=== PATIENT | female | born 1990 | race Native Hawaiian/Other Pacific Islander ===

== ENCOUNTER 2024-09-12 17:22 | Emergency (ER) | payer SELFPAY ==
[2024-09-12 17:24] VITALS: BP 119/93; PULSE 95; RESP 20; TEMP 36.6; O2SAT 98; BMI 25.8
--- OUTSIDE RECORDS SUMMARY | 2024-09-12 17:24 | XMS_ITS | Clinical Summary ---
Author Organization [facility] Address [address] [place] [address] Care Team Providers Care Pulley Worker Name Role Phone No Primary/Referring, Phy Primary Care Provider Unavailable Source Comments You are receiving this document as you are listed as the primary care provider,follow-up provider, or the patient has been referred to you for consultation.This is in compliance with the Medicare andMedicaid EHR Incentive Program,which states Providers who transition their patient to another setting of careor provider of care or refers their patient to another provider of care shouldprovide summary care record for each transition of care or referral. [facility] Allergies Active Allergy Reactions Criticality Noted Date Comments Amoxapine Nausea And Vomiting 08/24/2015 Diazepam Other, see comments,Rash Low 06/23/2023 Mood changes and edema Gabapentin 12/29/2018 Other reaction(s): *Unknown Other 08/29/1993 PN: LW Other1: -NKA Review Contrast Media 08/29/1993 PN: LW CM1: CONTRAST- NKA Reaction : Valproic Acid Edema,generalized 04/07/2017 Other reaction(s): *Unknown Causes thrombocytopenia Causes thrombocytopenia Medications * This document contains information received from the source organization and may not represent a complete record from that organization. intra-uterine copper (PARAGARD T 380-A) by Intrauterine route once. 04/22/20 14 Active Alum & Mag Hydroxide-Simeth (ALUMINUM-MAGNESI UM-SIMETHICONE) 200-200-20 MG/5ML Take 15 mL by mouth 4 times daily as needed. 11/18/19 19 Active polyethylene glycol 3350 (GLYCOLAX) powder Take 17 g by mouth every 24 hours as needed. 05/30/20 Active sennosides-docusa te sodium (SENNA-S,SENNA PLUS) 8.6-50 MG per tablet Take 1-2 Tablets by mouth two times a day. 10/15/19 Active metoclopramide (REGLAN) 5 MG tablet Take 2 Tablets by mouth three times a day as needed for Nausea or Vomiting. 45 Tablet 12/23/19 Active Additional Information Patient not taking.Reported on 06/29/2024 ARIPiprazole (ABILIFY) 10 MG tablet Take 10 mg by mouth. 05/27/20 Active cholecalciferol (D3-50) 1.25 MG (44502 UT) capsule Take 50,000 Units by mouth. 01/05/20 Active folic acid 1 MG tablet Take 1 mg by mouth. 01/06/20 Active ondansetron (ZOFRAN-ODT) [address] 4 mg under tongue. 01/05/20 Active thiamine (VITAMIN B-1) 100 MG tablet Take 100 mg by mouth. 01/08/20 Active multivitamin with minerals tablet Take 1 Tablet by mouth. 04/26/20 Active Multiple Vitamins-Minerals (SUPER THERA HI M) Take 1 Tablet by mouth. 01/06/20 Active traZODone (DESYREL) 300 MG tablet Take 300 mg by mouth. 01/05/20 Active fluticasone propionate (FLONASE) 50 MCG/ACT nasal solution 1 [place] by Nasal route. 12/06/19 Active ALBUterol sulfate HFA 108 (90 Base) MCG/ACT inhaler Inhale 1-2 Puffs every 4 hours as needed for Wheezing. 1 Each 2 05/23/20 Active Additional Information Patient not taking.Reported on 06/29/[address] 1 [place] into both nostrils daily as needed. 14.1 g 11 05/23/20 Active Additional Information Patient not taking.Reported on 06/29/2024 pantoprazole (PROTONIX) 40 MG tabletIndications :Gastroesophageal Reflux Disease Take 1 Tablet by mouth two times a day. Indications: Gastroesophageal Reflux Disease 30 Tablet 05/31/20 Active Additional Information Patient not taking.Reported on 06/29/2024 prochlorperazine (COMPAZINE) 10 MG tablet Take 1 Tablet by mouth every 6 hours as needed for Nausea or Vomiting. 20 Tablet 05/31/20 20 Active Additional Information Patient not taking.Reported on 06/29/2024 furosemide (LASIX) 20 MG tablet Take 1-2 Tablets by mouth daily for 7 days. Take in morning. 10 Tablet 02/23/20 21 Active hydroCHLOROthiazi de (ORETIC) 12.5 MG tablet Take 12.5 mg by mouth. 02/22/20 21 Active hydrOXYzine HCl (ATARAX) 25 MG tablet Take 25-50 mg by mouth. 02/22/20 21 Active Active Problems Problem Noted Date Diagnosed Date Encounter for insertion of ParaGard IUD 04/04/20 22 Overview (04/04/2022): Placed 2014 in [place] Not immune to hepatitis B virus 04/26/2021 Overview (04/04/2022): Repeating series due to lack of immunity. Next vaccine due late Mar/early 2020. Bipolar 2 disorder 03/16/2021 Alcohol dependence 12/30/2020 Thrombocytopenia 12/26/2020 Alcohol withdrawal seizure 09/12/2019 Chronic liver failure without hepatic coma 09/12 H pylori ulcer 09/12/2019 Alcohol dependence with withdrawal with complica tion 04/20/2019 Chronic alcoholic gastritis without hemorrhage 0 12/29/2018 Hypomagnesemia 12/29/2018 Alcoholic liver failure 12/22/2018 Right clavicle fracture 05/26/2018 Alcohol withdrawal syndrome 05/07/2018 Posttraumatic stress disorder 05/07/2018 Coagulopathy 05/07/2018 Overview (09/12/2019): Related to liver disease Pancytopenia 05/07/2018 Overview (09/12/2019): Related to liver disease Portal hypertension 05/07/2018 History of stomach ulcers 04/21/2018 Overview (09/12/2019): H pylori DEBBY (acute kidney injury) 11/28/2017 Nausea & vomiting 11/28/2017 ASCUS with positive high risk HPV cervical 03/28 Overview (09/12/2019): 03/2017- colposcopy advised 03/2017- colposcopy advised Chemical dependency 03/14/2017 Pericardial effusion 03/14/2017 Anxiety and depression 01/29/2017 Vertigo, benign positional 01/24/[address] of the abdomen 01/17/2017 Chronic anemia 01/14/2017 History of pleural effusion 01/14/2017 Overview (09/12/2019): Related to liver cirrhosis Hyponatremia 01/14/2017 Pleural effusion 01/14/2017 Kidney stone 01/13/2017 History of pericarditis 01/02/2017 Pericarditis, acute, idiopathic 01/02/2017 Acute hypokalemia 12/24/2016 Alcohol abuse 12/24/2016 Acute alcoholic intoxication with complication 0 12/24/2016 Helicobacter pylori infection 12/24/2016 Alcoholic cirrhosis 12/24/2016 Hypertension, essential 02/10/2015 IUD (intrauterine device) in place 08/31/2013 Overview (03/19/2017): Paraguard IUD inserted 08/27/2013 Need for desensitization to allergens 12/12/2005 Depressive disorder 10/23/2005 Persistent insomnia 10/23/2005 Unspecified asthma, uncomplicated 08/15/2005 Encounters Date Type Department Care Team Description 06/29/2024 2:00 PM APPLICATION DEVELOPMENT TEAM LEAD Office Visit [facility] [address] [place] [address] Jere Bateman PA-C Vomiting, unspecified vomiting type, unspecified whether nausea present; Jaundice; Alcoholic cirrhosis, unspecified whether ascites present (HRC) 06/12/2024 8:56 PM APPLICATION DEVELOPMENT TEAM LEAD - 06/12/2024 10:59 PM [facility] Emergency [facility] [address] [facility] [place] [address] Zhang James MD Alcohol dependence with uncomplicated intoxication (HRC); Hypokalemia Discharge Disposition: Home from Last 3 Months Immunizations Immunization Administration Dates Next Due 4vHPV (Gardasil) 08/16/2009,08/03/2008, 8 DTaP 1988 Flu Vac (3+ yrs) 05/21/2005,06/28/2003 Fluzone Qiv Multidose Vial 0 .25 (6-35 Mos) 04/07/2019 HepA Adult (19+ yrs) 03/16/2021 HepB Adult (Engerix-B, 20+ y rs, 3 dose series) 04/27/2021,03/16/2021,04/07/2009,2008,09/26/2008,11/27/1992 Influenza ([place] Only) (Flul aval Quad 0.5, 3+ yrs) 04/19/2020 Influenza IIV4 (Quadrivalent ) 0.5mL (18556) 04/27/2021,05/29/2018,05/10/2018,2016 Influenza, Unspecified Formulation 05/24/2015 Ernie COVID-19 Vaccine 12/19/2020 MMR 04/09/2000 Moderna Monovalent 12+ 08/17/2021 OPV, Trivalent (Orimune or tOPV) 1988 PPSV23 (Pneumovax) 01/02/2019 Td 06/25/2006,04/09/2000 Tdap 09/12/2019,01/31/2011 Family History Medical History Relation Name Comments Coronary Artery Disease Maternal Grandfather quadruple bypass Hyperlipidemia Maternal Grandfather Cerebrovascular Disease Maternal Grandmother stroke Diabetes, Type II Maternal Grandmother Hypertension Maternal Grandmother Relation Name Status Comments Father Mother Alive Brother Alive Maternal Grandfather Alive Maternal Grandmother Paternal Grandfather Paternal Grandmother Sister 1 Alive Sister 2 Alive Social History Tobacco Use Types Packs/Day Years Used Date Smoking Tobacco: Former Cigarettes 0.5 4 0 08/20/2003 - 08/20/2007 Smokeless Tobacco: Never Tobacco Cessation:Counseling Given: Not Answered Alcohol Use Standard Drinks/Week Comments Not Currently 0 (1 standard drink = 0.6 oz pur e alcohol) sober since 01/05/2020 PHQ-2 Answer Date Recorded PHQ-2 Score 2 04/04/2022 Comments No Sex and Gender Information Value Date Recorded Sex Assigned at Not on file Legal Sex Female 4:38 AM CDT Gender Identity Not on file Sexual Orientation Not on file 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 Not on file Not on file Last Filed Vital Signs Vital Sign Reading Time Taken Comments Blood Pressure 150/102 06/29/2024 1:25 PM APPLICATION DEVELOPMENT TEAM LEAD Pulse 101 06/29/2024 1:25 PM APPLICATION DEVELOPMENT TEAM LEAD Temperature 36.7 C (98.1 F) 06/29/2024 1:25 PM APPLICATION DEVELOPMENT TEAM LEAD Respiratory Rate 16 06/29/2024 1:25 PM APPLICATION DEVELOPMENT TEAM LEAD Oxygen Saturation 100% 06/29/2024 1:25 PM APPLICATION DEVELOPMENT TEAM LEAD Inhaled Oxygen Concentration - - Weight 69.4 kg (153 lb) 04/04/2022 11:09 AM CDT Height 170.2 cm (5' 7) 04/04/2022 11:09 AM CDT Body Mass Index 23.96 04/04/2022 11:09 AM CDT Plan of Treatment Health Maintenance Due Date Last Done Comments IPV (Polio) (2 of 3 - 4-dose series) 1988 1988 Adult Preventive Visit 2006 HepB (7) 04/27/2022 04/27/2021, 02/26, 04/07/2009, Additional history exists Asthma ACT (score of 20 or higher) 04/04/2023 04/04/2022 Cervical Cancer Screening 03/27/2024 03/27/2021 (Com pleted) COVID-19 Vaccine ( season) 2024 05/16/2023, 08/17/2021, 12/19/2020 Influenza (#1) 2024 04/25/2023, 07/2020, 04/19/2020, Additional history exists DTaP/Tdap/Td (6 - Tdap) 09/12/2029 09/12/19, 01/31/2011, 06/25/2006, Additional history exists Zoster/Shingles (1 of 2) 2038 HPV Vaccine Completed 08/16/2009, 01/2009, 05/20/2008 Hep C Screening (Preventive Services) Completed 01/02/2019 (Completed) HIV Screening (Preventive Services) Completed 03/27/2021 (Completed), 04/11/2017, 04/11/2017 (Completed), Additional history exists HepA Completed 04/01/2023, 03/16/2021 Pneumococcal Completed 04/01/2023, 01/02/2019 Hib Aged Out No longer eligi ble based on patient's age to complete this topic MCV4 Aged Out No longer eligi ble based on patient's age to complete this topic Meningococcal B Aged Out No longer el igible based on patient's age to complete this topic Procedures Procedure Name Priority Date/Time Associated Diagnosis Comments EXTRA LAVENDER TOP TUBE Routine 06/12/2024 9:38 PM APPLICATION DEVELOPMENT TEAM LEAD EXTRA LIGHT GREEN TUBE Routine 06/12/2024 9:38 PM APPLICATION DEVELOPMENT TEAM LEAD EXTRA GOLD/SST TUBE Routine 06/12/2024 9 :38 PM APPLICATION DEVELOPMENT TEAM LEAD EXTRA BLUE TOP TUBE Routine 06/12/2024 9 :38 PM APPLICATION DEVELOPMENT TEAM LEAD ECG 12 LEAD INPATIENT STAT 06/12/2024 9:36 PM APPLICATION DEVELOPMENT TEAM LEAD RBC AND PLATELET MORPHOLOGY STAT 06/12/2024 9:34 PM APPLICATION DEVELOPMENT TEAM LEAD COMPLETE BLOOD COUNT-W/DIFF STAT 06/12/2024 9:34 PM APPLICATION DEVELOPMENT TEAM LEAD MAGNESIUM STAT 06/12/2024 9:34 PM APPLICATION DEVELOPMENT TEAM LEAD ALCOHOL,ETHYL STAT 06/12/2024 9:34 PM APPLICATION DEVELOPMENT TEAM LEAD LIVER PANEL(HEPATIC FUNCTION PANEL) STAT 06/12/2024 9:34 PM APPLICATION DEVELOPMENT TEAM LEAD CBC AND DIFFERENTIAL PANEL STAT 06/12/2024 9:34 PM APPLICATION DEVELOPMENT TEAM LEAD BASIC METABOLIC PANEL STAT 06/12/2024 9:34 PM APPLICATION DEVELOPMENT TEAM LEAD from Last 3 Months Results * Extra Lavender top tube (06/12/2024 9:38 PM APPLICATION DEVELOPMENT TEAM LEAD) Extra Lavender Top Drawn Specimen will be held for 3 days 06/12/2024 11:01 PM APPLICATION DEVELOPMENT TEAM LEAD [facility] Blood Venipuncture / Unknown 06/12/2024 9:38 PM APPLICATION DEVELOPMENT TEAM LEAD 06/12/2024 9:42 PM APPLICATION DEVELOPMENT TEAM LEAD us Zhang James MD LAB_1 Final Result Performing Organization Address [facility] Phone Number [facility] [address] [place] [address] * Extra Blue top tube (06/12/2024 9:38 PM APPLICATION DEVELOPMENT TEAM LEAD) Extra Blue Top Drawn Specimen will be held for 24 hours 06/12/2024 11:01 PM APPLICATION DEVELOPMENT TEAM LEAD [facility] Blood Venipuncture / Unknown 06/12/2024 9:38 PM APPLICATION DEVELOPMENT TEAM LEAD 06/12/2024 9:42 PM APPLICATION DEVELOPMENT TEAM LEAD us Zhang James MD LAB_1 Final Result Performing Organization Address [facility] Phone Number [facility] [address] [place] [address] * Extra Gold/SST Tube (06/12/2024 9:38 PM APPLICATION DEVELOPMENT TEAM LEAD) Extra Gold/SST Tube Drawn Specimen will be held for 5 days 06/12/2024 11:01 PM APPLICATION DEVELOPMENT TEAM LEAD [facility] Blood Venipuncture / Unknown 06/12/2024 9:38 PM APPLICATION DEVELOPMENT TEAM LEAD 06/12/2024 9:42 PM APPLICATION DEVELOPMENT TEAM LEAD us Zhang James MD LAB_1 Final Result Performing Organization Address [facility] Phone Number [facility] [address] [place] [address] * Extra Light Green Tube (06/12/2024 9:38 PM APPLICATION DEVELOPMENT TEAM LEAD) Extra Light Green Tube Drawn Specimen will be held for 5 days 06/12/2024 11:01 PM APPLICATION DEVELOPMENT TEAM LEAD [facility] Blood Venipuncture / Unknown 06/12/2024 9:38 PM APPLICATION DEVELOPMENT TEAM LEAD 06/12/2024 9:42 PM APPLICATION DEVELOPMENT TEAM LEAD us Zhang James MD LAB_1 Final Result Performing Organization Address City/[facility]/ZIP Co de Phone Number [facility] [address] [place], [place] [address] * ECG 12 Lead Inpatient (06/12/2024 9:36 PM APPLICATION DEVELOPMENT TEAM LEAD) Ventricular Rate 80 BPM [facility] Atrial Rate 80 BPM [facility] P-R Interval 198 ms [facility] QRS Duration 94 ms [facility] QT 412 ms [facility] QTC 475 ms [facility] P [place] 42 degrees [facility] R [place] 21 degrees [facility] T [place] 41 degrees [facility] 06/12/2024 9:36 PM APPLICATION DEVELOPMENT TEAM LEAD Narrative [facility] - 06/13/2024 8:58 PM APPLICATION DEVELOPMENT TEAM LEAD Sinus rhythm Normal ECG When compared with ECG of 27-MAY-2020 20:08, No significant change was found Confirmed by Zhang James ([id number]) on 06/13/2024 8:58:14 PM Procedure Note Zhang James MD - 06/13/2024 Sinus rhythm Normal ECG When compared with ECG of 27-MAY-2020 20:08, No significant change was found Confirmed by Zhang James ([id number]) on 06/13/2024 8:58:14 PM us Zhang James MD PN ECG ORDERABLES Final Result Performing Organization Address [facility] Co de Phone Number [facility] [address] [place] [address] * (ABNORMAL) Morphology-RBC and Platelet (06/12/2024 9:34 PM APPLICATION DEVELOPMENT TEAM LEAD) RBC Morphology Reviewed 06/12/2024 10:46 PM APPLICATION DEVELOPMENT TEAM LEAD [facility] Platelet Estimate Decreased(A) Adequate 06/12/2024 10:46 PM APPLICATION DEVELOPMENT TEAM LEAD [facility] Blood Venipuncture / Unknown 06/12/2024 9:34 PM APPLICATION DEVELOPMENT TEAM LEAD 06/12/2024 9:42 PM APPLICATION DEVELOPMENT TEAM LEAD us Zhang James MD LAB_1 Final Result [facility] [address] [place] [address], [facility] * (ABNORMAL) Complete Blood Count-W/Diff (06/12/2024 9:34 PM APPLICATION DEVELOPMENT TEAM LEAD) WBC 1.9(L) 3.5 - 10.5 x10(9)/L 06/12/2024 10:46 PM APPLICATION DEVELOPMENT TEAM LEAD [facility] RBC 3.57(L) 3.90 - 5.03 x10(12)/L 06/12/2024 10:46 PM APPLICATION DEVELOPMENT TEAM LEAD [facility] Hemoglobin 12.7 12.0 - 15.5 g/dL 06/12/2024 10:46 PM APPLICATION DEVELOPMENT TEAM LEAD [facility] HCT 37.3 34.9 - 44.5 % 06/12/2024 10:46 PM APPLICATION DEVELOPMENT TEAM LEAD [facility] MCV 104.5(H) 80.0 - 100.0 fL 06/12/2024 10:46 PM APPLICATION DEVELOPMENT TEAM LEAD [facility] MCH 35.6(H) 27.6 - 33.3 pg 06/12/2024 10:46 PM APPLICATION DEVELOPMENT TEAM LEAD [facility] MCHC 34.0 31.5 - 35.2 g/dL 06/12/2024 10:46 PM APPLICATION DEVELOPMENT TEAM LEAD [facility] RDW 15.8(H) 11.9 - 15.5 % 06/12/2024 10:46 PM APPLICATION DEVELOPMENT TEAM LEAD [facility] Platelets 106(L) 150 - 450 x10(9)/L 06/12/2024 10:46 PM APPLICATION DEVELOPMENT TEAM LEAD [facility] Automated NRBC 0 <=0 /100 WBC 06/12/2024 10:46 PM APPLICATION DEVELOPMENT TEAM LEAD [facility] Neutrophil Absolute 1.2(L) 1.7 - 7.0 10(9)/L 06/12/2024 10:46 PM APPLICATION DEVELOPMENT TEAM LEAD [facility] Lymphocyte Absolute 0.6(L) 1.0 - 4.8 10(9)/L 06/12/2024 10:46 PM APPLICATION DEVELOPMENT TEAM LEAD [facility] Monocyte Absolute 0.1(L) 0.2 - 0.9 10(9)/L 06/12/2024 10:46 PM APPLICATION DEVELOPMENT TEAM LEAD [facility] Eosinophil Absolute 0.0 0.0 - 0.5 10(9)/L 06/12/2024 10:46 PM APPLICATION DEVELOPMENT TEAM LEAD [facility] Basophil Absolute 0.0 0.0 - 0.3 10(9)/L 06/12/2024 10:46 PM APPLICATION DEVELOPMENT TEAM LEAD [facility] Immature Granulocyte % 1.0(H) 0.0 - 0.5 % 06/12/2024 10:46 PM APPLICATION DEVELOPMENT TEAM LEAD [facility] Blood Venipuncture / Unknown 06/12/2024 9:34 PM APPLICATION DEVELOPMENT TEAM LEAD 06/12/2024 9:42 PM APPLICATION DEVELOPMENT TEAM LEAD Zhang James MD LAB_1 Final Result Performing Organization Address [facility] de Phone Number [facility] [address] * (ABNORMAL) Liver Panel (Hepatic Function Panel) (06/12/2024 9:34 PM APPLICATION DEVELOPMENT TEAM LEAD) Alkaline Phosphatase 139 40 - 150 U/L 06/12/2024 10:04 PM APPLICATION DEVELOPMENT TEAM LEAD [facility] Bilirubin, Total 2.5(H) 0.2 - 1.2 mg/dL 06/12/2024 10:04 PM APPLICATION DEVELOPMENT TEAM LEAD [facility] Bilirubin, Direct 1.5(H) 0.0 - 0.5 mg/dL 06/12/2024 10:04 PM APPLICATION DEVELOPMENT TEAM LEAD [facility] AST (SGOT) 140(H) 10 - 40 U/L 06/12/2024 10:04 PM APPLICATION DEVELOPMENT TEAM LEAD [facility] ALT (SGPT) 90(H) <=55 U/L 06/12/2024 10:04 PM APPLICATION DEVELOPMENT TEAM LEAD [facility] Protein, Total 7.0 6.4 - 8.3 g/dL 06/12/2024 10:04 PM APPLICATION DEVELOPMENT TEAM LEAD [facility] Albumin 3.7 3.5 - 5.0 g/dL 06/12/2024 10:04 PM APPLICATION DEVELOPMENT TEAM LEAD [facility] Blood Venipuncture / Unknown 06/12/2024 9:34 PM APPLICATION DEVELOPMENT TEAM LEAD 06/12/2024 9:42 PM APPLICATION DEVELOPMENT TEAM LEAD Zhang James MD LAB_1 Final Result Performing Organization Address [facility] de Phone Number [facility] [address] * (ABNORMAL) Basic Metabolic Panel (06/12/2024 9:34 PM APPLICATION DEVELOPMENT TEAM LEAD) Sodium 139 136 - 145 mmol/L 06/12/2024 10:04 PM APPLICATION DEVELOPMENT TEAM LEAD [facility] Potassium 3.2(L) 3.5 - 5.1 mmol/L 06/12/2024 10:04 PM APPLICATION DEVELOPMENT TEAM LEAD [facility] Chloride 109 98 - 109 mmol/L 06/12/2024 10:04 PM APPLICATION DEVELOPMENT TEAM LEAD [facility] CO2 16(L) 20 - 29 mmol/L 06/12/2024 10:04 PM APPLICATION DEVELOPMENT TEAM LEAD [facility] Anion Gap 14 6 - 16 mmol/L 06/12/2024 10:04 PM APPLICATION DEVELOPMENT TEAM LEAD [facility] Calcium 9.3 8.4 - 10.4 mg/dL 06/12/2024 10:04 PM APPLICATION DEVELOPMENT TEAM LEAD [facility] BUN 8 7 - 26 mg/dL 06/12/2024 10:04 PM APPLICATION DEVELOPMENT TEAM LEAD [facility] Creatinine 0.39(L) 0.55 - 1.02 mg/dL 06/12/2024 10:04 PM APPLICATION DEVELOPMENT TEAM LEAD [facility] Glucose 80 70 - 100 mg/dL 06/12/2024 10:04 PM APPLICATION DEVELOPMENT TEAM LEAD [facility] Comment:The given reference range is for the fasting state. Non-fasting reference range for glucose is 70 - 180 mg/dL. GFR, Estimated >60 >60 mL/min/1.7 3m2 06/12/2024 10:04 PM APPLICATION DEVELOPMENT TEAM LEAD [facility] Blood Venipuncture / Unknown 06/12/2024 9:34 PM APPLICATION DEVELOPMENT TEAM LEAD 06/12/2024 9:42 PM APPLICATION DEVELOPMENT TEAM LEAD Zhang James MD LAB_1 Final Result [facility] [address] * Magnesium (06/12/2024 9:34 PM APPLICATION DEVELOPMENT TEAM LEAD) Magnesium 2.4 1.6 - 2.6 mg/dL 06/12/2024 10:04 PM APPLICATION DEVELOPMENT TEAM LEAD [facility] Blood Venipuncture / Unknown 06/12/2024 9:34 PM APPLICATION DEVELOPMENT TEAM LEAD 06/12/2024 9:42 PM APPLICATION DEVELOPMENT TEAM LEAD Zhang James MD LAB_1 Final Result Performing Organization Address [facility] de Phone Number [facility] [address] * (ABNORMAL) Alcohol,Ethyl Level (06/12/2024 9:34 PM APPLICATION DEVELOPMENT TEAM LEAD) Ethyl Alcohol 0.34(H) <=0.01 g/dL 06/12/2024 10:04 PM APPLICATION DEVELOPMENT TEAM LEAD [facility] Blood Venipuncture / Unknown 06/12/2024 9:34 PM APPLICATION DEVELOPMENT TEAM LEAD 06/12/2024 9:42 PM APPLICATION DEVELOPMENT TEAM LEAD Narrative [facility] - 06/12/2024 10:04 PM APPLICATION DEVELOPMENT TEAM LEAD For medical purposes only; not valid for forensic, legal, or employment use. Zhang James MD LAB_1 Final Result Performing Organization Address [facility] de Phone Number [facility] [address] from Last 3 Months Insurance [address] [place] [id number] [facility] [employer] [place] [address] Advance Directives * Full Code (Latest Code Status on File) Date Activated Date Inactivated Comments 05/28/2020 12:35 AM 05/31/2020 1:54 PM Question Answer Comments On Admission, Code status wa s determined by: Not discussed with patient/family * Full Code Date Activated Date Inactivated Comments 12/10/2018 3:30 PM 12/22/2018 12:45 PM Care Teams Pulley Worker Relationship Specialty Start Date End Date No Primary/Referring, Phy PCP - General 04/04/22
--- OUTSIDE RECORDS SUMMARY | 2024-09-12 17:24 | XMS_ITS | Referral Summary ---
Author Organization [facility] Address [address] [place] [address] Care Team Providers Care Speed Belt Sander Tender Name Role Phone Doctor, No Primary Care Provider Unavailabl e Clinic, No Primary Unavailable Unavailable Allergies Active Allergy Reactions Criticality Noted Date Comments Divalproex 06/29/2020 Gabapentin 06/29/2020 Medications ARIPiprazole (ABILIFY) 10 mg oral tablet Take 10 mg by mouth once daily. Active traZODone (DESYREL) 100 mg oral tablet Take 300 mg by mouth at bedtime as needed for sleep. Active ondansetron (ZOFRAN) 4 mg oral ODT Dissolve 1-2 tablets (4-8 mg) in mouth every 8 (eight) hours as needed. 20 tablet 10/26/2020 12:06 PM CDT 10/26/2020 Active Active Problems Problem Noted Date Diagnosed Date Hypokalemia 12/02/2020 Alcohol withdrawal seizure w ith complication, with unspecified complication 10/24/2020 Social History Tobacco Use Types Packs/Day Years Used Date Smoking Tobacco: Light Smoker Cigarettes E - Cigarettes Smokeless Tobacco: Never Tobacco Cessation:Ready to Q uit: No; Counseling Given: No Alcohol Use Standard Drinks/Week Comments Yes 0 (1 standard drink = 0.6 oz pur e alcohol) on and off abuse of Comments Unknown Sex and Gender Information Value Date Recorded Sex Assigned at Not on file Legal Sex Female 12:38 PM HOUSE MANAGER Gender Identity Not on file Sexual Orientation Not on file Last Filed Vital Signs Vital Sign Reading Time Taken Comments Blood Pressure 116/71 12/06/2020 12:06 PM CDT Pulse 88 12/06/2020 12:06 PM CDT Temperature 36.7 C (98 F) 12/06/2020 12:06 PM CDT Respiratory Rate 20 12/06/2020 12:06 PM CDT Oxygen Saturation 96% 12/06/2020 12:06 PM CDT Inhaled Oxygen Concentration - - Weight 69.9 kg (154 lb 1.6 oz) 12/02/2020 9:05 P M CDT Height 170.2 cm (5' 7) 12/02/2020 9:05 PM CDT Body Mass Index 24.14 12/02/2020 9:05 PM CDT Plan of Treatment Not on file Procedures Procedure Name Priority Date/Time Associated Diagnosis Comments HEP A/B/C PANEL Add On 12/02/2020 4:56 PM CDT from Last 3 Months or Most Recently Relevant to Health Maintenance Results * Hepatitis A / B / C Profile (12/02/2020 4:56 PM CDT) HEP BC IGM MADIHA Non-React payton Non-React payton [facility] ANALYZER 12/02/2020 11:26 PM CDT [facility] HEP A IGM MADIHA Non-React [place] Non-React pay[place] [facility] ANALYZER 12/02/2020 11:26 PM CDT [facility] HEP BS ANTIGEN Non-React [place] Non-React payton [facility] ANALYZER 12/02/2020 11:26 PM CDT [facility] Hepatitis C Antibody Non-React payton Non-React payton [facility] ANALYZER 12/02/2020 11:26 PM CDT [facility] Blood 12/02/2020 4:56 PM CDT 12/02/2020 5:02 PM CDT Lana KOEHLER IMMUNOLOGY ORDERABLE Final Result [facility] [address] [place] [id number] from Last 3 Months or Most Recently Relevant to Health Maintenance Advance Directives For more information, please contact: [phone] * Full Code (Latest Code Status on File) Date Activated Date Inactivated Comments 12/02/2020 9:05 PM 12/06/2020 7:22 PM Question Answer Comments How was code status determined? Previous Documen tation * Full Code Date Activated Date Inactivated Comments 10/24/2020 3:31 PM 10/26/2020 5:44 PM Question Answer Comments How was code status determined? Patient Care Teams Speed Belt Sander Tender Relationship Specialty Start Date End Date Doctor, No No ad PCP - General Radiology 06/29/20 Clinic, No Primary PCP - Primary Care Clinic 06/29/20
--- OUTSIDE RECORDS SUMMARY | 2024-09-12 17:24 | XMS_ITS ---
Author Organization [facility] Address [address] [place] [address] Care Team Providers Care Textile Scrap Salvager Name Role Phone Julissa Frank [facility] Unavailable [phone] Shai Horta MD Unavailable [phone] Deborah Rascon DO Unavailable [phone] Maria Whitley MD Unavailable Kaila Sen MD Primary Care Provide r Kaila Sen MD Unavailable None Unavailable Unavailable Maria Whitley MD Unavailable Julien Miranda MD Unavailable [phone] [facility] Primary Care Care Coordination Status:Identified (Enrolling) Start date:06/30/2023 Enrollment reason:Referred by provider or care team Overview [facility] Case Team Name Relationship Phone MAHOGANY aJmison Candy Cutter Machine(Re sponsible Staff) Continued Care and Services Coordination
--- OUTSIDE RECORDS SUMMARY | 2024-09-12 17:24 | XMS_ITS | Encounter Summary ---
Author Organization [facility] Address [address] [place] [address] Care Team Providers Care Engine Research Engineer Name Role Phone [place], [facility] Primary Care Prov ider Unavailable No Ref-Primary, Physician Primary Care Provider Amy Mace GUM SPRAYER PROGRAM/MUSIC DIRECTOR Unavailable Amy Mace GUM SPRAYER PROGRAM/MUSIC DIRECTOR Unavailable Oma Pierson GUM SPRAYER PROGRAM/MUSIC DIRECTOR Unavailable Unav ailable Amy Mace GUM SPRAYER PROGRAM/MUSIC DIRECTOR Unavailable Oma Pierson GUM SPRAYER PROGRAM/MUSIC DIRECTOR Unavailable Unav ailable Julissa Frank [facility] Unavailable [phone] Deborah Rascon DO Primary Care Provider [phone] Deborah Rascon DO Unavailable [phone] Shai Horta MD Unavailable [phone] Deborah Rascon DO Unavailable [phone] Justice Foster MD Unavailable [phone] Marie Abbott PROGRAM/MUSIC DIRECTOR Unavailable [phone] Jaxson Bryan MD Unavailable Jaxson Bryan MD Unavailable Yunior Mesa MD Unavailable [phone] Maria Whitley MD Unavailable [facility] Mayra Rosas [facility] Primary Ca re Provider Kaila Sen MD Primary Care Provide r Deborah Rascon DO Unavailable [phone] Jaxson Diane MD Unavailable [phone] Radha Carrillo Dayna BRITON PROGRAM/MUSIC DIRECTOR Unavailable [phone] Maria Whitley MD Unavailable Kaila Sen MD Unavailable Kaila Sen MD Unavailable [phone] Deborah Rascon DO Unavailable [phone] None Unavailable Unavailable Rico Corey INSTRUCTION ASSISTANT PRINCIPAL Unavailable Unavailable Rico Corey INSTRUCTION ASSISTANT PRINCIPAL Unavailable Unavailable Maria Whitley MD Unavailable Julien Miranda MD Unavailable [phone] Reason for Visit * Reason Onset Date Comments CD Outpatient 04/15/2018 Encounter Details Date Type Department Care Team (Late st Contact Info) Description 04/15/2018 Telephone [facility] Behavioral Health Intake [address] [place] [phone] Generic, Behavioral Intake, CD Outpatient Social History Tobacco Use Types Packs/Day Years Used Date Smoking Tobacco: Every Day Cigarettes Smokeless Tobacco: Never Alcohol Use Standard Drinks/Week Comments Yes 0 (1 standard drink = 0.6 oz pur e alcohol) as much liquor as I can get Comments No Sex and Gender Information Value Date Recorded Sex Assigned at Female 01/01/2021 8:44 AM CDT Legal Sex Female 1:07 PM CDT Gender Identity Female 01/01/2021 8:44 AM CDT Sexual Orientation Straight 01/01/2021 8: 44 AM CDT documented as of this encounter Miscellaneous Notes * Telephone Encounter - Hilda Akbar LADC - 04/27/2018 12:59 PM CDT 04/27/2018 Pt did not call or show for her scheduled CD evaluation. This is her second time she has either notshown or rescheduled on the day of her CD evaluation. * Telephone Encounter - Jaxson Lira - 04/15/2018 12:42 PM CDT 04/15/18 Client called to reschedule CD Eval appointment for 04/27/18 - [place]. ValeT documented in this encounter Plan of Treatment Not on file documented as of this encounter Visit Diagnoses Not on filedocumented in this encounter Additional Health Concerns Assessment Noted Time PHQ-9 Depression Total Score: 5 03/10/20 17 10:15 AM CDT documented as of this encounter Care Teams Engine Research Engineer Relationship Specialty Start Date End Date Center, [facility] PCP - General 04/03/18 05/17/18 No Ref-Primary, Physician PCP - General 05/18/18 05/26/19 Amy Mace APRN PROGRAM/MUSIC DIRECTOR [address] [place] [address] PCP - Assigned PCP 05/03/18 09/29/18 Deborah Rascon DO [address] [facility] [address] [address] PCP - General Family Practice 05/27/19 02/28/21 Clinic - [facility] [address] [address] PCP - General Family Medicine 03/01/21 03/07/21 Kaila Sen MD [address] [place] [address] PCP - General Family Medicine 03/08/21 Amy Mace, GUM SPRAYER PROGRAM/MUSIC DIRECTOR [address] [place] [address] Assigned PCP 05/03/18 10/10/18 Oma Pierson, GUM SPRAYER PROGRAM/MUSIC DIRECTOR Assigned PCP 10/11/18 12/26/18 Amy Mace, GUM SPRAYER PROGRAM/MUSIC DIRECTOR [address] [facility] [place] [address] Assigned PCP 12/27/18 02/13/19 Oma Pierson, GUM SPRAYER PROGRAM/MUSIC DIRECTOR Assigned PCP 02/14/19 06/05/19 Julissa Frank [facility] [address] [place], [place] [address] Pharmacist Pharmacist 05/27/19 Deborah Rascon DO [facility] [address] [place], [place] [id number] Assigned PCP 03/18/21 04/28/21 Shai Horta MD [address] [place], [place] [phone] Dermatology 11/22/19 Deborah Rascon DO [address] [place] [address] Referring Physician Family Practice 11/22/19 [place] [address] [place] [address] Assigned Sleep Provider 05/19/20 Marie Abbott CNP [facility] [address] [place] [address] Assigned Behavioral Health Provider 05/19/20 05/12/21 Jaxson Bryan MD [address] [place] [address] Assigned Gastroenterology Provider 05/19/20 10/21/20 Jaxson Bryan MD [address] [place] [address] Assigned Surgical Provider 10/22/20 Yunior Mesa MD [address] [place] [address] Assigned Musculoskeletal Provider 01/28/21 03/24/21 Maria Whitley MD [address] [place] [address] Gastroenterology 02/23/21 Deborah Rascon DO [facility] [address] [place] [address] Assigned PCP 06/06/19 03/10/21 Jaxson Diane MD [address] [place] [address] Assigned Musculoskeletal Provider 03/25/21 09/20/22 Radha Carrillo APRN PROGRAM/MUSIC DIRECTOR [address] [place] [address] Assigned PCP 03/11/21 03/17/21 Maria Whitley MD [address] [place] [address] Assigned Gastroenterology Provider 03/04/21 08/30/22 Kaila Sen MD [address] [place] [address] Assigned PCP 05/27/21 Kaila Sen MD [address] [place] [address] Assigned PCP 04/29/21 05/05/21 Deborah Rascon DO [facility] [address], [place] [address] Assigned PCP 05/06/21 05/26/21 None 02/28/23 Rico Corey INSTRUCTION ASSISTANT PRINCIPAL Power Plant Inspector 06/24/23 07/08/23 Rico Corey INSTRUCTION ASSISTANT PRINCIPAL Power Plant Inspector 07/14/23 07/28/23 Maria Whitley MD [address] [place] [address] Assigned Gastroenterology Provider 09/19/23 Julien Miranda MD [address] [place] [address] Assigned Behavioral Health Provider 12/18/23 documented as of this encounter
--- OUTSIDE RECORDS SUMMARY | 2024-09-12 17:24 | XMS_ITS | Encounter Summary ---
Author Organization [facility] Address [address] [place] [address] Care Team Providers Care It Administrator Name Role Phone ZacJulissa anthony [facility] Unavailable [phone] Shai Horta MD Unavailable [phone] Deborah Rascon DO Unavailable [phone] Maria Whitley MD Unavailable Kaila Sen MD Primary Care Provide r Kaila Sen MD Unavailable [phone] None Unavailable Unavailable Rico Corey LITIGATION PARALEGAL Unavailable Unavailable Rico Corey LITIGATION PARALEGAL Unavailable Unavailable Maria Whitley MD Unavailable Julien Miranda MD Unavailable [phone] Encounter Details Date Type Department Care Team (Late st Contact Info) Description 02/28/2023 Telephone [facility] [address] [address] Maria Whitley MD [address] [place] [address] Social History Tobacco Use Types Packs/Day Years Used Date Smoking Tobacco: Every Day Vaping Device Smokeless Tobacco: Never Comments:Everyday but not of ten Alcohol Use Standard Drinks/Week Comments Not Currently 0 (1 standard drink = 0.6 oz pur e alcohol) PHQ-2 Answer Date Recorded PHQ-2 Score 0 02/21/2023 Comments No Sex and Gender Information Value Date Recorded Sex Assigned at Female 01/01/2021 8:44 AM CDT Legal Sex Female 1:07 PM CDT Gender Identity Female 01/01/2021 8:44 AM CDT Sexual Orientation Straight 01/01/2021 8: 44 AM CDT COVID-19 Exposure Response Date Recorded In the last 10 days, have yo u been in contact with someone who was confirmed or suspected to have Coronavirus/COVID-19? No / Unsure 03/03/2023 11:29 AM CDT documented as of this encounter Miscellaneous Notes * Telephone Encounter - Cathy Jhaveri - 02/28/2023 9:24 AM CDT [facility] Call Center Phone Message May a detailed message be left on voicemail: yes Reason for Call: Other: Dr Kaila Sen/ [facility] cell [phone]- would like to consult regarding a medication (not currently on pt chart) please call her back to discuss. No appt was scheduled at this time by bid writer. Action Taken: Message routed to: Adult Clinics: Gastroenterology (GI) p [id number] Travel Screening: Not Applicable documented in this encounter Plan of Treatment Not on file documented as of this encounter Visit Diagnoses Not on filedocumented in this encounter Additional Health Concerns Assessment Noted Time PHQ-9 Depression Total Score: 12 02/07/ 023 12:06 PM CDT documented as of this encounter Care Teams It Administrator Relationship Specialty Start Date End Date Kaila Sen MD [facility] [place] [address] PCP - General Family Medicine 03/08/21 Julissa Frank [facility] [address] [facility] [address] [place] [address] Pharmacist Pharmacist 05/27/19 Shai Horta MD [address] [place], [place] [id number] Dermatology 11/22/19 Deborah Rascon DO [address] [place] [address] Referring Physician Family Practice 11/22/19 Maria Whitley MD [address] [place] [address] Gastroenterology 02/23/21 Kaila Sen MD [address] [place] [address] Assigned PCP 05/27/21 None 02/28/23 Rico Corey LITIGATION PARALEGAL Tactical/Mobile Watch Officer 06/24/23 07/08/23 Rico Corey LITIGATION PARALEGAL Tactical/Mobile Watch Officer 07/14/23 07/28/23 Maria Whitley MD [address] [place] [address] Assigned Gastroenterology Provider 09/19/23 Julien Miranda MD [address] [place] [address] Assigned Behavioral Health Provider 12/18/23 documented as of this encounter
--- OUTSIDE RECORDS SUMMARY | 2024-09-12 17:24 | XMS_ITS | Encounter Summary ---
Author Organization [facility] Address [address] [place] [address] Care Team Providers Care National Sales Trainer Name Role Phone No Primary/Referring, Phy Primary Care Provider Unavailable Encounter Details Date Type Department Care Team (Late st Contact Info) Description 07/05/2013 Scanned History External to Transferred Record, Provider [facility] Social History Tobacco Use Types Packs/Day Years Used Date Smoking Tobacco: Never Assessed Comments Unknown Sex and Gender Information Value Date Recorded Sex Assigned at Not on file Legal Sex Female 4:38 AM CDT Gender Identity Not on file Sexual Orientation Not on file documented as of this encounter Progress Notes * Transferred Record, Provider - 07/05/2013 12:00 AM CST K SORTER documented in this encounter Plan of Treatment Not on file documented as of this encounter Visit Diagnoses Not on filedocumented in this encounter Additional Health Concerns Infection Onset Date Last Indicated Resolved Time R/O COVID19 05/23/2020 05/23/2020 05/25/2020 1:05 PM CDT documented as of this encounter Care Teams National Sales Trainer Relationship Specialty Start Date End Date No Primary/Referring, Juliette PCP - General 04/04/22 documented as of this encounter
--- OUTSIDE RECORDS SUMMARY | 2024-09-12 17:24 | XMS_ITS | Encounter Summary ---
Author Organization [facility] Address [address] [place] [address] Care Team Providers Care Seasoning Mixer Name Role Phone No Primary/Referring, Phy Primary Care Provider Unavailable Encounter Details Date Type Department Care Team (Late st Contact Info) Description 12/10/[address] [phone] Amy Garcia MD [facility] [place] [address] MRI SAFETY AND HEALTH HISTORY QUESTIONNAIRE Social History Tobacco Use Types Packs/Day Years Used Date Smoking Tobacco: Former Cigarettes 0.5 4 0 08/20/2003 - 08/20/2007 Smokeless Tobacco: Never Alcohol Use Standard Drinks/Week Comments Yes 0 (1 standard drink = 0.6 oz pur e alcohol) Comments No Sex and Gender Information Value Date Recorded Sex Assigned at Not on file Legal Sex Female 4:38 AM CDT Gender Identity Not on file Sexual Orientation Not on file documented as of this encounter Plan of Treatment Not on file documented as of this encounter Visit Diagnoses Not on filedocumented in this encounter Additional Health Concerns Infection Onset Date Last Indicated Resolved Time R/O COVID19 05/23/2020 05/23/2020 05/25/2020 1:05 PM CDT documented as of this encounter Care Teams Seasoning Mixer Relationship Specialty Start Date End Date No Primary/Referring, Davidy PCP - General 04/04/22 documented as of this encounter
--- OUTSIDE RECORDS SUMMARY | 2024-09-12 17:24 | XMS_ITS | Encounter Summary ---
Author Organization [facility] Address [address] [place] [address] Care Team Providers Care Inspector Eyeglass Name Role Phone Ana Frankyany Silva [facility] Unavailable [phone] Deborah Rascon DO Primary Care Provider [phone] Deborah Rascon DO Unavailable [phone] Shai Horta MD Unavailable [phone] Deborah Rascon DO Unavailable [phone] Justice Foster MD Unavailable [phone] Marie Abbott LOGGING TRUCK DRIVER Unavailable [phone] Jaxson Bryan MD Unavailable Jaxson Bryan MD Unavailable Yunior Mesa MD Unavailable [phone] Maria Whitley MD Unavailable [facility] Jose Donohue [facility] re Provider Kaila Sen MD Primary Care Provide r Deborah Rascon DO Unavailable [phone] Jaxson Alejo MD Unavailable Radha Carrillo APRN LOGGING TRUCK DRIVER Unavailable [phone] Maria Whitley MD Unavailable Kaila Sen MD Unavailable Kaila Sen MD Unavailable [phone] Deborah Rascon DO Unavailable [phone] None Unavailable Unavailable Rico Corey STORAGE MANAGEMENT CONSULTANT Unavailable Unavailable Rico Corey STORAGE MANAGEMENT CONSULTANT Unavailable Unavailable Maria Whitley MD Unavailable Julien Miranda MD Unavailable [phone] Reason for Visit * Reason Onset Date Comments Refill Request 10/21/2019 Aripiprazole (Ab ilify) 10 mg tablet Refill Request 10/28/2019 Encounter Details Date Type Department Care Team (Late st Contact Info) Description 10/21/2019 Refill [facility] [address] [place] [address] Deborah Rascon DO [facility] [address] [place] [address] Refill Request (Aripiprazole (Abilify) 10 mg tablet); Refill Request Social History Tobacco Use Types Packs/Day Years Used Date Smoking Tobacco: Former Cigarettes Smokeless Tobacco: Never Comments:quit date 05/21/19 - chantix and patch helpful Alcohol Use Standard Drinks/Week Comments Not Currently 0 (1 standard drink = 0.6 oz pure alcohol) sober since 04/21/19 (previously drinking 1L vodka/day) Comments No Sex and Gender Information Value Date Recorded Sex Assigned at Female 01/01/2021 8:44 AM CDT Legal Sex Female 1:07 PM CDT Gender Identity Female 01/01/2021 8:44 AM CDT Sexual Orientation Straight 01/01/2021 8: 44 AM CDT documented as of this encounter Miscellaneous Notes * Telephone Encounter - Deborah Rascon DO - 10/21/2019 11:23 AM CDT We will discuss medication at follow-up visit on 10/24. Deborah Rascon DO on 10/21/2019 at 11:22 AM * Telephone Encounter - Hawthorne, Ashely Portillo - 10/21/2019 10:20 AM CDT Pharmacy: [facility] - [place] - [address] P: [phone] F: [phone] [facility] PATIENT Requested Prescriptions Pending Prescriptions Disp Refills ??? ARIPiprazole (ABILIFY) 10 MG tablet 30 tablet 0 Sig: Take 1 tablet (10 mg) by mouth daily Last Written Prescription Date: 05/27/2019 Last Fill Quantity: 30 tablet, # refills: 0 Last office visit: No previous visit found with prescribing provider: Future Office Visit: Antipsychotic Medications Passed - 10/21/2019 10:20 AM Passed - Blood pressure under 140/90 in past 12 months BP Readings from Last 3 Encounters: 05/27/19 116/62 05/12/19 125/86 05/05/19 110/60 Passed - Patient is 12 years of age or older Passed - Lipid panel on file within the past 12 months Recent Labs Lab Test 04/21/19 0738 CHOL 182 TRIG 65 HDL 46* LDL 123* NHDL 136* Passed - CBC on file in past 12 months Recent Labs Lab Test 05/27/19 1159 WBC 2.8* RBC 3.22* HGB 10.7* HCT 31.6* PLT 86* Passed - Heart Rate on file within past 12 months Pulse Readings from Last 3 Encounters: 05/27/19 84 05/12/19 89 05/05/19 103 Passed - A1c or Glucose on file in past 12 months Recent Labs Lab Test 05/27/19 1159 GLC 108* Please review patients last 3 weights. If a weight gain of >10 lbs exists, you may refill the prescription once after instructing the patient to schedule an appointment within the next 30 days. Wt Readings from Last 3 Encounters: 05/27/19 81.2 kg (179 lb) 05/05/19 76.7 kg (169 lb) 04/28/19 75.8 kg (167 lb) Passed - Medication is active on med list Passed - Patient is not Passed - No positve test on file in past 12 months Passed - Recent (6 mo) or future (30 days) visit within the authorizing provider's specialty Patient had office visit in the last 6 months or has a visit in the next 30 days with authorizing provider or within the authorizing provider's specialty. See Patient Info tab in inbasket, or Choose Columns in Meds & Orders section of the refill encounter. documented in this encounter Plan of Treatment Not on file documented as of this encounter Visit Diagnoses Diagnosis Severe episode of recurrent major depressive disorder, without psychotic features (H) Anxiety Anxiety state, unspecified documented in this encounter Additional Health Concerns Assessment Noted Time PHQ-9 Depression Total Score: 9 04/22/20 18 7:05 AM CDT documented as of this encounter Care Teams Inspector Eyeglass Relationship Specialty Start Date End Date Deborah Rascon DO [address] [place], [place] [address] PCP - General Family Practice 05/27/19 02/28/[address] [address] PCP - General Family Medicine 03/01/21 03/07/21 Kaila Sen MD [address] [place] [address] PCP - General Family Medicine 03/08/21 Julissa Frank Liliana [address] [place], [place] [address] Pharmacist Pharmacist 05/27/19 Deborah Rascon DO [facility] [address] [place] [address] Assigned PCP 03/18/21 04/28/21 Shai Horta MD [address] [place], [place] 27[address] Dermatology 11/22/19 Deborah Rascon DO [address] [place], [place] [id number] Referring Physician Family Practice 11/22/19 [place] [address] [place] [address] Assigned Sleep Provider 05/19/20 Marie Abbott CNP [facility] [address] [place] [address] Assigned Behavioral Health Provider 05/19/20 05/12/21 Jaxson Bryan MD [address] [place] [address] 357205 Assigned Gastroenterology Provider 05/19/20 10/21/20 Jaxson Bryan MD [address] [place] [address] 120115 Assigned Surgical Provider 10/22/20 Yunior Mesa MD [address] [place] [address] 527925 Assigned Musculoskeletal Provider 01/28/21 03/24/21 Maria Whitley MD [address] [place] [address] Gastroenterology 02/23/21 Deborah Rascon DO [facility] [address] [place] [address] Assigned PCP 06/06/19 03/10/21 Jaxson Alejo MD [address] [place] [address] Assigned Musculoskeletal Provider 03/25/21 09/20/22 Radha Carrillo APRN LOGGING TRUCK DRIVER [address] [place] [address] Assigned PCP 03/11/21 03/17/21 Maria Whitley MD [address] [place] [address] Assigned Gastroenterology Provider 03/04/21 08/30/22 Kaila Sen MD [address] [place] [address] Assigned PCP 05/27/21 Kaila Sen MD [address] [place] [address] Assigned PCP 04/29/21 05/05/21 Deborah Rascon DO [facility] [address] [place] [address] Assigned PCP 05/06/21 05/26/21 None 02/28/23 Rico Corey BSW Communications Tower Technician 06/24/23 07/08/23 Rico Corey BSW Communications Tower Technician 07/14/23 07/28/23 Maria Whitley MD [address] [place], [place] [address] Assigned Gastroenterology Provider 09/19/23 Julein Miranda MD [address] [place], [place] [address] Assigned Behavioral Health Provider 12/18/23 documented as of this encounter
--- OUTSIDE RECORDS SUMMARY | 2024-09-12 17:24 | XMS_ITS | Encounter Summary ---
Author Organization [facility] Address [address] [place] [address] Care Team Providers Care Sourcing Internship Name Role Phone Zac, Julissa Silva [facility] Unavailable [phone] Deborah Rascon DO Primary Care Provider [phone] Deborah Rascon DO Unavailable [phone] Shai Horta MD Unavailable Deborah Rascon DO Unavailable [phone] Justice Foster MD Unavailable [phone] Marie Abbott LIGHT RAIL TRAIN OPERATOR Unavailable [phone] Jaxson Bryan MD Unavailable Yunior Mesa MD Unavailable [phone] Maria Whitley MD Unavailable [facility] Provider Kaila Sen MD Primary Care Provide r Deborah Rascon DO Unavailable [phone] Jaxson Alejo MD Unavailable Radha Carrillo APRN LIGHT RAIL TRAIN OPERATOR Unavailable [phone] Maria Whitley MD Unavailable Kaila Sen MD Unavailable Kaila Sen MD Unavailable Deborah Rsacon DO Unavailable [phone] None Unavailable Unavailable Rcio Corey PARADICHLOROBENZENE TENDER Unavailable Unavailable Rico Corey PARADICHLOROBENZENE TENDER Unavailable Unavailable Maria Whitley MD Unavailable Julien Miranda MD Unavailable [phone] Reason for Visit * Reason Onset Date Comments [facility] 12/26/2020 Encounter Details Date Type Department Care Team ([facility] st Contact Info) Description 12/26/[address] [facility] Behavioral Health Intake [address] [place] [phone] Generic, Behavioral Intake, [facility] Social History Tobacco Use Types Packs/Day Years Used Date Smoking Tobacco: Every Day Cigarettes Smokeless Tobacco: Never Alcohol Use Standard Drinks/Week Comments Yes 0 (1 standard drink = 0.6 oz pur e alcohol) pint of vodka qd Comments No Sex and Gender Information Value Date Recorded Sex Assigned at Female 01/01/2021 8:44 AM CDT Legal Sex Female 1:07 PM CDT Gender Identity Female 01/01/2021 8:44 AM CDT Sexual Orientation Straight 01/01/2021 8: 44 AM CDT COVID-19 Exposure Response Date Recorded In the last month, have you been in contact with someone who was confirmed or suspected to have Coronavirus / COVID-19? No / Unsure 12/26/2020 11:22 AM CDT documented as of this encounter Miscellaneous Notes * Telephone Encounter - Brittney Martinez RN - 01/02/2021 12:30 PM CDT LP admission please find out if pt is still interested in LP+ * Telephone Encounter - Brittney Martinez RN - 01/01/2021 10:29 AM CDT Pt is on 3A Some things LPRN needs to know before pt can be medically approved are: Recently vomited blood-multiple episodes Pt needs to have medically stabilized, labs stable before admission, will review pt as she is closer to discharge. * Telephone Encounter - Mekhi Jon LADC - 12/28/2020 1:09 PM CDT Date: 12/28/2020 To: LP RN Please call this patient at Unit 8A phone: [phone] to complete a medical screening to clarify her medications and medical condition and to complete a COVID-19 screening. The patient has a history of: Currently hospitalized for alcohol withdrawal Gums are bleeding Did not meet criteria for ICU but needed medical monitoring INSIDE: This patient had a substance abuse assessment with MAHOGANY Fair, so no paperwork willbe sent up to the 6th floor because all of the clinical documentation is in the patient's electronic medical record in [facility]. ThanksMekhi. MAHOGANY Jon * Telephone Encounter - Surya Dejesus LADC - 12/28/2020 9:08 AM CDT LP SCREEN TELEPHONE NOTE Gretchen Cardoza paperwork was reviewed by MAHOGANY Gomez and the patient was deemed ELIGIBLE for the LP program. Inpatient or Community Referral: Inpatient referral Medical Screening (As Needed): The patient's medical and COVID-19 screen with the LP RN is pending at this time and NEEDS to be completed prior to placing this patient on the LP waiting list. Regular use of benzodiazapine's (other than detox): The patient does NOT use benzodiazepines. Insurance: The [facility] UR Department is responsible for obtaining ALL authorizations for treatmentservices at the EOP, DOP and LP levels of care. This will be a: Seen by a [facility] Evaluation Counselor: MILADIS, ISP & LP UPDATE NOTE evaluation. (Update SBAR and route NADEGE and BETTY's) IV use or : This patient is not or an IV drug user. Business office: The patient has [employer] [place]/PMAP and would NOT need to consult with anyone in [facility]'s business office about the out of pocket costs of the LP program. List: This patient CAN be placed on the PRIORITY LP Waiting List at this time. Group: Women's Group or Mixed Group Additional Info as needed: NA The best current contact telephone number for the patient is: Unit Phone 8A: Surya Matthews LADC 12/28/2020 * Telephone Encounter - Brigida Saenz - 12/26/2020 8:44 PM CDT R: 20 / O'Bell documented in this encounter Plan of Treatment Not on file documented as of this encounter Visit Diagnoses Not on filedocumented in this encounter Additional Health Concerns Assessment Noted Time PHQ-9 Depression Total Score: 9 04/22/20 18 7:05 AM CDT documented as of this encounter Care Teams Sourcing Internship Relationship Specialty Start Date End Date Deborah Rascon DO [address] [facility] [address] [place], [place] [address] PCP - General Family Practice 05/27/19 02/28/21 [facility] Jayde [address] [address] PCP - General Family Medicine 03/01/21 03/07/21 Kaila Sen MD [address] [place] [address] PCP - General Family Medicine 03/08/21 Julissa Frank RPH [address] [place], [place] [address] Pharmacist Pharmacist 05/27/19 Deborah Rascon DO [facility] [address] [facility] [place] [address] Assigned PCP 03/18/21 04/28/21 Shai Horta MD [address] [place] [address] Dermatology 11/22/19 Deborah Rascon DO [address] [facility] [address] [place] [address] Referring Physician Family Practice 11/22/19 Justice Foster MD [address] [place] [address] 506126 Assigned Sleep Provider 05/19/20 Marie Abbott CNP [facility] [address] [address] Assigned Behavioral Health Provider 05/19/20 05/12/21 Jaxson Bryan MD [address] [place] [address] [id number] Assigned Surgical Provider 10/22/20 Yunior Mesa MD [address] [place] [address] Assigned Musculoskeletal Provider 01/28/21 03/24/21 Maria Whitley MD [address] [place] [address] Gastroenterology 02/23/21 Deborah Rascon DO [facility] [address] [place] [address] Assigned PCP 06/06/19 03/10/21 Jaxson Alejo MD [address] [place] [address] Assigned Musculoskeletal Provider 03/25/21 09/20/22 Radha Carrillo APRN CNP [address] [address] Assigned PCP 03/11/21 03/17/21 Maria Whitley MD [address] [place] [address] Assigned Gastroenterology Provider 03/04/21 08/30/22 Kaila Sen MD [address] [place] [address] Assigned PCP 05/27/21 Kaila Sen MD [address] [place] [address] Assigned PCP 04/29/21 05/05/21 Deborah Rascon DO [facility] [address] [address] Assigned PCP 05/06/21 05/26/21 None 02/28/23 Rico Corey PARADICHLOROBENZENE TENDER Application Administrator 06/24/23 07/08/23 Rico Corey PARADICHLOROBENZENE TENDER Application Administrator 07/14/23 07/28/23 Maria Whitley MD [address] [place] [address] Assigned Gastroenterology Provider 09/19/23 [place] [address] [place] [address] Assigned Behavioral Health Provider 12/18/23 documented as of this encounter
--- OUTSIDE RECORDS SUMMARY | 2024-09-12 17:24 | XMS_ITS | Clinical Summary ---
Author Organization [facility] Address [address] [place] [address] Care Team Providers Care Sand Polisher Name Role Phone Doctor, No Primary Care [...] w ith complication, with unspecified complication 10/24/2020 Family History Medical History Relation Comments Heart Disease Maternal Grandfather High Cholesterol Maternal Grandfather Diabetes Maternal Grandmother High Blood Pressure Maternal Grandmother Stroke Maternal Grandmother Relation Status Comments Maternal Grandfather Maternal Grandmother Social History Tobacco Use Types Packs/Day Years [...] on file Legal Sex Female 12:38 PM TRAFFIC CONTROL FLAGGER Gender Identity Not on file Sexual Orientation [...] 12/02/2020 9:05 PM CDT Plan of Treatment Health Maintenance Due Date Last Done Comments Pap Smear 1988 Anxiety Screening (MISA-2) 1989 Depression Assessment (PHQ-2) 1989 Pneumococcal Vaccine (2 of 2 - PCV) 01/03/2020 01/02/2019 COVID-19 Vaccine ( - 2023-2 5 season) 2024 Influenza Vaccine (#1) 2024 9, 05/29/2018, 05/10/2018, Additional history exists Adult Tetanus Booster 09/12/2029 09/12/2019, 011 RSV Vaccines (1 - 1-dose 75+ series) 2063 Hepatitis C Screening Completed 12/02/2020 Procedures Procedure Name Priority Date/Time Associated Diagnosis Comments HEP A/B/C PANEL Add On 12/02/2020 4:56 PM CDT from Last 3 Months or Most Recently Relevant to Health Maintenance Results * Hepatitis A / B / C Profile (12/02/2020 4:56 PM CDT) HEP BC IGM MADIHA Non-React payton Non-React payton PumpicAUR XP ANALYZER 12/02/2020 11:26 PM CDT [facility] HEP A IGM MADIHA Non-React payton Non-React payton CENTAUR XP ANALYZER 12/02/2020 11:26 PM CDT [facility] HEP BS ANTIGEN Non-React payton Non-React payton CENTAUR XP ANALYZER 12/02/2020 11:26 PM CDT [facility] Hepatitis C Antibody Non-React payton Non-React payton CENTAUR XP ANALYZER 12/02/2020 11:26 PM CDT [facility] Blood 12/02/2020 4:56 PM CDT 12/02/2020 5:02 PM CDT Lana KOEHLER IMMUNOLOGY ORDERABLE Final Result [facility] [address] [place] [address] from Last 3 Months or Most Recently Relevant to Health Maintenance Advance Directives For more information, please contact: [phone] * Full Code (Latest Code Status on File) Date Activated Date Inactivated Comments 12/02/2020 9:05 PM 12/06/2020 7:22 PM Question Answer Comments How was code status determined? Previous Documen tation * Full Code Date Activated Date Inactivated Comments 10/24/2020 3:31 PM 10/26/2020 5:44 PM Question Answer Comments How was code status determined? Patient Care Teams Sand Polisher Relationship Specialty Start Date End Date Doctor, No No ad PCP - General Radiology 06/29/20 Clinic, No Primary PCP - Primary Care Clinic 06/29/20
--- OUTSIDE RECORDS SUMMARY | 2024-09-12 17:24 | XMS_ITS | Encounter Summary ---
Author Organization [facility] Address [address] [place] [address] Care Team Providers Care Durability Engineer Name Role Phone Ana Frankyany Silva [facility] Unavailable [phone] Deborah Rascon DO Primary Care Provider [phone] Deborah Rascon DO Unavailable [phone] Shai Horta MD Unavailable [phone] Deborah Racson DO Unavailable [phone] Justice Foster MD Unavailable Marie Abbott COMMUNITY RESOURCE CONSULTANT Unavailable [phone] Jaxson Bryan MD Unavailable Jaxson Bryan MD Unavailable Yunior Mesa MD Unavailable [phone] Maria Whitley MD Unavailable [facility] Jose Donohue [facility] re Provider Kaila Sen MD Primary Care Provide r Deborah Rascon DO Unavailable [phone] Jaxson Alejo MD Unavailable Radha Carrillo APRN COMMUNITY RESOURCE CONSULTANT Unavailable [phone] Maria Whitley MD Unavailable Kaila Sen MD Unavailable Kaila Sen MD Unavailable Deborah Rascon DO Unavailable [phone] None Unavailable Unavailable Rico Corey MATERIAL WORKER Unavailable Unavailable Rico Corey MATERIAL WORKER Unavailable Unavailable Maria Whitley MD Unavailable Julien Miranda MD Unavailable [phone] Reason for Visit * Reason Onset Date Comments Refill Request 02/15/2020 MIRTAZAPINE Encounter Details Date Type Department Care Team (Late st Contact Info) Description 02/15/2020 Refill [facility] [address] [place] [address] [facility] [address] [place] [address] Refill Request (MIRTAZAPINE) Social History Tobacco Use Types Packs/Day Years [...] or suspected to have Coronavirus / COVID-19? Unable to assess 02/03/2020 10:06 AM CDT documented as of this encounter Miscellaneous Notes * Telephone Encounter - Cheryle Moss RN - 02/15/2020 4:09 PM CDT She No showed her 02/03/20 appointment and there are no future appointments scheduled. Outreach X1. No option for VM. 1 month supply provided with note to pharmacy. Please notify patient she needs to call [phone] schedule a follow up with her provider. We have been unable to reach her. Cheryle Moss, RN on 02/15/2020 at 4:18 PM documented in this encounter Plan of Treatment Not on file documented as of this encounter Visit Diagnoses Diagnosis Severe episode of recurrent major depressive disorder, without psychotic features (H) Persistent insomnia Persistent disorder of initiating or maintaining sleep Generalized anxiety disorder documented in this encounter Additional Health Concerns Assessment Noted Time PHQ-9 Depression Total Score: 9 04/22/20 18 7:05 AM CDT documented as of this encounter Care Teams Durability Engineer Relationship Specialty Start Date End Date Deborah Rascon DO [address] [place], [place] [address] PCP - General Family Practice 05/27/19 02/28/[address] [address] PCP - General Family Medicine 03/01/21 03/07/21 Kaila Sen MD [address] [place] [address] PCP - General Family Medicine 03/08/21 Julissa Frank [facility] [address] [place] [address] Pharmacist Pharmacist 05/27/19 Deborah Rascon DO [facility] [address] [place] [address] Assigned PCP 03/18/21 04/28/21 Shai Horta MD [address] [place] [address] Dermatology 11/22/19 Deborah Rascon DO [address] [facility] [address] [place] [address] Referring Physician Family Practice 11/22/19 [place] [address] [place] [address] Assigned Sleep Provider 05/19/20 Marie Abbott CNP [facility] [address] [id number] Assigned Behavioral Health Provider 05/19/20 05/12/21 Jaxson Bryan MD [address] [place] [address] Assigned Gastroenterology Provider 05/19/20 10/21/20 Jaxson Bryan MD [address] [place] [address] Assigned Surgical Provider 10/22/20 Yunior Mesa MD [address] [place] [address] Assigned Musculoskeletal Provider 01/28/21 03/24/21 Maria Whitley MD [address] [place] [address] Gastroenterology 02/23/[address] [facility] [address] [place] [address] Assigned PCP 06/06/19 03/10/21 Jaxson Alejo MD [address] [place] [address] [place] [address] Assigned Musculoskeletal Provider 03/25/21 09/20/22 Radha Carrillo APRN COMMUNITY RESOURCE CONSULTANT [address] [place] [address] Assigned PCP 03/11/21 03/17/21 Maria Whitley MD [address] [place] [address] Assigned Gastroenterology Provider 03/04/21 08/30/22 Kaila Sen MD [address] [place] [address] Assigned PCP 05/27/21 Kaila Sen MD [address] [place] [address] Assigned PCP 04/29/21 05/05/21 Deborah Rascon DO [facility] [address] [place] [address] Assigned PCP 05/06/21 05/26/21 None 02/28/23 Rico Corey BSW Inventory Control Associate 06/24/23 07/08/23 Rico Corey BSW Inventory Control Associate 07/14/23 07/28/23 Maria Whitley MD [address] [place] [address] Assigned Gastroenterology Provider 09/19/23 Julien Miranda MD [address] [place], [place] [address] Assigned Behavioral Health Provider 12/18/23 documented as of this encounter
--- OUTSIDE RECORDS SUMMARY | 2024-09-12 17:24 | XMS_ITS | Encounter Summary ---
Author Organization [place] Address [address] [place] [address] Care Team Providers Care Crna Name Role Phone Ana rFankyany Silva [facility] Unavailable [phone] Deborah Rascon DO Primary Care Provider [phone] Deborah Rascon DO Unavailable [phone] Shai Horta MD Unavailable Deborah Rascon DO Unavailable [phone] Justice Foster MD Unavailable Marie Abbott MERCHANDISE SUPERVISOR Unavailable [phone] Jaxson Bryan MD Unavailable Jaxson Bryan MD Unavailable Yunior Mesa MD Unavailable [phone] Maria Whitley MD Unavailable [facility] Jose Donoh[facility] re Provider Kaila Sen MD Primary Care Provide r Deborah Rascon DO Unavailable [phone] Jaxson Alejo MD Unavailable Radha Carrillo APRN MERCHANDISE SUPERVISOR Unavailable [phone] Maria Whitley MD Unavailable Kaila Sen MD Unavailable Kaila Sen MD Unavailable Deborah Rascon DO Unavailable [phone] None Unavailable Unavailable Rico Corey POWER SAW OPERATOR Unavailable Unavailable Rico Corey POWER SAW OPERATOR Unavailable Unavailable Maria Whitley MD Unavailable Julien Miranda MD Unavailable [phone] Reason for Visit * Reason Onset Date Comments Patient Request 11/22/2019 Encounter Details Date Type Department Care Team (Late st Contact Info) Description 11/22/2019 Telephone [facility] [address] [address] Unknown Patient Request Social History Tobacco Use Types Packs/Day [...] have Coronavirus / COVID-19? Unable to assess 11/22/2019 11:49 AM CDT documented as of this encounter Miscellaneous Notes * Telephone Encounter - Gretchen Burns CMA - 11/24/2019 4:17 PM CDT Attempted to call, unable to reach, left vm will scheduling information earlier today. Gretchen Burns CMA CMA 11/24/2019 4:18 PM * Telephone Encounter - Gretchen Burns CMA - 11/24/2019 11:33 AM CDT Attempted to call to discuss if any testing needs to be done prior to new patient visit. No answer,left vm to call [phone] to set up appointment. Gretchen Burns CMA [facility] 11/24/2019 11:34 AM * Telephone Encounter - Gretchen Burns CMA - 11/23/2019 1:09 PM CDT Attempted to call yesterday and again today. Phone listed goes straight to voicemail. Message left today to call [phone] if she would like to reach out to us. I will continue to try to contact through 11/24. Gretchen Burns CMA [facility] 11/23/2019 1:10 PM * Telephone Encounter - Sanjay Son - 11/22/2019 11:38 AM CDT [facility] Phone Message May a detailed message be left on voicemail: yes Reason for Call: Other: Patient called wanting mira seen for liver fibrosis, patient said she thinkshe need to have her labs and testing done. Please call to infom from patient information what she need to do as far as labs or testing. Patient is aware this would be a virtual visit but want this information before scheduling. Action Taken: Other: [facility] Hepatology Travel Screening: Not Applicable documented in this encounter Plan of Treatment Not on file documented as of this encounter Visit Diagnoses Not on filedocumented in this encounter Additional Health Concerns Assessment Noted Time PHQ-9 Depression Total Score: 9 04/22/20 18 7:05 AM CDT documented as of this encounter Care Teams Crna Relationship Specialty Start Date End Date Deborah Rascon DO [address] [facility] [address] [id number] PCP - General Family Practice 05/27/19 02/28/21 [facility] - Jose Donohue [address] [address] PCP - General Family Medicine 03/01/21 03/07/21 Kaila Sen MD [address] [facility] [place] [address] PCP - General Family Medicine 03/08/21 Julissa Frank, [facility] [address] [place], [place] [address] Pharmacist Pharmacist 05/27/19 Deborah Rascon DO [facility] [address] [place] [address] Assigned PCP 03/18/21 04/28/21 Shai Horta MD [address] [place], [place] [address] Dermatology 11/22/19 Deborah Rascon DO [address] [place], [place] [address] Referring Physician Family Practice 11/22/19 Justice Foster MD [address] [place] [address] Assigned Sleep Provider 05/19/20 Marie Abbott CNP [facility] [address] [place], [place] [address] Assigned Behavioral Health Provider 05/19/20 05/12/21 Jaxson Bryan MD [address] [place] [address] Assigned Gastroenterology Provider 05/19/20 10/21/20 Jaxson Bryan MD [address] [place] [address] Assigned Surgical Provider 10/22/20 Yunior Mesa MD [address] [place] [address] Assigned Musculoskeletal Provider 01/28/21 03/24/21 Maria Whitley MD [address] [place] [address] Gastroenterology 02/23/21 Deborah Rascon DO [facility] [address] [place] [address] Assigned PCP 06/06/19 03/10/21 Jaxson Alejo MD [address] [place] [address] Assigned Musculoskeletal Provider 03/25/21 09/20/22 Radha Carrillo APRN CNP [address] [place] [address] Assigned PCP 03/11/21 03/17/21 Maria Whitley MD [address] [place] [address] Assigned Gastroenterology Provider 03/04/21 08/30/22 Kaila Sen MD [address] [place] [address] Assigned PCP 05/27/21 Kaila Sen MD [address] [place] [address] Assigned PCP 04/29/21 05/05/21 [facility] [address] [place] [address] Assigned PCP 05/06/21 05/26/21 None 02/28/23 Rico Corey POWER SAW OPERATOR Resource Engineer 06/24/23 07/08/23 Rico Corey POWER SAW OPERATOR Resource Engineer 07/14/23 07/28/23 Maria Whitley MD [address] [place] [address] Assigned Gastroenterology Provider 09/19/23 Julien Miranda MD [address] [place] [address] Assigned Behavioral Health Provider 12/18/23 documented as of this encounter
--- OUTSIDE RECORDS SUMMARY | 2024-09-12 17:25 | XMS_ITS | Encounter Summary ---
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 Phone No Ref-Primary, Physician [facility] Care Prov ider Unavailable No Ref-Primary, Physician Primary Care Provider Amy Mace WOVEN LABEL DESIGNER FAX MACHINE OPERATOR Unavailable Amy Mace WOVEN LABEL DESIGNER FAX MACHINE OPERATOR Unavailable Oma Pierson WOVEN LABEL DESIGNER FAX MACHINE OPERATOR Unavailable Unav ailable Amy Mace WOVEN LABEL DESIGNER FAX MACHINE OPERATOR Unavailable Oma Pierson WOVEN LABEL DESIGNER FAX MACHINE OPERATOR Unavailable Unav ailable Julissa Frank [facility] Unavailable Deborah Rascon DO Primary Care Provider [phone] Deborah Rascon DO Unavailable + [phone] Shai Horta MD Unavailable [phone] Deborah Rascon DO Unavailable [phone] Justice Foster MD Unavailable [phone] Marie Abbott FAX MACHINE OPERATOR Unavailable [phone] Jaxson Bryan MD Unavailable Jaxson Bryan MD Unavailable Yunior Mesa MD Unavailable [phone] Maria Whitley MD Unavailable Clinic - [facility] Primary Ca re Provider Kaila Sen MD Primary Care Provide r Deborah Rascon DO Unavailable [phone] Jaxson Alejo MD Unavailable [phone] Lorena Radhamarlee Mcintosh APRN FAX MACHINE OPERATOR Unavailable [phone] Maria Whitley MD Unavailable Kaila Sen MD Unavailable Kaila Sen MD Unavailable [phone] Deborah Rascon DO Unavailable [phone] None Unavailable Unavailable Rico Corey TELEPHONE INTERVIEWER Unavailable Unavailable Rico Corey TELEPHONE INTERVIEWER Unavailable Unavailable Maria Whitley MD Unavailable Julien Miranda MD Unavailable [phone] Reason for Visit * Reason Onset Date Comments CD Outpatient 04/08/2017 Encounter Details Date Type Department Care Team (Late st Contact Info) Description 04/08/2017 [facility] Behavioral Health Intake [address] [place] [address] Generic, Behavioral IntakeMD CD Outpatient Social History Tobacco Use Types Packs/Day Years Used Date Smoking Tobacco: Every Day Cigarettes Smokeless Tobacco: Never Comments Unknown Sex and Gender Information Value Date Recorded Sex Assigned at Female 01/01/2021 8:44 AM CDT Legal Sex Female 1:07 PM CDT Gender Identity Female 01/01/2021 8:44 AM CDT Sexual Orientation Straight 01/01/2021 8: 44 AM CDT documented as of this encounter Miscellaneous Notes * Telephone Encounter - Lalo Rousseau LADC - 04/15/2017 2:48 PM CDT Called client on 04/15 and LM asking if she was still planning on doing IOP DOP program. No call returned. MAHOGANY Lee, REGISTERED DENTAL ASSISTANT RDA * Telephone Encounter - Cookie Solano - 04/15/2017 2:27 PM CDT ----- Message from MAHOGANY Wiley sent at 04/15/2017 2:18 PM CDT ----- Regarding: remove client from list Please remove client from list of [id number] effective 04/15/17. Lalo Rousseau Psychotherapist Trena * Telephone Encounter - Starla Alexander - 04/09/2017 4:14 PM CDT ----- Message from MAHOGANY Wiley sent at 04/09/2017 4:12 PM CDT ----- Regarding: remove client from schedule Please remove client from schedule of [id number] for dates of 04/09 & 04/10. Lalo Rousseau Psychotherapist Trena * Telephone Encounter - Mary Hansen - 04/08/2017 9:14 AM CDT ----- Message from MAHOGANY Gonzales sent at 04/08/2017 8:49 AM CDT ----- We are referring Gretchen to [facility] day outpatient program beginning on 04/08/17. Her insurance is BX Please let me know if I need to do something with insurance. Thanks Ortiz Portillo documented in this encounter Plan of Treatment Not on file documented as of this encounter Visit Diagnoses Not on filedocumented in this encounter Additional Health Concerns Assessment Noted Time PHQ-9 Depression Total Score: 5 03/10/20 17 10:15 AM CDT documented as of this encounter Care Teams Poultry Farm Laborer Relationship Specialty Start Date End Date No Ref-Primary, Physician PCP - General 03/02/18 04/02/18 [facility] PCP - General 04/03/18 05/17/18 No Ref-Primary, Physician PCP - General 05/18/18 05/26/19 Amy Mace APRN FAX MACHINE OPERATOR [address] [address] [place] [address] PCP - Assigned PCP 05/03/18 09/29/18 Deborah Rascon DO [address] [facility] [address] [place], [place] [address] PCP - General Family Practice 05/27/19 02/28/21 [facility] - [address] [address] PCP - General Family Medicine 03/01/21 03/07/21 Kaila Sen MD [address] [place] [address] PCP - General Family Medicine 03/08/21 Amy Mace APRN FAX MACHINE OPERATOR [address] [place] [place]ER [address] Assigned PCP 05/03/18 10/10/18 Oma Pierson, MITCHEL FAX MACHINE OPERATOR Assigned PCP 10/11/18 12/26/18 Amy Mace APRN FAX MACHINE OPERATOR [address] [address] [address] Assigned PCP 12/27/18 02/13/19 Oma Pierson, MITCHEL FAX MACHINE OPERATOR Assigned PCP 02/14/19 06/05/19 Julissa Frank [facility] [address] [place], [place] [address] Pharmacist Pharmacist 05/27/19 Deborah Rascon DO [facility] [address] [place] [address] Assigned PCP 03/18/21 04/28/21 Shai Horta MD [address] [place] [address] Dermatology 11/22/19 Deborah Rascon DO [address] [place], [place] [address] Referring Physician Family Practice 11/22/19 [place] [address] [place] [address] Assigned Sleep Provider 05/19/20 Marie Abbott CNP [facility] [address] [place], [place] [address] Assigned Behavioral Health Provider 05/19/20 05/12/21 Jaxson Bryan MD [address] [place] [address] Assigned Gastroenterology Provider 05/19/20 10/21/20 Jaxson Bryan MD [address] [place] [address] Assigned Surgical Provider 10/22/20 Yunior Mesa MD [address] [place] [address] Assigned Musculoskeletal Provider 01/28/21 03/24/21 Maria Whitley MD [address] [place] [address] Gastroenterology 02/23/21 Deborah Rascon DO [facility] [address] [place] [address] Assigned PCP 06/06/19 03/10/21 Jaxson Alejo MD [address] [place], [place] [address] Assigned Musculoskeletal Provider 03/25/21 09/20/22 Radha Carrillo APRN CNP [address] [place] [address] Assigned PCP 03/11/21 03/17/21 Maria Whitley MD [address] [place] [address] Assigned Gastroenterology Provider 03/04/21 08/30/22 Kaila Sen MD [address] [place] [address] Assigned PCP 05/27/21 Kaila Sen MD [address] [place] [address] Assigned PCP 04/29/21 05/05/21 Deborah Rascon DO [facility] [address] [place] [address] Assigned PCP 05/06/21 05/26/21 None 02/28/23 Rico Corey BSW Rolfer 06/24/23 07/08/23 Rico Corey BSW Rolfer 07/14/23 07/28/23 Maria Whitley MD [address] [place] [address] Assigned Gastroenterology Provider 09/19/23 Julien Miranda MD [address] [place] [address] Assigned Behavioral Health Provider 12/18/23 documented as of this encounter
--- OUTSIDE RECORDS SUMMARY | 2024-09-12 17:25 | XMS_ITS | Clinical Summary ---
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 Relationship Specialty Start Date End Date Mckinleyoctober MD Lila [address] [place] [address] PCP - General Family Medicine 03/08/21 Julissa Frank [facility] [address] [place], [place] [address] Pharmacist Pharmacist 05/27/19 Shai Horta MD [address] [place], [place] [address] Dermatology 11/22/19 Deborah Rascon DO [address] [place], [place] [address] Referring Physician Family Practice 11/22/19 Maria Whitley MD [address] [place], [place] [address] Gastroenterology 02/23/21 Kaila Sen MD [address] [place] [address] Assigned PCP 05/27/21 None 02/28/23 Maria Whitley MD [address] [place], [place] [address] Assigned Gastroenterology Provider 09/19/23 Julien Miranda MD [address] [place], [place] [address]164 Assigned Behavioral Health Provider 12/18/23
--- OUTSIDE RECORDS SUMMARY | 2024-09-12 17:25 | XMS_ITS | Encounter Summary ---
Author Organization [place] Address [address] [place] [address] Care Team Providers Care Failure Analysis Engineer Name Role Phone Julissa Frank [facility] Unavailable [phone] Shai Horta MD Unavailable [phone] Deborah Rascon DO Unavailable [phone] Maria Whitley MD Unavailable Kaila Sen MD Primary Care Provide r Kaila Sen MD Unavailable [phone] None Unavailable Unavailable Maria Whitley MD Unavailable Julien Miranda MD Unavailable [phone] Encounter Details Date Type Department Care Team (Late st Contact Info) Description 09/11/2023 [facility] [address] [place] [address] Elvira Blackmon Social History Tobacco Use Types Packs/Day Years Used Date Smoking Tobacco: Every Day Vaping Device Smokeless Tobacco: Never Comments:Everyday but not of ten Alcohol Use Standard Drinks/Week Comments Not Currently 0 (1 standard drink = 0.6 oz pur e alcohol) PHQ-2 Answer Date Recorded PHQ-2 Score 2 08/29/2023 Adolescent Education Answer Date Record ed Getting [...] in an abandoned building, in an overnight long term, or couch-surfing.) Yes 08/29/2023 Are you worried [...] motionally safe where you currently live? Yes 04/25/2023 Within the past 12 months, h ave you been hit, slapped, kicked or otherwise physically hurt by someone? No 04/25/2023 Within the past 12 months, h ave you been humiliated or emotionally abused in other ways by your partner or ex-partner? No 04/25/2023 Comments No Sex and Gender Information Value Date Recorded Sex Assigned at Female 01/01/2021 8:44 AM CDT Legal Sex Female 1:07 PM CDT Gender Identity Female 01/01/2021 8:44 AM CDT Sexual Orientation Straight 01/01/2021 8: 44 AM CDT documented as of this encounter Plan of Treatment Not on file documented as of this encounter Goals Goal Patient Goal Type Associated Problems Recent Progress Patient-Stated? Author Improve substance use status Care Plan Substance Use 100%(06/30/20 23 1:42 PM HEAT TREATING OPERATOR) No Yehuda Conley LGSW, LADC Note: I will continue to go to 3 meetings per week and look for a sponsor. I will start IOP programming at [facility]. I will utilize the SW/LADC at [facility] for support as needed. Improve management of mental health symptoms and establish with mental health/psychosoci al supports Care Plan Mental Health Symptoms Need Improvement 100%(06/30/20 23 1:43 PM HEAT TREATING OPERATOR) No Yehuda Conley LGSW, MAHOGANY Note: I will take medication as prescribed and let PCP at [facility] know of questions or concerns. I will look into therapy with help from SW/LADC at [facility]. documented as of this encounter Visit Diagnoses Not on filedocumented in this encounter Additional Health Concerns Active Problems Noted Date Diagnosed Date Substance Use 06/30/2023 Mental Health Symptoms Need Improvement 06/30/20 Assessment Noted Time PHQ-9 Depression Total Score: 8 08/29/19 24 8:19 AM HEAT TREATING OPERATOR documented as of this encounter Care Teams Failure Analysis Engineer Relationship Specialty Start Date End Date Kaila Sen MD [address] [place] [address] PCP - General Family Medicine 03/08/21 Julissa Frank [facility] [address] [place], [place] [address] Pharmacist Pharmacist 05/27/19 Shai Horta MD [address] [place], [place] [address] Dermatology 11/22/19 Deborah Rascon DO [address] [place], [place] [address] Referring Physician Family Practice 11/22/19 Maria Whitley MD [address] [place], [place] [address] Gastroenterology 02/23/21 Kaila Sen MD [address] [place] [address] Assigned PCP 05/27/21 None 02/28/23 Maria Whitley MD [address] [place] [address] Assigned Gastroenterology Provider 09/19/23 Julien Miranda MD [address] [place] [address] Assigned Behavioral Health Provider 12/18/23 documented as of this encounter
--- OUTSIDE RECORDS SUMMARY | 2024-09-12 17:25 | XMS_ITS | Encounter Summary ---
Author Organization [place] Address [address] [place] [address] Care Team Providers Care Signal Worker Name Role Phone No Ref-Primary, Physician Primary Care Provider [facility] Primary Care Prov ider Unavailable No Ref-Primary, Physician Primary Care Provider Amy Mace CROWN PRESSER COLOR ARTIST Unavailable Amy Mace CROWN PRESSER COLOR ARTIST Unavailable Oma Pierson CROWN PRESSER COLOR ARTIST Unavailable Unav ailable Amy Mace CROWN PRESSER COLOR ARTIST Unavailable Oma Pierson CROWN PRESSER COLOR ARTIST Unavailable Unav ailable Julissa Frakn [facility] Unavailable Deborah Rascon DO Primary Care Provider [phone] Deborah Rascon DO Unavailable [phone] Shai Horta MD Unavailable [phone] Deborah Rascon DO Unavailable [phone] Justice Foster MD Unavailable [phone] Marie Abbott COLOR ARTIST Unavailable [phone] Jaxson Bryan MD Unavailable Jaxson Bryan MD Unavailable Yunior Mesa MD Unavailable [phone] Maria Whitley MD Unavailable Clinic - [facility] Primary Ca re Provider Kaila Sen MD Primary Care Provide r Deborah Rascon DO Unavailable [phone] Jaxson Alejo MD Unavailable [phone] YanceyAntRadhamarlee Mcintosh APRN COLOR ARTIST Unavailable [phone] Maria Whitley MD Unavailable Kaila Sen MD Unavailable [phone] Kaila Sen MD Unavailable [phone] Deborah Rascon DO Unavailable [phone] None Unavailable Unavailable Rico Corey MATE SHIP Unavailable Unavailable Rico Corey MATE SHIP Unavailable Unavailable Maria Whitley MD Unavailable Julien Miranda MD Unavailable [phone] Reason for Visit * Reason Onset Date Comments MH/CD Inpatient 03/09/2018 Encounter Details Date Type Department Care Team (Late st Contact Info) Description 03/09/2018 [facility] Behavioral Health Intake [address] [place] [phone] Generic, Behavioral Intake, MH/CD Inpatient Social History Tobacco Use Types Packs/Day Years [...] encounter Miscellaneous Notes * Telephone Encounter - Erick Bernal LADC - 03/10/2018 9:22 AM CDT 03/10/2018 Pt is no longer eligible for LP because of recent SI and writing a suicide note while on 3 A I.e She reported depressive symptoms with suicidal ideation and wrote a suicide note. She was transferred to [facility] on 03/10/2018. 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 Pt endorses SI with no plan. Pt reports she has written a suicide note for her family. Pt endorses feeling hopeless, helpless, and worthless. Per Dr. Carbajal, pt is done detoxing. Per nursing note, pt endorses AH and VH; states she thought she was in a hotel room with her dog. Pt also stating she believes there to be cameras in the ceiling. A: Vol. R: Pt placed on wait list as there are no appropriate mental health beds available at this time. 12:46pm Pending female discharge on [facility]; paged Herminia Colin to discuss case 12:53pm Discussed case with Dixie 12:56pm Paged Raven to complete doc to doc 1pm Dixie accepts pt 32/Vaughn/Dixie pending discharge on unit [address] RN notified; unit will call 3A when bed is ready 3[facility] given placement info documented in this encounter Plan of Treatment Not on file documented as of this encounter Visit Diagnoses Not on filedocumented in this encounter Additional Health Concerns Assessment Noted Time PHQ-9 Depression Total Score: 5 03/10/20 17 10:15 AM CDT documented as of this encounter Care Teams Signal Worker Relationship Specialty Start Date End Date No Ref-Primary, Physician PCP - General 03/02/18 04/02/18 [facility] PCP - General 04/03/18 05/17/18 No Ref-Primary, Physician PCP - General 05/18/18 05/26/19 Amy Mace APRN COLOR ARTIST [address] [place] [address] PCP - Assigned PCP 05/03/18 09/29/18 Deborah Rascon DO [address] [place] [address] PCP - General Family Practice 05/27/19 02/28/21 [facility] - [address] [address] PCP - General Family Medicine 03/01/21 03/07/21 Kaila Sen MD [address] [place] [address] PCP - General Family Medicine 03/08/21 Amy Mace APRN COLOR ARTIST [address] [place] [address] Assigned PCP 05/03/18 10/10/18 Oma Pierson APRN COLOR ARTIST Assigned PCP 10/11/18 12/26/18 Amy Mace, CROWN PRESSER COLOR ARTIST [address] [facility] [place] [place] [address] Assigned PCP 12/27/18 02/13/19 Oma Pierson, CROWN PRESSER COLOR ARTIST Assigned PCP 02/14/19 06/05/19 Julissa Frank, [facility] [address] [place] [address] Pharmacist Pharmacist 05/27/19 Deborah Rascon DO [facility] [address] [place], [place] [address] Assigned PCP 03/18/21 04/28/21 Shai Horta MD [address] [place], [place] [address] Dermatology 11/22/19 Deborah Rascon DO [address] [place], [place] [address] Referring Physician Family Practice 11/22/19 Justice Foster MD [address] [place] [address] Assigned Sleep Provider 05/19/20 Marie Abbott CNP [facility] [address] [place], [place] [address] Assigned Behavioral Health Provider 05/19/20 05/12/21 Jaxson Bryan MD [address] [place] [address] Assigned Gastroenterology Provider 05/19/20 10/21/20 Jaxson Bryan MD [address] [place] [address] Assigned Surgical Provider 10/22/20 Yunior Mesa MD [address] [place] [address] Assigned Musculoskeletal Provider 01/28/21 03/24/21 Maria Whitley MD [address] [place] [address] MD Gastroenterology 02/23/21 Deborah Rascon DO [facility] [address] [place] [address] Assigned PCP 06/06/19 03/10/21 Jaxson Alejo MD [address] [place] [address] Assigned Musculoskeletal Provider 03/25/21 09/20/22 Radha Carrillo APRN COLOR ARTIST [address] [facility] [address] [place] [address] Assigned PCP 03/11/21 03/17/21 Maria Whitley MD [address] [place] [address] Assigned Gastroenterology Provider 03/04/21 08/30/22 Kaila Sen MD [address] [facility] [place] [address] Assigned PCP 05/27/21 Kaila Sen MD [address]14 [facility] [place] [address] Assigned PCP 04/29/21 05/05/21 Deborah Rascon DO [facility] [address] [place] [address] Assigned PCP 05/06/21 05/26/21 None 02/28/23 Rico Corey MATE SHIP Spiral Runner 06/24/23 07/08/23 Rico Corey MATE SHIP Spiral Runner 07/14/23 07/28/23 Maria Whitley MD [address] [place] [address] Assigned Gastroenterology Provider 09/19/23 Julien Miranda MD [address] [place] [address] Assigned Behavioral Health Provider 12/18/23 documented as of this encounter
--- OUTSIDE RECORDS SUMMARY | 2024-09-12 17:25 | XMS_ITS | Encounter Summary ---
Author Organization [place] Address [address] [place] [address] Care Team Providers Care Regulatory And Compliance Technician Name Role Phone No Ref-Primary, Physician Primary [facility] Primary Care Prov ider Unavailable No Ref-Primary, Physician Primary Care Provider Amy Mace STOCKBROKER EXCELLENCE MANAGER Unavailable Amy Mace STOCKBROKER EXCELLENCE MANAGER Unavailable Oma Pierson STOCKBROKER EXCELLENCE MANAGER Unavailable Unav ailable Amy Mace STOCKBROKER EXCELLENCE MANAGER Unavailable Oma Pierson STOCKBROKER EXCELLENCE MANAGER Unavailable Unav ailable Julissa Frank [facility] Unavailable Deborah Rascon DO Primary Care Provider [phone] Deborah Rascon DO Unavailable + [phone] Shai Horta MD Unavailable [phone] Deborah Rascon DO Unavailable [phone] Justice Foster MD Unavailable [phone] Marie Abbott EXCELLENCE MANAGER Unavailable [phone] Jaxson Bryan MD Unavailable Jaxson Bryan MD Unavailable Yunior Mesa MD Unavailable [phone] Maria Whitley MD Unavailable Clinic - [facility] Primary Ca re Provider Kaila Sen MD Primary Care Provide r Deborah Rascon DO Unavailable [phone] Jaxson Diane MD Unavailable Lorena Radhamarlee Mcintosh STOCKBROKER EXCELLENCE MANAGER Unavailable [phone] Maria Whitley MD Unavailable Kaila Sen MD Unavailable Kaila Sen MD Unavailable [phone] Deborah Rascon DO Unavailable [phone] None Unavailable Unavailable Rico Corey SHAPER AND PRESSER Unavailable Unavailable Rico Corey SHAPER AND PRESSER Unavailable Unavailable Maria Whitley MD Unavailable Julien Miranda MD Unavailable [phone] Reason for Visit * Reason Onset Date Comments CD Outpatient 02/05/2018 Encounter Details Date Type Department Care Team (Late st Contact Info) Description 02/05/2018 Telephone [facility] Behavioral Health Intake [address] [place] [phone] Generic, Behavioral IntakeMD CD Outpatient Social History [...] encounter Miscellaneous Notes * Telephone Encounter - Jaxson Lira - 04/03/2018 1:47 PM CDT 04/03/18 Inbox from [facility] [place] to schedule CD Eval for 04/15/18 @ [facility] * Telephone Encounter - Mary Hansen - 02/06/2018 8:44 AM CDT Client currently has no insurance. L/[facility] phone# for [phone]; cancelled appt. 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 documented in this encounter Plan of Treatment Not on file documented as of this encounter Visit Diagnoses Not on filedocumented in this encounter Additional Health Concerns Assessment Noted Time PHQ-9 Depression Total Score: 5 03/10/20 17 10:15 AM CDT documented as of this encounter Care Teams Regulatory And Compliance Technician Relationship Specialty Start Date End Date No Ref-Primary, Physician PCP - General 03/02/18 04/02/18 Taylor [facility]enthal [facility] PCP - General 04/03/18 05/17/18 No Ref-Primary, Physician PCP - General 05/18/18 05/26/19 Amy Mace APRN EXCELLENCE MANAGER [address] [place], [place] [address] PCP - Assigned PCP 05/03/18 09/29/18 Deborah Rascon DO [address] [place], [place] [address] PCP - General Family Practice 05/27/19 02/28/21 Clinic - Jose Donohue [address] [id number] PCP - General Family Medicine 03/01/21 03/07/21 Kaila Sen MD [address] [place], [place] [phone] PCP - General Family Medicine 03/08/21 Amy Mace, STOCKBROKER EXCELLENCE MANAGER [address] [facility] [address] Assigned PCP 05/03/18 10/10/18 Oma Pierson, STOCKBROKER EXCELLENCE MANAGER Assigned PCP 10/11/18 12/26/18 Amy Mace, STOCKBROKER EXCELLENCE MANAGER [address] [place] [address] Assigned PCP 12/27/18 02/13/19 Oma Pierson, STOCKBROKER EXCELLENCE MANAGER Assigned PCP 02/14/19 06/05/19 Julissa Frank [facility] [address] [facility] [address] [place] [address] Pharmacist Pharmacist 05/27/19 Deborah Rascon DO [facility] [address] [place], [place] [address] Assigned PCP 03/18/21 04/28/21 Shai Horta MD [address] [place], [place] [address] Dermatology 11/22/19 Deborah Rascon DO [address] [place], [place] [address] Referring Physician Family Practice 11/22/19 Justice Foster MD [address] [place], [place] [address]806 Assigned Sleep Provider 05/19/20 Marie Abbott CNP [facility] [address] [place] [address] Assigned Behavioral Health Provider 05/19/20 05/12/21 Jaxson Bryan MD [address] [place] [address] Assigned Gastroenterology Provider 05/19/20 10/21/20 Jaxson Bryan MD [address] [place] [address] Assigned Surgical Provider 10/22/20 Yunior Mesa MD [address] [place] [address] 112725 Assigned Musculoskeletal Provider 01/28/21 03/24/21 Maria Whitley MD [address] [place] [address] 233685 Gastroenterology 02/23/21 Deborah Rascon DO [facility] [address] [place] [address] Assigned PCP 06/06/19 03/10/21 Jaxson Diane MD [address] [place] [address] Assigned Musculoskeletal Provider 03/25/21 09/20/22 Radha Carrillo APRN CNP [address] [facility] 700 [place] [address] Assigned PCP 03/11/21 03/17/21 Maria Whitley MD [address] [place] [address] Assigned Gastroenterology Provider 03/04/21 08/30/22 Kaila Sen MD [address] [place] [address] Assigned PCP 05/27/21 Kaila Sen MD [address] [place] [address] Assigned PCP 04/29/21 05/05/[address] [facility] [address] [place] [address] Assigned PCP 05/06/21 05/26/21 None 02/28/23 Rico Corey BSW Manufacturing Plant Technician 06/24/23 07/08/23 Rico Corey BSW Manufacturing Plant Technician 07/14/23 07/28/23 Maria Whitley MD [address] [place] [address] Assigned Gastroenterology Provider 09/19/23 Julien Miranda MD [address] [place] [address] Assigned Behavioral Health Provider 12/18/23 documented as of this encounter
--- OUTSIDE RECORDS SUMMARY | 2024-09-12 17:25 | XMS_ITS | Encounter Summary ---
Author Organization [place] Address [address] [place] [address] Care Team Providers Care Automation Qa Lead Name Role Phone ZacJulissa anthony [facility] Unavailable Shai Horta MD Unavailable [phone] Deboarh Rascon DO Unavailable [phone] Maria Whitley MD Unavailable Kaila Sen MD Primary Care Provide r Kaila Sen MD Unavailable None Unavailable Unavailable Maria Whitley MD Unavailable Julien Miranda MD Unavailable [phone] Encounter Details Date Type Department Care Team (Late st Contact Info) Description 11/26/2023 [facility] Medical Advice [address] [address] Kaila Sen MD [address] [place] [id number] Social History Tobacco Use Types Packs/Day Years Used Date Smoking Tobacco: Former Vaping Device Smokeless Tobacco: Never Comments:Everyday but [...] in an abandoned building, in an overnight care home, or couch-surfing.) Yes 08/29/2023 Are you worried [...] Plan Substance Use 100%(06/30/20 23 1:42 PM ASSISTANT PARALEGAL) No Yehuda Conley , RICHAR, LADC Note: I will continue to go to 3 meetings per week and look for a sponsor. I will start [facility] I will utilize the SW/LADC at [facility] for support as needed. Improve management of mental health symptoms and establish with mental health/psychosoci al supports Care Plan Mental Health Symptoms Need Improvement 100%(06/30/20 1:43 PM ASSISTANT PARALEGAL) Yehuda Francisco , DROPPER TANK STORAGE, LADC Note: I will take medication as prescribed and let PCP at [facility] know of questions or concerns. I will look into therapy with help from SW/LADC at [facility]. documented as of this encounter Visit Diagnoses Not on filedocumented in this encounter Additional Health Concerns Active Problems Noted Date Diagnosed Date Substance Use 06/30/2023 Mental Health Symptoms Need Improvement 06/30/20 Assessment Noted Time PHQ-9 Depression Total Score: 11 024 4:06 PM CDT documented as of this encounter Care Teams Automation Qa Lead Relationship Specialty Start Date End Date [place]in[place]october [place] Lila [address] [place] [address] PCP - General Family Medicine 03/08/21 Julissa Frank [facility] [address] [facility] [address] [place], [place] [address] Pharmacist Pharmacist 05/27/19 Shai Horta MD [address] [place], [place] [address] Dermatology 11/22/19 Deborah Rascon DO [address] [place] [address] [address] [place], [place] [phone] Referring Physician Family Practice 11/22/19 Maria Whitley MD [address] [place], [place] [address] Gastroenterology 02/23/21 Kaila Sen MD [address] [place] [address] Assigned PCP 05/27/21 None 02/28/23 Maria Whitley MD [address] [place], [place] [address] Assigned Gastroenterology Provider 09/19/23 Julien Miranda MD [address] [place], [place] [address] Assigned Behavioral Health Provider 12/18/23 documented as of this encounter
--- OUTSIDE RECORDS SUMMARY | 2024-09-12 17:25 | XMS_ITS | Encounter Summary ---
Author Organization [facility] Address [address] [place] [address] Care Team Providers Care Griddle Attendant Name Role Phone Julissa Frank [facility] Unavailable [phone] Shai Horta MD Unavailable [phone] Deborah Rascon DO Unavailable [phone] Maria Whitley MD Unavailable Kaila Sen MD Primary Care Provide r Kaila Sen MD Unavailable [phone] None Unavailable Unavailable Maria Whitley MD Unavailable Julien Miranda MD Unavailable [phone] Encounter Details Date Type Department Care Team (Late st Contact Info) Description 09/23/2023 [facility] Medical Advice [facility] [address] 4th [place] [address] Hilda Hoyt Social History Tobacco Use Types Packs/Day Years [...] in an abandoned building, in an overnight retirement, or couch-surfing.) Yes 08/29/2023 Are you worried [...] Plan Substance Use 100%(06/30/20 23 1:42 PM DIRECTOR OF REGIONAL SALES) Yehuda Francisco LGSW, LADNick Note: I will continue to go to 3 meetings per week and look for a sponsor. I will start IOP programming at [facility]. I will utilize the SW/LADC at [facility] for support as needed. Improve management of mental health symptoms and establish with mental health/psychosoci al supports Care Plan Mental Health Symptoms Need Improvement 100%(06/30/20 23 1:43 PM DIRECTOR OF REGIONAL SALES) No Yehuda Conley [facility]GSW, [facility] Note: I will take medication as prescribed and let PCP at [facility] know of questions or concerns. I will look into therapy with help from SW/LADC at [facility]. documented as of this encounter Visit Diagnoses Not on filedocumented in this encounter Additional Health Concerns Active Problems Noted Date Diagnosed Date Substance Use 06/30/2023 Mental Health Symptoms Need Improvement 06/30/20 Assessment Noted Time PHQ-9 Depression Total Score: 8 08/29/19 24 8:19 AM DIRECTOR OF REGIONAL SALES documented as of this encounter Care Teams Griddle Attendant Relationship Specialty Start Date End Date Kaila Sen MD [address] [place] [address] PCP - General Family Medicine 03/08/21 Julissa Frank [facility] [address] [place], [place] [address] Pharmacist Pharmacist 05/27/19 Shai Horta MD [address] [place], [place] [address] Dermatology 11/22/19 Deborah Rascon DO [address] [place], [place] [address] Referring Physician Family Practice 11/22/19 Maria Whitley MD [address] [place], [place] [address] Gastroenterology 02/23/21 Kaila Sen MD [address] [place] [address] Assigned PCP 05/27/21 None 02/28/23 Maria Whitley MD [address] [place] [address] Assigned Gastroenterology Provider 09/19/23 Julien Miranda MD [address] [place] [address] Assigned Behavioral Health Provider 12/18/23 documented as of this encounter
--- OUTSIDE RECORDS SUMMARY | 2024-09-12 17:25 | XMS_ITS | Clinical Summary ---
Author Organization [facility] Address [place], [place] [address] Care Team Providers Care Recording Artist Name Role Phone Jaxson Jones MD Unavailable [phone] [facility] Unavailable Pcp, No Primary Care Provider Unavailabl e Allergies Active Allergy Reactions Criticality Noted Date Comments Amoxapine Nausea And Vomiting 08/24/2015 Divalproex *Unknown Medium 12/29/2018 Diazepam Other - Describe In Comment Field,Rash Low 06/23/2023 Mood changes and edema Gabapentin Other - Describe In Comment Field Medium 12/29/2018 Unknown Valproic Acid Edema Medium 04/07/2017 Causes thrombocytopenia Medications fluticasone (50 mcg per actuation) nasal solution (FLONASE) Inhale 1 [place] to both nostrils once daily if needed. Active albuterol HFA (PRO-AIR; VENTOLIN; PROVENTIL) 90 mcg/actuation inhaler Inhale 1-2 Puffs by mouth every 4 hours if needed. 03/01/20 21 Active pantoprazole (PROTONIX) 40 mg delayed-release tablet Take 1 Tablet by mouth once daily. 05/01/20 22 Active ondansetron (ZOFRAN ODT) 8 mg disintegrating tabletIndications: Nausea Place 1 Tablet (8 mg) on the tongue every 8 hours if needed for Nausea/Vomiting. 30 Tablet 06/02/20 23 Active acetaminophen (TYLENOL EXTRA STRGTH) 500 mg tablet Take 500 mg by mouth once daily if needed. Max acetaminophen dose: 4000mg in 24 hrs. Active ferrous sulfate, 65 mg elemental, tablet Take 325 mg by mouth once daily. Active naltrexone (REVIA) 50 mg tablet Take 50 mg by mouth once daily. Active budesonide-formote roL (Symbicort) 80-4.5 mcg/actuation (80-4.5 mcg each actuation) inhaler Use one puff in the morning and one puff in the evening. Okay to use 1 puff every 4 hours as needed. Use up to 12 inhalations total per day Active ARIPiprazole (Abilify) 10 mg tablet Take 10 mg by mouth once daily. Active folic acid 1 mg tablet Take 1 mg by mouth once daily. Active loratadine (CLARITIN) 10 mg tablet Take 10 mg by mouth once daily. Active vit 28/iron fum/folic (multivitamin folic acid 1 mg) Take 1 Tablet by mouth once daily. Active thiamine mononitrate, vit B1, (VITAMIN B1) 100 mg tablet Take 100 mg by mouth once daily. Active cyclobenzaprine (FLEXERIL) 10 mg tablet Take 10 mg by mouth 3 times daily if needed for Muscle Spasm. Active prochlorperazine (COMPAZINE) 10 mg tabletIndications: Nausea and vomiting, unspecified vomiting type Take 1 Tablet (10 mg) by mouth every 8 hours if needed for Nausea/Vomiting. 15 Tablet 10/28/19 24 Active meclizine (ANTIVERT) 25 mg tabletIndications: Nausea and vomiting, unspecified vomiting type Take 1-2 Tablets (25-50 mg) by mouth at bedtime if needed for Nausea/Vomiting. 20 Tablet 10/28/19 24 Active Active Problems Problem Noted Date Diagnosed Date Alcohol withdrawal delirium, acute, hyperactive 07/10/2023 Seizure 06/18/2023 Alcohol dependence with withdrawal 06/18/2023 Alcoholic hepatitis without ascites 06/18/2023 Abnormal urinalysis 06/18/2023 Sensorineural hearing loss ( SNHL) of left ear with unrestricted hearing of right ear 06/03/2023 Symptomatic anemia 02/12/2023 Panic attack 02/07/2023 Bipolar 2 disorder 03/16/2021 Thrombocytopenia 12/26/2020 Alcoholic cirrhosis 06/07/2020 Alcoholic hepatitis without ascites 12/29/2018 Chronic alcoholic gastritis without hemorrhage 0 12/29/2018 Hypokalemia 12/29/2018 Hypomagnesemia 12/29/2018 Acute hypokalemia 11/16/2018 Pancytopenia 11/16/2018 Alcohol withdrawal 05/26/2018 Right clavicle fracture 05/26/2018 Coagulopathy 05/07/2018 Overview (07/10/2023): Related to liver disease Related to liver disease Portal hypertension 05/07/2018 History of stomach ulcers 04/21/2018 Overview (07/10/2023): H pylori H pylori DEBBY (acute kidney injury) 11/28/2017 Nausea & vomiting 11/28/2017 ASCUS with positive high risk HPV cervical 03/28 Overview (04/22/2017): 03/2017- colposcopy advised Chemical dependency 03/14/2017 Anxiety and depression 01/29/2017 Vertigo, benign positional 01/24/[address] of the abdomen 01/17/2017 Chronic anemia 01/14/2017 Hyponatremia 01/14/2017 Pleural effusion 01/14/2017 History of pleural effusion 01/14/2017 Overview (07/10/2023): Related to liver cirrhosis Kidney stone 01/13/2017 Fall 01/13/2017 Pericarditis, acute, idiopathic 01/02/2017 History of pericarditis 01/02/2017 Alcohol abuse 12/24/2016 Hypokalemia 12/24/2016 Alcoholic intoxication with complication 017 Alcoholic cirrhosis of liver with ascites 2016 H. pylori infection 12/24/2016 Hypertension, essential 02/10/2015 IUD (intrauterine device) in place 08/31/2013 Overview (07/10/2023): Kyleena placed 02/17/2023 at [facility] Paraguard IUD inserted 08/27/2013 Need for desensitization to allergens 12/12/2005 Depressive disorder, not elsewhere classified Insomnia, unspecified 10/23/2005 Unspecified asthma, uncomplicated 08/15/2005 ParaGard IUD Overview (08/16/2015): Placed 2014 in [place] H pylori ulcer Pericardial effusion Alcohol abuse Alcohol withdrawal Alcohol withdrawal seizure Anxiety Chronic liver failure without hepatic coma Immunizations Name Administration Dates Next Due COVID-19 vaccine (Moderna 100mcg/0.5mL) PF, MDV 08/17/2021 DTaP 1988 Hepatitis A (Adult) 03/16/2021 Hepatitis B (Adult) 04/27/2021,,04/07/2009,2008,09/26/2008,11/27/1992 Human Papilloma Virus Vaccine 06/18/2010 ,08/16/2009,08/03/2008,2007 Influenza Virus, Unspecified 04/19/2020,05/24/20 15 Influenza, IIV3 (Age >=3 years) 05/21/2005,05/21,06/28/2003 Influenza, IIV4 04/27/2021, 9(),05/29/2018,04/27,04/11/2017 MMR 04/09/2000 Oral Polio Vaccine 1988 Pneumococcal Poly,23-Valent (Pneumovax) 01/02/2019 Td (Age >=7 Years) 06/25/2006,04/09/2000 Tdap 09/12/2019,01/31/2011 Family History Medical History Relation Name Comments Good Health Brother Alcoholism Father Drug Abuse Father Other Father in acc ident Heart Disease Maternal Grandfather glaucoma Hyperlipidemia Maternal Grandfather glaucoma Diabetes Maternal Grandmother Hyperlipidemia Maternal Grandmother Hypertension Maternal Grandmother Stroke Maternal Grandmother Drug Abuse Mother 1 Heart Disease Mother 1 Hyperlipidemia Mother 1 Other Mother 1 too many to li st Psychiatric illness Mother 1 Cancer Other Breast and colo n MGGM, MGA breast Other Paternal Grandfather lung ca Stroke Paternal Grandmother Unknown Paternal Grandmother Psychiatric illness Sister 1 Good Health Sister 2 Good Health Sister 3 Relation Name Status Comments Brother Alive Father (Age 52) Maternal Grandfather glaucoma Alive Maternal Grandmother (Age 65) Mother 1 Mother 2 chf Alive end stage renal failure Other Paternal Grandfather lung ca Paternal Grandmother Sister 1 Alive Sister 2 Alive Sister 3 Alive Social History Tobacco Use Types Packs/Day Years Used Date Smoking Tobacco: Former Cigarettes 0.3 4 Smokeless Tobacco: Never Tobacco Cessation:Counseling Given: Not Answered Alcohol Use Standard Drinks/Week Comments Not Currently 0 (1 standard drink = 0.6 oz pur e alcohol) 2 years sober-2022 Social Connections Answer Date Recorded Do you often feel lonely or isolated from those around you? 0 06/19/2023 Financial Resource Strain Answer Date R ecorded Difficulty of Paying Living Expenses 3 06/05/2023 Difficulty of Paying Living Expenses Not on file 06/05/2023 Food Insecurity Answer Date Recorded Do you worry your food will run out before you are able to buy more? 1 06/19/2023 Transportation Needs Answer Date Record ed Does lack of transportation keep you from medica l appointments? 1 06/19/2023 Does lack of transportation keep you from work, meetings or getting things that you need? 1 06/19/2023 Housing Stability Answer Date Recorded What is your housing situation today? 1 06/19/2023 Interpersonal Safety Answer Date Record ed Are you being hit, kicked, p ushed or yelled at (see row info)? 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 Gender Identity Not on file Sexual Orientation Not on file Obstetrics History Para Term AB IAB SAB Ectopic Multiple Livin g Live Births 0 0 0 0 0 0 0 0 0 0 0 Last Filed Vital Signs Vital Sign Reading Time Taken Comments Blood Pressure 160/92 05/13/2024 12:02 PM CDT Pulse 102 05/13/2024 12:02 PM CDT Temperature 37.6 C (99.6 F) 05/13/2024 12:02 PM CDT Respiratory Rate 16 05/13/2024 12:02 PM CDT Oxygen Saturation 98% 05/13/2024 12:02 PM CDT Inhaled Oxygen Concentration - - Weight 74.8 kg (165 lb) 05/13/2024 12:02 PM CDT Height 175.3 cm (5' 9) 05/13/2024 12:02 PM CDT Body Mass Index 24.37 05/13/2024 12:02 PM CDT Plan of Treatment Health Maintenance Due Date Last Done Comments Depression screening for age 12+ 04/11/2018 04/11/2017, 04/11/2017, 04/11/2017, Additional history exists Pneumococcal series for age 6-49 (2 of 2 - PCV) 01/03/2020 01/02/2019 COVID-19 vaccine series ( - 2023- season) 2024 05/16/2023, 08/17/2021, 12/19/2020 Influenza for age 9-49 03/28/2024 1, 04/19/2020, 05/29/2018, Additional history exists BMI (ht and wt on same day) for age 18+ 11/27/2024 11/28/2023, 02/17/2023, 04/11/2017, Additional history exists Pap test for age 21-65 02/07/2026 3 (Verified in Care Everywhere or Patient Record), 04/11/2017, 04/11/2017, Additional history exists Tetanus booster 09/12/2029 09/12/2019, 01/2011, 06/25/2006, Additional history exists HIV for age 15-65 Completed 04/11/2017, , 03/24/2009 Hepatitis C screening for ag e 18-79 Completed 01/02/2019, 10/04/2016, 10/22/2005, Additional history exists Tdap Completed 09/12/2019, 01/31/2011 Procedures Procedure Name Priority Date/Time Associated Diagnosis Comments ANTI HCV Early AM 01/02/2019 6:44 AM CDT COACH THIN PREP PAP SCREEN IMAGED Routine 04/11/2017 1:43 PM CDT Cervical cancer screening ANTI HIV 1/2 Routine 04/11/2017 1:42 PM CDT Screen for STD (sexually transmitted disease) from Last 3 Months or Most Recently Relevant to Health Maintenance Results * ANTI HCV (01/02/2019 6:44 AM CDT) HEPATITIS C ANTIBODY Non-React payton Non-React payton 01/03/2019 1:31 PM CDT [facility] Comment:Antibodies to HCV no t detected; does not exclude the possibility of exposure to HCV. Blood BLOOD SPECIMEN / Unknown Venipuncture / Unknown 01/02/2019 6:44 AM CDT 01/02/2019 6:54 AM CDT us Moises Carrasquillo MD SEND OUTS Final Res ult [facility] [address] [place] [address], * (ABNORMAL) COACH THIN PREP PAP SCREEN IMAGED (04/11/2017 1:43 PM CDT) Case Report Gynecologic Cytology Report Case: [id number] Authorizing Provider: Rocio Spear MD Collected: 04/11/2017 1343 Ordering Location: [place] Received: 04/11/2017 1343 Clinic First Screen: Ena Castelan Pathologist: Viji Jones MD Specimen: COACH ThinPrep Vial Screening, Cervical 04/21/2017 5:46 PM CDT [facility] INTERPRETATION/ RESULT ATYPICAL SQUAMOUS CELLS OF UNDETERMINED SIGNIFICANCE (ASCUS)(A) (none) 04/21/2017 5:46 PM CDT [facility] NISM(S) Bacteria morphologically consistent with Actinomyces species 04/21/2017 5:46 PM CDT [facility] SPECIMEN ADEQUACY Satisfactory for evaluation Endocervical component present 04/21/2017 5:46 PM CDT [facility] HPV REQUEST HPV and PAP 04/21/2017 5:46 PM CDT [facility] Date of LMP 04-06-17 04/21/2017 5:46 PM CDT [facility] Last Pap Date 201304/21/2017 5:[address] [facility] Last Pap Result NIL 7 5:[address] [facility] Abnormal Pap or [place] Bx in last 5 years No 04/21/2017 5:[address] [facility] Menstrual Status Irregular Periods 04/21/2017 5:[address] [facility] [place] Bx Done Today No 04/21/2017 5:[address] [facility] Additional Information None given 04/21/2017 5:[address] [facility] Automated Review Successful 04/21/2017 5:[address] [facility] Comment:Specimen processed s uccessfully by automated fiberglass product tester device, [employer] Imaging System, [employer] ANCILLARY TESTING COACH HPV Ordered, Please see separate report 04/21/2017 5:46 PM CDT [facility] Note The pap test is a screening technique, not a diagnostic procedure. It is used primarily to screen for squamous cancers and precursor lesions. Published studies have shown that it is subject to both false negative and false positive results. The pap test should not be used as the sole means to diagnose or exclude pre-malignant and malignant lesions. Interpreted at [facility] ([facility], [facility], [facility], [facility], [facility], [facility], [facility]) 04/21/2017 5:46 PM CDT [facility] Other (Cervical) 04/11/2017 1:43 PM CDT 04/11/2017 1:43 PM CDT us Rocio Spear MD PATHOLOGY/CYTOLOGY Final Resu lt [facility] [address] [place] [address], [place] * ANTI HIV 1/2 (04/11/2017 1:42 PM CDT) HIV-1/HIV-2 ANTIBODY Non-Reacti ve Non-Reacti ve 04/11/2017 5:58 PM CDT [facility] Blood BLOOD SPECIMEN / Unknown Venipuncture / Unknown 04/11/2017 1:42 PM CDT 04/11/2017 1:42 PM CDT Narrative [facility] - 04/11/2017 5:58 PM CDT HIV-1 p24 and HIV-1/HIV-2 Ab not detected Rocio Spear MD SEND OUTS Final Result [facility] [address] [place] [address], [place] from Last 3 Months or Most Recently Relevant to Health Maintenance Insurance [facility] [address] [employer] [facility] [id number] [place] [id number] * Guarantor: Gretchen Cardoza Account Type Relation to Patient Date of Phone Billing Address Personal/Family Self Advance Directives * Full Code (Latest Code Status on File) Date Activated Date Inactivated Comments 07/10/2023 4:49 PM 07/11/2023 12:55 PM Question Answer Comments Code Status Discussion: Reviewed Preferences * Full Code Date Activated Date Inactivated Comments 06/17/2023 9:24 PM 06/19/2023 11:54 PM Question Answer Comments Code Status Discussion: Reviewed Preferences * Full Code Date Activated Date Inactivated Comments 02/12/2023 10:41 AM 02/12/2023 9:29 PM Question Answer Comments Code Status Discussion: Reviewed Preferences * Full Code Date Activated Date Inactivated Comments 06/07/2020 3:37 AM 06/07/2020 8:46 AM Question Answer Comments Code Status Discussion: Not Discussed * Full Code Date Activated Date Inactivated Comments 12/29/2018 2:07 PM 01/04/2019 7:14 PM Question Answer Comments Code Status Discussion: Not Discussed Care Teams Recording Artist Relationship Specialty Start Date End Date Pcp, No . PCP - General 03/27/21 Jaxson Jones MD Family Practice 12/29/18 [facility] 01/08/17
--- OUTSIDE RECORDS SUMMARY | 2024-09-12 17:25 | XMS_ITS | Encounter Summary ---
Author Organization [place] Address [address] [place] [address] Care Team Providers Care Collections Director Name Role Phone ZacJulissa anthony [facility] Unavailable Shia Horta MD Unavailable [phone] Deborah Rascon DO Unavailable [phone] Maria Whitley MD Unavailable Kaila Sen MD Primary Care Provide r Kaila Sen MD Unavailable None Unavailable Unavailable Maria Whitley MD Unavailable Julien Miranda MD Unavailable [phone] Encounter Details Date Type Department Care Team (Late st Contact Info) Description 11/24/2023 [facility] [place] [facility] [place] [address] Julien Miranda MD Pending sale to [facility] [place] [address] Social History Tobacco Use Types Packs/Day Years [...] in an abandoned building, in an overnight jail, or couch-surfing.) Yes 08/29/2023 Are you worried [...] Plan Substance Use 100%(06/30/20 23 1:42 PM MANAGER CARDIOVASCULAR) No Yehuda Conley , RICHAR, LADC Note: I will continue to go to 3 meetings per week and look for a sponsor. I will start IOP programming at [facility]. I will utilize the SW/LADC at [facility] for support as needed. Improve management of mental health symptoms and establish with mental health/psychosoci al supports Care Plan Mental Health Symptoms Need Improvement 100%(06/30/20 23 1:43 PM MANAGER CARDIOVASCULAR) Yehuda Francisco , BODY CLEANER, LADC Note: I will take medication as prescribed and let PCP at [facility] know of questions or concerns. I will look into therapy with help from SW/LADC at [facility]. documented as of this encounter Visit Diagnoses Not on filedocumented in this encounter Additional Health Concerns Active Problems Noted Date Diagnosed Date Substance Use 06/30/2023 Mental Health Symptoms Need Improvement 06/30/20 23 Assessment Noted Time PHQ-9 Depression Total Score: 11 024 4:06 PM CDT documented as of this encounter Care Teams Collections Director Relationship Specialty Start Date End Date October MD Lila [address] [place] [address] PCP - General Family Medicine 03/08/21 Julissa Frank [facility] [address] [facility] [address] [place], [place] [address] Pharmacist Pharmacist 05/27/19 Shai Horta MD [address] [place], [place] [address] Dermatology 11/22/19 Deborah Rascon DO [address] [address] [place], [place] [id number] Referring Physician Family Practice 11/22/19 Maria Whitley MD [address] [place], [place] [address] Gastroenterology 02/23/21 Kaila Sen MD [address] [place] [address] Assigned PCP 05/27/21 None 02/28/23 Maria Whitley MD [address] [place], [place] [address] Assigned Gastroenterology Provider 09/19/23 Julien Miranda MD [address] [place], [place] [address] Assigned Behavioral Health Provider 12/18/23 documented as of this encounter
--- OUTSIDE RECORDS SUMMARY | 2024-09-12 17:25 | XMS_ITS | Encounter Summary ---
Author Organization [facility] Address [address] [place] [address] Care Team Providers Care Technical Stenographer Name Role Phone No Ref-Primary, Physician Primary [facility] Primary Care Prov ider Unavailable No Ref-Primary, Physician Primary Care Provider Amy Mace CREASING AND CUTTING PRESS FEEDER [employer] Unavailable Amy Mace CREASING AND CUTTING PRESS FEEDER [facility] [facility] Unavailable Oma Pierson CREASING AND CUTTING PRESS FEEDER [employer] [facility] Unavailable Unav ailable Amy Mace CREASING AND CUTTING PRESS FEEDER STRADDLE BUG Unavailable Oma Pierson CREASING AND CUTTING PRESS FEEDER STRADDLE BUG Unavailable Unav ailable Julissa Frank [facility] Unavailable Deborah Rascon DO Primary Care Provider [phone] Deborah Rascon DO Unavailable + [phone] Shai Horta MD Unavailable [phone] Deborah Rascon DO Unavailable [phone] Justice Foster MD Unavailable [phone] Marie Abbott [employer] Unavailable [phone] Jaxson Bryan MD Unavailable Jaxson Bryan MD Unavailable Yunior Mesa MD Unavailable [phone] Maria Whitley MD Unavailable Clinic - Mayra Rosas [facility] Primary Ca re Provider Kaila Sen MD Primary Care Provide r Deborah Rascon DO Unavailable [phone] Jaxson Alejo MD Unavailable [phone] Lorena Radhamarlee Mcintosh CREASING AND CUTTING PRESS FEEDER [employer]ADD[employer]UG Unavailable [phone] Maria Whitley MD Unavailable Kaila Sen MD Unavailable [phone] Kaila Sen MD Unavailable [phone] Deborah Rascon DO Unavailable [phone] None Unavailable Unavailable Rico Corey PHYSICAL SCIENCE AIDE Unavailable Unavailable Rico Corey PHYSICAL SCIENCE AIDE Unavailable Unavailable Maria Whitley MD Unavailable Julien Miranda MD Unavailable [phone] Reason for Visit * Reason Onset Date Comments MH/CD Inpatient 03/02/2018 Encounter Details Date Type Department Care Team (Late st Contact Info) Description 03/02/2018 [facility] Behavioral Health Intake [address] [place] [id number] Generic, Behavioral Intake, MH/CD Inpatient Social History [...] encounter Miscellaneous Notes * Telephone Encounter - Gail Ordoñez - 03/02/2018 12:15 PM CDT S: ED calling with a 27 yr old female seeking detox B: pt is a 27 yr old female seeking detox from alcohol. Pt drinks over 1 L per day. Pt last use wasthis morning. Pt DEONDRE is 0.26. Pt denies seizures and DTs. MD is collecting labs but is medically cleared. Pt was sober until 3 months ago. Pt denies SI and HI. Not aggressive. Utox to be collected. Labs ordered by attending in ED. Pt has rash that attending believes is from drinking. A: vol R: Provider requested to wait until labs processed. Labs: K+ 3.2 Glucose 105 Urea Nitrogen 3 ALT 89 AST 305 WBC 3.4 RBC 3.54 Platelet count 85 Addendum: Provider requesting K+ addressed and then reassess for IP detox Notified ED @ 1:50 pm Pt accepted by [facility]. Paged ED @ 2:26pm. Notified unit @ 2:26pm documented in this encounter Plan of Treatment Not on file documented as of this encounter Visit Diagnoses Not on filedocumented in this encounter Additional Health Concerns Assessment Noted Time PHQ-9 Depression Total Score: 5 03/10/20 17 10:15 AM CDT documented as of this encounter Care Teams Technical Stenographer Relationship Specialty Start Date End Date No Ref-Primary, Physician PCP - General 03/02/18 04/02/18 [facility] PCP - General 04/03/18 05/17/18 No Ref-Primary, Physician PCP - General 05/18/18 05/26/19 Amy Mace APRN [facility] [address] [place], [place] 9216[address] PCP - Assigned PCP 05/03/18 09/29/18 Deborah Rascon DO [address] [place] [address] [id number] PCP - General Family Practice 05/27/19 02/28/21 Clinic - Jose Donohue [address] [id number] PCP - General Family Medicine 03/01/21 03/07/21 Kaila Sen MD [address] [place] [address] [phone] PCP - General Family Medicine 03/08/21 Amy Mace, CREASING AND CUTTING PRESS FEEDER [facility] [address] [place], [place] 134104 Assigned PCP 05/03/18 10/10/18 Oma Pierson, MITCHEL [employer]ADD[facility] BUG Assigned PCP 10/11/18 12/26/18 Amy Mace, CREASING AND CUTTING PRESS FEEDER [facility] [address] [place], [place] 092974 Assigned PCP 12/27/18 02/13/19 Oma Pierson, CREASING AND CUTTING PRESS FEEDER STRADDLE BUG Assigned PCP 02/14/19 06/05/19 Julissa Frank [facility] [address] [facility] [address] [place], [place] [id number] Pharmacist Pharmacist 05/27/[address] [facility] [address] [place] [address] Assigned PCP 03/18/21 04/28/21 Shai Horta MD [address] [place] [address] Dermatology 11/22/19 Deborah Rascon DO [address] [place], [place] [address] Referring Physician Family Practice 11/22/19 Justice Foster MD [address] [place], [place] 304996 Assigned Sleep Provider 05/19/20 Marie Abbott CNP [facility] [address] [facility] [address] [place] [address] Assigned Behavioral Health Provider 05/19/20 05/12/21 Jaxson Bryan MD [address] [place] [address] Assigned Gastroenterology Provider 05/19/20 10/21/20 Jaxson Bryan MD [address] [place] [address] Assigned Surgical Provider 10/22/20 Yunior Mesa MD [address] [place] [address] Assigned Musculoskeletal Provider 01/28/21 03/24/21 Maria Whitley MD [address] [place] [address] [id number] Gastroenterology 02/23/21 Deborah Rascon DO [facility] [address] [place] [address] Assigned PCP 06/06/19 03/10/21 Jaxson Alejo MD [address] [place] [address] Assigned Musculoskeletal Provider 03/25/21 09/20/22 Radha Carrillo APRN [facility] [address] [address] Assigned PCP 03/11/21 03/17/21 Maria Whitley MD [address] [place] [address] Assigned Gastroenterology Provider 03/04/21 08/30/22 Kaila Sen MD [address] [place] [address] Assigned PCP 05/27/21 Kaila Sen MD [address] [place] [address] Assigned PCP 04/29/21 05/05/[address] [facility] [address] [place] [address] Assigned PCP 05/06/21 05/26/21 None 02/28/23 Rico Corey PHYSICAL SCIENCE AIDE Remedy Developer 06/24/23 07/08/23 Rico Corey PHYSICAL SCIENCE AIDE Remedy Developer 07/14/23 07/28/23 Maria Whitley MD [address] [place] [address] Assigned Gastroenterology Provider 09/19/23 Julien Miranda MD [address] [place] [address] Assigned Behavioral Health Provider 12/18/23 documented as of this encounter
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
--- OUTSIDE RECORDS SUMMARY | 2024-09-12 17:25 | XMS_ITS | Encounter Summary ---
Author Organization [facility] Address [address] [place] [address] Care Team Providers Care Sea Kayaking Guide Name Role Phone Zac, Julissa Silva [facility] Unavailable [phone] Deborah Rascon DO Primary Care Provider [phone] Deborah Rascon DO Unavailable [phone] Shai Horta MD Unavailable Deborah Rascon DO Unavailable [phone] Justice Foster MD Unavailable Marie Abbott COLOR CORRECTOR Unavailable [phone] Jaxson Bryan MD Unavailable Yunior Mesa MD Unavailable Maria Whitley MD Unavailable [facility] Provider Kaila Sen MD Primary Care Provide r Deborah Rascon DO Unavailable [phone] Jaxson Alejo MD Unavailable Radha Carrillo APRN COLOR CORRECTOR Unavailable [phone] Maria Whitley MD Unavailable Kaila Sen MD Unavailable [phone] Kaila Sen MD Unavailable Deborah Rascon DO Unavailable [phone] None Unavailable Unavailable Rico Corey COSMETIC ACCOUNT COORDINATOR Unavailable Unavailable Rico Corey COSMETIC ACCOUNT COORDINATOR Unavailable Unavailable Maria Whitley MD Unavailable Julien Miranda MD Unavailable [phone] Reason for Visit * Reason Onset Date Comments Forms 01/17/2021 Needing forms fi lled out and faxed Encounter Details Date Type Department Care Team (Late st Contact Info) Description 01/17/2021 Telephone [facility] [address] [address] [place] [address] Deborah Rascon DO [facility] [address] [place], [place] [address] Forms (Needing forms filled out and faxed) Social History Tobacco Use Types Packs/Day Years Used Date Smoking Tobacco: Every Day Cigarettes Smokeless Tobacco: Never Alcohol Use Standard Drinks/Week Comments Yes 0 (1 standard drink = 0.6 oz pur e alcohol) pint of vodka qd PHQ-2 Answer Date Recorded PHQ-2 Score 4 01/10/2021 Comments No Sex and Gender Information Value [...] have Coronavirus / COVID-19? No / Unsure 01/10/2021 1:03 PM CDT documented as of this encounter Plan of Treatment Not on file documented as of this encounter Visit Diagnoses Not on filedocumented in this encounter Additional Health Concerns Assessment Noted Time PHQ-9 Depression Total Score: 9 01/11/20 21 1:05 PM CDT documented as of this encounter Care Teams Sea Kayaking Guide Relationship Specialty Start Date End Date Deborah Rascon DO [address] [place], [place] [address] PCP - General Family Practice 05/27/19 02/28/21 [facility] Jose Donohue [address] [address] PCP - General Family Medicine 03/01/21 03/07/21 Kaila Sen MD [address] [place] [address] PCP - General Family Medicine 03/08/21 Julissa Frank [facility] [address] [place], [place] [address] Pharmacist Pharmacist 05/27/19 Deborah Rascon DO [facility] [address] [place], [place] [address] Assigned PCP 03/18/21 04/28/21 Shai Horta MD [address] [facility] [place] [place] [address] Dermatology 11/22/19 Deborah Rascon DO [address] [place], [place] [address] Referring Physician Family Practice 11/22/19 Justiec Foster MD [address] [place] [address] Assigned Sleep Provider 05/19/20 Marie Abbott CNP [facility] [address] [facility] [facility] [address] [place] [address] Assigned Behavioral Health Provider 05/19/20 05/12/21 Jaxson Bryan MD [address] [place] [address] Assigned Surgical Provider 10/22/20 Yunior Mesa MD [address] [place] [address] Assigned Musculoskeletal Provider 01/28/21 03/24/21 Maria Whitley MD [address] [place] [address] Gastroenterology 02/23/21 Deborah Rascon DO [facility] [address] [place] [address] Assigned PCP 06/06/19 03/10/21 Jaxson Alejo MD [address] [place] [address] Assigned Musculoskeletal Provider 03/25/21 09/20/22 Radha Carrillo APRN CNP [address] [facility] 700 [place] [address] Assigned PCP 03/11/21 03/17/21 Maria Whitley MD [address] [place] [address] Assigned Gastroenterology Provider 03/04/21 08/30/22 Kaila Sen MD [address] [facility] [place] [address] Assigned PCP 05/27/21 Kaila Sen MD [address] [facility] [place] [address] Assigned PCP 04/29/21 05/05/21 Deborah Rascon DO [facility] [address] [place] [address] Assigned PCP 05/06/21 05/26/21 None 02/28/23 Rico Corey, COSMETIC ACCOUNT COORDINATOR Certified Medication Technician 06/24/23 07/08/23 Rico Corey COSMETIC ACCOUNT COORDINATOR Certified Medication Technician 07/14/23 07/28/23 Maria Whitley MD [address] [place] [address] Assigned Gastroenterology Provider 09/19/23 Julien Miranda MD [address]50 [place] [address] Assigned Behavioral Health Provider 12/18/23 documented as of this encounter
--- OUTSIDE RECORDS SUMMARY | 2024-09-12 17:25 | XMS_ITS ---
Care Plan Created on: September 12, 2024 Cardoza Gretchen Brandon : 1990 Sex: Female Author Organization [facility] Address [address] [place] [address] Care Team Providers Care Polisher And Sander Name Role Phone Julissa Frank [facility] Unavailable Shai Horta MD Unavailable [phone] Deborah Rascon DO Unavailable [phone] Maria Whitley MD Unavailable Kaila Sen MD Primary Care Provide r Kaila Sen MD Unavailable None Unavailable Unavailable Maria Whitley MD Unavailable Julien Miranda MD Unavailable [phone] Active Problems * This document contains information received from the source organization and may not represent a complete record from that organization. Problem Noted Date Diagnosed Date Seizure-like activity [...] Overview (02/17/2023): Luis Alberto placed 02/17/2023 at [facility] Major depression, recurrent 03/10/2018 ASCUS with positive [...] 01/02/2017 06/10/2022 Unspecified asthma, uncomplicated 08/15/2005 05/27/2019 Additional Health Concerns Active Problems Noted Date Diagnosed Date Substance Use 06/30/2023 Mental Health Symptoms Need Improvement 06/30/20 Goals Goal Patient Goal Type Associated Problems Recent Progress Patient-Stated? Author Improve substance use status Care Plan Substance Use 100%(06/30/20 1:42 PM PLATER SUPERVISOR) No Yehuda Conley LGSW, LADC Note: I will continue to go to 3 meetings per week and look for a sponsor. I will start IOP programming at [facility]. I will utilize the SW/LADC at [facility] for support as needed. Improve management of mental health symptoms and establish with mental health/psychosoci al supports Care Plan Mental Health Symptoms Need Improvement 100%(06/30/20 1:43 PM PLATER SUPERVISOR) No Yehuda Conley LGSW, MAHOGANY Note: I will take medication as prescribed and let PCP at [facility] know of questions or concerns. I will look into therapy with help from SW/LADC at [facility]. Interventions Care Plan Interventions Intervention Entry Date Outcome Educate on stress management techniques as indicated 06/30/2023 Provide mental health crisis resources as incidated 06/30/2023 Discuss options for mental health support and place referrals as appropriate 06/30/2023 Provide resources for reducing or eliminating substance use 06/30/2023 Discuss barriers to reducing or eliminating substance use 06/30/2023 Related Goals and Interventions Goal Associated Intervent ions Improve substance use status Provide res ources for reducing or eliminating substance use; Discuss barriers to reducing or eliminating substance use Improve management of mental health symptoms and establish with mental health/psychosocial supports Educate on stress management techniques as indicated; Provide mental health crisis resources as incidated; Discuss options for mental health support and place referrals as appropriate
--- OUTSIDE RECORDS SUMMARY | 2024-09-12 17:25 | XMS_ITS | Encounter Summary ---
Author Organization [facility] Address [address] [place] [address] Care Team Providers Care Shirt Presser Name Role Phone No Ref-Primary, Physician Primary Care Provider Oma Pierson APRN MENTAL HEALTH AIDE Unavailable Unav ailable Julissa Frank [facility] Unavailable Deborah Rascon DO Primary Care Provider Deborah Rascon DO Unavailable [phone] Shai Horta MD Unavailable Deborah Rascon DO Unavailable [phone] Justice Foster MD Unavailable [phone] Marie Abbott MENTAL HEALTH AIDE Unavailable [phone] Jaxson Bryan MD Unavailable Jaxson Bryan MD Unavailable Yunior Mesa MD Unavailable Maria Whitley MD Unavailable [facility] re Provider Kaila Sen MD Primary Care Provide r Deborah Rascon DO Unavailable [phone] Jaxson Alejo MD Unavailable [phone] Radha Carrillo APRN MENTAL HEALTH AIDE Unavailable [phone] Maria Whitley MD Unavailable Kaila Sen MD Unavailable [phone] Kaila Sen MD Unavailable [phone] Deborah Rascon DO Unavailable [phone] None Unavailable Unavailable Souk, Rico MANAGER GIFT Unavailable Unavailable Souk, Rico MANAGER GIFT Unavailable Unavailable Maria Whitley MD Unavailable Julien Miranda MD Unavailable [phone] Reason for Visit * Reason Onset Date Comments MH/CD Inpatient 04/20/2019 Encounter Details Date Type Department Care Team (Late st Contact Info) Description 04/20/2019 Telephone [facility] Behavioral Health Intake [address] [place] [id number] Generic, Behavioral Intake, MH/CD Inpatient Social History Tobacco Use Types Packs/Day Years Used Date Smoking Tobacco: Every Day Cigarettes Smokeless Tobacco: Never Alcohol Use Standard Drinks/Week Comments Yes 0 (1 standard drink = 0.6 oz pur e alcohol) 1 litter vodka daily Comments No Sex and Gender Information Value Date Recorded Sex Assigned at Female 01/01/2021 8:44 AM CDT Legal Sex Female 1:07 PM CDT Gender Identity Female 01/01/2021 8:44 AM CDT Sexual Orientation Straight 01/01/2021 8: 44 AM CDT documented as of this encounter Miscellaneous Notes * Telephone Encounter - Carolee Perdomo RN - 04/20/2019 1:32 PM CDT S: Received call from Dr. 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 She had 30 days sobriety before this current relapse and prior to that, was in a tx facility. Last drink was at 0900 today. BACis 0.21 Pt has hx of seizures with withdrawal with last one several years ago. Pt has no medical conditions. Pt has hx of depression and anxiety / currently denies any MH concerns. CBC showing slightly low WBC, RBC, Hemoglobin/Hematocrit as well as a low Platelet count of 65. CMP with slight elevation in liver enzymes and low Potassium at 3.2 (pt was given 20mg potassium replacement orally). Utox+ ETOH and THC . UPT is negative. Lipase WNL. Vitals: BP 111/72 P 93 RR 14 T 98.1 O2 98% RA. Pt is reported as medically cleared. A: Voluntary R: Paged Dr. Arreguin 1350: Case was reviewed with Dr. Arreguin -he accepts to [facility] under his care 1429: Called [facility] and notified them of pending admit -requested bioprocess development engineer call back with any questions 1435: Text page sent to ED with dispo and request for N2N anytime after 1530 as shift change is about to occur(ETA on unit TBD during N2N) Pt in que for Treva/Kallie documented in this encounter Plan of Treatment Not on file documented as of this encounter Visit Diagnoses Not on filedocumented in this encounter Additional Health Concerns Assessment Noted Time PHQ-9 Depression Total Score: 9 04/22/20 18 7:05 AM CDT documented as of this encounter Care Teams Shirt Presser Relationship Specialty Start Date End Date No Ref-Primary, Physician PCP - General 05/18/18 05/26/19 Deborah Rascon DO [address] [place] [address]84 PCP - General Family Practice 05/27/19 02/28/21 [facility] - [address] [address] PCP - General Family Medicine 03/01/21 03/07/21 Kaila Sen MD [facility] [place] [address] PCP - General Family Medicine 03/08/21 Oma Pierson APRN MENTAL HEALTH AIDE Assigned PCP 02/14/19 06/05/19 Julissa Frank [facility] [address] [place], [place] [address] Pharmacist Pharmacist 05/27/19 Deborah Rascon DO [facility] [address] [place], [place] [address] Assigned PCP 03/18/21 04/28/21 Shai Horta MD 909 [place] [address] MD Dermatology 11/22/19 Deborah Rascon DO [address] [place], [place] [address] Referring Physician Family Practice 11/22/19 Justice Foster MD [address] [place] [address] Assigned Sleep Provider 05/19/20 Marie Abbott CNP [facility] [address] [place], [place] [id number] Assigned Behavioral Health Provider 05/19/20 05/12/21 Jaxson Bryan MD [address] [place] [id number] Assigned Gastroenterology Provider 05/19/20 10/21/20 Jaxson Bryan MD [address] [place] [address] 388845 Assigned Surgical Provider 10/22/20 Yunior Mesa MD [address] [place] [address] Assigned Musculoskeletal Provider 01/28/21 03/24/21 Maria Whitley MD [address] [place] [address] Gastroenterology 02/23/21 Deborah Rascon DO [facility] [address] [place] [address] Assigned PCP 06/06/19 03/10/21 Jaxson Alejo MD [address] [place] [address] Assigned Musculoskeletal Provider 03/25/21 09/20/22 Radha Carrillo APRN CNP [address] [facility] 700 [place] [address] Assigned PCP 03/11/21 03/17/21 Maria Whitley MD [address] [place] [address] Assigned Gastroenterology Provider 03/04/21 08/30/22 Kaila Sen MD [address]14 [facility] [place] [address] Assigned PCP 05/27/21 Kaila Sen MD [facility] [place] [address] Assigned PCP 04/29/21 05/05/21 Deborah Rascon DO [facility] [address] [place] [address] Assigned PCP 05/06/21 05/26/21 None 02/28/23 Rico Corey MANAGER GIFT Epidemiologist 06/24/23 07/08/23 Rico Corey BSW Epidemiologist 07/14/23 07/28/23 Maria Whitley MD [address] [place], [place] [address] Assigned Gastroenterology Provider 09/19/23 Julien Miranda MD [address]50 [place], [place] [id number] Assigned Behavioral Health Provider 12/18/23 documented as of this encounter
--- OUTSIDE RECORDS SUMMARY | 2024-09-12 17:25 | XMS_ITS | Encounter Summary ---
Author Organization [facility] Address [address] [place] [address] Care Team Providers Care Site Lead Name Role Phone Julissa Frank [facility] Unavailable [phone] Shai Horta MD Unavailable [phone] Deborah Rascon DO Unavailable [phone] Maria Whitley MD Unavailable Kaila Sen MD Primary Care Provide r Kaila Sen MD Unavailable [phone] None Unavailable Unavailable Maria Whitley MD Unavailable Julien Miranda MD Unavailable [phone] Encounter Details Date Type Department Care Team (Late st Contact Info) Description 09/02/2023 My[facility] Medical Advice [address] [address] Adrienne Angeles Social History Tobacco Use Types Packs/Day Years [...] in an abandoned building, in an overnight nursing home, or couch-surfing.) Yes 08/29/2023 Are you [...] Plan Substance Use 100%(06/30/20 23 1:42 PM GAS TRANSFER OPERATOR) No Yehuda oCnley LGSW, LADC Note: I will continue to go to 3 meetings per week and look for a sponsor. I will start IOP programming at [facility]. I will utilize the SW/LADC at [facility] for support as needed. Improve management of mental health symptoms and establish with mental health/psychosoci al supports Care Plan Mental Health Symptoms Need Improvement 100%(06/30/20 23 1:43 PM GAS TRANSFER OPERATOR) No Yehuda Conley LGSW, MAHOGANY Note: I will take medication as prescribed and let PCP at [facility] know of questions or concerns. I will look into therapy with help from SW/LADC at [facility]. documented as of this encounter Visit Diagnoses Not on filedocumented in this encounter Additional Health Concerns Active Problems Noted Date Diagnosed Date Substance Use 06/30/2023 Mental Health Symptoms Need Improvement 06/30/20 23 Assessment Noted Time PHQ-9 Depression Total Score: 8 08/29/19 24 8:19 AM GAS TRANSFER OPERATOR documented as of this encounter Care Teams Site Lead Relationship Specialty Start Date End Date Kaila Sen MD [address] [place] [address] PCP - General Family Medicine 03/08/21 Julissa Frank [facility] [address] [place], [place] [address] Pharmacist Pharmacist 05/27/19 Shai Horta MD 909 [place], [place] [address] Dermatology 11/22/19 Deborah Rascon DO [address] [place], [place] [address] Referring Physician Family Practice 11/22/19 Maria Whitley MD 909 [place], [place] [address] Gastroenterology 02/23/21 Kaila Sen MD 1414 [place] [address] Assigned PCP 05/27/21 None 02/28/23 Maria Whitley MD 909 [place] [address] Assigned Gastroenterology Provider 09/19/23 Julien Miranda MD [address]50 [place] [address] Assigned Behavioral Health Provider 12/18/23 documented as of this encounter
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
--- NOTE | 2024-09-12 17:38 | ED.GENADULT ---
HPI - General Adult General Chief complaint: Alcohol/Intoxication Stated complaint: Intoxicaion Time Seen by Provider: 09/12/24 17:25 Source: patient Mode of arrival: EMS Limitations: no limitations History of Present Illness HPI narrative: 34-year-old female presenting today after having alcohol withdrawal seizure. Patient states that she has a history of alcohol use disorder but was sober for quite some time and in the last couple of months her drinking started again. SHe has been drinking a pint to a half a pint of hard liquor per day. Patient states that she last had alcohol today around noon and then around 330 had a seizure. Seizures described, as witnessed per her fiance, as patient looking like she was being electrocuted for about a minute to a minute and half. She did not fall or hit the ground. There was no head trauma noted per her fiance. 911 was called and she was brought in. Patient states she feels completely fine now and has no concerns. She states that she is ready to stop drinking and already has a plan to follow-up with her outpatient therapies that she had in the past. She denies headache, chest pain or abdominal pain. She is quite nauseated has been vomiting quite a bit. She denies fevers or recent illness. Patient takes no daily medications. Patient states that she has had an alcohol withdrawal seizure in the past -several years ago. Related Data Home Medications ?Medication ?Instructions ?Recorded ?Confirmed No Known Home Medications 09/12/24 09/12/24 Allergies Allergy/AdvReac Type Severity Reaction Status Date / Time divalproex sodium (From Allergy Unknown Verified 09/12/24 17:30 Depakote) gabapentin Allergy Unknown Verified 09/12/24 17:30 Review of Systems Status of ROS: Reports: 10 or more systems reviewed and unremarkable except as noted in History and [facility] Social History Smoking Status: Current every day smoker Do you use any of these nicotine containing products: Vaping Products Second hand tobacco smoke exposure: No How often do you have a drink containing alcohol: 4 or more times a week How many standard drinks containing alcohol do you have on a typical day: 10 or more How often do you have six or more drinks on one occasion: Daily or almost daily AUDIT-C Alcohol total score: 12 Non-prescribed substance use: marijuana (any form) Exam Narrative: Exam Narrative: Well-nourished well-developed patient in no acute distress. Alert and oriented x3. Answers questions appropriately. Mood and affect are appropriate. Thoughts are goal oriented and rational. No tangential or magical thinking noted. Patient speaks in full sentences without needing to catch her breath. Speech is not slurred or pressured. HEENT: Normocephalic atraumatic. Pupils are equally round reactive to light. Extraocular muscles are intact. Conjunctivae are moist without any icterus noted. Moist mucous membranes. Posterior pharynx is normal. Neck is soft without any lymphadenopathy or thyromegaly. No masses are appreciated. Cardiovascular: Heart is tachycardic, regular rhythm S1 and S2 are present without any murmurs. Lungs: Clear to auscultation bilaterally no wheezes rhonchi or rales are appreciated. Patient takes deep breaths without any discomfort. Abdomen: Soft and nontender nondistended with normal bowel sounds. Extremities: Bilateral lower extremities are without edema. Skin: Well perfused. Const: Vital Signs, click to edit/add: Vital Signs - 24 hr 09/12/24 17:24 09/12/24 18:01 09/12/24 18:15 Temperature 97.8 F Pulse Rate 83 Pulse Rate [Pulse Oximeter] 95 Respiratory Rate 20 16 Blood Pressure 136/91 H Blood Pressure [Le ft Upper Arm] 119/93 H Pulse Oximetry 98 94 Oxygen Delivery Il thod Room Air 09/12/24 18:31 Temperature Pulse Rate 125 H Pulse Rate [Pulse Oximeter] Respiratory Rate 13 Blood Pressure 138/85 Blood Pressure [Le ft Upper Arm] Pulse Oximetry Oxygen Delivery Il thod Course Course ED Course: IV is established and patient received 1 L of normal saline. 5 mg of IV Ativan and IV Zofran also given. This does help with vomiting patient has no more vomiting episodes while in the ER. EKG, read by me, shows a prolonged QT 552. Normal sinus rhythm with a pulse of 95. CBC shows a white cell count of 2.03, hemoglobin 13.6, platelet count 15308. Sodium is low at 133, potassium is low at 3.0. Normal renal function. Total bilirubin is elevated at 3.2, AST is 93 and ALT is 63. Normal lactate. Normal magnesium. Negative salicylates and acetaminophen levels. We could not obtain alcohol levels as the machine in the lab was not working. We discussed observing the patient overnight and that was the recommendation, however, patient refused. Patient stated that she felt fine and needed to get to work. She stated that she understood the risk of having a repeat seizure and again, did not want stay. We discussed that her electrolytes were low needed to be replenished. We discussed the potential of electrolyte abnormalities causing cardiac arrhythmias- deadly irregular rhythms of the heart that can potentially be fatal. We discussed that she already had a prolonged QT. Patient stated that she understood this as well, but again, did not wish to stay. At this time she did accept 40 mEq of oral potassium. Patient will sign out against medical advice at this time. She is coherent, she is answering questions appropriately. She explains the reason why she wants to leave as not wanting to lose her job. Patient is clinically sober. She is going home to the care of her sober fiance. I told her in no uncertain terms that this was not a medically moore decision and could lead to repeat seizures or even her . This was discussed in front of her fiance and nursing staff as well. Vital Signs Vital signs: Initial Vital Signs Temperature 97.8 F 09/12/24 17:24 Temperature Source Temporal Artery Scan 09/12/24 17:24 Pulse Rate 95 09/12/24 17:24 Respiratory Rate 20 09/12/24 17:24 Blood Pressure 119/93 H 09/12/24 17:24 Blood Pressure Mean 101 09/12/24 17:24 Blood Pressure Position Supine 09/12/24 17:24 Pulse Oximetry 98 09/12/24 17:24 Oxygen Delivery Method Room Air 09/12/24 17:24 Vital Signs Temperature 97.8 F 09/12/24 17:24 Pulse Rate 95 09/12/24 17:24 Respiratory Rate 20 09/12/24 17:24 Blood Pressure 119/93 H 09/12/24 17:24 Pulse Oximetry 98 09/12/24 17:24 Oxygen Delivery Method Room Air 09/12/24 17:24 Temperature 97.8 F 09/12/24 17:24 Pulse Rate 125 H 09/12/24 18:31 Respiratory Rate 13 09/12/24 18:31 Blood Pressure 138/85 09/12/24 18:31 Pulse Oximetry 94 09/12/24 18:01 Oxygen Delivery Method Room Air 09/12/24 17:24 Medications Administered Medications: Discontinued Medications Generic Name Dose Route Start Last Admin Trade Name Alexandria PRN Reason Stop Dose Admin Sodium Chloride 1,000 mls @ 1,000 mls/hr 09/12/24 17:45 09/12/24 18:25 0.9 % Sodium Chloride 1000 Ml IV 09/12/24 18:44 Infused .Q1H HEIDI Infusion Lorazepam 0.5 mg 09/12/24 17:41 09/12/24 17:55 Lorazepam 2 Mg/Ml Inj IVP 09/12/24 17:42 0.5 mg ONCE ONE Administration Ondansetron HCl 4 mg 09/12/24 17:32 09/12/24 17:40 Ondansetron 2 Mg/Ml Inj IVP 09/12/24 17:33 4 mg ONCE ONE Administration Potassium Chloride 40 meq 09/12/24 18:31 09/12/24 18:38 Potassium Chloride 10 Meq Capsule Er PO 09/12/24 18:32 40 meq ONCE ONE Administration Medical Decision Making [facility] Narrative Medical decision making narrative: 34-year-old female chronic alcohol use disorder, presenting with in acute alcohol withdrawal seizure, thrombocytopenia, hyponatremia and hypokalemia. Patient signed out against medical advice. Lab Data Lab results reviewed: Yes I reviewed the patient's lab results Labs: Lab Results 09/12/24 09/12/24 09/12/24 Range/Units 17:42 17:42 17:42 WBC 2.03 L (4.50-11.00) K/uL RBC 3.87 L (4.00-5.20) m/uL Hgb 13.6 (12.0-16.0) gm/dL Hct 39.3 (33.0-51.0) % MCV 102 H (80-100) fL MCH 35 H (26-34) pg MCHC 35 (32-36) gm/dL RDW Coeff of Donald 12.7 (11.5-15.5) % Plt Count 77 L (140-440) K/uL Neut % (Auto) 68.9 (42.0-72.0) % Lymph % (Auto) 15.8 L (20-44) % [place] % (Auto) 12.8 H (0.0-11.0) % Eos % (Auto) 1.5 (0.0-7.0) % Baso % (Auto) 0.5 (0.0-3.0) % Neut # (Auto) 1.40 L (1.7-7.0) K/uL Lymph # (Auto) 0.30 L (0.90-2.90) K/uL [place] # (Auto) 0.30 (0.00-0.90) K/UL Eos # (Auto) 0.00 (0.00-0.50) K/uL Baso # (Auto) 0.00 (0.00-0.30) K/uL Abs Immat Gran (auto) 0.00 (0.00-0.30) K/uL Imm/Tot Granulo (auto) 0.5 % Sodium Cancelled 133 L Potassium Cancelled 3.0 L Chloride Cancelled Carbon Dioxide Anion Gap BUN Creatinine Estimated Creat Clear Estimated GFR Glucose Lactate (0.5-1.9) mmol/L Calcium Magnesium (1.5-2.6) mg/dL Total Bilirubin (0.1-1.5) mg/dL Direct Bilirubin (0.0-0.5) mg/dL AST (12-35) U/L ALT (4-35) U/L Alkaline Phosphatase (40-150) U/L Total Protein (6.0-8.3) g/dL Albumin (3.3-5.0) g/dL Lipase (23-300) U/L Salicylates (1.0-10) mg/dL Acetaminophen Ethyl Alcohol 09/12/24 09/12/24 09/12/24 Range/Units 17:42 17:42 17:42 WBC (4.50-11.00) K/uL RBC (4.00-5.20) m/uL Hgb (12.0-16.0) gm/dL Hct (33.0-51.0) % MCV (80-100) fL MCH (26-34) pg MCHC (32-36) gm/dL RDW Coeff of Donald (11.5-15.5) % Plt Count (140-440) K/uL Neut % (Auto) (42.0-72.0) % Lymph % (Auto) (20-44) % [place] % (Auto) (0.0-11.0) % Eos % (Auto) (0.0-7.0) % Baso % (Auto) (0.0-3.0) % Neut # (Auto) (1.7-7.0) K/uL Lymph # (Auto) (0.90-2.90) K/uL [place] # (Auto) (0.00-0.90) K/UL Eos # (Auto) (0.00-0.50) K/uL Baso # (Auto) (0.00-0.30) K/uL Abs Immat Gran (auto) (0.00-0.30) K/uL Imm/Tot Granulo (auto) % Sodium Potassium Chloride 101 Carbon Dioxide Cancelled 23 Anion Gap Cancelled 9 BUN Cancelled Creatinine Estimated Creat Clear Estimated GFR Glucose Lactate (0.5-1.9) mmol/L Calcium Magnesium (1.5-2.6) mg/dL Total Bilirubin (0.1-1.5) mg/dL Direct Bilirubin (0.0-0.5) mg/dL AST (12-35) U/L ALT (4-35) U/L Alkaline Phosphatase (40-150) U/L Total Protein (6.0-8.3) g/dL Albumin (3.3-5.0) g/dL Lipase (23-300) U/L Salicylates (1.0-10) mg/dL Acetaminophen Ethyl Alcohol 09/12/24 09/12/24 09/12/24 Range/Units 17:42 17:42 17:42 WBC (4.50-11.00) K/uL RBC (4.00-5.20) m/uL Hgb (12.0-16.0) gm/dL Hct (33.0-51.0) % MCV (80-100) fL MCH (26-34) pg MCHC (32-36) gm/dL RDW Coeff of Donald (11.5-15.5) % Plt Count (140-440) K/uL Neut % (Auto) (42.0-72.0) % Lymph % (Auto) (20-44) % [place] % (Auto) (0.0-11.0) % Eos % (Auto) (0.0-7.0) % Baso % (Auto) (0.0-3.0) % Neut # (Auto) (1.7-7.0) K/uL Lymph # (Auto) (0.90-2.90) K/uL [place] # (Auto) (0.00-0.90) K/UL Eos # (Auto) (0.00-0.50) K/uL Baso # (Auto) (0.00-0.30) K/uL Abs Immat Gran (auto) (0.00-0.30) K/uL Imm/Tot Granulo (auto) % Sodium Potassium Chloride Carbon Dioxide Anion Gap BUN 12 Creatinine Cancelled 0.4 L Estimated Creat Clear Cancelled 189.08 Estimated GFR Cancelled Glucose Lactate (0.5-1.9) mmol/L Calcium Magnesium (1.5-2.6) mg/dL Total Bilirubin (0.1-1.5) mg/dL Direct Bilirubin (0.0-0.5) mg/dL AST (12-35) U/L ALT (4-35) U/L Alkaline Phosphatase (40-150) U/L Total Protein (6.0-8.3) g/dL Albumin (3.3-5.0) g/dL Lipase (23-300) U/L Salicylates (1.0-10) mg/dL Acetaminophen Ethyl Alcohol 09/12/24 09/12/24 09/12/24 Range/Units 17:42 17:42 17:42 WBC (4.50-11.00) K/uL RBC (4.00-5.20) m/uL Hgb (12.0-16.0) gm/dL Hct (33.0-51.0) % MCV (80-100) fL MCH (26-34) pg MCHC (32-36) gm/dL RDW Coeff of Donald (11.5-15.5) % Plt Count (140-440) K/uL Neut % (Auto) (42.0-72.0) % Lymph % (Auto) (20-44) % [place] % (Auto) (0.0-11.0) % Eos % (Auto) (0.0-7.0) % Baso % (Auto) (0.0-3.0) % Neut # (Auto) (1.7-7.0) K/uL Lymph # (Auto) (0.90-2.90) K/uL [place] # (Auto) (0.00-0.90) K/UL Eos # (Auto) (0.00-0.50) K/uL Baso # (Auto) (0.00-0.30) K/uL Abs Immat Gran (auto) (0.00-0.30) K/uL Imm/Tot Granulo (auto) % Sodium Potassium Chloride Carbon Dioxide Anion Gap BUN Creatinine Estimated Creat Clear Estimated GFR 131 Glucose Cancelled 110 Lactate 1.6 (0.5-1.9) mmol/L Calcium Cancelled 8.8 Magnesium 2.1 (1.5-2.6) mg/dL Total Bilirubin 3.2 H (0.1-1.5) mg/dL Direct Bilirubin 1.3 H (0.0-0.5) mg/dL AST 93 H (12-35) U/L ALT 63 H (4-35) U/L Alkaline Phosphatase 149 (40-150) U/L Total Protein 7.5 (6.0-8.3) g/dL Albumin 4.2 (3.3-5.0) g/dL Lipase 35 (23-300) U/L Salicylates < 1.0 L (1.0-10) mg/dL Acetaminophen Cancelled Ethyl Alcohol 09/12/24 Range/Units 17:42 WBC (4.50-11.00) K/uL RBC (4.00-5.20) m/uL Hgb (12.0-16.0) gm/dL Hct (33.0-51.0) % MCV (80-100) fL MCH (26-34) pg MCHC (32-36) gm/dL RDW Coeff of Donald (11.5-15.5) % Plt Count (140-440) K/uL Neut % (Auto) (42.0-72.0) % Lymph % (Auto) (20-44) % [place] % (Auto) (0.0-11.0) % Eos % (Auto) (0.0-7.0) % Baso % (Auto) (0.0-3.0) % Neut # (Auto) (1.7-7.0) K/uL Lymph # (Auto) (0.90-2.90) K/uL [place] # (Auto) (0.00-0.90) K/UL Eos # (Auto) (0.00-0.50) K/uL Baso # (Auto) (0.00-0.30) K/uL Abs Immat Gran (auto) (0.00-0.30) K/uL Imm/Tot Granulo (auto) % Sodium Potassium Chloride Carbon Dioxide Anion Gap BUN Creatinine Estimated Creat Clear Estimated GFR Glucose Lactate (0.5-1.9) mmol/L Calcium Magnesium (1.5-2.6) mg/dL Total Bilirubin (0.1-1.5) mg/dL Direct Bilirubin (0.0-0.5) mg/dL AST (12-35) U/L ALT (4-35) U/L Alkaline Phosphatase (40-150) U/L Total Protein (6.0-8.3) g/dL Albumin (3.3-5.0) g/dL Lipase (23-300) U/L Salicylates (1.0-10) mg/dL Acetaminophen < 10.0 L Ethyl Alcohol Cancelled Discharge Plan Discharge Clinical Impression: Alcohol withdrawal syndrome, Alcohol withdrawal seizure, Hyponatremia, Hypokalemia, Thrombocytopenia, Prolonged QT interval Patient Disposition: Left Against Medical Advice Additional Instructions: You need to see your primary care provider within 24 hours to have your electrolytes repeated and have a repeat EKG done there was abnormalities already seen on your EKG and you should make sure that they are not getting worse as this could lead to a fatal heart rhythm. Prescriptions: No Action No Known Home Medications Stand Alone Forms: [place] [employer] Info Instructions
[2024-09-12] MEDS: 0.9 % SODIUM CHLORIDE 1000 ml 1,000 ML IV (17:39)
[2024-09-12] MEDS: ONDANSETRON 2 MG/ML inj 4 MG IVP (17:40)
[2024-09-12 17:48] LABS: Lactate* 1.6 mmol/L (0.5-1.9)
[2024-09-12 17:55] LABS: Basophils Percent Auto 0.5 % (0.0-3.0); Eosinophils Percent Auto 1.5 % (0.0-7.0); Hematocrit 39.3 % (33.0-51.0); Hemoglobin* 13.6 gm/dL (12.0-16.0); Immature Granulocytes Pct Auto 0.5 %; Lymphocytes Percent Auto 15.8 % (20-44); Mean Corpuscular HGB Conc 35 gm/dL (32-36); Mean Corpuscular Hemoglobin 35 pg (26-34); Mean Corpuscular Volume 102 fL (80-100); Monocytes Percent Auto 12.8 % (0.0-11.0); Neutrophils Percent Auto 68.9 % (42.0-72.0); Platelet Count* 77 K/uL (140-440); RDW Coefficient of Variation % 12.7 % (11.5-15.5); Red Blood Count 3.87 m/uL (4.00-5.20); White Blood Count* 2.03 K/uL (4.50-11.00)
[2024-09-12] MEDS: LORazepam 2 MG/ML inj 0.5 MG IVP (17:55)
[2024-09-12 17:58] LABS: Slide Review Reflex No
[2024-09-12 18:01] VITALS: BP 136/91; PULSE 83; O2SAT 94
[2024-09-12 18:13] LABS: Albumin* 4.2 g/dL (3.3-5.0); Chloride* 101 mmol/L (96-114)
[2024-09-12 18:14] LABS: Sodium* 133 mmol/L (135-149)
[2024-09-12 18:15] VITALS: RESP 16
[2024-09-12 18:16] LABS: Alkaline Phosphatase* 149 U/L (40-150); Anion Gap 9 mEq/L (7-15); Aspartate Amino Transferase* 93 U/L (12-35); Bilirubin Direct* 1.3 mg/dL (0.0-0.5); Bilirubin Total* 3.2 mg/dL (0.1-1.5); Blood Urea Nitrogen* 12 mg/dL (5-24); Calcium* 8.8 mg/dL (8.4-10.6); Carbon Dioxide* 23 mmol/L (20-32); Creatinine* 0.4 mg/dL (0.5-1.5); Est. Creatinine Clearance* 189.08; Estimated Glomerular Filt Rate 131 ml/min; Glucose* 110 mg/dL (60-115); Magnesium* 2.1 mg/dL (1.5-2.6); Total Protein* 7.5 g/dL (6.0-8.3)
[2024-09-12 18:17] LABS: Alanine Aminotransferase* 63 U/L (4-35); Lipase* 35 U/L (23-300)
[2024-09-12 18:25] LABS: Acetaminophen* < 10.0 ug/mL (10.0-30.0); Salicylate* < 1.0 mg/dL (1.0-10)
[2024-09-12 18:31] VITALS: BP 138/85; PULSE 125; RESP 13
[2024-09-12] MEDS: POTASSIUM CHLORIDE 10 MEQ CAPSULE ER 40 MEQ PO (18:38)
--- OUTSIDE RECORDS SUMMARY | 2024-09-12 19:24 | XMS_ITS | Encounter Summary ---
Author Organization [facility] Address [address] [place] [address] Care Team Providers Care Radiological Defense Officer Name Role Phone Ana Frankyany Silva [facility] Unavailable [phone] Deborah Rascon DO Primary Care Provider [phone] Deborah Rascon DO Unavailable [phone] Shai Horta MD Unavailable Deborah Rascon DO Unavailable [phone] Justice Foster MD Unavailable [phone] Marie Abbott LUMBER HANDLER Unavailable [phone] Jaxson Bryan MD Unavailable Jaxson Bryan MD Unavailable Yunior Mesa MD Unavailable [phone] Maria Whitley MD Unavailable [facility] Jose Donohue [facility] re Provider Kaila Sen MD Primary Care Provide r Deborah Rascon DO Unavailable [phone] Jaxson Alejo MD Unavailable Radha Carrillo APRN [employer]UMBER HAND[employer]ER Unavailable [phone] Maria Whitley MD Unavailable Kaila Sen MD Unavailable Kaila Sen MD Unavailable Deborah Rascon DO Unavailable [phone] None Unavailable Unavailable Rico Corey LACE ROLLER Unavailable Unavailable Rico Corey LACE ROLLER Unavailable Unavailable Maria Whitley MD Unavailable Julien Miranda MD Unavailable [phone] Reason for Visit * Reason Onset Date Comments Patient Request 11/22/2019 Encounter Details Date Type Department Care Team (Late st Contact Info) Description 11/22/2019 Telephone [facility] [address] [id number] Unknown Patient Request Social History [...] patient visit. No answer,left vm to call [phone] to set up appointment. Gretchen Burns CMA [facility] 11/24/2019 11:34 AM * Telephone Encounter - Gretchen Burns CMA - 11/23/2019 1:09 PM CDT Attempted to call yesterday and again today. Phone listed goes straight to voicemail. Message left today to call [phone] if she would like to reach out to us. I will continue to try to contact through 11/24. Gretchen Burns CMA [facility] 11/23/2019 1:10 PM * Telephone Encounter - Sanjay Son - 11/22/2019 11:38 AM CDT [facility] Phone Message May a detailed message [...] this information before scheduling. Action Taken: Other: [facility] Hepatology Travel Screening: Not Applicable documented in this encounter Plan of Treatment Not on file documented as of this encounter Visit Diagnoses Not on filedocumented in this encounter Additional Health Concerns Assessment Noted Time PHQ-9 Depression Total Score: 9 04/22/20 18 7:05 AM CDT documented as of this encounter Care Teams Radiological Defense Officer Relationship Specialty Start Date End Date Deborah Rascon DO [facility] [address] [id number] PCP - General Family Practice 05/27/19 02/28/21 [facility] Jose Donohue [address] [address] PCP - General Family Medicine 03/01/21 03/07/21 Kaila Sen MD [address] [place] [address] PCP - General Family Medicine 03/08/21 Julissa Frank, [facility] [address] [place], [place] [address] Pharmacist Pharmacist 05/27/19 Deborah Rascon DO [facility] [address] [place] [address] Assigned PCP 03/18/21 04/28/21 Shai Horta MD [address] [facility] [place], [place] [id number] Dermatology 11/22/19 Deborah Rascon DO [address] [place], [place] [id number] Referring Physician Family Practice 11/22/19 Justice Foster MD [address] [place] [address] Assigned Sleep Provider 05/19/20 Marie Abbott CNP [facility] [address] [place], [place] [address] Assigned Behavioral Health Provider 05/19/20 05/12/21 Jaxson Bryan MD [address] [place] [address] Assigned Gastroenterology Provider 05/19/20 10/21/20 Jaxson Bryan MD [address] [place] [address] Assigned Surgical Provider 10/22/20 Yunior Mesa MD [address] [place] [address] Assigned Musculoskeletal Provider 01/28/21 03/24/21 Maria Whitley MD [address] [place] [address] Gastroenterology 02/23/21 Deborah Rascon DO [facility] [address] [place] [address] Assigned PCP 06/06/19 03/10/21 Jaxson Alejo MD [address] [place] [address] Assigned Musculoskeletal Provider 03/25/21 09/20/22 Radha Carrillo APRN CNP [address] [facility] [address] [place] [address] Assigned PCP 03/11/21 03/17/21 Maria Whitley MD [address] [place] [address] Assigned Gastroenterology Provider 03/04/21 08/30/22 Kaila Sen MD [address] [place] [address] Assigned PCP 05/27/21 Kaila Sen MD [address] [place] [address] Assigned PCP 04/29/21 05/05/[address] [facility] [address] [place] [address] Assigned PCP 05/06/21 05/26/21 None 02/28/23 Rico Corey LACE ROLLER Scrubber Operator 06/24/23 07/08/23 Rico Corey LACE ROLLER Scrubber Operator 07/14/23 07/28/23 Maria Whitley MD [address] [place] [address] Assigned Gastroenterology Provider 09/19/23 Julien Miranda MD [address] [place] [address] Assigned Behavioral Health Provider 12/18/23 documented as of this encounter
--- OUTSIDE RECORDS SUMMARY | 2024-09-12 19:24 | XMS_ITS | Encounter Summary ---
Author Organization [place] Address [address] [place] [address] Care Team Providers Care Senior Cytogenetic Technologist Name Role Phone Zac, Julissa Silva [facility] Unavailable [phone] Deborah Rascon DO Primary Care Provider [phone] Deborah Rascon DO Unavailable [phone] Shai Horta MD Unavailable [phone] Deborah Rascon DO Unavailable [phone] Justice Foster MD Unavailable Marie Abbott LOSS PREVENTION LEADER Unavailable [phone] Jaxson Bryan MD Unavailable Yunior Mesa MD Unavailable Maria Whitley MD Unavailable [facility] Provider Kaila Sen MD Primary Care Provide r Deborah Rascon DO Unavailable [phone] Jaxson Alejo MD Unavailable Radha Carrillo APRN LOSS PREVENTION LEADER Unavailable [phone] Maria Whitley MD Unavailable Kaila Sen MD Unavailable [phone] Kaila Sen MD Unavailable [phone] Deborah Rascon DO Unavailable [phone] None Unavailable Unavailable Rico Corey DIRECT SALES REPRESENTATIVE Unavailable Unavailable Rico Corey DIRECT SALES REPRESENTATIVE Unavailable Unavailable Maria Whitley MD Unavailable Julien Miranda MD Unavailable [phone] Reason for Visit * Reason Onset Date Comments Lodging Plus 12/26/2020 Encounter Details Date Type Department Care Team ([facility] st Contact Info) Description 12/26/2020 Telephone [facility] Behavioral Health Intake [address] [place] [id number] Generic, Behavioral Intake, Lodging Plus Social History [...] call this patient at [address] phone: [phone] to complete a medical screening to clarify [...] in the patient's electronic medical record in [facility]. ThanksMekhi. MAHOGANY Jon * Telephone Encounter [...] patient does NOT use benzodiazepines. Insurance: The [place] UR Department is responsible for obtaining ALL authorizations for treatmentservices at the EOP, DOP and LP levels of care. This will be a: Seen by a [place] Evaluation Counselor: MILADIS, ISP & LP UPDATE NOTE evaluation. (Update SBAR and route NADEGE and BETTY's) IV use or : This patient is not or an IV drug user. Business office: The patient has [employer] [place]/PMAP and would NOT need to consult with anyone in [place]'s business office about the out of pocket [...] documented as of this encounter Care Teams Senior Cytogenetic Technologist Relationship Specialty Start Date End Date Deborah Rascon DO [address] [facility] [address] [place], [place] [address] PCP - General Family Practice 05/27/19 02/28/21 [facility] Jayde [address] [address] PCP - General Family Medicine 03/01/21 03/07/21 Kaila Sen MD [address] [place] [address] PCP - General Family Medicine 03/08/21 Julissa Farnk RPH [address] [place], [place] [address] Pharmacist Pharmacist 05/27/19 Deborah Rascon DO [facility] [address] [facility] [place] [address] Assigned PCP 03/18/21 04/28/21 Shai Horta MD [address] [place] [address] Dermatology 11/22/19 Deborah Rascon DO [address] [facility] 700 [place] [address] Referring Physician Family Practice 11/22/19 Justice Foster MD [address] [place] [address] 240776 Assigned Sleep Provider 05/19/20 Marie Abbott CNP [facility] [address] [address] Assigned Behavioral Health Provider 05/19/20 05/12/21 Jaxson Bryan MD [address] [place] [address] 407825 Assigned Surgical Provider 10/22/20 Yunior Mesa MD [address] [place] [address] Assigned Musculoskeletal Provider 01/28/21 03/24/21 Maria Whitley MD [address] [place] [address] Gastroenterology 02/23/21 Deborah Rascon DO [facility] [address] [place] [address] Assigned PCP 06/06/19 03/10/21 Jaxson Alejo MD [address]341 [place] [address] Assigned Musculoskeletal Provider 03/25/21 09/20/22 Radha Carrillo APRN CNP [address] [address] Assigned PCP 03/11/21 03/17/21 Maria Whitley MD [address] [place] [address] Assigned Gastroenterology Provider 03/04/21 08/30/22 Kaila Sen MD [address]14 [place] [address] Assigned PCP 05/27/21 Kaila Sen MD [address] [place] [address] Assigned PCP 04/29/21 05/05/21 Deborah Rascon DO [facility] [address] [place] [address] Assigned PCP 05/06/21 05/26/21 None 02/28/23 Rico Corey DIRECT SALES REPRESENTATIVE Child Care Centre Manager 06/24/23 07/08/23 Rico Corey DIRECT SALES REPRESENTATIVE Child Care Centre Manager 07/14/23 07/28/23 Maria Whitley MD [address] [place] [address] Assigned Gastroenterology Provider 09/19/23 [place] [address] [place] [address] Assigned Behavioral Health Provider 12/18/23 documented as of this encounter
--- OUTSIDE RECORDS SUMMARY | 2024-09-12 19:24 | XMS_ITS | Encounter Summary ---
Author Organization [place] Address [address] [place] [address] Care Team Providers Care Cooker Sulfite Name Role Phone Ana Frankyany Silva [facility] Unavailable [phone] Deborah Rascon DO Primary Care Provider [phone] Deborah Rascon DO Unavailable [phone] Shai Horta MD Unavailable [phone] Deborah Rascon DO Unavailable [phone] Justice Foster MD Unavailable Marie Abbott COPY CUTTER Unavailable [phone] Jaxson Bryan MD Unavailable Jaxson Bryan MD Unavailable Yunior Mesa MD Unavailable [phone] Maria Whitley MD Unavailable [facility] Jose Donohue [facility] re Provider Kaila Sen MD Primary Care Provide r Deborah Rascon DO Unavailable [phone] Jaxson Alejo MD Unavailable Radha Carrillo APRN COPY CUTTER Unavailable [phone] Maria Whitley MD Unavailable Kaila Sen MD Unavailable Kaila Sen MD Unavailable [phone] Deborah Rascon DO Unavailable None Unavailable Unavailable Rico Corey SLAB WORKER Unavailable Unavailable Rico Corey SLAB WORKER Unavailable Unavailable Maria Whitley MD Unavailable Julien Miranda MD Unavailable [phone] Reason for Visit * Reason Onset Date Comments Refill Request 02/15/2020 MIRTAZAPINE Encounter Details Date Type Department Care Team (Late st Contact Info) Description 02/15/2020 Refill [facility] [address] [place] [address] Deborah Rascon DO [facility] [address] [place] [address] Refill Request (MIRTAZAPINE) Social History [...] Please notify patient she needs to call [phone] schedule a follow up with her provider. [...] documented as of this encounter Care Teams Cooker Sulfite Relationship Specialty Start Date End Date Deborah Rascon DO [address] [place], [place] 79[address] PCP - General Family Practice 05/27/19 02/28/[address] [address] PCP - General Family Medicine 03/01/21 03/07/21 Kaila Sen MD [address] [place] [address] PCP - General Family Medicine 03/08/21 Julissa Frank [facility] [address] [place] [address] Pharmacist Pharmacist 05/27/19 Deborah Rascon DO [facility] [address] [place] [address] Assigned PCP 03/18/21 04/28/21 Shai Horta MD [address] [place] [address] Dermatology 11/22/19 Deborah Rascon DO [address] [facility] 700 [place] [address] Referring Physician Family Practice 11/22/19 [place] [address] [place] [address] Assigned Sleep Provider 05/19/20 Marie Abbott CNP [facility] [address] 644343 Assigned Behavioral Health Provider 05/19/20 05/12/21 Jaxson Bryan MD [address] [place] [address] Assigned Gastroenterology Provider 05/19/20 10/21/20 Jaxson Bryan MD [address] [place] [address] Assigned Surgical Provider 10/22/20 Yunior Mesa MD [address] [place] [address] Assigned Musculoskeletal Provider 01/28/21 03/24/21 Maria Whitley MD [address] [place] [address] Gastroenterology 02/23/21 Deborah Rascon DO [facility] [address] [place] [address] Assigned PCP 06/06/19 03/10/21 Jaxson Alejo MD [address] [place] [address] [place] [address] Assigned Musculoskeletal Provider 03/25/21 09/20/22 Radha Carrillo APRN COPY CUTTER [address] [place] [address] Assigned PCP 03/11/21 03/17/21 Maria Whitley MD [address] [place] [address] Assigned Gastroenterology Provider 03/04/21 08/30/22 Kaila Sen MD 1414 [place] [address] Assigned PCP 05/27/21 Kaila Sen MD [address]14 [place] [address] Assigned PCP 04/29/21 05/05/21 Deborah Rascon DO [facility] [address] [place] [address] Assigned PCP 05/06/21 05/26/21 None 02/28/23 Rico Corey BSW Assembler Surgical Garment 06/24/23 07/08/23 Rico Corey BSW Assembler Surgical Garment 07/14/23 07/28/23 Maria Whitley MD 9 [place] [address] Assigned Gastroenterology Provider 09/19/23 Julien Miranda MD [address]50 [place], [place] 778234 Assigned Behavioral Health Provider 12/18/23 documented as of this encounter
--- OUTSIDE RECORDS SUMMARY | 2024-09-12 19:24 | XMS_ITS | Encounter Summary ---
Author Organization [facility] Address [address] [place] [address] Care Team Providers Care Expressive Therapist Name Role Phone ZacJulissa anthony [facility] Unavailable [phone] Shai Horta MD Unavailable [phone] Deborah Rascon DO Unavailable [phone] Maria Whitley MD Unavailable Kaila Sen MD Primary Care Provide r Kaila Sen MD Unavailable [phone] None Unavailable Unavailable Rico Corey BLIND HANGER Unavailable Unavailable Rico Corey BLIND HANGER Unavailable Unavailable Maria Whitley MD Unavailable Julien Miranda MD Unavailable [phone] Encounter Details Date Type Department Care Team (Late st Contact Info) Description 02/28/2023 Telephone [facility] [address] [address] Maria Whitley MD [address] [place] [address] Social History Tobacco Use Types Packs/Day [...] Cathy Jhaveri - 02/28/2023 9:24 AM CDT [facility] Call Center Phone Message May a detailed message be left on voicemail: yes Reason for Call: Other: Dr Kaila Sen/ [facility] cell [phone]- would like to consult regarding a medication (not currently on pt chart) please call her back to discuss. No appt was scheduled at this time by content writer. Action Taken: Message routed to: Adult Clinics: Gastroenterology (GI) p [id number] Travel Screening: Not Applicable documented in this encounter Plan of Treatment Not on file documented as of this encounter Visit Diagnoses Not on filedocumented in this encounter Additional Health Concerns Assessment Noted Time PHQ-9 Depression Total Score: 12 02/07/ 023 12:06 PM CDT documented as of this encounter Care Teams Expressive Therapist Relationship Specialty Start Date End Date Kaila Sen MD [facility] [place] [address] PCP - General Family Medicine 03/08/21 Julissa Frank [facility] 2450 [facility] [address] [place] [address]874 Pharmacist Pharmacist 05/27/19 Shai Horta MD 909 [place], [place] [address] Dermatology 11/22/19 Deborah Rascon DO [address] [place] [address] Referring Physician Family Practice 11/22/19 Maria Whitley MD [address] [place] [address] Gastroenterology 02/23/21 Kaila Sen MD [address] [place] [address] Assigned PCP 05/27/21 None 02/28/23 Rico Corey BLIND HANGER Traffic Rate Clerk 06/24/23 07/08/23 Rico Corey BLIND HANGER Traffic Rate Clerk 07/14/23 07/28/23 Maria Whitley MD [address] [place] [address] Assigned Gastroenterology Provider 09/19/23 Julien Miranda MD 2450 [place] [address] Assigned Behavioral Health Provider 12/18/23 documented as of this encounter
--- OUTSIDE RECORDS SUMMARY | 2024-09-12 19:24 | XMS_ITS | Encounter Summary ---
Author Organization [facility] Address [address] [place] [address] Care Team Providers Care Sharepoint Web Developer Name Role Phone No Primary/Referring, Phy Primary Care Provider Unavailable Encounter Details Date Type Department Care Team (Late st Contact Info) Description 12/10/[address] [phone] Amy Garcia MD [facility] [place] [address] MRI SAFETY AND HEALTH HISTORY QUESTIONNAIRE Social [...] documented as of this encounter Care Teams Sharepoint Web Developer Relationship Specialty Start Date End Date No Primary/Referring, Davidy PCP - General 04/04/22 documented as of this encounter
--- OUTSIDE RECORDS SUMMARY | 2024-09-12 19:25 | XMS_ITS ---
Author Organization [facility] Address [address] [place] [address] Care Team Providers Care Finished Goods Inspector Name Role Phone Julissa Frank [facility] Unavailable [phone] Shai Horta MD Unavailable [phone] Deborah Rascon DO Unavailable [phone] Maria Whitley MD Unavailable Kaila Sen MD Primary Care Provide r Kaila Sen MD Unavailable None Unavailable Unavailable Maria Whitley MD Unavailable Julien Miranda MD Unavailable [phone] [facility] Primary Care Care Coordination Status:Identified (Enrolling) Start date:06/30/2023 Enrollment reason:Referred by provider or care team Overview [facility] Case Team Name Relationship Phone MAHOGANY Jamison Erp Specialist(Re sponsible Staff) Continued Care and Services Coordination
--- OUTSIDE RECORDS SUMMARY | 2024-09-12 19:25 | XMS_ITS | Encounter Summary ---
Author Organization [facility] Address [address] [place] [address] Care Team Providers Care Cartridge Maker Name Role Phone Julissa Frank [facility] Unavailable [phone] Shai Horta MD Unavailable [phone] Deborah Rascon DO Unavailable [phone] Maria Whitley MD Unavailable Kaila Sen MD Primary Care Provide r Kaila Sen MD Unavailable [phone] None Unavailable Unavailable Marai Whitley MD Unavailable Julien Miranda MD Unavailable [phone] Encounter Details Date Type Department Care Team (Late st Contact Info) Description 09/23/2023 [facility] Gastroenterology Clinic [address] 4th [place] [address] Hilda Hoyt Social History Tobacco [...] in an abandoned building, in an overnight alf, or couch-surfing.) Yes 08/29/2023 Are you worried [...] Plan Substance Use 100%(06/30/20 23 1:42 PM HAIRSPRING STUDDER) Yehuda Francisco LGSW, LADNick Note: I will continue to go to 3 meetings per week and look for a sponsor. I will start IOP programming at [facility] [employer] [facility]. I will utilize the SW/LADC at [facility] for support as needed. Improve management of mental health symptoms and establish with mental health/psychosoci al supports Care Plan Mental Health Symptoms Need Improvement 100%(06/30/20 23 1:43 PM HAIRSPRING STUDDER) No Yehuda Conley LGSW, [facility] Note: I will take medication as prescribed and let PCP at [facility] know of questions or concerns. I will look into therapy with help from SW/LADC at [facility]. documented as of this encounter Visit Diagnoses Not on filedocumented in this encounter Additional Health Concerns Active Problems Noted Date Diagnosed Date Substance Use 06/30/2023 Mental Health Symptoms Need Improvement 06/30/20 Assessment Noted Time PHQ-9 Depression Total Score: 8 08/29/19 24 8:19 AM HAIRSPRING STUDDER documented as of this encounter Care Teams Cartridge Maker Relationship Specialty Start Date End Date Kaila Sen MD 1414 [place] [address] PCP - General Family Medicine 03/08/21 Julissa Frank [facility] [address] [place], [place] 44[address] Pharmacist Pharmacist 05/27/19 Shai Horta MD 909 [place], [place] 04[address] Dermatology 11/22/19 Deborah Rascon DO [address] [place], [place] [address] Referring Physician Family Practice 11/22/19 Maria Whitley MD 909 [place], [place] [address] Gastroenterology 02/23/21 Kaila Sen MD [address]14 [place] [address] Assigned PCP 05/27/21 None 02/28/23 Maria Whitley MD 909 [place] [address] Assigned Gastroenterology Provider 09/19/23 Julien Miranda MD 2450 [place] [address] Assigned Behavioral Health Provider 12/18/23 documented as of this encounter
--- OUTSIDE RECORDS SUMMARY | 2024-09-12 19:25 | XMS_ITS | Encounter Summary ---
Author Organization [place] Address [address] [place] [address] Care Team Providers Care Electrical Line Worker Name Role Phone No Ref-Primary, Physician Primary Care Provider [facility] Primary Care Prov ider Unavailable No Ref-Primary, Physician Primary Care Provider Amy Mace BUSINESS TECHNOLOGY ANALYST DRESS SHOE INSPECTOR Unavailable Amy Mace BUSINESS TECHNOLOGY ANALYST DRESS SHOE INSPECTOR Unavailable Oma Pierson BUSINESS TECHNOLOGY ANALYST DRESS SHOE INSPECTOR Unavailable Unav ailable Amy Mace BUSINESS TECHNOLOGY ANALYST DRESS SHOE INSPECTOR Unavailable Oma Pierson BUSINESS TECHNOLOGY ANALYST DRESS SHOE INSPECTOR Unavailable Unav ailable Julissa Frank [facility] Unavailable Deborah Rascon DO Primary Care Provider [phone] Deborah Rascon DO Unavailable + [phone] Shai Horta MD Unavailable [phone] Deborah Rascon DO Unavailable [phone] Justice Foster MD Unavailable [phone] Marie Abbott DRESS SHOE INSPECTOR Unavailable [phone] Jaxson Bryan MD Unavailable Jaxson Bryan MD Unavailable Yunior Mesa MD Unavailable [phone] Maria Whitley MD Unavailable Clinic - [facility]ra Ros[facility] Primary Ca re Provider Kaila Sen MD Primary Care Provide r Deborah Rascon DO Unavailable [phone] Jaxson Alejo MD Unavailable [phone] [facility]AntRadhamarlee Mcintosh APRN DRESS SHOE INSPECTOR Unavailable [phone] Maria Whitley MD Unavailable Kaila Sen MD Unavailable [phone] Kaila Sen MD Unavailable [phone] Deborah Rascon DO Unavailable [phone] None Unavailable Unavailable Rico Corey MEDICAL ASSISTANT CARDIOLOGY Unavailable Unavailable Rico Corey MEDICAL ASSISTANT CARDIOLOGY Unavailable Unavailable Maria Whitley MD Unavailable Julien Miranda MD Unavailable [phone] Reason for Visit * Reason Onset Date Comments MH/CD Inpatient 03/09/2018 Encounter Details Date Type Department Care Team (Late st Contact Info) Description 03/09/2018 [facility] Behavioral Health Intake [address] [place] [phone] Generic, Behavioral Intake, MH/CD Inpatient Social History [...] a suicide note. She was transferred to [facility] on 03/10/2018. Erick MAGANASWEDILBERTO * Telephone [...] documented as of this encounter Care Teams Electrical Line Worker Relationship Specialty Start Date End Date No Ref-Primary, Physician PCP - General 03/02/18 04/02/18 [facility] PCP - General 04/03/18 05/17/18 No Ref-Primary, Physician PCP - General 05/18/18 05/26/19 Amy Mace APRN DRESS SHOE INSPECTOR [address] [place] [address] PCP - Assigned PCP 05/03/18 09/29/18 Deborah Rascon DO [address] [place] [address] PCP - General Family Practice 05/27/19 02/28/21 [facility] - [address] [address] PCP - General Family Medicine 03/01/21 03/07/21 Kaila Sen MD [address] [place] [address] PCP - General Family Medicine 03/08/21 Amy Mace APRN DRESS SHOE INSPECTOR [address] [place] [address] Assigned PCP 05/03/18 10/10/18 Oma Pierson APRN DRESS SHOE INSPECTOR Assigned PCP 10/11/18 12/26/18 Amy Mace, BUSINESS TECHNOLOGY ANALYST DRESS SHOE INSPECTOR [address] [facility] [place], [place] [address] Assigned PCP 12/27/18 02/13/19 Oma Pierson, BUSINESS TECHNOLOGY ANALYST DRESS SHOE INSPECTOR Assigned PCP 02/14/19 06/05/19 Julissa Frank, [facility] [address] [place] [address] Pharmacist Pharmacist 05/27/19 Deborah Rascon DO [facility] [address] [place], [place] [address] Assigned PCP 03/18/21 04/28/21 Shai Horta MD 909 [place], [place] 8[address] Dermatology 11/22/19 Deborah Rascon DO [address] [place], [place] [address] Referring Physician Family Practice 11/22/19 Justice Foster MD [address] [place] [address] Assigned Sleep Provider 05/19/20 Marie Abbott CNP [facility] [address] [place], [place] [address] Assigned Behavioral Health Provider 05/19/20 05/12/21 Jaxson Bryan MD [address] [place] [address] Assigned Gastroenterology Provider 05/19/20 10/21/20 Jaxson Bryan MD [address] [place] [address] Assigned Surgical Provider 10/22/20 Yunior Mesa MD [address] [place] [address] Assigned Musculoskeletal Provider 01/28/21 03/24/21 Maria Whitley MD [address] [place] [address] MD Gastroenterology 02/23/[address] [facility] [address] [place] [address] Assigned PCP 06/06/19 03/10/21 Jaxson Alejo MD [address] [place] [address] Assigned Musculoskeletal Provider 03/25/21 09/20/22 Radha Carrillo APRN DRESS SHOE INSPECTOR [address] [facility] 700 [place] [address] Assigned PCP 03/11/21 03/17/21 Maria Whitley MD [address] [place] [address] Assigned Gastroenterology Provider 03/04/21 08/30/22 Kaila Sen MD 1414 [place] [address] Assigned PCP 05/27/21 Kaila Sen MD 1414 [facility] [address] Assigned PCP 04/29/21 05/05/[address] [facility] [address] [place] [address] Assigned PCP 05/06/21 05/26/21 None 02/28/23 Rico Croey MEDICAL ASSISTANT CARDIOLOGY Automatic Print Developer 06/24/23 07/08/23 Rico Corey MEDICAL ASSISTANT CARDIOLOGY Automatic Print Developer 07/14/23 07/28/23 Maria Whitley MD 9 [place] [address] Assigned Gastroenterology Provider 09/19/23 Julien Miranda MD [address]50 [place] [address] Assigned Behavioral Health Provider 12/18/23 documented as of this encounter
--- OUTSIDE RECORDS SUMMARY | 2024-09-12 19:25 | XMS_ITS | Clinical Summary ---
Author Organization [employer] [facility] s & [facility] Address [place], [place] [address] Care Team Providers Care Sample Tester Grinder Name Role Phone Jaxson Jones MD Unavailable [phone] [facility] Unavailable Pcp, No Primary Care [...] per actuation) nasal solution (FLONASE) Inhale 1 [place] to both nostrils once daily if needed. 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 Comment:Antibodies to HCV no t detected; does not exclude the possibility of exposure to HCV. Blood BLOOD SPECIMEN / Unknown Venipuncture / Unknown 01/02/2019 6:44 AM CDT 01/02/2019 6:54 AM CDT us Moises Carrasquillo MD SEND OUTS Final Res ult [facility] [address] [place] [address], * (ABNORMAL) CUTTER INSPECTOR THIN PREP PAP SCREEN IMAGED (04/11/2017 1:43 PM CDT) Case Report Gynecologic Cytology Report Case: [id number] Authorizing Provider: Rocio Spear MD Collected: 04/11/2017 1343 Ordering Location: [place] Received: 04/11/2017 1343 Clinic First Screen: Ena Castelan Pathologist: Viji Jones MD Specimen: CUTTER INSPECTOR ThinPrep Vial Screening, Cervical 04/21/2017 5:46 PM CDT [facility] INTERPRETATION/ RESULT ATYPICAL SQUAMOUS CELLS OF UNDETERMINED SIGNIFICANCE (ASCUS)(A) (none) 04/21/2017 5:46 PM CDT [facility] NISM(S) Bacteria morphologically consistent with Actinomyces species 04/21/2017 5:46 PM CDT [facility] EN[facility] SPECIMEN ADEQUACY Satisfactory for evaluation Endocervical component present 04/21/2017 5:46 PM CDT [facility] HPV REQUEST HPV and PAP 04/21/2017 5:46 PM CDT [facility] Date of LMP 04-06-17 04/21/2017 5:46 PM CDT [facility] Last Pap Date 201304/21/2017 5:46 PM CDT [facility] Last Pap Result NIL 7 5:46 PM CDT [facility] Abnormal Pap or Ebro Bx in last 5 years No 04/21/2017 5:46 PM CDT [facility] Menstrual Status Irregular Periods 04/21/2017 5:46 PM CDT [facility] Ebro Bx Done Today No 04/21/2017 5:46 PM CDT [facility] Additional Information None given 04/21/2017 5:46 PM CDT [facility] Automated Review Successful 04/21/2017 5:46 PM CDT [facility] Comment:Specimen processed s uccessfully by automated captain's assistant device, [employer]Prep Imaging System, [employer] ANCILLARY TESTING CUTTER INSPECTOR HPV Ordered, Please see separate report 04/21/2017 5:[address] [facility] Note The pap test is a screening technique, not a diagnostic procedure. It is used primarily to screen for squamous cancers and precursor lesions. Published studies have shown that it is subject to both false negative and false positive results. The pap test should not be used as the sole means to diagnose or exclude pre-malignant and malignant lesions. Interpreted at [facility] (Central Lab, [facility], [facility], [facility], [facility], [facility], [facility]) 04/21/2017 5:[address] [facility] Other (Cervical) 04/11/2017 1:43 PM CDT 04/11/2017 1:43 PM CDT us Rocio Spear MD PATHOLOGY/CYTOLOGY Final Resu lt [facility] [address] [place] [address], [place] * ANTI HIV 1/2 (04/11/2017 1:42 PM CDT) HIV-1/HIV-2 ANTIBODY Non-Reacti ve Non-Reacti ve 04/11/2017 5:58 PM CDT [facility] Blood BLOOD SPECIMEN / Unknown Venipuncture / Unknown 04/11/2017 1:42 PM CDT 04/11/2017 1:42 PM CDT Narrative [facility] - 04/11/2017 5:58 PM CDT HIV-1 p24 and HIV-1/HIV-2 Ab not detected Rocio Spear MD SEND OUTS Final Result [facility] [address] [place] [address], [place] from Last 3 Months or Most Recently Relevant to Health Maintenance Insurance [facility] [id number] [place] [id number] * Guarantor: Gretchen Cardoza Account Type Relation [...] Code Status Discussion: Not Discussed Care Teams Sample Tester Grinder Relationship Specialty Start Date End Date Pcp, No . PCP - General 03/27/21 Jaxson Jones MD Family Practice 12/29/18 [facility], [facility] 01/08/17
--- OUTSIDE RECORDS SUMMARY | 2024-09-12 19:25 | XMS_ITS | Encounter Summary ---
Author Organization [employer] Address [address] [place] [address] Care Team Providers Care Senior Manufacturing Test Engineer Name Role Phone No Ref-Primary, Physician [facility] Primary Care Prov ider Unavailable No Ref-Primary, Physician Primary Care Provider Amy Mace CLINICAL SERVICES SPECIALIST INSTITUTE SCIENTIST Unavailable Amy Mace CLINICAL SERVICES SPECIALIST INSTITUTE SCIENTIST Unavailable Oma Pierson CLINICAL SERVICES SPECIALIST INSTITUTE SCIENTIST Unavailable Unav ailable Amy Mace CLINICAL SERVICES SPECIALIST INSTITUTE SCIENTIST Unavailable Oma Pierson CLINICAL SERVICES SPECIALIST INSTITUTE SCIENTIST Unavailable Unav ailable Julissa Frank [facility] Unavailable Deborah Rascon DO Primary Care Provider [phone] Deborah Rascon DO Unavailable [phone] Shai Horta MD Unavailable [phone] Deborah Rascon DO Unavailable [phone] Justice Foster MD Unavailable [phone] Marie Abbott INSTITUTE SCIENTIST Unavailable [phone] Jaxson Bryan MD Unavailable Jaxson Bryan MD Unavailable Yunior Mesa MD Unavailable [phone] Maria Whitley MD Unavailable Clinic - [facility] Primary Ca re Provider Kaila Sen MD Primary Care Provide r Deborah Rascon DO Unavailable [phone] Jaxson Alejo MD Unavailable [phone] Lorena Radhamarlee Mcintosh APRN INSTITUTE SCIENTIST Unavailable [phone] Maria Whitley MD Unavailable Kaila Sen MD Unavailable Kaila Sen MD Unavailable [phone] Deborah Rascon DO Unavailable [phone] None Unavailable Unavailable Rico Corey HOTSHOT SUPERINTENDENT Unavailable Unavailable Rico Corey HOTSHOT SUPERINTENDENT Unavailable Unavailable Maria Whitley MD Unavailable Julien Miranda MD Unavailable [phone] Reason for Visit * Reason Onset Date Comments [facility] 02/07/2017 Encounter Details Date Type Department Care Team (Late st Contact Info) Description 02/07/2017 [facility] Behavioral Health Intake [address] [place] [id number] Generic, Behavioral Intake, [facility] Social History [...] Gretchen was admitted to today. Erick Bernal CEMENT OR CONCRETE FINISHING SUPERVISORMAHOGANY SIMMS * Telephone Encounter - Eran Eller - 03/10/2017 9:43 AM CDT Patient did not show up at 9:30 am for 10:00 am vaa/isp appointment. Called patient, but had to leave a voicemail. * Telephone Encounter - Darrick Decker LADC - 03/07/2017 5:47 PM CDT SBAR Name: Gretchen Cardoza Date of : 1990 Age: [age] year old Gender: female Insurance: [employer] [facility], no cert needed. Precipitating Event: Treatment due [...] jpm * Telephone Encounter - Darrick Decker [facility] - 03/03/2017 9:25 AM CDT Date: March 03, 2017 Gretchen Cardoza was seen by Eduard Decker on 02/13/2017 and she was deemed eligible for LP. Medical: The patient was approved by the LP RN on 02/28/2017. [place] [facility] All services are paid at 100%,no limits w/auth for IP [facility] [phone] No auth for OP/IOP/Partial This patient will [...] Home first: or Mobile second: Eduard Matthews [id number] * Telephone Encounter - Aisha Tracey RN - 02/28/2017 12:44 PM CDT 1245 on 02/28/2017 - Pt called and stated that ulcer no longer present after appt with GI on 02/27. GI Provider would like pt to f/u up in 4 months. Pt understands that Tramadol cannot be taken while at LP Based on above assessment: Client meets medical criteria for admission to [facility] and Patient call routed for further review [...] Per client self report, . Appt with president & ceo [employer] today: heart and lung condition improved, Fluid [...] Left VM on both pt home phone ([phone]) and cell ([phone]) for medical screen 1) Medications? Hydroxyzine; tramadol; [...] of the documentation is in EPIC. Thanks, Eduard Decker BA/MAHOGANY * Telephone Encounter - Starla [...] on filedocumented in this encounter Care Teams Senior Manufacturing Test Engineer Relationship Specialty Start Date End Date No Ref-Primary, Physician PCP - General 03/02/18 04/02/18 [facility] PCP - General 04/03/18 05/17/18 No Ref-Primary, Physician PCP - General 05/18/18 05/26/19 Amy Mace APRN INSTITUTE SCIENTIST [address] [address] [id number] PCP - Assigned PCP 05/03/18 09/29/18 Deborah Rascon DO [address] [place] [id number] PCP - General Family Practice 05/27/19 02/28/21 [facility] - [address] [id number] PCP - General Family Medicine 03/01/21 03/07/21 Kaila Sen MD [address] [place] [id number] PCP - General Family Medicine 03/08/21 Amy Mace APRN INSTITUTE SCIENTIST [address] [address] [address] Assigned PCP 05/03/18 10/10/18 Oma Pierson APRN INSTITUTE SCIENTIST Assigned PCP 10/11/18 12/26/18 Amy Mace APRN INSTITUTE SCIENTIST [address] [address] [address] Assigned PCP 12/27/18 02/13/19 Oma Pierson APRN INSTITUTE SCIENTIST Assigned PCP 02/14/19 06/05/19 Julissa Frank [facility] [address] [place], [place] [phone] Pharmacist Pharmacist 05/27/19 Deborah Rascon DO [facility] [address] [place] [address] Assigned PCP 03/18/21 04/28/21 Shai Horta MD [address] [place], [place] [id number] Dermatology 11/22/19 Deborah Rascon DO [address] [place], [place] [address] Referring Physician Family Practice 11/22/19 Justice Foster MD [address] [place] [address] Assigned Sleep Provider 05/19/20 Marie Abbott CNP MENTAL HEALTH COUNSELING SERVICES [address] [place], [place] [phone] Assigned Behavioral Health Provider 05/19/20 05/12/21 Jaxson Bryan MD [address] [place] [address] Assigned Gastroenterology Provider 05/19/20 10/21/20 Jaxson Bryan MD [address] [place] [address] [id number] Assigned Surgical Provider 10/22/20 Yunior Mesa MD [address] [place] [address] Assigned Musculoskeletal Provider 01/28/21 03/24/21 Maria Whitley MD [address] [place] [address] Gastroenterology 02/23/21 Deborah Rascon DO [facility] [address] [place] [address] Assigned PCP 06/06/19 03/10/21 Jaxson Alejo MD [address] [place] [address] Assigned Musculoskeletal Provider 03/25/21 09/20/22 Radha Carrillo APRN CNP [address] [place] [address] Assigned PCP 03/11/21 03/17/21 Maria Whitley MD [address] [place] [address] Assigned Gastroenterology Provider 03/04/21 08/30/22 Kaila Sen MD [address] [place] [address] Assigned PCP 05/27/21 Kaila Sen MD [address] [facility] [place] [address] Assigned PCP 04/29/21 05/05/21 Deborah Rascon DO [facility] [address] [place], [place] [address] Assigned PCP 05/06/21 05/26/21 None 02/28/23 Rico Corey, HOTSHOT SUPERINTENDENT Field Artillery Operations Man 06/24/23 07/08/23 Rico Corey BSW Field Artillery Operations Man 07/14/23 07/28/23 Maria Whitley MD [address] [place] [address] Assigned Gastroenterology Provider 09/19/23 Julien Miranda MD [address] [place] [address] Assigned Behavioral Health Provider 12/18/23 documented as of this encounter
--- OUTSIDE RECORDS SUMMARY | 2024-09-12 19:25 | XMS_ITS | Encounter Summary ---
Author Organization [employer] Address [address] [place] [address] Care Team Providers Care Supercalender Operator Name Role Phone Julissa Frank [facility] Unavailable [phone] Shai Horta MD Unavailable [phone] Deborah Rascon DO Unavailable [phone] Maria Whitley MD Unavailable Kaila Sen MD Primary Care Provide r Kaila Sen MD Unavailable [phone] None Unavailable Unavailable Maria Whitley MD Unavailable Julien Miranda MD Unavailable [phone] Encounter Details Date Type Department Care Team (Late st Contact Info) Description 09/11/2023 [facility] [address] [place] [address] Elvira Blackmon Social History Tobacco [...] in an abandoned building, in an overnight mcc, or couch-surfing.) Yes 08/29/2023 Are you worried [...] Use 100%(06/30/20 23 1:42 PM DIRECTOR OF PLANNING) No Yehuda Conley LGSW, LADC Note: I will continue to go to 3 meetings per week and look for a sponsor. I will start IOP programming at [facility]. I will utilize the SW/LADC at [facility] for support as needed. Improve management of mental health symptoms and establish with mental health/psychosoci al supports Care Plan Mental Health Symptoms Need Improvement 100%(06/30/20 23 1:43 PM DIRECTOR OF PLANNING) No Yehuda Conley LGSW, MAHOGANY Note: I will take medication as prescribed and let PCP at [facility] know of questions or concerns. I will look into therapy with help from SW/LADC at [facility]. documented as of this encounter Visit Diagnoses Not on filedocumented in this encounter Additional Health Concerns Active Problems Noted Date Diagnosed Date Substance Use 06/30/2023 Mental Health Symptoms Need Improvement 06/30/20 Assessment Noted Time PHQ-9 Depression Total Score: 8 08/29/19 24 8:19 AM DIRECTOR OF PLANNING documented as of this encounter Care Teams Supercalender Operator Relationship Specialty Start Date End Date Kaila Sen MD [address] [place] [address] PCP - General Family Medicine 03/08/21 Julissa Frank [facility] [address] [place], [place] [phone] Pharmacist Pharmacist 05/27/19 Shai Horta MD [address] [place], [place] [address] Dermatology 11/22/19 Deborah Rascon DO [address] [place], [place] [address] Referring Physician Family Practice 11/22/19 Maria Whitley MD [address] [place], [place] [address] Gastroenterology 02/23/21 Kaila Sen MD [address] [place] [address] Assigned PCP 05/27/21 None 02/28/23 Maria Whitley MD [address] [place] [address] Assigned Gastroenterology Provider 09/19/23 Julien Miranda MD [address] [place] [address] Assigned Behavioral Health Provider 12/18/23 documented as of this encounter
--- OUTSIDE RECORDS SUMMARY | 2024-09-12 19:25 | XMS_ITS | Clinical Summary ---
Author Organization [employer] Address [address] [place] [address] Care Team Providers Care Visual Merchandising Manager Name Role Phone No Primary/Referring, Phy Primary [...] for each transition of care or referral. [facility] [employer] Allergies Active Allergy Reactions Criticality Noted Date [...] mouth. 05/27/20 Active cholecalciferol (D3-50) 1.25 MG (25159 UT) capsule Take 50,000 Units by mouth. [...] propionate (FLONASE) 50 MCG/ACT nasal solution 1 [place] by Nasal route. 12/06/19 Active ALBUterol sulfate HFA 108 (90 Base) MCG/ACT inhaler Inhale 1-2 Puffs every 4 hours as needed for Wheezing. 1 Each 2 05/23/20 Active Additional Information Patient not taking.Reported on 06/29/[address] 1 [place] into both nostrils daily as needed. 14.1 [...] 04/04/20 22 Overview (04/04/2022): Placed 2014 in [place] Not immune to hepatitis B virus 04/26/2021 [...] Department Care Team Description 06/29/2024 2:00 PM DEPUTY HARBORMASTER Office Visit [facility] [address] [place] [address] Jere Bateman PA-C Vomiting, unspecified vomiting type, unspecified whether nausea present; Jaundice; Alcoholic cirrhosis, unspecified whether ascites present (HRC) 06/12/2024 8:56 PM DEPUTY HARBORMASTER - 06/12/2024 10:59 PM [facility] [address] [place] [address] Zhang James MD Alcohol dependence with uncomplicated intoxication (HRC); Hypokalemia Discharge Disposition: Home from Last 3 Months Immunizations Immunization Administration Dates Next Due 4vHPV (Gardasil) 08/16/2009,08/03/2008, 8 DTaP 1988 Flu Vac (3+ yrs) 05/21/2005,06/28/2003 Fluzone Qiv Multidose Vial 0 .25 (6-35 Mos) 04/07/2019 HepA Adult (19+ yrs) 03/16/2021 HepB Adult (Engerix-B, 20+ y rs, 3 dose series) 04/27/2021,03/16/2021,04/07/2009,2008,09/26/2008,11/27/1992 Influenza ([place] Only) (Flul aval Quad 0.5, 3+ yrs) 04/19/2020 Influenza IIV4 (Quadrivalent ) 0.5mL (90449) 04/27/2021,05/29/2018,05/10/2018,2016 Influenza, Unspecified Formulation 05/24/2015 Ernie COVID-19 [...] Comments Blood Pressure 150/102 06/29/2024 1:25 PM DEPUTY HARBORMASTER Pulse 101 06/29/2024 1:25 PM DEPUTY HARBORMASTER Temperature 36.7 C (98.1 F) 06/29/2024 1:25 PM DEPUTY HARBORMASTER Respiratory Rate 16 06/29/2024 1:25 PM DEPUTY HARBORMASTER Oxygen Saturation 100% 06/29/2024 1:25 PM DEPUTY HARBORMASTER Inhaled Oxygen Concentration - - Weight 69.4 [...] LAVENDER TOP TUBE Routine 06/12/2024 9:38 PM DEPUTY HARBORMASTER EXTRA LIGHT GREEN TUBE Routine 06/12/2024 9:38 PM DEPUTY HARBORMASTER EXTRA GOLD/SST TUBE Routine 06/12/2024 9 :38 PM DEPUTY HARBORMASTER EXTRA BLUE TOP TUBE Routine 06/12/2024 9 :38 PM DEPUTY HARBORMASTER ECG 12 LEAD INPATIENT STAT 06/12/2024 9:36 PM DEPUTY HARBORMASTER RBC AND PLATELET MORPHOLOGY STAT 06/12/2024 9:34 PM DEPUTY HARBORMASTER COMPLETE BLOOD COUNT-W/DIFF STAT 06/12/2024 9:34 PM DEPUTY HARBORMASTER MAGNESIUM STAT 06/12/2024 9:34 PM DEPUTY HARBORMASTER ALCOHOL,ETHYL STAT 06/12/2024 9:34 PM DEPUTY HARBORMASTER LIVER PANEL(HEPATIC FUNCTION PANEL) STAT 06/12/2024 9:34 PM DEPUTY HARBORMASTER CBC AND DIFFERENTIAL PANEL STAT 06/12/2024 9:34 PM DEPUTY HARBORMASTER BASIC METABOLIC PANEL STAT 06/12/2024 9:34 PM DEPUTY HARBORMASTER from Last 3 Months Results * Extra Lavender top tube (06/12/2024 9:38 PM DEPUTY HARBORMASTER) Extra Lavender Top Drawn Specimen will be held for 3 days 06/12/2024 11:01 PM DEPUTY HARBORMASTER [facility] Blood Venipuncture / Unknown 06/12/2024 9:38 PM DEPUTY HARBORMASTER 06/12/2024 9:42 PM DEPUTY HARBORMASTER us Zhang James MD LAB_1 Final Result Performing Organization Address [facility] Phone Number [facility] [address] [place] [address] * Extra Blue top tube (06/12/2024 9:38 PM DEPUTY HARBORMASTER) Extra Blue Top Drawn Specimen will be held for 24 hours 06/12/2024 11:01 PM DEPUTY HARBORMASTER [facility] Blood Venipuncture / Unknown 06/12/2024 9:38 PM DEPUTY HARBORMASTER 06/12/2024 9:42 PM DEPUTY HARBORMASTER us Zhang James MD LAB_1 Final Result Performing Organization Address [facility] Phone Number [facility] [address] [place] [address] * Extra Gold/SST Tube (06/12/2024 9:38 PM DEPUTY HARBORMASTER) Extra Gold/SST Tube Drawn Specimen will be held for 5 days 06/12/2024 11:01 PM DEPUTY HARBORMASTER [facility] Blood Venipuncture / Unknown 06/12/2024 9:38 PM DEPUTY HARBORMASTER 06/12/2024 9:42 PM DEPUTY HARBORMASTER us Zhang James MD LAB_1 Final Result Performing Organization Address [facility] Phone Number [facility] [address] [place] [address] * Extra Light Green Tube (06/12/2024 9:38 PM DEPUTY HARBORMASTER) Extra Light Green Tube Drawn Specimen will be held for 5 days 06/12/2024 11:01 PM DEPUTY HARBORMASTER [facility] Blood Venipuncture / Unknown 06/12/2024 9:38 PM DEPUTY HARBORMASTER 06/12/2024 9:42 PM DEPUTY HARBORMASTER us Zhang James MD LAB_1 Final Result Performing Organization Address City/[facility]/ZIP Co de Phone Number [facility] [address] [place], [place] [address] * ECG 12 Lead Inpatient (06/12/2024 9:36 PM DEPUTY HARBORMASTER) Ventricular Rate 80 BPM [facility] Atrial Rate 80 BPM [facility] P-R Interval 198 ms [facility] QRS Duration 94 ms [facility] QT 412 ms [facility] QTC 475 ms [facility] P [place] 42 degrees MUSE [facility] R [place] 21 degrees M[facility] T [place] 41 degrees [facility] 06/12/2024 9:36 PM DEPUTY HARBORMASTER Narrative [facility] - 06/13/2024 8:58 PM DEPUTY HARBORMASTER Sinus rhythm Normal ECG When compared with [...] ECG ORDERABLES Final Result Performing Organization Address [facility] Co de Phone Number [facility] [address] [place] [address] * (ABNORMAL) Morphology-RBC and Platelet (06/12/2024 9:34 PM DEPUTY HARBORMASTER) RBC Morphology Reviewed 06/12/2024 10:46 PM DEPUTY HARBORMASTER [facility] Platelet Estimate Decreased(A) Adequate 06/12/2024 10:46 PM DEPUTY HARBORMASTER [facility] Blood Venipuncture / Unknown 06/12/2024 9:34 PM DEPUTY HARBORMASTER 06/12/2024 9:42 PM DEPUTY HARBORMASTER us Zhang James MD LAB_1 Final Result [facility] [address] [place] [address], [facility] * (ABNORMAL) Complete Blood Count-W/Diff (06/12/2024 9:34 PM DEPUTY HARBORMASTER) WBC 1.9(L) 3.5 - 10.5 x10(9)/L 06/12/2024 10:46 PM DEPUTY HARBORMASTER [facility] RBC 3.57(L) 3.90 - 5.03 x10(12)/L 06/12/2024 10:46 PM DEPUTY HARBORMASTER [facility] Hemoglobin 12.7 12.0 - 15.5 g/dL 06/12/2024 10:46 PM DEPUTY HARBORMASTER [facility] HCT 37.3 34.9 - 44.5 % 06/12/2024 10:46 PM DEPUTY HARBORMASTER [facility] MCV 104.5(H) 80.0 - 100.0 fL 06/12/2024 10:46 PM DEPUTY HARBORMASTER [facility] MCH 35.6(H) 27.6 - 33.3 pg 06/12/2024 10:46 PM DEPUTY HARBORMASTER [facility] MCHC 34.0 31.5 - 35.2 g/dL 06/12/2024 10:46 PM DEPUTY HARBORMASTER [facility] RDW 15.8(H) 11.9 - 15.5 % 06/12/2024 10:46 PM DEPUTY HARBORMASTER [facility] Platelets 106(L) 150 - 450 x10(9)/L 06/12/2024 10:46 PM DEPUTY HARBORMASTER [facility] Automated NRBC 0 <=0 /100 WBC 06/12/2024 10:46 PM DEPUTY HARBORMASTER [facility] Neutrophil Absolute 1.2(L) 1.7 - 7.0 10(9)/L 06/12/2024 10:46 PM DEPUTY HARBORMASTER [facility] Lymphocyte Absolute 0.6(L) 1.0 - 4.8 10(9)/L 06/12/2024 10:46 PM DEPUTY HARBORMASTER [facility] Monocyte Absolute 0.1(L) 0.2 - 0.9 10(9)/L 06/12/2024 10:46 PM DEPUTY HARBORMASTER [facility] Eosinophil Absolute 0.0 0.0 - 0.5 10(9)/L 06/12/2024 10:46 PM DEPUTY HARBORMASTER [facility] Basophil Absolute 0.0 0.0 - 0.3 10(9)/L 06/12/2024 10:46 PM DEPUTY HARBORMASTER [facility] Immature Granulocyte % 1.0(H) 0.0 - 0.5 % 06/12/2024 10:46 PM DEPUTY HARBORMASTER [facility] Blood Venipuncture / Unknown 06/12/2024 9:34 PM DEPUTY HARBORMASTER 06/12/2024 9:42 PM DEPUTY HARBORMASTER Zhang James MD LAB_1 Final Result Performing Organization Address [facility] de Phone Number [facility] [address] * (ABNORMAL) Liver Panel (Hepatic Function Panel) (06/12/2024 9:34 PM DEPUTY HARBORMASTER) Alkaline Phosphatase 139 40 - 150 U/L 06/12/2024 10:04 PM DEPUTY HARBORMASTER [facility] Bilirubin, Total 2.5(H) 0.2 - 1.2 mg/dL 06/12/2024 10:04 PM DEPUTY HARBORMASTER [facility] Bilirubin, Direct 1.5(H) 0.0 - 0.5 mg/dL 06/12/2024 10:04 PM DEPUTY HARBORMASTER [facility] AST (SGOT) 140(H) 10 - 40 U/L 06/12/2024 10:04 PM DEPUTY HARBORMASTER [facility] ALT (SGPT) 90(H) <=55 U/L 06/12/2024 10:04 PM DEPUTY HARBORMASTER [facility] Protein, Total 7.0 6.4 - 8.3 g/dL 06/12/2024 10:04 PM DEPUTY HARBORMASTER [facility] Albumin 3.7 3.5 - 5.0 g/dL 06/12/2024 10:04 PM DEPUTY HARBORMASTER [facility] Blood Venipuncture / Unknown 06/12/2024 9:34 PM DEPUTY HARBORMASTER 06/12/2024 9:42 PM DEPUTY HARBORMASTER Zhang James MD LAB_1 Final Result Performing Organization Address [facility] de Phone Number [facility] [address] * (ABNORMAL) Basic Metabolic Panel (06/12/2024 9:34 PM DEPUTY HARBORMASTER) Sodium 139 136 - 145 mmol/L 06/12/2024 10:04 PM DEPUTY HARBORMASTER [facility] Potassium 3.2(L) 3.5 - 5.1 mmol/L 06/12/2024 10:04 PM DEPUTY HARBORMASTER [facility] Chloride 109 98 - 109 mmol/L 06/12/2024 10:04 PM DEPUTY HARBORMASTER [facility] CO2 16(L) 20 - 29 mmol/L 06/12/2024 10:04 PM DEPUTY HARBORMASTER [facility] Anion Gap 14 6 - 16 mmol/L 06/12/2024 10:04 PM DEPUTY HARBORMASTER [facility] Calcium 9.3 8.4 - 10.4 mg/dL 06/12/2024 10:04 PM DEPUTY HARBORMASTER [facility] BUN 8 7 - 26 mg/dL 06/12/2024 10:04 PM DEPUTY HARBORMASTER [facility] Creatinine 0.39(L) 0.55 - 1.02 mg/dL 06/12/2024 10:04 PM DEPUTY HARBORMASTER [facility] Glucose 80 70 - 100 mg/dL 06/12/2024 10:04 PM DEPUTY HARBORMASTER [facility] Comment:The given reference range is for the fasting state. Non-fasting reference range for glucose is 70 - 180 mg/dL. GFR, Estimated >60 >60 mL/min/1.7 3m2 06/12/2024 10:04 PM DEPUTY HARBORMASTER [facility] Blood Venipuncture / Unknown 06/12/2024 9:34 PM DEPUTY HARBORMASTER 06/12/2024 9:42 PM DEPUTY HARBORMASTER Zhang Jmaes MD LAB_1 Final Result [facility] [address] * Magnesium (06/12/2024 9:34 PM DEPUTY HARBORMASTER) Magnesium 2.4 1.6 - 2.6 mg/dL 06/12/2024 10:04 PM DEPUTY HARBORMASTER [facility] Blood Venipuncture / Unknown 06/12/2024 9:34 PM DEPUTY HARBORMASTER 06/12/2024 9:42 PM DEPUTY HARBORMASTER Zhang James MD LAB_1 Final Result Performing Organization Address [facility] de Phone Number [facility] [address] * (ABNORMAL) Alcohol,Ethyl Level (06/12/2024 9:34 PM DEPUTY HARBORMASTER) Ethyl Alcohol 0.34(H) <=0.01 g/dL 06/12/2024 10:04 PM DEPUTY HARBORMASTER [facility] Blood Venipuncture / Unknown 06/12/2024 9:34 PM DEPUTY HARBORMASTER 06/12/2024 9:42 PM DEPUTY HARBORMASTER Narrative [facility] - 06/12/2024 10:04 PM DEPUTY HARBORMASTER For medical purposes only; not valid for forensic, legal, or employment use. Zhang James MD LAB_1 Final Result Performing Organization Address [facility] de Phone Number [facility] [address] from Last 3 Months Insurance [address] [place] [id number] [facility] [employer] [place] [address] Advance Directives * Full Code (Latest Code Status on File) Date Activated Date Inactivated Comments 05/28/2020 12:35 AM 05/31/2020 1:54 PM Question Answer Comments On Admission, Code status wa s determined by: Not discussed with patient/family * Full Code Date Activated Date Inactivated Comments 12/10/2018 3:30 PM 12/22/2018 12:45 PM Care Teams Visual Merchandising Manager Relationship Specialty Start Date End Date No Primary/Referring, Phy PCP - General 04/04/22
--- OUTSIDE RECORDS SUMMARY | 2024-09-12 19:25 | XMS_ITS | Encounter Summary ---
Author Organization [facility] Address [address] [place] [address] Care Team Providers Care Grease Machine Worker Name Role Phone No Ref-Primary, Physician Primary Care Provider [facility] Primary Care Prov ider Unavailable No Ref-Primary, Physician Primary Care Provider Amy Mace PREMIUM AUDITOR AIRCRAFT STRUCTURAL REPAIR MECHANIC Unavailable Amy Mace PREMIUM AUDITOR AIRCRAFT STRUCTURAL REPAIR MECHANIC Unavailable Oma Pierson PREMIUM AUDITOR AIRCRAFT STRUCTURAL REPAIR MECHANIC Unavailable Unav ailable Amy Mace PREMIUM AUDITOR AIRCRAFT STRUCTURAL REPAIR MECHANIC Unavailable Oma Pierson PREMIUM AUDITOR AIRCRAFT STRUCTURAL REPAIR MECHANIC Unavailable Unav ailable Julissa Frank [facility] Unavailable Deborah Rascon DO Primary Care Provider [phone] Deborah Rascon DO Unavailable [phone] Shai Horta MD Unavailable [phone] Deborah Rascon DO Unavailable [phone] Justice Foster MD Unavailable [phone] Marie Abbott AIRCRAFT STRUCTURAL REPAIR MECHANIC Unavailable [phone] Jaxson Bryan MD Unavailable Jaxson Bryan MD Unavailable Yunior Mesa MD Unavailable [phone] Maria Whitley MD Unavailable Clinic - [facility] Ros[facility] Primary Ca re Provider Kaila Sen MD Primary Care Provide r Deborah Rascon DO Unavailable [phone] Jaxson Alejo MD Unavailable [phone] Lorena Radhamarlee Mcintosh APRN AIRCRAFT STRUCTURAL REPAIR MECHANIC Unavailable [phone] Maria Whitley MD Unavailable Kaila Sen MD Unavailable Kaila Sen MD Unavailable [phone] Deborah Rascon DO Unavailable [phone] None Unavailable Unavailable Rico Corey CONCRETE GUN OPERATOR Unavailable Unavailable Rico Corey CONCRETE GUN OPERATOR Unavailable Unavailable Maria Whitley MD Unavailable Julien Miranda MD Unavailable [phone] Reason for Visit * Reason Onset Date Comments CD Outpatient 04/08/2017 Encounter Details Date Type Department Care Team (Late st Contact Info) Description 04/08/2017 [facility] Behavioral Health Intake [address] [place] [address] Generic, Behavioral IntakeMD CD Outpatient Social History [...] DOP program. No call returned. MAHOGANY Lee, MATERIAL CLERK * Telephone Encounter - Cookie Solano - 04/15/2017 2:27 PM CDT ----- Message from MAHOGANY Wiley sent at 04/15/2017 2:18 PM CDT ----- Regarding: remove client from list Please remove client from list of [id number] effective 04/15/17. Lalo Rousseau Psychotherapist Trena * Telephone Encounter - Starla Alexander - 04/09/2017 4:14 PM CDT ----- Message from MAHOGANY Wiley sent at 04/09/2017 4:12 PM CDT ----- Regarding: remove client from schedule Please remove client from schedule of [id number] for dates of 04/09 & 04/10. Lalo [...] documented as of this encounter Care Teams Grease Machine Worker Relationship Specialty Start Date End Date No Ref-Primary, Physician PCP - General 03/02/18 04/02/18 [facility] PCP - General 04/03/18 05/17/18 No Ref-Primary, Physician PCP - General 05/18/18 05/26/19 Amy Mace APRN AIRCRAFT STRUCTURAL REPAIR MECHANIC [address] [address] PCP - Assigned PCP 05/03/18 09/29/18 Deborah Rascon DO [address] [place], [place] [address] PCP - General Family Practice 05/27/19 02/28/21 [facility] - [address] [address] PCP - General Family Medicine 03/01/21 03/07/21 Kaila Sen MD [address] [place] [address] PCP - General Family Medicine 03/08/21 Amy Mace APRN AIRCRAFT STRUCTURAL REPAIR MECHANIC [address] [address] [address] Assigned PCP 05/03/18 10/10/18 Oma Pierson, MITCHEL AIRCRAFT STRUCTURAL REPAIR MECHANIC Assigned PCP 10/11/18 12/26/18 Amy Mace APRN AIRCRAFT STRUCTURAL REPAIR MECHANIC [address] [address] [address] Assigned PCP 12/27/18 02/13/19 Oma Pierson, MITCHEL AIRCRAFT STRUCTURAL REPAIR MECHANIC Assigned PCP 02/14/19 06/05/19 Julissa Frank [facility] [address] [place], [place] [address] Pharmacist Pharmacist 05/27/19 Deborah Rascon DO [facility] [address] [place] [address] Assigned PCP 03/18/21 04/28/21 Shai Horta MD [address] [place] [address] Dermatology 11/22/19 Deborah Rascon DO [address] [place], [place] [address] Referring Physician Family Practice 11/22/19 [place] [address] [place] [address] Assigned Sleep Provider 05/19/20 Marie Abbott CNP [facility] [address] [place], [place] [address] Assigned Behavioral Health Provider 05/19/20 05/12/21 Jaxson Bryan MD [address] [place] [address] Assigned Gastroenterology Provider 05/19/20 10/21/20 Jaxson Bryan MD [address] [place] [address] Assigned Surgical Provider 10/22/20 Yunior Mesa MD [address] [place] [address] Assigned Musculoskeletal Provider 01/28/21 03/24/21 Maria Whitley MD [address] [place] [address] Gastroenterology 02/23/21 Deborah Rascon DO [facility] [address] [place] [address] Assigned PCP 06/06/19 03/10/21 Jaxson Alejo MD [address] [place], [place] [address] Assigned Musculoskeletal Provider 03/25/21 09/20/22 Radha Carrillo APRN CNP [address] [place] [address] Assigned PCP 03/11/21 03/17/21 Maria Whitley MD [address] [place] [address] Assigned Gastroenterology Provider 03/04/21 08/30/22 Kaila Sen MD [address] [place] [address] Assigned PCP 05/27/21 Kaila Sen MD [address] [place] [address] Assigned PCP 04/29/21 05/05/21 Deborah Rascon DO [facility] [address] [place] [address] Assigned PCP 05/06/21 05/26/21 None 02/28/23 Rico Corey BSW Medical Coding Instructor 06/24/23 07/08/23 Rico Corey BSW Medical Coding Instructor 07/14/23 07/28/23 Maria Whitley MD [address] [place] [address] Assigned Gastroenterology Provider 09/19/23 Julien Miranda MD [address] [place] [address] Assigned Behavioral Health Provider 12/18/23 documented as of this encounter
--- OUTSIDE RECORDS SUMMARY | 2024-09-12 19:25 | XMS_ITS | Encounter Summary ---
Author Organization [facility] Address [address] [place] [address] Care Team Providers Care Cloud Engagement Partner Name Role Phone No Primary/Referring, Phy Primary Care Provider Unavailable Encounter Details Date Type Department Care Team (Late st Contact Info) Description 07/05/2013 Scanned History External to Transferred Record, Provider [facility] Social History Tobacco Use Types Packs/Day Years Used Date Smoking Tobacco: Never Assessed Comments Unknown Sex and Gender Information Value Date Recorded Sex Assigned at Not on file Legal Sex Female 4:38 AM CDT Gender Identity Not on file Sexual Orientation Not on file documented as of this encounter Progress Notes * Transferred Record, Provider - 07/05/2013 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
--- OUTSIDE RECORDS SUMMARY | 2024-09-12 19:25 | XMS_ITS | Clinical Summary ---
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 Gender Identity Not on file Sexual Orientation [...] BC IGM MADIHA Non-React payton Non-React payton [employer] XP ANALYZER 12/02/2020 11:26 PM CDT [facility] HEP A IGM MADIAH Non-React payton Non-React payton CENTAUR XP ANALYZER 12/02/2020 11:26 PM CDT [facility] HEP BS ANTIGEN Non-React payton Non-React payton CENTAUR XP ANALYZER 12/02/2020 11:26 PM CDT [facility] Hepatitis C Antibody Non-React payton Non-React payton CENTAUR XP ANALYZER 12/02/2020 11:26 PM CDT [facility] Blood 12/02/2020 4:56 PM CDT 12/02/2020 5:02 PM CDT Lana KOEHLER IMMUNOLOGY ORDERABLE Final Result [facility] [address] [place] [address] from Last 3 Months or Most Recently Relevant to Health Maintenance Advance Directives For more information, please contact: [phone] * Full Code (Latest Code Status on File) Date Activated Date Inactivated Comments 12/02/2020 9:05 PM 12/06/2020 7:22 PM Question Answer Comments How was code status determined? Previous Documen tation * Full Code Date Activated Date Inactivated Comments 10/24/2020 3:31 PM 10/26/2020 5:44 PM Question Answer Comments How was code status determined? Patient Care Teams Shovel Loader Operator Relationship Specialty Start Date End Date Doctor, No No ad PCP - General Radiology 06/29/20 Clinic, No Primary PCP - Primary Care Clinic 06/29/20
--- OUTSIDE RECORDS SUMMARY | 2024-09-12 19:25 | XMS_ITS | Encounter Summary ---
Author Organization [place] Address [address] [place] [address] Care Team Providers Care Rn Prior Authorization Name Role Phone Zac, Julissa Silva [facility] Unavailable [phone] Deborah Rascon DO Primary Care Provider [phone] Deborah Rascon DO Unavailable [phone] Shai Horta MD Unavailable Deborah Rascon DO Unavailable [phone] Justice Foster MD Unavailable Marie Abbott LIVE GAMES DEALER Unavailable [phone] Jaxson Bryan MD Unavailable Yunior Mesa MD Unavailable [phone] Maria Whitley MD Unavailable [facility] Provider Kaila Sen MD Primary Care Provide r Deborah Rascon DO Unavailable [phone] Jaxson Alejo MD Unavailable [phone] Radha Carrillo APRN LIVE GAMES DEALER Unavailable [phone] Maria Whitley MD Unavailable Kaila Sen MD Unavailable [phone] Kaila Sen MD Unavailable Deborah Rascon DO Unavailable [phone] None Unavailable Unavailable Rico Corey CLICKER OPERATOR Unavailable Unavailable Rico Corey CLICKER OPERATOR Unavailable Unavailable Maria Whitley MD Unavailable Julien Miranda MD Unavailable [phone] Reason for Visit * Reason Onset Date Comments Forms 01/17/2021 Needing forms fi lled out and faxed Encounter Details Date Type Department Care Team (Late st Contact Info) Description 01/17/[address] [facility] [address] [address] [place] [address] Deborah Rascon DO [facility] [address] [place], [place] [address] Forms (Needing forms filled out and faxed) [...] documented as of this encounter Care Teams Rn Prior Authorization Relationship Specialty Start Date End Date Deborah Rascon DO [address] [place], [place] [address] PCP - General Family Practice 05/27/19 02/28/21 [facility] Jose Donohue [address] [address] PCP - General Family Medicine 03/01/21 03/07/21 Kaila Sen MD [address] [place] [address] PCP - General Family Medicine 03/08/21 Julissa Frank [facility] [address] [place], [place] [address] Pharmacist Pharmacist 05/27/19 Deborah Rascon DO [facility] [address] [place], [place] [address] Assigned PCP 03/18/21 04/28/21 Shai Horta MD [address] [facility] [place], [place] 30[address] Dermatology 11/22/19 Deborah Rascon DO [address] [place], [place] [address] Referring Physician Family Practice 11/22/19 Justice Foster MD [address] [place] [address] Assigned Sleep Provider 05/19/20 Marie Abbott CNP [facility] [address] [facility] [address] [facility] [address] [place] [address] Assigned Behavioral Health Provider 05/19/20 05/12/21 Jaxson Bryan MD [address] [place] [address] Assigned Surgical Provider 10/22/20 Yunior Mesa MD [address] [place] [address] Assigned Musculoskeletal Provider 01/28/21 03/24/21 Maria Whitley MD [address] [place] [address] Gastroenterology 02/23/21 Deborah Rascon DO [facility] [address] [place] [address] Assigned PCP 06/06/19 03/10/21 Jaxson Alejo MD [address] [place] [address] Assigned Musculoskeletal Provider 03/25/21 09/20/22 Radha Carrillo APRN CNP [address] [facility] 700 [place] [address] Assigned PCP 03/11/21 03/17/21 Maria Whitley MD [address] [place] [address] Assigned Gastroenterology Provider 03/04/21 08/30/22 Kaila Sen MD 1414 [facility] [place] [address] Assigned PCP 05/27/21 Kaila Sen MD 1414 [facility] [place] [address] Assigned PCP 04/29/21 05/05/21 Deborah Rascon DO [facility] [address] [address] Assigned PCP 05/06/21 05/26/21 None 02/28/23 Rico Corey, CLICKER OPERATOR Specialty Food Products Supervisor 06/24/23 07/08/23 Rico Corey CLICKER OPERATOR Specialty Food Products Supervisor 07/14/23 07/28/23 Maria Whitley MD [address] [place] [address] Assigned Gastroenterology Provider 09/19/23 Julien Miranda MD [address]50 [place] [address] Assigned Behavioral Health Provider 12/18/23 documented as of this encounter
--- OUTSIDE RECORDS SUMMARY | 2024-09-12 19:25 | XMS_ITS | Referral Summary ---
Author Organization 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 Gender Identity Not on file Sexual Orientation [...] CENTAUR XP ANALYZER 12/02/2020 11:26 PM CDT [facility] HEP A IGM MADIHA Non-React payton Non-React payton CENTAUR XP ANALYZER 12/02/2020 11:26 PM CDT [facility] HEP BS ANTIGEN Non-React payton Non-React payton CENTAUR XP ANALYZER 12/02/2020 11:26 PM CDT [facility] Hepatitis C Antibody Non-React payton Non-React payton CENTAUR XP ANALYZER 12/02/2020 11:26 PM CDT [facility] Blood 12/02/2020 4:56 PM CDT 12/02/2020 5:02 PM CDT Lana KOEHLER IMMUNOLOGY ORDERABLE Final Result [facility] 330A[address] Chacon NATASHA Nixon [address] from Last 3 Months or Most Recently Relevant to Health Maintenance Advance Directives For more information, please contact: [phone] * Full Code (Latest Code Status on File) Date Activated Date Inactivated Comments 12/02/2020 9:05 PM 12/06/2020 7:22 PM Question Answer Comments How was code status determined? Previous Documen tation * Full Code Date Activated Date Inactivated Comments 10/24/2020 3:31 PM 10/26/2020 5:44 PM Question Answer Comments How was code status determined? Patient Care Teams Desizing Machine Operator Relationship Specialty Start Date End Date Doctor, No No ad PCP - General Radiology 06/29/20 Clinic, No Primary PCP - Primary Care Clinic 06/29/20
--- OUTSIDE RECORDS SUMMARY | 2024-09-12 19:25 | XMS_ITS | Encounter Summary ---
Author Organization [place] Address [address] [place] [address] Care Team Providers Care Technical Sales Associate Name Role Phone No Ref-Primary, Physician [facility] Primary Care Prov ider Unavailable No Ref-Primary, Physician Primary Care Provider Amy Mace GRAIN FARMWORKER CAR REPAIRMAN Unavailable Amy Mace GRAIN FARMWORKER CAR REPAIRMAN Unavailable Oma Pierson GRAIN FARMWORKER CAR REPAIRMAN Unavailable Unav ailable Amy Mace GRAIN FARMWORKER CAR REPAIRMAN Unavailable Oma Pierson GRAIN FARMWORKER CAR REPAIRMAN Unavailable Unav ailable Julissa Frank [facility] Unavailable Deborah Rascon DO Primary Care Provider [phone] Deborah Rascon DO Unavailable + [phone] Shai Horta MD Unavailable [phone] Deborah Rascon DO Unavailable [phone] Justice Foster MD Unavailable [phone] Marie Abbott CAR REPAIRMAN Unavailable [phone] Jaxson Bryan MD Unavailable Jaxson Bryan MD Unavailable Yunior Mesa MD Unavailable [phone] Maria Whitley MD Unavailable Clinic - [facility] Primary Ca re Provider Kaila Sen MD Primary Care Provide r Deborah Rascon DO Unavailable [phone] Jaxson Alejo MD Unavailable [phone] Lorena Radhamarlee Mcintosh GRAIN FARMWORKER CAR REPAIRMAN Unavailable [phone] Maria Whitley MD Unavailable Kaila Sen MD Unavailable [phone] Kaila Sen MD Unavailable [phone] Deborah Rascon DO Unavailable [phone] None Unavailable Unavailable Rico Corey NURSING EDUCATION CONSULTANT Unavailable Unavailable Rico Corey NURSING EDUCATION CONSULTANT Unavailable Unavailable Maria Whitley MD Unavailable Julien Miranda MD Unavailable [phone] Reason for Visit * Reason Onset Date Comments MH/CD Inpatient 03/02/2018 Encounter Details Date Type Department Care Team (Late st Contact Info) Description 03/02/2018 [facility] Behavioral Health Intake 500 [place] [phone] Generic, Behavioral Intake, MH/CD Inpatient Social History [...] as of this encounter Care Teams Technical Sales Associate Relationship Specialty Start Date End Date No Ref-Primary, Physician PCP - General 03/02/18 04/02/18 Taylor Rosenthal [facility] PCP - General 04/03/18 05/17/18 No Ref-Primary, Physician PCP - General 05/18/18 05/26/19 Amy Mace APRN CAR REPAIRMAN [address] [place], [place] 6401[address] PCP - Assigned PCP 05/03/18 09/29/18 Deborah Rascon DO [address] [place] [address] [id number] PCP - General Family Practice 05/27/19 02/28/21 Clinic - Jose Donohue [address] [id number] PCP - General Family Medicine 03/01/21 03/07/21 Kaila Sen MD [address] [place] [address] [id number] PCP - General Family Medicine 03/08/21 Amy Mace, GRAIN FARMWORKER CAR REPAIRMAN [address] [place], [place] 633634 Assigned PCP 05/03/18 10/10/18 Oma Pierson, MITCHEL CAR REPAIRMAN Assigned PCP 10/11/18 12/26/18 Amy Mace, GRAIN FARMWORKER CAR REPAIRMAN [address] [place], [place] 886784 Assigned PCP 12/27/18 02/13/19 Oma Pierson, GRAIN FARMWORKER CAR REPAIRMAN Assigned PCP 02/14/19 06/05/19 Julissa Frank [facility] [address] [facility] [address] [place], [place] 56[address] Pharmacist Pharmacist 05/27/19 Deborah Rascon DO [facility] [address] [place] [address] Assigned PCP 03/18/21 04/28/21 Shai Horta MD 909 [place] [address] Dermatology 11/22/19 Deborah Rascon DO [address] [place], [place] [address] Referring Physician Family Practice 11/22/19 Justice Foster MD 3605 [place], [place] 924716 Assigned Sleep Provider 05/19/20 Marie Abbott CNP [facility] [address] [facility] 310 [place] [address] Assigned Behavioral Health Provider 05/19/20 05/12/21 Jaxson Bryan MD [address] [place] [address] Assigned Gastroenterology Provider 05/19/20 10/21/20 Jaxson Bryan MD [address] [place] [address] Assigned Surgical Provider 10/22/20 Yunior Mesa MD [address] [place] [address] Assigned Musculoskeletal Provider 01/28/21 03/24/21 Maria Whitley MD [address] [place] [address] 894785 Gastroenterology 02/23/21 Deborah Rascon DO [facility] [address] [place] [address] Assigned PCP 06/06/19 03/10/21 Jaxson Alejo MD [address] [place] [address] Assigned Musculoskeletal Provider 03/25/21 09/20/22 Radha Carrillo APRN CAR REPAIRMAN [address] [address] Assigned PCP 03/11/21 03/17/21 Maria Whitley MD [address] [place] [address] Assigned Gastroenterology Provider 03/04/21 08/30/22 Kaila Sen MD 1414 [place] [address] Assigned PCP 05/27/21 Kaila Sen MD 1414 [place] [address] Assigned PCP 04/29/21 05/05/21 Deborah Rascon DO [facility] [address] [place] [address] Assigned PCP 05/06/21 05/26/21 None 02/28/23 Rico Corey NURSING EDUCATION CONSULTANT Electronics Specialist 06/24/23 07/08/23 Rico Corey NURSING EDUCATION CONSULTANT Electronics Specialist 07/14/23 07/28/23 Maria Whitley MD [address] [place] [address] Assigned Gastroenterology Provider 09/19/23 Julien Miranda MD [address] [place] [address] Assigned Behavioral Health Provider 12/18/23 documented as of this encounter
--- OUTSIDE RECORDS SUMMARY | 2024-09-12 19:25 | XMS_ITS | Encounter Summary ---
Author Organization [place] Address [address] [place] [address] Care Team Providers Care Publishing Editor Name Role Phone No Ref-Primary, Physician Primary [facility] Primary Care Prov ider Unavailable No Ref-Primary, Physician Primary Care Provider Amy Mace GYMNASTIC TEACHER MOBILE SERVICE RV TECHNICIAN Unavailable Amy Mace GYMNASTIC TEACHER MOBILE SERVICE RV TECHNICIAN Unavailable Oma Pierson GYMNASTIC TEACHER MOBILE SERVICE RV TECHNICIAN Unavailable Unav ailable Amy Mace GYMNASTIC TEACHER MOBILE SERVICE RV TECHNICIAN Unavailable Oma Pierson GYMNASTIC TEACHER MOBILE SERVICE RV TECHNICIAN Unavailable Unav ailable Julissa Frank [facility] Unavailable Deborah Rascon DO Primary Care Provider [phone] Deborah Rascon DO Unavailable + [phone] Shai Horta MD Unavailable [phone] Deborah Rascon DO Unavailable [phone] Justice Foster MD Unavailable [phone] Marie Abbott MOBILE SERVICE RV TECHNICIAN Unavailable [phone] Jaxson Bryan MD Unavailable Jaxson Bryan MD Unavailable Yunior Mesa MD Unavailable [phone] Maria Whitley MD Unavailable Clinic - [facility] Primary Ca re Provider Kaila Sen MD Primary Care Provide r Deborah Rascon DO Unavailable [phone] Jaxson Diane MD Unavailable Lorena Radhamarlee Mcintosh GYMNASTIC TEACHER MOBILE SERVICE RV TECHNICIAN Unavailable [phone] Maria Whitley MD Unavailable Kaila Sen MD Unavailable Kaila Sen MD Unavailable [phone] Deborah Rascon DO Unavailable [phone] None Unavailable Unavailable Rico Corey HIGHWAY CONSTRUCTION INSPECTOR Unavailable Unavailable Rico Corey HIGHWAY CONSTRUCTION INSPECTOR Unavailable Unavailable Maria Whitley MD Unavailable Julien Miranda MD Unavailable [phone] Reason for Visit * Reason Onset Date Comments CD Outpatient 02/05/2018 Encounter Details Date Type Department Care Team (Late st Contact Info) Description 02/05/2018 Telephone [facility] Behavioral Health Intake 500 [place] [phone] Generic, Behavioral IntakeMD CD Outpatient Social History [...] 04/03/2018 1:47 PM CDT 04/03/18 Inbox from [facility] to schedule CD Eval for 04/15/18 @ [facility] * Telephone Encounter - Mary Hansen - 02/06/2018 8:44 AM CDT Client currently has no insurance. L/m [facility] phone# for R25; cancelled appt. * Telephone [...] documented as of this encounter Care Teams Publishing Editor Relationship Specialty Start Date End Date No Ref-Primary, Physician PCP - General 03/02/18 04/02/18 Taylor Rosenthal [facility] PCP - General 04/03/18 05/17/18 No Ref-Primary, Physician PCP - General 05/18/18 05/26/19 Amy Mace APRN MOBILE SERVICE RV TECHNICIAN [address] [place], [place] [address] PCP - Assigned PCP 05/03/18 09/29/18 Deborah Rascon DO [address] [place], [place] [address] PCP - General Family Practice 05/27/19 02/28/21 Clinic - Jose Donohue [address] [id number] PCP - General Family Medicine 03/01/21 03/07/21 Kaila Sen MD 1414 [place], [place] [phone] PCP - General Family Medicine 03/08/21 Amy Mace, GYMNASTIC TEACHER MOBILE SERVICE RV TECHNICIAN [address] [facility] [place] [place] [address] Assigned PCP 05/03/18 10/10/18 Oma Pierson, GYMNASTIC TEACHER MOBILE SERVICE RV TECHNICIAN Assigned PCP 10/11/18 12/26/18 Amy Mace, GYMNASTIC TEACHER MOBILE SERVICE RV TECHNICIAN [address] [facility] [place] [place] [address] Assigned PCP 12/27/18 02/13/19 Oma Pierson, GYMNASTIC TEACHER MOBILE SERVICE RV TECHNICIAN Assigned PCP 02/14/19 06/05/19 Julissa Frank [facility] [address] [facility] [address] [place] [address] Pharmacist Pharmacist 05/27/19 Deborah Rascon DO [facility] [address] [place], [place] [address] Assigned PCP 03/18/21 04/28/21 Shai Horta MD 909 [place], [place] 3833[address] Dermatology 11/22/19 Deborah Rascon DO [address] [place], [place] [address] Referring Physician Family Practice 11/22/19 Justice Foster MD 3605 [place], [place] 030896 Assigned Sleep Provider 05/19/20 Marie Abbott CNP [facility] [address] [place] [address] Assigned Behavioral Health Provider 05/19/20 05/12/21 Jaxson Bryan MD [address] [place] [address] 045715 Assigned Gastroenterology Provider 05/19/20 10/21/20 Jaxson Bryan MD [address] [place] [address] 812105 Assigned Surgical Provider 10/22/20 Yunior Mesa MD [address] [place] [address] 081565 Assigned Musculoskeletal Provider 01/28/21 03/24/21 Maria Whitley MD [address] [place] [address] 206245 Gastroenterology 02/23/21 Deborah Rascon DO [facility] [address] [place] [address] Assigned PCP 06/06/19 03/10/21 Jaxson Diane MD 6341 [place] [address] Assigned Musculoskeletal Provider 03/25/21 09/20/22 Radha Carrillo APRN CNP [address] [facility] 700 [place] [address] Assigned PCP 03/11/21 03/17/21 Maria Whitley MD [address] [place] [address] Assigned Gastroenterology Provider 03/04/21 08/30/22 Kaila Sen MD 1414 [place] [address] Assigned PCP 05/27/21 Kaila Sen MD 1414 [place] [address] Assigned PCP 04/29/21 05/05/21 Deborah Rascon DO [facility] [address] [place] [address] Assigned PCP 05/06/21 05/26/21 None 02/28/23 Rico Corey BSW Branch Credit Counselor 06/24/23 07/08/23 Rico Corey BSW Branch Credit Counselor 07/14/23 07/28/23 Maria Whitley MD [address] [place] [address] Assigned Gastroenterology Provider 09/19/23 Julien Miranda MD [address] [place] [address] Assigned Behavioral Health Provider 12/18/23 documented as of this encounter
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
--- OUTSIDE RECORDS SUMMARY | 2024-09-12 19:25 | XMS_ITS | Encounter Summary ---
Author Organization [place] Address [address] [place] [address] Care Team Providers Care Tamale Maker Name Role Phone Julissa Frank [facility] Unavailable [phone] Shai Horta MD Unavailable [phone] Deborah Rascon DO Unavailable [phone] Maria Whitley MD Unavailable Kaila Sen MD Primary Care Provide r Kaila Sen MD Unavailable [phone] None Unavailable Unavailable Maria Whitley MD Unavailable Julien Miranda MD Unavailable [phone] Encounter Details Date Type Department Care Team (Late st Contact Info) Description 09/02/2023 MyC Medical Advice [address] [address] Adrienne Angeles Social History Tobacco [...] in an abandoned building, in an overnight residential, or couch-surfing.) Yes 08/29/2023 Are you worried [...] Plan Substance Use 100%(06/30/20 23 1:42 PM GAUGER CHIEF DELIVERY) No Yehuda Conley LGSW, LADC Note: I will continue to go to 3 meetings per week and look for a sponsor. I will start IOP programming at [facility]. I will utilize the SW/LADC at [facility] for support as needed. Improve management of mental health symptoms and establish with mental health/psychosoci al supports Care Plan Mental Health Symptoms Need Improvement 100%(06/30/20 23 1:43 PM GAUGER CHIEF DELIVERY) No Yehuda Conley LGSW, MAHOGANY Note: I will take medication as prescribed and let PCP at [facility] know of questions or concerns. I will look into therapy with help from SW/LADC at [facility]. documented as of this encounter Visit Diagnoses Not on filedocumented in this encounter Additional Health Concerns Active Problems Noted Date Diagnosed Date Substance Use 06/30/2023 Mental Health Symptoms Need Improvement 06/30/20 23 Assessment Noted Time PHQ-9 Depression Total Score: 8 08/29/19 24 8:19 AM GAUGER CHIEF DELIVERY documented as of this encounter Care Teams Tamale Maker Relationship Specialty Start Date End Date Kaila Sen MD [address] [place] [address] PCP - General Family Medicine 03/08/21 Julissa Frank [facility] [address] [place], [place] [address] Pharmacist Pharmacist 05/27/19 Shai Horta MD [address] [place], [place] 5[address] Dermatology 11/22/19 Deborah Rascon DO [address] [place], [place] [address] Referring Physician Family Practice 11/22/19 Maria Whitley MD [address] [place], [place] [address] Gastroenterology 02/23/21 Kaila Sen MD [address] [place] [address] Assigned PCP 05/27/21 None 02/28/23 Maria Whitley MD [address] [place] [address] Assigned Gastroenterology Provider 09/19/23 Julien Miranda MD [address] [place] [address] Assigned Behavioral Health Provider 12/18/23 documented as of this encounter
--- OUTSIDE RECORDS SUMMARY | 2024-09-12 19:25 | XMS_ITS | Encounter Summary ---
Author Organization [place] Address [address] [place] [address] Care Team Providers Care Gear Milling Machine Set Up Operator Name Role Phone [place], [facility] Primary Care Prov ider Unavailable No Ref-Primary, Physician Primary Care Provider Amy Mace BAKELITE MOLDER FROZEN MEAT CUTTER Unavailable Amy Mace BAKELITE MOLDER FROZEN MEAT CUTTER Unavailable Oma Pierson BAKELITE MOLDER FROZEN MEAT CUTTER Unavailable Unav ailable Amy Mace BAKELITE MOLDER FROZEN MEAT CUTTER Unavailable Oma Pierson BAKELITE MOLDER FROZEN MEAT CUTTER Unavailable Unav ailable Julissa Frank [facility] Unavailable Deborah Rascon DO Primary Care Provider [phone] Deborah Rascon DO Unavailable [phone] Shai Horta MD Unavailable [phone] Deborah Rascon DO Unavailable [phone] Justice Foster MD Unavailable [phone] Marie Abbott FROZEN MEAT CUTTER Unavailable [phone] Jaxson Bryan MD Unavailable Jaxson Bryan MD Unavailable Yunior Mesa MD Unavailable [phone] Maria Whitley MD Unavailable [facility] Mayra Rosas [facility] Primary Ca re Provider Kaila Sen MD Primary Care Provide r Deborah Rascon DO Unavailable [phone] Jaxson Diane MD Unavailable [phone] Radha Carrillo Dayna BRITON FROZEN MEAT CUTTER Unavailable + [phone] Maria Whitley MD Unavailable Kaila Sen MD Unavailable Kaila Sen MD Unavailable [phone] Deborah Rascon DO Unavailable [phone] None Unavailable Unavailable Rico Corey GREENS PICKER Unavailable Unavailable Rico Corey GREENS PICKER Unavailable Unavailable Maria Whitley MD Unavailable Julien Miranda MD Unavailable [phone] Reason for Visit * Reason Onset Date Comments CD Outpatient 04/15/2018 Encounter Details Date Type Department Care Team (Late st Contact Info) Description 04/15/2018 Telephone [facility] Behavioral Health Intake [address] [place] [phone] Generic, Behavioral Intake, CD Outpatient Social History [...] reschedule CD Eval appointment for 04/27/18 - [place]. [place] documented in this encounter Plan of Treatment Not on file documented as of this encounter Visit Diagnoses Not on filedocumented in this encounter Additional Health Concerns Assessment Noted Time PHQ-9 Depression Total Score: 5 03/10/20 17 10:15 AM CDT documented as of this encounter Care Teams Gear Milling Machine Set Up Operator Relationship Specialty Start Date End Date Center, [facility] PCP - General 04/03/18 05/17/18 No Ref-Primary, Physician PCP - General 05/18/18 05/26/19 Amy Mace APRN FROZEN MEAT CUTTER [address] [place] [address] PCP - Assigned PCP 05/03/18 09/29/18 Deborah Rascon DO [address] [address] PCP - General Family Practice 05/27/19 02/28/21 Clinic - [facility] Don[facility] [address] [address] PCP - General Family Medicine 03/01/21 03/07/21 Kaila Sen MD [address] [place] [address] PCP - General Family Medicine 03/08/21 Amy Mace, BAKELITE MOLDER FROZEN MEAT CUTTER [address] [place] [address] Assigned PCP 05/03/18 10/10/18 Oma Pierson, BAKELITE MOLDER FROZEN MEAT CUTTER Assigned PCP 10/11/18 12/26/18 Amy Mace, BAKELITE MOLDER FROZEN MEAT CUTTER [address] [place] [address] Assigned PCP 12/27/18 02/13/19 Oma Pierson, BAKELITE MOLDER FROZEN MEAT CUTTER Assigned PCP 02/14/19 06/05/[address] [facility] [address] [place], [place] [address] Pharmacist Pharmacist 05/27/19 Deborah Rascon DO [facility] [address] [place], [place] [address] Assigned PCP 03/18/21 04/28/21 Shai Horta MD [address] [place], [place] [phone] Dermatology 11/22/19 Deborah Rascon DO [address] [place] [address] Referring Physician Family Practice 11/22/19 [place] [address] [place] [address] Assigned Sleep Provider 05/19/20 Marie Abbott CNP [facility] [address] [place] [address] Assigned Behavioral Health Provider 05/19/20 05/12/21 Jaxson Bryan MD 9 [place] [address] Assigned Gastroenterology Provider 05/19/20 10/21/20 Jaxson Bryan MD [address] [place] [address] Assigned Surgical Provider 10/22/20 Yunior Mesa MD [address] [place] [address] Assigned Musculoskeletal Provider 01/28/21 03/24/21 Maria Whitley MD [address] [place] [address] 276675 Gastroenterology 02/23/21 Deborah Rascon DO [facility] [address] [address] Assigned PCP 06/06/19 03/10/21 Jaxson Diane MD [address] [place] [address] Assigned Musculoskeletal Provider 03/25/21 09/20/22 Radha Carrillo APRN FROZEN MEAT CUTTER [address] [place] [address] Assigned PCP 03/11/21 03/17/21 Maria Whitley MD [address] [place] [address] Assigned Gastroenterology Provider 03/04/21 08/30/22 Kaila Sen MD [address] [place] [address] Assigned PCP 05/27/21 Kaila Sen MD [address] [place] [address] Assigned PCP 04/29/21 05/05/21 Deborah Rascon DO [facility] [address] [place] [address] Assigned PCP 05/06/21 05/26/21 None 02/28/23 Rico Corey GREENS PICKER Tire Trucker 06/24/23 07/08/23 Rico Corey GREENS PICKER Tire Trucker 07/14/23 07/28/23 Maria Whitley MD [address] [place] [address] Assigned Gastroenterology Provider 09/19/23 Julien Miranda MD [address] [place] [address] Assigned Behavioral Health Provider 12/18/23 documented as of this encounter
--- OUTSIDE RECORDS SUMMARY | 2024-09-12 19:25 | XMS_ITS | Encounter Summary ---
Author Organization [place] Address [address] [place] [address] Care Team Providers Care Company Pilot Name Role Phone Ana Frankyany Silva [facility] Unavailable [phone] Deborah Rascon DO Primary Care Provider [phone] Deborah Rascon DO Unavailable [phone] Shai Horta MD Unavailable [phone] Deborah Rascon DO Unavailable [phone] Justice Foster MD Unavailable [phone] Marie Abbott DENTISTRY PROFESSOR Unavailable [phone] Jaxson Bryan MD Unavailable Jaxson Bryan MD Unavailable Yunior Mesa MD Unavailable [phone] Maria Whitley MD Unavailable [facility] Jsoe Donohue [facility] re Provider Kaila Sen MD Primary Care Provide r Deborah Rascon DO Unavailable [phone] Jaxson Alejo MD Unavailable [phone] Radha Carrillo APRN DENTISTRY PROFESSOR Unavailable [phone] Maria Whitley MD Unavailable Kaila Sen MD Unavailable Kaila Sen MD Unavailable Deborah Rascon DO Unavailable [phone] None Unavailable Unavailable Rico Corey LAMINATION BUILDER Unavailable Unavailable Rico Corey LAMINATION BUILDER Unavailable Unavailable Maria Whitley MD Unavailable Julien Miranda MD Unavailable [phone] Reason for Visit * Reason Onset Date Comments Refill Request 10/21/2019 Aripiprazole (Ab ilify) 10 mg tablet Refill Request 10/28/2019 Encounter Details Date Type Department Care Team (Late st Contact Info) Description 10/21/2019 Refill [facility] [address] [place] [address] Deborah Rascon DO [facility] [address] [place] [address] Refill Request (Aripiprazole (Abilify) 10 [...] at 11:22 AM * Telephone Encounter - [place], Ashely Portillo - 10/21/2019 10:20 AM CDT Pharmacy: [facility] - [place] - [address] P: [phone] F: [phone] [facility] PATIENT Requested Prescriptions Pending Prescriptions Disp [...] documented as of this encounter Care Teams Company Pilot Relationship Specialty Start Date End Date Deborah Rascon DO [address] [place], [place] [address] PCP - General Family Practice 05/27/19 02/28/[address] [address] PCP - General Family Medicine 03/01/21 03/07/21 Kaila Sen MD [address] [place] [address] PCP - General Family Medicine 03/08/21 Julissa Frank [place] [address] [place], [place] [address] Pharmacist Pharmacist 05/27/19 Deborah Rascon DO [facility] [address] [place] [address] Assigned PCP 03/18/21 04/28/21 Shai Horta MD [address] [place], [place] [address] Dermatology 11/22/19 Deborah Rascon DO [address] [place], [place] [address] Referring Physician Family Practice 11/22/19 Justice Foster MD [address] [place] [address] Assigned Sleep Provider 05/19/20 Marie Abbott CNP [facility] [address] [place] [address] Assigned Behavioral Health Provider 05/19/20 05/12/21 Jaxson Bryan MD [address] [place] [address] 2734[address] Assigned Gastroenterology Provider 05/19/20 10/21/20 Jaxson Bryan MD [address] [place] [address] 121625 Assigned Surgical Provider 10/22/20 Yunior Mesa MD [address] [place] [address] 752805 Assigned Musculoskeletal Provider 01/28/21 03/24/21 Maria Whitley MD [address] [place] [address] Gastroenterology 02/23/21 Deborah Rascon DO [facility] [address] [place] [address] Assigned PCP 06/06/19 03/10/21 Jaxson Alejo MD [address] [place] [address] Assigned Musculoskeletal Provider 03/25/21 09/20/22 Radha Carrillo APRN DENTISTRY PROFESSOR [address] [place] [address] Assigned PCP 03/11/21 03/17/21 Maria Whitley MD [address] [place] [address] Assigned Gastroenterology Provider 03/04/21 08/30/22 Kaila Sen MD [address] [place] [address] Assigned PCP 05/27/21 Kaila Sen MD [address] [place] [address] Assigned PCP 04/29/21 05/05/21 Deborah Rascon DO [facility] [address] [place] [address] Assigned PCP 05/06/21 05/26/21 None 02/28/23 Rico Corey BSW Causticiser 06/24/23 07/08/23 Rico Corey BSW Causticiser 07/14/23 07/28/23 Maria Whitley MD [address] [place], [place] [address] Assigned Gastroenterology Provider 09/19/23 Julien Miranda MD [address] [place], [place] [address]374 Assigned Behavioral Health Provider 12/18/23 documented as of this encounter
--- OUTSIDE RECORDS SUMMARY | 2024-09-12 19:26 | XMS_ITS | Encounter Summary ---
Author Organization [place] Address [address] [place] [address] Care Team Providers Care Information Systems Project Manager Name Role Phone No Ref-Primary, Physician Primary Care Provider Oma Pierson APRN BURGLARY INVESTIGATOR Unavailable Unav ailable Julissa Frank [facility] Unavailable Deborah Rascon DO Primary Care Provider Deborah Rascon DO Unavailable [phone] Shai Horta MD Unavailable Deborah Rascon DO Unavailable [phone] Justice Foster MD Unavailable [phone] Marie Abbott BURGLARY INVESTIGATOR Unavailable [phone] Jaxson Bryan MD Unavailable Jaxson Bryan MD Unavailable Yunior Mesa MD Unavailable Maria Whitley MD Unavailable [facility] re Provider Kaila Sen MD Primary Care Provide r Deborah Rascon DO Unavailable [phone] Jaxson Alejo MD Unavailable [phone] Radha Carrillo APRN BURGLARY INVESTIGATOR Unavailable [phone] Maria Whitley MD Unavailable Kaila Sen MD Unavailable [phone] Kaila Sen MD Unavailable [phone] Deborah Rascon DO Unavailable [phone] None Unavailable Unavailable Souk, Rico MARINE INSURANCE CLAIM EXAMINER Unavailable Unavailable Souk, Rico MARINE INSURANCE CLAIM EXAMINER Unavailable Unavailable Maria Whitley MD Unavailable Julien Miranda MD Unavailable [phone] Reason for Visit * Reason Onset Date Comments MH/CD Inpatient 04/20/2019 Encounter Details Date Type Department Care Team (Late st Contact Info) Description 04/20/2019 Telephone [facility] Behavioral Health Intake [address] [place] [phone] Generic, Behavioral Intake, MH/CD Inpatient Social History [...] and notified them of pending admit -requested retail key holder call back with any questions 1435: Text [...] documented as of this encounter Care Teams Information Systems Project Manager Relationship Specialty Start Date End Date No Ref-Primary, Physician PCP - General 05/18/18 05/26/19 Deborah Rascon DO [address] [place] [address]64 PCP - General Family Practice 05/27/19 02/28/21 [facility] - [address] [address] PCP - General Family Medicine 03/01/21 03/07/21 Kaila Sen MD [facility]4 [place] [address] PCP - General Family Medicine 03/08/21 Oma Pierson APRN BURGLARY INVESTIGATOR Assigned PCP 02/14/19 06/05/19 Julissa Frank [facility] [address] [place], [place] [address] Pharmacist Pharmacist 05/27/[address] [facility] [address] [place], [place] [address] Assigned PCP 03/18/21 04/28/21 Shai Horta MD [address] [place] [address] MD Dermatology 11/22/19 Deborah Rascon DO [address] [place], [place] [address] Referring Physician Family Practice 11/22/19 Justice Foster MD [address] [place] [address] Assigned Sleep Provider 05/19/20 Marie Abbott CNP [facility] [address] [place], [place] [address] Assigned Behavioral Health Provider 05/19/20 05/12/21 Jaxson Bryan MD [address] [place] [address] [id number] Assigned Gastroenterology Provider 05/19/20 10/21/20 Jaxson Bryan MD [address] [place] [address] 520565 Assigned Surgical Provider 10/22/20 Yunior Mesa MD [address] [place] [address] Assigned Musculoskeletal Provider 01/28/21 03/24/21 Maria Whitley MD [address] [place] [address] Gastroenterology 02/23/[address] [facility] [address] [address] Assigned PCP 06/06/19 03/10/21 Jaxson Alejo MD [address] [place] [address] Assigned Musculoskeletal Provider 03/25/21 09/20/22 Radha Carrillo APRN CNP [address] [facility] 700 [place] [address] Assigned PCP 03/11/21 03/17/21 Maria Whitley MD [address] [place] [address] Assigned Gastroenterology Provider 03/04/21 08/30/22 Kaila Sen MD [address] [facility] [place] [address] Assigned PCP 05/27/21 Kaila Sen MD [facility] [place] [address] Assigned PCP 04/29/21 05/05/21 Deborah Rascon DO [facility] [address], [place] [address] Assigned PCP 05/06/21 05/26/21 None 02/28/23 Rico Corey MARINE INSURANCE CLAIM EXAMINER Burr Sander 06/24/23 07/08/23 Rico Corey BSW Burr Sander 07/14/23 07/28/23 Maria Whitley MD [address] [place], [place] [address] Assigned Gastroenterology Provider 09/19/23 Julien Miranda MD [address] [place], [place] [address] Assigned Behavioral Health Provider 12/18/23 documented as of this encounter
--- OUTSIDE RECORDS SUMMARY | 2024-09-12 19:26 | XMS_ITS ---
Care Plan Created on: September 12, 2024 Cardoza Gretchen Brandon : 1990 Sex: Female Author Organization [place] Address [address] [place] [address] Care Team Providers Care Data Analytics Analyst Name Role Phone Julissa Frank [facility] Unavailable Shai Horta MD Unavailable [phone] Deborah Rascon DO Unavailable [phone] Maria Whitley MD Unavailable Kaila Sen MD Primary Care Provide r Kaila Sen MD Unavailable None Unavailable Unavailable Maria Whitley MD Unavailable Julien Miranda MD Unavailable [phone] Active Problems * This document contains [...] Overview (02/17/2023): Luis Alberto placed 02/17/2023 at [facility] Major depression, recurrent 03/10/2018 ASCUS with positive [...] Care Plan Substance Use 100%(06/30/20 1:42 PM STRAIGHTENER AND ALIGNER) No Yehuda Conley LGSW, LADC Note: I will continue to go to 3 meetings per week and look for a sponsor. I will start IOP programming at [facility]. I will utilize the SW/LADC at [facility] for support as needed. Improve management of mental health symptoms and establish with mental health/psychosoci al supports Care Plan Mental Health Symptoms Need Improvement 100%(06/30/20 1:43 PM STRAIGHTENER AND ALIGNER) No Yehuda Conley LGSW, MAHOGANY Note: I will take medication as prescribed and let PCP at [facility] know of questions or concerns. I will look into therapy with help from SW/LADC at [facility]. Interventions Care Plan Interventions Intervention Entry [...]
--- OUTSIDE RECORDS SUMMARY | 2024-09-12 19:26 | XMS_ITS | Encounter Summary ---
Author Organization [place] Address [address] [place] [address] Care Team Providers Care Civil Service Worker Name Role Phone ZacJulissa anthony [facility] Unavailable Shai Horta MD Unavailable [phone] Deborah Rascon DO Unavailable [phone] Maria Whitley MD Unavailable Kaila Sen MD Primary Care Provide r Kaila Sen MD Unavailable None Unavailable Unavailable Maria Whitley MD Unavailable Julien Miranda MD Unavailable [phone] Encounter Details Date Type Department Care Team (Late st Contact Info) Description 11/26/2023 MyC Medical Advice [address] [address] Kaila Sen MD [address] [place] [address] [id number] Social History Tobacco Use Types Packs/Day Years [...] Plan Substance Use 100%(06/30/20 23 1:42 PM AGENCY SALES MANAGEMENT ASSISTANT) No Yehuda Conley , RICHAR, LADC Note: I will continue to go to 3 meetings per week and look for a sponsor. I will start IOP programming at [facility]. I will utilize the SW/LADC at [facility] for support as needed. Improve management of mental health symptoms and establish with mental health/psychosoci al supports Care Plan Mental Health Symptoms Need Improvement 100%(06/30/20 1:43 PM AGENCY SALES MANAGEMENT ASSISTANT) Yehuda Francisco , HEAVY DUTY PRESS OPERATOR, LADC Note: I will take medication as prescribed and let PCP at [facility] know of questions or concerns. I will look into therapy with help from SW/LADC at [facility]. documented as of this encounter Visit Diagnoses Not on filedocumented in this encounter Additional Health Concerns Active Problems Noted Date Diagnosed Date Substance Use 06/30/2023 Mental Health Symptoms Need Improvement 06/30/20 Assessment Noted Time PHQ-9 Depression Total Score: 11 024 4:06 PM CDT documented as of this encounter Care Teams Civil Service Worker Relationship Specialty Start Date End [place] [address] [place] [address] PCP - General Family Medicine 03/08/21 Julissa Frank [facility] [address] [facility] [address] [place], [place] [address] Pharmacist Pharmacist 05/27/19 Shai Horta MD 909 [place], [place] 3[address] Dermatology 11/22/19 Deborah Rascon DO [address] [place] [address] [address] [place], [place] [id number] Referring Physician Family Practice 11/22/19 Maria Whitley MD [address] [place], [place] 9[address] Gastroenterology 02/23/21 Kaila Sen MD [address]14 [place] [address] Assigned PCP 05/27/21 None 02/28/23 Maria Whitley MD [address] [place], [place] 329[address] Assigned Gastroenterology Provider 09/19/23 Julien Miranda MD [address] [place], [place] [address] Assigned Behavioral Health Provider 12/18/23 documented as of this encounter
--- OUTSIDE RECORDS SUMMARY | 2024-09-12 19:26 | XMS_ITS | Clinical Summary ---
Author Organization [place] Address [address] [place] [address] Care Team Providers Care Barrel Line Operator Name Role Phone [facility] Unavailable Shai Horta MD Unavailable [phone] Deborah Rascon DO Unavailable [phone] Maria Whitley MD Unavailable Kaila Sen MD Primary Care Provide r Kaila Sen MD Unavailable [phone] None Unavailable Unavailable Maria Whitley MD Unavailable Julien Miranda MD Unavailable [phone] Allergies Active Allergy Reactions Criticality Noted [...] (FLONASE) 50 MCG/ACT nasal sprayIndications :Environmental allergies Yreka 1 spray into both nostrils daily as [...] Overview (02/17/2023): Luis Alberto placed 02/17/2023 at [facility] Major depression, recurrent 03/10/2018 ASCUS with [...] in an abandoned building, in an overnight half-way, or couch-surfing.) Yes 08/29/2023 Are you worried [...] Care Plan Substance Use 100%(06/30/20 1:42 PM ELECTROSLAG WELDING MACHINE OPERATOR) No Yehuda Conley LGSW, LADC Note: I will continue to go to 3 meetings per week and look for a sponsor. I will start IOP programming at [facility]. I will utilize the SW/LADC at [facility] for support as needed. Improve management of mental health symptoms and establish with mental health/psychosoci al supports Care Plan Mental Health Symptoms Need Improvement 100%(06/30/20 1:43 PM ELECTROSLAG WELDING MACHINE OPERATOR) No Yehuda Conley LGSW, LADC Note: I will take medication as prescribed and let PCP at [facility] know of questions or concerns. I will look into therapy with help from SW/EDILBERTOC at [facility]. Medical Devices Implanted Type Area Investment Trader Device Identifier Shelf Expiration Date Model / Serial / Lot Variax Clavicle Hook Plate 7 Hole/16mm/ Right Implanted:Qty: 1 on 04/22/2018 by Jaxson Cunningham MD at [facility] Right: Clavicle ELTON 05/27/2019 [id number] / / [id number] 3.5mm Overdrill Implanted:Qty: 1 on 04/22/2018 by Jaxson Cunningham MD at [facility] Right: Clavicle ELTON [id number] / / Description:autoclave 51 shay d 2 [id number] 2.6mm Drill 220mm Long For 3.5mm Screws Implanted:Qty: 1 on 04/22/2018 by Jaxson Cunningham MD at [facility] Right: Clavicle ELTON [id number] / / Description:Autoclave 51 Shay d 2 [id number] 2.0mm K-Wire With Stop 150mm Length Implanted:Qty: 1 on 04/22/2018 by Jaxson Cunningham MD at [facility] Right: Clavicle ELTON [id number] / / Description:Autoclave 51 Shay d 2 [id number] 1.6mm K-Wire 150mm Length Implanted:Qty: 1 on 04/22/2018 by Jaxson Cunningham MD at [facility] Right: Clavicle ELTON [id number] / / Description:Autoclave 51 Shay d 2 [id number] 3.5mm Locking Screws Self Tapping 16mm Implanted:Qty: 1 on 04/22/2018 by Jaxson Cunningham MD at [facility] Right: Clavicle ELTON [id number] / / Description:autoclave 51 shay d 2 [id number] 3.5mm Bone Screws Self Tapping 14mm Implanted:Qty: 1 on 04/22/2018 by Jaxson Cunningham MD at [facility] Right: Clavicle ELTON [id number] / / Description:autoclave 51 shay d 2 [id number] 3.5mm Bone Screws Self Tapping 16mm Implanted:Qty: 2 on 04/22/2018 by Jaxson Cunningham MD at [facility] Right: Clavicle ELTON [id number] / / Description:autoclave 51 shay d 2 [id number] 3.5mm Bone Screws Self Tapping 24mm Implanted:Qty: 1 on 04/22/2018 by Jaxson Cunningham MD at [facility] Right: Clavicle ELTON [id number] / / Description:autoclave 51 shay d 2 [id number] 2.6mm Drill Implanted:Qty: 1 on 04/22/2018 by Jaxson Cunningham MD at [facility] Right: Clavicle ELTON [id number] / / Description:autoclave 51 shay d 2 [id number] Procedures Procedure Name Priority Date/Time Associated Diagnosis Comments COMPREHENSIVE METABOLIC PANEL STAT 10/29/2023 5:21 PM CDT HEPATITIS C ANTIBODY Add-On 09/01/2023 2:23 PM ELECTROSLAG WELDING MACHINE OPERATOR Alcoholic cirrhosis of liver without ascites (H) HIV ANTIGEN ANTIBODY COMBO Add-On 06/24/2023 6:32 AM ELECTROSLAG WELDING MACHINE OPERATOR GYNECOLOGIC CYTOLOGY Routine 02/07/2023 11:10 AM CDT [...] BLOOD ORDERABL ES Final Result UR LABORATORY [facility] Acute Care Lab [address] [facility], [address] [place] [address], [facility] * Hepatitis C antibody (09/01/2023 2:23 PM ELECTROSLAG WELDING MACHINE OPERATOR) Hepatitis C Antibody Nonreactive Nonreactive 09/02/2023 9:04 AM ELECTROSLAG WELDING MACHINE OPERATOR LABORATORY Comment:A nonreactive screen ing test result [...] Unknown Venipuncture / Unknown 09/01/2023 2:23 PM ELECTROSLAG WELDING MACHINE OPERATOR 09/01/2023 2:27 PM ELECTROSLAG WELDING MACHINE OPERATOR Maria Whitley MD LAB - BLOOD ORDERABLES Final Res ult LABORATORY [facility] [address] [place] [address], [address], [facility] [phone] * HIV Antigen Antibody Combo J[place] (06/24/2023 6:32 AM ELECTROSLAG WELDING MACHINE OPERATOR) HIV Antigen Antibody Combo Nonreactive Nonreactive 06/25/2023 8:49 AM ELECTROSLAG WELDING MACHINE OPERATOR SPECIALTY CORE/PROT/EN DO Comment:HIV-1 p24 Ag & HIV-1 /HIV-2 Ab Not Detected Blood STRUCTURE OF LEFT HAND / Unknown Venipuncture / Unknown 06/24/2023 6:32 AM ELECTROSLAG WELDING MACHINE OPERATOR 06/24/2023 6:36 AM ELECTROSLAG WELDING MACHINE OPERATOR Cheryle Harrison PA-C LAB - BLOOD ORDERABLES Amelia l Result SPECIALTY CORE/PROT/ENDO [facility] Specialty Core/Prot/Endo [address] [facility] Building, Room [address] [phone] * Gynecologic Cytology (PAP) (02/07/2023 11:10 AM [...] component of this testing was completed at [facility] 02/13/2023 8:44 AM CDT SPECIALTY LABS Brushing CERVIX UTERI STRUCTURE / Unknown Non-blood Collection / Unknown 02/07/2023 11:10 AM CDT 02/07/2023 12:08 PM CDT October Lila Sen MD LAB - [facility] AP Final Result SPECIALTY LABS Specialty Lab [address] [facility], [address] [address], [facility] [phone] * HPV High Risk Types DNA Cervical (02/07/2023 11:10 AM CDT) Other HR HPV Negative Negative 02/17/2023 6:57 AM CDT MO[facility]ULAR DIAGNOSTICS HPV16 DNA Negative Negative 02/17/2023 6:57 AM CDT MOLECULAR DIAGNOSTICS HPV18 DNA Negative Negative 02/17/2023 6:57 AM CDT MOLECULAR DIAGNOSTICS FINAL DIAGNOSIS This patient's sample is negative for HPV DNA. This test was developed and its performance characteristics determined by the [facility], Molecular Diagnostics Laboratory. It has not been [...] Final Result MOLECULAR DIAGNOSTICS Molecular Diagnostics [address] [facility], [address] [place] [address], [facility] [phone] from Last 3 Months or Most Recently Relevant to Health Maintenance Additional Health Concerns Active Problems Noted Date Diagnosed Date Substance Use 06/30/2023 Mental Health Symptoms Need Improvement 06/30/20 23 Insurance [facility] [place] [address] [place] * Guarantor: Gretchen Cardoza Account Type Relation to Patient Date of Phone Billing Address Medication Therapy Self 1990 [address] [place] [address] [facility] Advance Directives For more information, please contact: [phone] * Full Code (Latest Code Status on [...] patie nt/ legal decision maker Care Teams Barrel Line Operator Relationship Specialty Start Date End Date Mckinleyoctober MD Lila [address] [place] [address] PCP - General Family Medicine 03/08/21 Jul[facility] [address] [place], [place] [address] Pharmacist Pharmacist 05/27/19 Shai Horta MD [address] [place], [place] [address] Dermatology 11/22/19 Deborah Rascon DO [address] [place], [place] [address] Referring Physician Family Practice 11/22/19 Maria Whitley MD [address] [place], [place] [address] Gastroenterology 02/23/21 Kaila Sen MD [address] [place] [address] Assigned PCP 05/27/21 None 02/28/23 Maria Whitley MD [address] [place], [place] [address] Assigned Gastroenterology Provider 09/19/23 Julien Miranda MD [address] [place], [place] [address] Assigned Behavioral Health Provider 12/18/23
--- OUTSIDE RECORDS SUMMARY | 2024-09-12 19:26 | XMS_ITS | Encounter Summary ---
Author Organization [place] Address [address] [place] [address] Care Team Providers Care Account Underwriter Name Role Phone ZacJulissa anthony [facility] Unavailable Shai Horta MD Unavailable [phone] Deborah Rascon DO Unavailable [phone] Maria Whitley MD Unavailable Kaila Sen MD Primary Care Provide r Kaila Sen MD Unavailable None Unavailable Unavailable Maria Whitley MD Unavailable Julien Miranda MD Unavailable [phone] Encounter Details Date Type Department Care Team (Late st Contact Info) Description 11/24/2023 [facility] [place] [address] Julien Miranda MD [facility] [place] [address] Social History Tobacco Use Types [...] in an abandoned building, in an overnight fdc, or couch-surfing.) Yes 08/29/2023 Are you worried [...] Plan Substance Use 100%(06/30/20 23 1:42 PM LPN HOME HEALTH) No Yehuda Colney , RICHAR, LADC Note: I will continue to go to 3 meetings per week and look for a sponsor. I will start IOP programming at [facility]. I will utilize the SW/LADC at [facility] for support as needed. Improve management of mental health symptoms and establish with mental health/psychosoci al supports Care Plan Mental Health Symptoms Need Improvement 100%(06/30/20 23 1:43 PM LPN HOME HEALTH) Yehuda Francisco , CHIEF PHYSICAL THERAPIST, LADC Note: I will take medication as prescribed and let PCP at [facility] know of questions or concerns. I will look into therapy with help from SW/LADC at [facility]. documented as of this encounter Visit Diagnoses Not on filedocumented in this encounter Additional Health Concerns Active Problems Noted Date Diagnosed Date Substance Use 06/30/2023 Mental Health Symptoms Need Improvement 06/30/20 23 Assessment Noted Time PHQ-9 Depression Total Score: 11 024 4:06 PM CDT documented as of this encounter Care Teams Account Underwriter Relationship Specialty Start Date End Date October MD Lila [address] [place] [address] PCP - General Family Medicine 03/08/21 Julissa Frank [facility] [address] [facility] [address] [place], [place] [address] Pharmacist Pharmacist 05/27/19 Shai Horta MD [address] [place], [place] [address] Dermatology 11/22/19 Deborah Rascon DO [address] [address] [place], [place] [phone] Referring Physician Family Practice 11/22/19 Maria Whitley MD [address] [place], [place] [address] Gastroenterology 02/23/21 Kaila Sen MD [address] [place] [address] Assigned PCP 05/27/21 None 02/28/23 Maria Whitley MD [address] [place], [place] 80[address] Assigned Gastroenterology Provider 09/19/23 Julien Miranda MD [address] [place], [place] [address] Assigned Behavioral Health Provider 12/18/23 documented as of this encounter
[2024-09-12 19:30] LABS: Ethanol* < 0.01 % (0.01-0.03)
== END 2024-09-12 19:24 | disposition left against medical advice (07) ==
LOC: ED 19:23
PROVIDERS: Emergency Provider Family Medicine
DX: F10.239 Alcohol dependence with withdrawal, unspecified (principal); T51.0X1A Toxic effect of ethanol, accidental (unintentional), initial encounter; G40.89 Other seizures; E87.1 Hypo-osmolality and hyponatremia; E87.6 Hypokalemia; D69.6 Thrombocytopenia, unspecified; R94.31 Abnormal electrocardiogram [ECG] [EKG]; Z53.29 Procedure and treatment not carried out because of patient's decision for other reasons
CPT/HCPCS: 36415; 80048; 80076; 80143; 80179; 80306; 81025; 82077; 83605; 83690; 83735; 85025; 96374; 96375; 99284; A9270; J2060; J2405; J7030

== ENCOUNTER 2024-11-29 23:34 | Emergency (ER) | payer OTHER, SELFPAY ==
--- OUTSIDE RECORDS SUMMARY | 2024-11-29 23:36 | XMS_ITS | Encounter Summary ---
Author Organization [facility] Address [address] [place] [address] Care Team Providers Care Certified Technician Specialist Name Role Phone No Primary/Referring, Phy Primary Care Provider Unavailable Encounter Details Date Type Department Care Team (Late st Contact Info) Description 12/10/[address] [phone] Amy Garcia MD [address] [place], [place] [phone] [facility] SAFETY AND HEALTH HISTORY QUESTIONNAIRE Social [...] documented as of this encounter Care Teams Certified Technician Specialist Relationship Specialty Start Date End Date No Primary/Referring, Phy PCP - General 04/04/22 documented as of this encounter
--- OUTSIDE RECORDS SUMMARY | 2024-11-29 23:36 | XMS_ITS | Encounter Summary ---
Author Organization [place] Address [address] [place] [address] Care Team Providers Care Dance Hall Host/Hostess Name Role Phone Ana Frankyany Silva [facility] Unavailable [phone] Deborah Rascon DO Primary Care Provider [phone] Deborah Rascon DO Unavailable [phone] Shai Horta MD Unavailable [phone] Deborah Rascon DO Unavailable [phone] Justice Foster MD Unavailable [phone] Marie Abbott AURICULAR ACUPUNCTURIST Unavailable [phone] Jaxson Bryan MD Unavailable Jaxson Bryan MD Unavailable Yunior Mesa MD Unavailable [phone] Maria Whitley MD Unavailable [facility] Jose Donoh[facility] re Provider Kaila Sen MD Primary Care Provide r Deborah Rascon DO Unavailable [phone] Jaxson Alejo MD Unavailable Radha Carrillo APRN AURICULAR ACUPUNCTURIST Unavailable [phone] Maria Whitley MD Unavailable Kaila Sen MD Unavailable [phone] Kaila Sen MD Unavailable Deborah Rascon DO Unavailable None Unavailable Unavailable Rico Corey COMBINATION MACHINE TENDER Unavailable Unavailable Rico Corey COMBINATION MACHINE TENDER Unavailable Unavailable Maria Whitley MD Unavailable Julien Miranda MD Unavailable [phone] Reason for Visit * Reason Onset Date Comments Refill Request 02/15/2020 MIRTAZAPINE Encounter Details Date Type Department Care Team (Late st Contact Info) Description 02/15/2020 Refill [facility] [address] [place] [address] Deborah Rascon, DO [address] [place], [place] [address] Refill Request (MIRTAZAPINE) Social History Tobacco Use [...] Please notify patient she needs to call [phone] schedule a follow up with her provider. We have been unable to reach her. Cheryle Moss RN on 02/15/2020 at 4:18 PM documented [...] documented as of this encounter Care Teams Dance Hall Host/Hostess Relationship Specialty Start Date End Date Deborah Rascon DO [address] [place] [address] PCP - General Family Practice 05/27/19 02/28/21 Clinic - [address] [address] PCP - General Family Medicine 03/01/21 03/07/21 Kaila Sen MD [address] [place] [id number] PCP - General Family Medicine 03/08/21 Julissa Frank [facility] [address] [place] [address] 593394 Pharmacist Pharmacist 05/27/19 Deborah Rascon DO [address] [address] Assigned PCP 03/18/21 04/28/21 Shai Horta MD [address] [place] [address] Dermatology 11/22/19 Deborah Rascon DO [address] [place] [address] Referring Physician Family Practice 11/22/19 Justice Foster MD [facility] [place] [address] Assigned Sleep Provider 05/19/20 Marie Abbott CNP [facility] [address] [place] [address] Assigned Behavioral Health Provider 05/19/20 05/12/21 Jaxson Bryan MD [address] [place] [address] Assigned Gastroenterology Provider 05/19/20 10/21/20 Jaxson Bryan MD [address] [place] [address] Assigned Surgical Provider 10/22/20 Yunior Mesa MD [address] [place] [address] Assigned Musculoskeletal Provider 01/28/21 03/24/21 Maria Whitley MD [address] [place] [address] Gastroenterology 02/23/21 Deborah Rascon DO [address] [place] [address] Assigned PCP 06/06/19 03/10/21 Jaxson Alejo MD [address] [place], [place] 6[address] Assigned Musculoskeletal Provider 03/25/21 09/20/22 Radha Carrillo APRN CNP [address] [facility] 700 [place] [address] Assigned PCP 03/11/21 03/17/21 Maria Whitley MD [address] [place] [address] Assigned Gastroenterology Provider 03/04/21 08/30/22 Kaila Sen MD [address]14 [place] [address] Assigned PCP 05/27/21 Kaila Sen MD [address] [place] [address] Assigned PCP 04/29/21 05/05/21 Deborah Rascon DO [address] [place] [address] Assigned PCP 05/06/21 05/26/21 None 02/28/23 Rico Corey COMBINATION MACHINE TENDER Night Order Selector 06/24/23 07/08/23 Rico Corey COMBINATION MACHINE TENDER Night Order Selector 07/14/23 07/28/23 Maria Whitley MD [address] [place] [address] Assigned Gastroenterology Provider 09/19/23 Julien Miranda MD [address] [place] [address] Assigned Behavioral Health Provider 12/18/23 documented as of this encounter
--- OUTSIDE RECORDS SUMMARY | 2024-11-29 23:36 | XMS_ITS | Encounter Summary ---
Author Organization [place] Address [address] [place] [address] Care Team Providers Care Aws Consultant Name Role Phone Zac, Julissa Silva [facility] Unavailable [phone] Deborah Rascon DO Primary Care Provider [phone] Deborah Rascon DO Unavailable [phone] Shai Horta MD Unavailable [phone] Deborah Rascon DO Unavailable [phone] Justice Foster MD Unavailable [phone] Marie Abbott TENANT SELECTOR Unavailable [phone] Jaxson Bryan MD Unavailable Yunior Mesa MD Unavailable [phone] Maria Whitley MD Unavailable [facility] re Provider Kaila Sen MD Primary Care Provide r Deborah Rascon DO Unavailable [phone] Jaxson Alejo MD Unavailable [phone] Radha Carrillo APRN TENANT SELECTOR Unavailable [phone] Maria Whitley MD Unavailable Kaila Sen MD Unavailable Kaila Sen MD Unavailable Deborah Rascon DO Unavailable [phone] None Unavailable Unavailable Rico Corey CONVEX GRINDER OPERATOR Unavailable Unavailable Rico Corey CONVEX GRINDER OPERATOR Unavailable Unavailable Maria Whitley MD Unavailable Julien Miranda MD Unavailable [phone] Reason for Visit * Reason Onset Date Comments [facility] 12/26/2020 Encounter Details Date Type Department Care Team ([facility] st Contact Info) Description 12/26/[address] [facility] Behavioral Health Intake [address] [place] [address] Generic, Behavioral Intake, [facility] Social History [...] Answer Date Recorded Do you have housing? (Housin g is defined as stable permanent housing and does not include staying outside in a car, in a tent, in an abandoned building, in an overnight mcfp, or couch-surfing.) Yes 08/29/2023 Are you worried [...] suspected to have Coronavirus/COVID-19? No / Unsure 04/25/2023 2:23 PM CDT documented as of this encounter Miscellaneous [...] 12/28/2020 1:09 PM CDT Date: 12/28/2020 To: DIAMANTE RN Please call this patient at [address] phone: [phone] to complete a medical screening to clarify [...] in the patient's electronic medical record in [facility]. Mekhi Matthews LADC * Telephone Encounter - Surya Dejesus LADC [...] patient does NOT use benzodiazepines. Insurance: The [facility] UR Department is responsible for obtaining ALL authorizations for treatmentservices at the EOP, DOP and LP levels of care. This will be a: Seen by a [facility] Evaluation Counselor: MILADIS, ISP & LP UPDATE NOTE evaluation. (Update SBAR and route DANNES and BETTY's) IV use or : This patient is not or an IV drug user. Business office: The patient has [employer] MA/PMAP and would NOT need to consult with anyone in [facility]'s business office about the out of pocket [...] 12/26/2020 8:44 PM CDT R: 20 / O'Ray documented in this encounter Plan of Treatment Not on file documented as of this encounter Visit Diagnoses Not on filedocumented in this encounter Additional Health Concerns Assessment Noted Time PHQ-9 Depression Total Score: 9 04/22/20 18 7:05 AM CDT documented as of this encounter Care Teams Aws Consultant Relationship Specialty Start Date End Date Deborah Rascon DO [facility] [address] [address] PCP - General Family Practice 05/27/19 02/28/[address] [address] PCP - General Family Medicine 03/01/21 03/07/21 Kaila Sen MD [address] [place] [address] PCP - General Family Medicine 03/08/21 Julissa Frank [facility] [address] [place] [address] Pharmacist Pharmacist 05/27/19 Deborah Rascon DO [address] [place] [address] Assigned PCP 03/18/21 04/28/21 Shai Horta MD [address] [place] [address] 662645 Dermatology 11/22/19 Deborah Rascon DO [address] [place] [address] Referring Physician Family Practice 11/22/19 Justice Foster MD [address] [place], [place] 3740[address] Assigned Sleep Provider 05/19/20 Marie Abbott CNP [facility] [address] [place] [address] 310 [place] [address] Assigned Behavioral Health Provider 05/19/20 05/12/21 Jaxson Bryan MD [address] [place] [address] 694685 Assigned Surgical Provider 10/22/20 Yunior Mesa MD [address] [place] [address] 732605 Assigned Musculoskeletal Provider 01/28/21 03/24/21 Maria Whitley MD [address] [place] [address] 576[address] Gastroenterology 02/23/21 Deborah Rascon DO [address] [place] [address] [address] [place], [place] [address] Assigned PCP 06/06/19 03/10/21 Jaxson Alejo MD [address] [place] [address] Assigned Musculoskeletal Provider 03/25/21 09/20/22 Radha Carrillo APRN TENANT SELECTOR [address] [facility] 700 [place] [address] Assigned PCP 03/11/21 03/17/21 Maria Whitley MD 909 [place] [address] Assigned Gastroenterology Provider 03/04/21 08/30/22 Kaila Sen MD [address]14 [place] [address] Assigned PCP 05/27/21 Kaila Sen MD [address] [place] [address] Assigned PCP 04/29/21 05/05/21 Deborah Rascon DO [address] [place] [address] Assigned PCP 05/06/21 05/26/21 None 02/28/23 Rico Corey, CONVEX GRINDER OPERATOR Reel And Rewinder Operator 06/24/23 07/08/23 Rico Corey, CONVEX GRINDER OPERATOR Reel And Rewinder Operator 07/14/23 07/28/23 Maria Whitley MD [address] [place] [address] Assigned Gastroenterology Provider 09/19/23 Julien Miranda MD [address] [place] [address] 352094 Assigned Behavioral Health Provider 12/18/23 documented as of this encounter
--- OUTSIDE RECORDS SUMMARY | 2024-11-29 23:37 | XMS_ITS | Referral Summary ---
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 HEP A IGM MADIHA Non-React payton Non-React payton CENTAUR XP ANALYZER 12/02/2020 11:[address] [facility] HEP BS ANTIGEN Non-React payton Non-React payton CENTAUR XP ANALYZER 12/02/2020 11:[address] [facility] Hepatitis C Antibody Non-React payton Non-React payton CENTAUR XP ANALYZER 12/02/2020 11:[address] [facility] Blood 12/02/2020 4:56 PM CDT 12/02/2020 5:02 PM CDT Lana KOEHLER IMMUNOLOGY ORDERABLE Final Result [facility] [address] NATASHA Nixon [address] from Last 3 Months or Most Recently Relevant to Health Maintenance Advance Directives For more information, please contact: [phone] * Full Code (Latest Code Status on File) Date Activated Date Inactivated Comments 12/02/2020 9:05 PM 12/06/2020 7:22 PM Question Answer Comments How was code status determined? Previous Documen tation * Full Code Date Activated Date Inactivated Comments 10/24/2020 3:31 PM 10/26/2020 5:44 PM Question Answer Comments How was code status determined? Patient Care Teams Ore Roaster Relationship Specialty Start Date End Date Doctor, No No ad PCP - General Radiology 06/29/20 Clinic, No Primary PCP - Primary Care Clinic 06/29/20
--- OUTSIDE RECORDS SUMMARY | 2024-11-29 23:37 | XMS_ITS | Encounter Summary ---
Author Organization [facility] Address [address] [place] [address] Care Team Providers Care Water Quality Specialist Name Role Phone Julissa Frank [facility] Unavailable [phone] Shai Horta MD Unavailable [phone] Deborah Rascon DO Unavailable [phone] Maria Whitley MD Unavailable Kaila Sen MD Primary Care Provide r Kaila Sen MD Unavailable [phone] None Unavailable Unavailable Maria Whitley MD Unavailable Julien Miranda MD Unavailable [phone] Encounter Details Date Type Department Care Team (Late st Contact Info) Description 09/11/2023 [facility] [address] [place] [address] Elvira Blackmon Social History Tobacco [...] Plan Substance Use 100%(06/30/20 23 1:42 PM TEENAGE BABYSITTER) No Yehuda Conley LGSW, LADC Note: I will continue to go to 3 meetings per week and look for a sponsor. I will start IOP programming at [facility]. I will utilize the SW/LADC at [facility] for support as needed. Improve management of mental health symptoms and establish with mental health/psychosoci al supports Care Plan Mental Health Symptoms Need Improvement 100%(06/30/20 23 1:43 PM TEENAGE BABYSITTER) No Yehuda Conley LGSW, MAHOGANY Note: I will take medication as prescribed and let PCP at [facility] know of questions or concerns. I will look into therapy with help from SW/LADC at [facility]. documented as of this encounter Visit Diagnoses Not on filedocumented in this encounter Additional Health Concerns Active Problems Noted Date Diagnosed Date Substance Use 06/30/2023 Mental Health Symptoms Need Improvement 06/30/20 23 Assessment Noted Time PHQ-9 Depression Total Score: 8 08/29/19 24 8:19 AM TEENAGE BABYSITTER documented as of this encounter Care Teams Water Quality Specialist Relationship Specialty Start Date End Date Kaila Sen MD [address] [place] [address] PCP - General Family Medicine 03/08/21 Julissa Frank [facility] [address] [address] Pharmacist Pharmacist 05/27/19 Shai Horta MD [address] [place] [address] [phone] Dermatology 11/22/19 Deborah Rascon DO [address] [place] [address] [phone] Referring Physician Family Practice 11/22/19 Maria Whitley MD [address] [place] [address] [phone] Gastroenterology 02/23/21 Kaila Sen MD [address] [place] [address] Assigned PCP 05/27/21 None 02/28/23 Maria Whitley MD [address] [place] [address] Assigned Gastroenterology Provider 09/19/23 Julien Miranda MD [facility] [place] [address] Assigned Behavioral Health Provider 12/18/23 documented as of this encounter
--- OUTSIDE RECORDS SUMMARY | 2024-11-29 23:37 | XMS_ITS | Clinical Summary ---
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 Gender Identity Not on file Sexual [...] - 2023-2 5 season) 2024 Influenza Vaccine (Season Ended) 2025 04/07/2019, 05/29/2018, 05/10/2018, Additional history exists Adult Tetanus [...] CENTAUR XP ANALYZER 12/02/2020 11:26 PM CDT [facility] HEP A IGM MADIHA Non-React payton Non-React payton CENTAUR XP ANALYZER 12/02/2020 11:26 PM CDT [facility] HEP BS ANTIGEN Non-React payton Non-React payton CENTAUR XP ANALYZER 12/02/2020 11:26 PM CDT [facility] Hepatitis C Antibody Non-React payton Non-React payton CENTAUR XP ANALYZER 12/02/2020 11:26 PM CDT [facility] Blood 12/02/2020 4:56 PM CDT 12/02/2020 5:02 PM CDT Lana KOEHLER IMMUNOLOGY ORDERABLE Final Result [facility] [address] [place] [address] from Last 3 Months or Most Recently Relevant to Health Maintenance Advance Directives For more information, please contact: [phone] * Full Code (Latest Code Status on File) Date Activated Date Inactivated Comments 12/02/2020 9:05 PM 12/06/2020 7:22 PM Question Answer Comments How was code status determined? Previous Documen tation * Full Code Date Activated Date Inactivated Comments 10/24/2020 3:31 PM 10/26/2020 5:44 PM Question Answer Comments How was code status determined? Patient Care Teams Machine Tailer Relationship Specialty Start Date End Date Doctor, No No ad PCP - General Radiology 06/29/20 Clinic, No Primary PCP - Primary Care Clinic 06/29/20
--- OUTSIDE RECORDS SUMMARY | 2024-11-29 23:37 | XMS_ITS | Clinical Summary ---
Author Organization [employer] Address [address] [place] [address] Care Team Providers Care Sand Technologist Name Role Phone No Primary/Referring, Phy Primary [...] for each transition of care or referral. [employer] Allergies Active Allergy Reactions Criticality Noted Date [...] mouth every 24 hours as needed. 05/30/20 18 Active sennosides-docusa te sodium (SENNA-S,SENNA PLUS) 8.6-50 [...] mouth. 05/27/20 Active cholecalciferol (D3-50) 1.25 MG (89326 UT) capsule Take 50,000 Units by mouth. [...] propionate (FLONASE) 50 MCG/ACT nasal solution 1 [place] by Nasal route. 12/06/19 Active ALBUterol sulfate HFA 108 (90 Base) MCG/ACT inhaler Inhale 1-2 Puffs every 4 hours as needed for Wheezing. 1 Each 2 05/23/20 Active Additional Information Patient not taking.Reported on 06/29/[address] [place] [address] 1 [place]adoo into both nostrils daily as needed. 14.1 [...] for Nausea or Vomiting. 20 Tablet 05/31/20 Active Additional Information Patient not taking.Reported on 06/29/2024 furosemide (LASIX) 20 MG tablet Take 1-2 Tablets by mouth daily for 7 days. Take in morning. 10 Tablet 02/23/20 Active hydroCHLOROthiazi de (ORETIC) 12.5 MG tablet Take 12.5 mg by mouth. 02/22/20 Active hydrOXYzine HCl (ATARAX) 25 MG tablet Take 25-50 mg by mouth. 02/22/20 Active Active Problems Problem Noted Date Diagnosed Date Encounter for insertion of ParaGard IUD 04/04/20 22 Overview (04/04/2022): Placed 2015 in [place] Not immune to hepatitis B virus 04/26/2021 [...] Persistent insomnia 10/23/2005 Unspecified asthma, uncomplicated 08/15/2005 Immunizations Immunization Administration Dates Next Due 4vHPV (Gardasil) 08/16/2009,08/03/2008, 8 DTaP 1988 Flu Vac (3+ yrs) 05/21/2005,06/28/2003 Fluzone Qiv Multidose Vial 0 .25 (6-35 Mos) 04/07/2019 HepA Adult (19+ yrs) 03/16/2021 HepB Adult (Engerix-B, 20+ y rs, 3 dose series) 04/27/2021,03/16/2021,04/07/2009,2008,09/26/2008,11/27/1992 Influenza ([place] Only) (Flul aval Quad 0.5, 3+ yrs) 04/19/2020 Influenza IIV4 (Quadrivalent ) 0.5mL (66959) 04/27/2021,05/29/2018,05/10/2018,2016 Influenza, Unspecified Formulation 05/24/2015 Ernie COVID-19 [...] Comments Blood Pressure 150/102 06/29/2024 1:25 PM ACCOUNTANT ASSISTANT Pulse 101 06/29/2024 1:25 PM ACCOUNTANT ASSISTANT Temperature 36.7 C (98.1 F) 06/29/2024 1:25 PM ACCOUNTANT ASSISTANT Respiratory Rate 16 06/29/2024 1:25 PM ACCOUNTANT ASSISTANT Oxygen Saturation 100% 06/29/2024 1:25 PM ACCOUNTANT ASSISTANT Inhaled Oxygen Concentration - - Weight 69.4 kg (153 lb) 04/04/2022 11:09 AM CDT Height 170.2 cm (5' 7) 04/04/2022 11:09 AM CDT Body Mass Index 23.96 04/04/2022 11:09 AM CDT Plan of Treatment Health Maintenance Due Date Last Done Comments IPV (Polio) Vaccine (2 of 3 - 4-dose series) 1988 1988 Adult Preventive Visit 2006 HepB Vaccine (7) 04/27/2022 04/27/2021, , 04/07/2009, Additional history exists Asthma ACT (score of 20 or higher) 04/04/2023 04/04/2022 Cervical Cancer Screening 03/27/2024 03/27/2021 (Com pleted) COVID-19 Vaccine ( - season) 2024 05/16/2023, 08/17/2021, 12/19/2020 Influenza Vaccine (Season Ended) 2025 04/25/2023, 04/27/2021, 04/19/2020, Additional history exists DTaP/Tdap/Td Vaccine (6 - Tdap) 09/12/2029 09/12/2019, 01/31/2011, 06/25/2006, Additional history exists Zoster/Shingles Vaccine (1 of 2) 2038 HPV Vaccine Completed 08/16/2009, 01/2009, 05/20/2008 Hep C Screening (Preventive Services) Completed 01/02/2019 (Completed) HIV Screening (Preventive Services) Completed 03/27/2021 (Completed), 04/11/2017, 04/11/2017 (Completed), Additional history exists HepA Vaccine Completed 04/01/2023, 03/16/2021 Pneumococcal Vaccine Completed 04/01/2023, 01/03/20 19 Hib Vaccine Aged Out No longer eligi ble based on patient's age to complete this topic MCV4 Vaccine Aged Out No longer eligi ble based on patient's age to complete this topic Meningococcal B Vaccine Aged Out No l onger eligible based on patient's age to complete this topic Insurance [address] [place] [id number] [facility] [employer]END[employer] Advance Directives * Full Code (Latest Code Status on File) Date Activated Date Inactivated Comments 05/28/2020 12:35 AM 05/31/2020 1:54 PM Question Answer Comments On Admission, Code status wa s determined by: Not discussed with patient/family * Full Code Date Activated Date Inactivated Comments 12/10/2018 3:30 PM 12/22/2018 12:45 PM Care Teams Sand Technologist Relationship Specialty Start Date End Date No Primary/Referring, Phy PCP - General 04/04/22
--- OUTSIDE RECORDS SUMMARY | 2024-11-29 23:37 | XMS_ITS | Encounter Summary ---
Author Organization [facility] Address [address] [place] [address] Care Team Providers Care Bank President Name Role Phone No Ref-Primary, Physician Primary Care Provider [facility] Primary Care Prov ider Unavailable No Ref-Primary, Physician Primary Care Provider Amy Mace PATIENT SCHEDULER BAND SPLICER Unavailable Amy Mace PATIENT SCHEDULER BAND SPLICER Unavailable Oma Pierson PATIENT SCHEDULER BAND SPLICER Unavailable Unav ailable Amy Mace PATIENT SCHEDULER BAND SPLICER Unavailable Oma Pierson PATIENT SCHEDULER BAND SPLICER Unavailable Unav ailable Julissa Frank [facility] Unavailable [phone] Deborah Rascon DO Primary Care Provider + Deborah Rascon DO Unavailable + [phone] Shai Horta MD Unavailable [phone] Deborah Rascon DO Unavailable + [phone] Justice Foster MD Unavailable [phone] Marie Abbott BAND SPLICER Unavailable [phone] Jaxson Bryan MD Unavailable Jaxson Bryan MD Unavailable Yunior Mesa MD Unavailable [phone] Maria Whitley MD Unavailable Clinic - [facility] Primary Ca re Provider Kaila Sen MD Primary Care Provide r Deborah Rascon DO Unavailable [phone] Jaxson Diane MD Unavailable [phone] Radha Carrillo APRN BAND SPLICER Unavailable + [phone] Maria Whitley MD Unavailable Kaila Sen MD Unavailable [phone] Kaila Sen MD Unavailable [phone] Deborah Rascon DO Unavailable [phone] None Unavailable Unavailable Rico Corey SALMON GILLNET VESSEL OPERATOR Unavailable Unavailable Rico Corey SALMON GILLNET VESSEL OPERATOR Unavailable Unavailable Maria Whitley MD Unavailable Julien Miranda MD Unavailable [phone] Reason for Visit * Reason Onset Date Comments MH/CD Inpatient 03/02/2018 Encounter Details Date Type Department Care Team (Late st Contact Info) Description 03/02/2018 Telephone [facility] Behavioral Health Intake [address] [place] [phone] Generic, Behavioral Intake, MH/CD Inpatient Social History Tobacco Use Types Packs/Day Years Used Date Smoking Tobacco: Every Day Cigarettes Smokeless Tobacco: Never Alcohol Use Standard Drinks/Week Comments Yes 0 (1 standard drink = 0.6 oz pur e alcohol) as much liquor as I can get PHQ-2 Answer Date Recorded PHQ-2 Score 4 [...] is 0.26. Pt denies seizures and DTs. is collecting labs but is medically cleared. [...] documented as of this encounter Care Teams Bank President Relationship Specialty Start Date End Date No Ref-Primary, Physician PCP - General 03/02/18 04/02/18 Taylor [facility] PCP - General 04/03/18 05/17/18 No Ref-Primary, Physician PCP - General 05/18/18 05/26/19 Amy Mace APRN [facility] [address] [place], [place] 747104 PCP - Assigned PCP 05/03/18 09/29/18 Deborah Rascon DO [address] 772144 PCP - General Family Practice 05/27/19 02/28/21 Clinic - [facility] [address] [address] PCP - General Family Medicine 03/01/21 03/07/21 Kaila Sen MD [address] [facility] [place] [phone] PCP - General Family Medicine 03/08/21 Amy Mace, PATIENT SCHEDULER BAND SPLICER [address] [facility] [place] [address] Assigned PCP 05/03/18 10/10/18 Oma Pierson, PATIENT SCHEDULER BAND SPLICER Assigned PCP 10/11/18 12/26/18 Amy Mace, PATIENT SCHEDULER BAND SPLICER [address] [place] [address] Assigned PCP 12/27/18 02/13/19 Oma Pierson, PATIENT SCHEDULER BAND SPLICER Assigned PCP 02/14/19 06/05/19 Julissa Frank [facility] [address] [phone] Pharmacist Pharmacist 05/27/19 Deborah Rascon DO [address] [place] [address] 799514 Assigned PCP 03/18/21 04/28/21 Shai Horta MD [address] [place], [place] 973825 Dermatology 11/22/19 Deborah Rascon DO [facility] [address] [address] Referring Physician Family Practice 11/22/19 Justice Foster MD [address] [place] [address] 151636 Assigned Sleep Provider 05/19/20 Marie Abbott CNP [facility] [address] [facility] [address] [place] [address] Assigned Behavioral Health Provider 05/19/20 05/12/21 Jaxson Bryan MD [address] [place] [address] Assigned Gastroenterology Provider 05/19/20 10/21/20 Jaxson Bryan MD [address] [place] [address] Assigned Surgical Provider 10/22/20 Yunior Mesa MD [address] [place] [address] 653545 Assigned Musculoskeletal Provider 01/28/21 03/24/21 Maria Whitley MD [address] [place] [address] 794525 Gastroenterology 02/23/21 Deborah Rascon DO [facility] [address] [address] Assigned PCP 06/06/19 03/10/21 Jaxson Diane MD [address] [place] [address] 558452 Assigned Musculoskeletal Provider 03/25/21 09/20/22 Radha Carrillo APRN BAND SPLICER [facility] [address] [place] [address] Assigned PCP 03/11/21 03/17/21 Maria Whitley MD [address] [place] [address] Assigned Gastroenterology Provider 03/04/21 08/30/22 Kaila Sen MD [address] [place] [address] Assigned PCP 05/27/21 [place] [address] [place] [address] Assigned PCP 04/29/21 05/05/21 Deborah Rascon DO [address] [place] [address] Assigned PCP 05/06/21 05/26/21 None 02/28/23 Rico Corey SALMON GILLNET VESSEL OPERATOR Power Checker 06/24/23 07/08/23 Rico Corey SALMON GILLNET VESSEL OPERATOR Power Checker 07/14/23 07/28/23 Maria Whitley MD [address] [place] [address] Assigned Gastroenterology Provider 09/19/23 Julien Miranda MD [address] [place] [address] Assigned Behavioral Health Provider 12/18/23 documented as of this encounter
--- OUTSIDE RECORDS SUMMARY | 2024-11-29 23:37 | XMS_ITS | Encounter Summary ---
Author Organization [facility] Address [address] [place] [address] Care Team Providers Care Payroll Processor Name Role Phone Ana Frankyany Silva [facility] Unavailable [phone] Deborah Rascon DO Primary Care Provider [phone] Deborah Rascon DO Unavailable [phone] Shai Horta MD Unavailable [phone] Deborah Rascon DO Unavailable [phone] Justice Foster MD Unavailable Marie Abbott POLICE AND FIRE DISPATCHER Unavailable [phone] Jaxson Brayn MD Unavailable Jaxson Bryan MD Unavailable Yunior Mesa MD Unavailable [phone] Maria Whitley MD Unavailable [facility] re Provider Kaila Sen MD Primary Care Provide r Deborah Rascon DO Unavailable [phone] Jaxson Alejo MD Unavailable Radha Carrillo APRN POLICE AND FIRE DISPATCHER Unavailable [phone] Maria Whitley MD Unavailable Kaila Sen MD Unavailable Kaila Sen MD Unavailable Deborah Rascon DO Unavailable None Unavailable Unavailable Rico Corey MANAGER HEMATOLOGY Unavailable Unavailable Rico Corey MANAGER HEMATOLOGY Unavailable Unavailable Maria Whitley MD Unavailable Julien Miranda MD Unavailable Reason for Visit * Reason Onset Date Comments Refill Request 10/21/2019 Aripiprazole (Ab ilify) 10 mg tablet Refill Request 10/28/2019 Encounter Details Date Type Department Care Team (Late st Contact Info) Description 10/21/2019 Refill [facility] [address] [address] [place] [address] Deborah Rascon DO [address] [place] [address] [place] [address] Refill Request (Aripiprazole (Abilify) 10 [...] at 11:22 AM * Telephone Encounter - Ashely Mcbride - 10/21/2019 10:20 AM CDT [facility] - [place] - [address] P: [phone] F: [phone] [facility] FAC[facility] PATIENT Requested Prescriptions Pending Prescriptions [...] documented as of this encounter Care Teams Payroll Processor Relationship Specialty Start Date End Date Deborah Rascon DO [address] [place] [address] PCP - General Family Practice 05/27/19 02/28/[address] [address] PCP - General Family Medicine 03/01/21 03/07/21 Kaila Sen MD [address] [place] [address] PCP - General Family Medicine 03/08/21 Julissa Frank [facility] [address] [place] [address] 943804 Pharmacist Pharmacist 05/27/19 Deborah Rascon DO [address] [place] [address] 434134 Assigned PCP 03/18/21 04/28/21 Shai Horta MD [address] [place] [address] 332005 Dermatology 11/22/19 Deborah Rascon DO [address] 024494 Referring Physician Family Practice 11/22/19 Justice Foster MD [address] [place], [place] 081296 Assigned Sleep Provider 05/19/20 Marie Abbott CNP [facility] [address] [place] [address] [id number] Assigned Behavioral Health Provider 05/19/20 05/12/21 Jaxson Bryan MD [address] [place] [address] 579365 Assigned Gastroenterology Provider 05/19/20 10/21/20 Jaxson Bryan MD [address] [place], [place] 244185 Assigned Surgical Provider 10/22/20 Yunior Mesa MD [address] [place] [address] 837695 Assigned Musculoskeletal Provider 01/28/21 03/24/21 Maria Whitley MD [address] [place] [address] 659275 Gastroenterology 02/23/21 Deborah Rascon DO [address] [place] [address] Assigned PCP 06/06/19 03/10/21 Jaxson Alejo MD [address] [place] [address] Assigned Musculoskeletal Provider 03/25/21 09/20/22 Radha Carrillo APRN CNP [address] [facility] 700 [place] [address] Assigned PCP 03/11/21 03/17/21 Maria Whitley MD [address] [place] [address] Assigned Gastroenterology Provider 03/04/21 08/30/22 Kaila Sen MD [address] [place] [address] Assigned PCP 05/27/21 Kaila Sen MD [address] [place] [address] Assigned PCP 04/29/21 05/05/21 Deborah Rascon DO [facility] [address] [place] [address] Assigned PCP 05/06/21 05/26/21 None 02/28/23 Rico Corey, MANAGER HEMATOLOGY Silver Service Waiter 06/24/23 07/08/23 Rico Corey, MANAGER HEMATOLOGY Silver Service Waiter 07/14/23 07/28/23 Maria Whitley MD [address] [place] [address] Assigned Gastroenterology Provider 09/19/23 Julien Miranda MD [address] [place] [address] Assigned Behavioral Health Provider 12/18/23 documented as of this encounter
--- OUTSIDE RECORDS SUMMARY | 2024-11-29 23:37 | XMS_ITS ---
Author Organization [facility] Address [address] [place] [address] Care Team Providers Care Fugitive Investigator Name Role Phone Julissa Frank [facility] Unavailable [phone] Shai Horta MD Unavailable [phone] Deborah Rascon DO Unavailable [phone] Maria Whitley MD Unavailable Kaila Sen MD Primary Care Provide r Kaila Sen MD Unavailable None Unavailable Unavailable Maria Whitley MD Unavailable Julien Miranda MD Unavailable [phone] [facility] Primary Care Care Coordination Status:Identified (Enrolling) Start date:06/30/2023 Enrollment reason:Referred by provider or care team Overview [facility] Case Team Name Relationship Phone MAHOGANY Jamison Corn Cutter Operator(Re sponsible Staff) Continued Care and Services Coordination
--- OUTSIDE RECORDS SUMMARY | 2024-11-29 23:37 | XMS_ITS | Encounter Summary ---
Author Organization [place] Address [address] [place] [address] Care Team Providers Care Cloth Classer Name Role Phone Ana Frankyany Silva [facility] Unavailable [phone] Deborah Rascon DO Primary Care Provider [phone] Deborah Rascon DO Unavailable [phone] Shai Horta MD Unavailable [phone] Deborah Rascon DO Unavailable + [phone] Justice Foster MD Unavailable Marie Abbott ADDICTIONS THERAPIST Unavailable [phone] Jaxson Bryan MD Unavailable Jaxson Bryan MD Unavailable Yunior Mesa MD Unavailable [phone] Maria Whitley MD Unavailable [facility] Jose Donohue [facility] re Provider Kaila Sen MD Primary Care Provide r Deborah Rascon DO Unavailable [phone] Jaxson Alejo MD Unavailable Radha Carrillo APRN ADDICTIONS THERAPIST Unavailable +[phone] Mraia Whitley MD Unavailable Kaila Sen MD Unavailable [phone] Kaila Sen MD Unavailable [phone] Deborah Rascon DO Unavailable [phone] None Unavailable Unavailable Rico Corey OUTSOLE FLEXER Unavailable Unavailable Rico Corey OUTSOLE FLEXER Unavailable Unavailable Maria Whitley MD Unavailable Julien Miranda MD Unavailable [phone] Reason for Visit * Reason Onset Date Comments Patient Request 11/22/2019 Encounter Details Date Type Department Care Team (Late st Contact Info) Description 11/22/[address] [facility] Hepatology [facility] [address] [address] Unknown Patient Request Social History Tobacco Use Types Packs/Day Years Used Date Smoking Tobacco: Former Cigarettes Smokeless Tobacco: Never Comments:quit date 05/21/19 - chantix and patch helpful Alcohol Use Standard Drinks/Week Comments Not Currently 0 (1 standard drink = 0.6 oz pure alcohol) sober since 04/21/19 (previously drinking 1L vodka/day) PHQ-2 Answer Date Recorded PHQ-2 Score 4 [...] in an abandoned building, in an overnight senior care, or couch-surfing.) Yes 08/29/2023 Are you worried [...] patient visit. No answer,left vm to call [phone] to set up appointment. Gretchen Burns CMA MECHANICAL DRAWING TEACHER 11/24/2019 11:34 AM * Telephone Encounter - Gretchen Burns CMA - 11/23/2019 1:09 PM CDT Attempted to call yesterday and again today. Phone listed goes straight to voicemail. Message left today to call [phone] if she would like to reach out to us. I will continue to try to contact through 11/24. Gretchen Burns CMA CMA 11/23/2019 1:10 PM * Telephone Encounter - Sanjay Son - 11/22/2019 11:38 AM CDT [facility] Call Center Phone Message May a detailed message be left on voicemail: yes Reason for Call: Other: Patient called wantjerri meyers seen for liver fibrosis, patient said she thinkduglase need to have her labs and testing done. Please call to infom from patient information what she need to do as far as labs or testing. Patient is aware this would be a virtual visit but want this information before scheduling. Action Taken: Other: [facility] Hepatology Travel Screening: Not Applicable documented in this encounter Plan of Treatment Not on file documented as of this encounter Visit Diagnoses Not on filedocumented in this encounter Additional Health Concerns Assessment Noted Time PHQ-9 Depression Total Score: 9 04/22/20 18 7:05 AM CDT documented as of this encounter Care Teams Cloth Classer Relationship Specialty Start Date End Date Deborah Rascon DO [facility] [address] [address] PCP - General Family Practice 05/27/19 02/28/21 [facility] [place] [address] [address] PCP - General Family Medicine 03/01/21 03/07/21 Kaila Sen MD [address] [place] [address] PCP - General Family Medicine 03/08/21 Julissa Frank [facility] [address] [phone] Pharmacist Pharmacist 05/27/19 Deborah Rascon DO [address] [place] [address] [id number] Assigned PCP 03/18/21 04/28/21 Shai Horta MD [address] [place] [address] 117665 Dermatology 11/22/19 Deborah Rascon DO [address] [place] [address] [phone] Referring Physician Family Practice 11/22/19 Justice Foster MD [address] [place] [address] [phone] Assigned Sleep Provider 05/19/20 Marie Abbott CNP [facility] [address] [place] [address] [phone] Assigned Behavioral Health Provider 05/19/20 05/12/21 Jaxson Bryan MD [address] [place] [address] [phone] Assigned Gastroenterology Provider 05/19/20 10/21/20 Jaxson Bryan MD [address] [place] [address] [phone] Assigned Surgical Provider 10/22/20 Yunior Mesa MD [address] [place] [address] 667185 Assigned Musculoskeletal Provider 01/28/21 03/24/21 Maria Whitley MD [address] [place] [address] Gastroenterology 02/23/21 Deborah Rascon DO [address] [place] [address] Assigned PCP 06/06/19 03/10/21 Jaxson Alejo MD 6341 [place] [address] Assigned Musculoskeletal Provider 03/25/21 09/20/22 Radha Carrillo APRN CNP 606 [address] [address] [place] [address] Assigned PCP 03/11/21 03/17/21 Maria Whitley MD [address] [place] [address] Assigned Gastroenterology Provider 03/04/21 08/30/22 Kaila Sen MD [facility]4 [place] [address] Assigned PCP 05/27/21 Kaila Sen MD 1414 [place] [address] Assigned PCP 04/29/21 05/05/21 Deborah Rascon DO [address] [place] [address] Assigned PCP 05/06/21 05/26/21 None 02/28/23 Rico Corey BSW Business English Instructor 06/24/23 07/08/23 Rico Corey BSW Business English Instructor 07/14/23 07/28/23 Maria Whitley MD [address] [place], [place] 801625 Assigned Gastroenterology Provider 09/19/23 Julien Miranda MD [address]50 [place], [place] 761974 Assigned Behavioral Health Provider 12/18/23 documented as of this encounter
--- OUTSIDE RECORDS SUMMARY | 2024-11-29 23:37 | XMS_ITS | Encounter Summary ---
Author Organization [place] Address [address] [place] [address] Care Team Providers Care Transfer Car Operator Drier Name Role Phone No Ref-Primary, Physician Primary Care [facility] Primary Care Prov ider Unavailable No Ref-Primary, Physician Primary Care Provider Amy Mace SPIRAL MACHINE OPERATOR TOUR COORDINATOR Unavailable Amy Mace SPIRAL MACHINE OPERATOR TOUR COORDINATOR Unavailable Oma Pierson SPIRAL MACHINE OPERATOR TOUR COORDINATOR Unavailable Unav ailable Amy Mace SPIRAL MACHINE OPERATOR TOUR COORDINATOR Unavailable Oma Pierson SPIRAL MACHINE OPERATOR TOUR COORDINATOR Unavailable Unav ailable Julissa Frank [facility] Unavailable [phone] Deborah Rascon DO Primary Care Provider + Deborah Rascon DO Unavailable + [phone] Shai Horta MD Unavailable [phone] Deborah Rascon DO Unavailable + 3 Justice Foster MD Unavailable [phone] Marie Abbott TOUR COORDINATOR Unavailable [phone] Jaxson Bryan MD Unavailable Jaxson Bryan MD Unavailable Yunior Mesa MD Unavailable + [phone] Maria Whitley MD Unavailable Clinic - [facility]ra Rosas [facility] Primary Ca re Provider Kaila Sen MD Primary Care Provide r Deborah Rascon DO Unavailable [phone] Jaxson Diane MD Unavailable +[phone] Radha Carrillo APRN TOUR COORDINATOR Unavailable + [phone] Maria Whitley MD Unavailable Kaila Sen MD Unavailable [phone] Kaila Sen MD Unavailable [phone] Deborah Rascon DO Unavailable [phone] None Unavailable Unavailable Rico Corey COMMUNITY MARKETING COORDINATOR Unavailable Unavailable Rico Corey COMMUNITY MARKETING COORDINATOR Unavailable Unavailable Maria Whitley MD Unavailable Julien Miranda MD Unavailable [phone] Reason for Visit * Reason Onset Date Comments CD Outpatient 02/05/2018 Encounter Details Date Type Department Care Team (Late st Contact Info) Description 02/05/2018 Telephone [facility] Behavioral Health Intake [address] [place] [phone] Generic, Behavioral Intake, CD Outpatient Social History Tobacco Use Types Packs/Day Years Used Date Smoking Tobacco: Every Day Cigarettes Smokeless Tobacco: Never PHQ-2 Answer Date Recorded PHQ-2 Score 4 [...] in an abandoned building, in an overnight fpc, or couch-surfing.) Yes 08/29/2023 Are you worried [...] your partner or ex-partner? No 10/24/2023 Comments Unknown Sex and Gender Information Value [...] 04/03/2018 1:47 PM CDT 04/03/18 Inbox from [facility] to schedule CD Eval for 04/15/18 @ [place]. * Telephone Encounter - Mary Hansen - 02/06/2018 8:44 AM CDT Client currently has no insurance. L/[facility] phone# for R25; cancelled appt. * [...] documented as of this encounter Care Teams Transfer Car Operator Drier Relationship Specialty Start Date End Date No Ref-Primary, Physician PCP - General 03/02/18 04/02/18 [facility] PCP - General 04/03/18 05/17/18 No Ref-Primary, Physician PCP - General 05/18/18 05/26/19 Amy Mace APRN TOUR COORDINATOR [address] [place] [address] PCP - Assigned PCP 05/03/18 09/29/18 Deborah Rascon DO [address] [address] PCP - General Family Practice 05/27/19 02/28/21 [facility] - Jose Donohue [address] [address] PCP - General Family Medicine 03/01/21 03/07/21 Kaila Sen MD 1414 [place] [address] PCP - General Family Medicine 03/08/21 Amy Mace, SPIRAL MACHINE OPERATOR TOUR COORDINATOR [address] [facility] [place] 854904 Assigned PCP 05/03/18 10/10/18 Oma Pierson, SPIRAL MACHINE OPERATOR TOUR COORDINATOR Assigned PCP 10/11/18 12/26/18 Amy Mace, SPIRAL MACHINE OPERATOR TOUR COORDINATOR [address] [place] [address] Assigned PCP 12/27/18 02/13/19 Oma Pierson, SPIRAL MACHINE OPERATOR TOUR COORDINATOR Assigned PCP 02/14/19 06/05/19 Julissa Frank [facility] [address] [phone] Pharmacist Pharmacist 05/27/19 Deborah Rascon DO [address] [place] [address] [phone] Assigned PCP 03/18/21 04/28/21 Shai Horta MD 9 [place], [place] 098925 Dermatology 11/22/19 Deborah Rascon DO [facility] [address] [address] Referring Physician Family Practice 11/22/19 Justice Foster MD [address] [place] [address]46 Assigned Sleep Provider 05/19/20 Marie Abbott CNP [facility] [address] [facility] [address] [place] [address] Assigned Behavioral Health Provider 05/19/20 05/12/21 Jaxson Bryan MD [address] [place] [address] [phone] Assigned Gastroenterology Provider 05/19/20 10/21/20 Jaxson Bryan MD [address] [place] [address] [phone] Assigned Surgical Provider 10/22/20 Yunior Mesa MD [address] [place] [address] 60[address] Assigned Musculoskeletal Provider 01/28/21 03/24/21 Maria Whitley MD [address] [place] [address] 627905 Gastroenterology 02/23/21 Deborah Rascon DO [address] [place], [place] 942634 Assigned PCP 06/06/19 03/10/21 Jaxson Diane MD 6341 [place], [place] 205242 Assigned Musculoskeletal Provider 03/25/21 09/20/22 Radha Carrillo APRN TOUR COORDINATOR [address] [facility] 700 [place], [place] 374394 Assigned PCP 03/11/21 03/17/21 Maria Whitley MD [address] [place] [address] Assigned Gastroenterology Provider 03/04/21 08/30/22 Kaila Sen MD [address] [place] [address] Assigned PCP 05/27/21 Kaila Sen MD [address]14 [place] [address] Assigned PCP 04/29/21 05/05/21 Deborah Rascon DO [address] [place] [address] Assigned PCP 05/06/21 05/26/21 None 02/28/23 iRco Corey COMMUNITY MARKETING COORDINATOR Assembler Lay Ups 06/24/23 07/08/23 Rico Corey, COMMUNITY MARKETING COORDINATOR Assembler Lay Ups 07/14/23 07/28/23 Maria Whitley MD 909 [place] [address] Assigned Gastroenterology Provider 09/19/23 Julien Miranda MD [address] [place] [address] Assigned Behavioral Health Provider 12/18/23 documented as of this encounter
--- OUTSIDE RECORDS SUMMARY | 2024-11-29 23:37 | XMS_ITS | Encounter Summary ---
Author Organization [place] Address [address] [place] [address] Care Team Providers Care Wheel Aligner Name Role Phone No Ref-Primary, Physician Primary Care Provider [facility] Primary Care Prov ider Unavailable No Ref-Primary, Physician Primary Care Provider Amy Mace WASTE MANAGEMENT RECYCLING TECHNICIAN EYEGLASS FRAMES POLISHER Unavailable Amy Mace WASTE MANAGEMENT RECYCLING TECHNICIAN EYEGLASS FRAMES POLISHER Unavailable Oma Pierson WASTE MANAGEMENT RECYCLING TECHNICIAN EYEGLASS FRAMES POLISHER Unavailable Unav ailable Amy Mace WASTE MANAGEMENT RECYCLING TECHNICIAN EYEGLASS FRAMES POLISHER Unavailable Oma Pierson WASTE MANAGEMENT RECYCLING TECHNICIAN EYEGLASS FRAMES POLISHER Unavailable Unav ailable Julissa Frank [facility] Unavailable [phone] Deborah Rascon DO Primary Care Provider + Deborah Rascon DO Unavailable + 3 Shai Horta MD Unavailable [phone] Deborah Rascon DO Unavailable + 3 Justice Foster MD Unavailable [phone] Marie Abbott EYEGLASS FRAMES POLISHER Unavailable [phone] Jaxson Bryan MD Unavailable Jaxson Bryan MD Unavailable Yunior Mesa MD Unavailable + [phone] Maria Whitley MD Unavailable Clinic - [facility]ra Rosas [facility] Primary Ca re Provider Kaila Sen MD Primary Care Provide r Deborah Rascon DO Unavailable [phone] Jaxson Diane MD Unavailable [phone] Radha Carrillo APRN EYEGLASS FRAMES POLISHER Unavailable + [phone] Maria Whitley MD Unavailable Kaila Sen MD Unavailable [phone] Kaila Sen MD Unavailable [phone] Deborah Rascon DO Unavailable [phone] None Unavailable Unavailable Rico Corey SMOKING PIPE DRILLER AND THREADER Unavailable Unavailable Rico Corey SMOKING PIPE DRILLER AND THREADER Unavailable Unavailable Maria Whitley MD Unavailable Julien Miranda MD Unavailable [phone] Reason for Visit * Reason Onset Date Comments MH/CD Inpatient 03/09/2018 Encounter Details Date Type Department Care Team (Late st Contact Info) Description 03/09/2018 Telephone [facility] Behavioral Health Intake [address] [place] [phone] Generic, Behavioral Intake, MH/CD Inpatient Social History [...] in an abandoned building, in an overnight longterm, or couch-surfing.) Yes 08/29/2023 Are you worried [...] a suicide note. She was transferred to [facility] on 03/10/2018. MAHOGANY Lemon * Telephone Encounter - Kisha Cedillo - [...] doc to doc 1pm [facility] accepts pt 32/Vaugnh/Dixie pending discharge on unit St 32 RN [...] documented as of this encounter Care Teams Wheel Aligner Relationship Specialty Start Date End Date No Ref-Primary, Physician PCP - General 03/02/18 04/02/18 [facility] PCP - General 04/03/18 05/17/18 No Ref-Primary, Physician PCP - General 05/18/18 05/26/19 Amy Mace APRN EYEGLASS FRAMES POLISHER [address] [place] [address] PCP - Assigned PCP 05/03/18 09/29/18 Deborah Rascon DO [address] [place] [address] PCP - General Family Practice 05/27/19 02/28/21 [facility] - [address] [address] PCP - General Family Medicine 03/01/21 03/07/21 Kaila Sen MD [address] [place] [address] PCP - General Family Medicine 03/08/21 Amy Mace APRN EYEGLASS FRAMES POLISHER [address] [facility] NATASHA PIERCE [address] Assigned PCP 05/03/18 10/10/18 Oma Pierson APRN EYEGLASS FRAMES POLISHER Assigned PCP 10/11/18 12/26/18 Amy Mace APRN EYEGLASS FRAMES POLISHER [address] NATASHA [place]ER [address] Assigned PCP 12/27/18 02/13/19 Oma Pierson APRN EYEGLASS FRAMES POLISHER Assigned PCP 02/14/19 06/05/19 Julissa Frank [facility] [address] [address] Pharmacist Pharmacist 05/27/19 Deborah Rascon DO [address] [place] [address] Assigned PCP 03/18/21 04/28/21 Shai Horta MD [address] [place] [address] 161885 Dermatology 11/22/19 Deborah Rascon DO [facility] [address] 358214 Referring Physician Family Practice 11/22/19 Justice Foster MD [address] [place] [address] [phone] Assigned Sleep Provider 05/19/20 Marie Abbott CNP [facility] [address] [place] [address] 497103 Assigned Behavioral Health Provider 05/19/20 05/12/21 Jaxson Bryan MD [address] [place] [address] [phone] Assigned Gastroenterology Provider 05/19/20 10/21/20 Jaxson Bryan MD [address] [place] [address] Assigned Surgical Provider 10/22/20 Yunior Mesa MD [address] [place] [address] Assigned Musculoskeletal Provider 01/28/21 03/24/21 Maria Whitley MD [address] [place] [address] Gastroenterology 02/23/21 Deborah Rascon DO [address] [place] [address] [place] [address] Assigned PCP 06/06/19 03/10/21 Jaxson Diane MD [address] [place] [address] Assigned Musculoskeletal Provider 03/25/21 09/20/22 Radha Carrillo APRN CNP [address] [address] Assigned PCP 03/11/21 03/17/21 Maria Whitley MD [address] [place] [address] Assigned Gastroenterology Provider 03/04/21 08/30/22 Kaila Sen MD 1414 [place] [address] Assigned PCP 05/27/21 Kaila Sen MD 1414 [place] [address] Assigned PCP 04/29/21 05/05/21 Deborah Rascon DO [address] [place] [address] Assigned PCP 05/06/21 05/26/21 None 02/28/23 Rico Corey BSW Date Night Caregiver 06/24/23 07/08/23 Rico Corey BSW Date Night Caregiver 07/14/23 07/28/23 Maria Whitley MD [address] [place], [place] 608575 Assigned Gastroenterology Provider 09/19/23 Julien Miranda MD 2450 [place], [place] 511414 Assigned Behavioral Health Provider 12/18/23 documented as of this encounter
--- OUTSIDE RECORDS SUMMARY | 2024-11-29 23:37 | XMS_ITS | Encounter Summary ---
Author Organization [place] Address [address] [place] [address]17 Care Team Providers Care Key Cutter Name Role Phone Julissa Frank [facility] Unavailable [phone] Shai Horta MD Unavailable [phone] Deborah Rascon DO Unavailable [phone] Maria Whitley MD Unavailable Kaila Sen MD Primary Care Provide r Kaila Sen MD Unavailable [phone] None Unavailable Unavailable Maria Whitley MD Unavailable Julien Miranda MD Unavailable [phone] Encounter Details Date Type Department Care Team (Late st Contact Info) Description 09/23/2023 [facility] Gastroenterology Clinic [address] 4th [place] [address] Hilda Hoyt Social History Tobacco [...] in an abandoned building, in an overnight penitentiary, or couch-surfing.) Yes 08/29/2023 Are you worried [...] Plan Substance Use 100%(06/30/20 23 1:42 PM MEDICAL SCIENTIST) No eYhuda Conley LGSW, LADC Note: I will continue to go to 3 meetings per week and look for a sponsor. I will start IOP programming at [facility]. I will utilize the SW/LADC at [facility] for support as needed. Improve management of mental health symptoms and establish with mental health/psychosoci al supports Care Plan Mental Health Symptoms Need Improvement 100%(06/30/20 23 1:43 PM MEDICAL SCIENTIST) No Yehuda Conley LGSW, MAHOGANY Note: I will take medication as prescribed and let PCP at [facility] know of questions or concerns. I will look into therapy with help from SW/LADC at [facility]. documented as of this encounter Visit Diagnoses Not on filedocumented in this encounter Additional Health Concerns Active Problems Noted Date Diagnosed Date Substance Use 06/30/2023 Mental Health Symptoms Need Improvement 06/30/20 Assessment Noted Time PHQ-9 Depression Total Score: 8 08/29/19 24 8:19 AM MEDICAL SCIENTIST documented as of this encounter Care Teams Key Cutter Relationship Specialty Start Date End Date Kaila Sen MD [address]14 [place] [address] PCP - General Family Medicine 03/08/21 Julissa Frank [facility] [address] [facility] [facility] [facility] [address] [address] [place] [address] 801384 Pharmacist Pharmacist 05/27/19 Shai Horta MD [address] [place] [address] 971755 Dermatology 11/22/19 Deborah Rascon DO [address] [place] [address] 165385 Referring Physician Family Practice 11/22/19 Maria Whitley MD [address] [place] [address] 298535 Gastroenterology 02/23/21 Kaila Sen MD 1414 [place] [address] Assigned PCP 05/27/21 None 02/28/23 Maria Whitley MD 909 [place] [address] Assigned Gastroenterology Provider 09/19/23 Julien Miranda MD [facility] [place] [address] Assigned Behavioral Health Provider 12/18/23 documented as of this encounter
--- OUTSIDE RECORDS SUMMARY | 2024-11-29 23:37 | XMS_ITS | Encounter Summary ---
Author Organization [place] Address [address] [place] [address] Care Team Providers Care Teradata Solution Architect Name Role Phone No Ref-Primary, Physician Primary Care Provider [facility] Primary Care Prov ider Unavailable No Ref-Primary, Physician Primary Care Provider Amy Mace WHEEL CLEANER SOLID FIBER PASTER OPERATOR Unavailable Amy Mace WHEEL CLEANER SOLID FIBER PASTER OPERATOR Unavailable Oma Pierson WHEEL CLEANER SOLID FIBER PASTER OPERATOR Unavailable Unav ailable Amy Mace WHEEL CLEANER SOLID FIBER PASTER OPERATOR Unavailable Oma Pierson WHEEL CLEANER SOLID FIBER PASTER OPERATOR Unavailable Unav ailable Julissa Frank [facility] Unavailable [phone] Deborah Rascon DO Primary Care Provider + Deborah Rascon DO Unavailable + [phone] Shai Horta MD Unavailable [phone] Deborah Rascon DO Unavailable + 3 Justice Foster MD Unavailable [phone] Marie Abbott SOLID FIBER PASTER OPERATOR Unavailable [phone] Jaxson Bryan MD Unavailable Jaxson Bryan MD Unavailable Yunior Mesa MD Unavailable + [phone] Maria Whitley MD Unavailable Clinic - Mayra Rosas [facility] Primary Ca re Provider Kaila Sen MD Primary Care Provide r Deborah Rascon DO Unavailable [phone] Jaxson Diane MD Unavailable [phone] Radha Carrillo APRN SOLID FIBER PASTER OPERATOR Unavailable + [phone] Maria Whitley MD Unavailable Kaila Sen MD Unavailable [phone] Kaila Sen MD Unavailable [phone] Deborah Rascon DO Unavailable [phone] None Unavailable Unavailable Leora, Rico CONTACT WORKER Unavailable Unavailable Rico Corey CONTACT WORKER Unavailable Unavailable Maria Whitley MD Unavailable Julien Miranda MD Unavailable [phone] Reason for Visit * Reason Onset Date Comments Lodging Plus 02/07/2017 Encounter Details Date Type Department Care Team (Late st Contact Info) Description 02/07/2017 Telephone [facility] Behavioral Health Intake [address] [place] [id number] Generic, Behavioral Intake, [facility]ging [facility] Social History Tobacco Use Types Packs/Day Years Used Date Smoking Tobacco: Never Assessed PHQ-2 Answer Date Recorded PHQ-2 Score 4 [...] in an abandoned building, in an overnight long-term, or couch-surfing.) Yes 08/29/2023 Are you worried [...] 8:44 AM CDT Sexual Orientation Straight 01/01/2021 8 :44 AM CDT COVID-19 Exposure Response Date Recorded In the last 10 days, have yo u been in contact with someone who was confirmed or suspected to have Coronavirus/COVID-19? No / Unsure 04/25/2023 2:23 PM CDT documented as of this encounter Miscellaneous Notes * Telephone Encounter - Erick Bernal LADC - 03/10/2017 10:41 AM CDT 03/10/2017 Gretchen was admitted to LP today. MAHOGANY Lemon * Telephone Encounter - Eran Eller - 03/10/2017 9:43 AM CDT Patient did not show up at 9:30 am for 10:00 am vaa/isp appointment. Called patient, but had to leave a voicemail. * Telephone Encounter - Darrick Decker LADC - 03/07/2017 5:47 PM CDT SBAR Name: Gretchen Cardoza Date of : 1990 Age: [age] year old Gender: female Insurance: [employer] [facility], no cert needed. Precipitating Event: Treatment due [...] jpm * Telephone Encounter - Darrick Decker LADC - 03/03/2017 9:25 AM CDT Date: March 03, 2017 Gretchen Cardoza was seen by Eduard Decker on 02/13/2017 and she was deemed eligible for LP. Medical: The patient was approved by the LP RN on 02/28/2017. [employer] PMAP All services are paid at 100%,no limits w/auth for IP BHSI [id number] No auth for OP/IOP/Partial This patient will just need a VAA/ISP & LP Update upon admission to the LP program. IV: This patient is not an IV drug user. List: This patient CAN be placed on the [facility]ACE LP Waiting List at this time. The patient has BX/BHSI PMAP and would NOT need to consult with Ronel in the business office. Group: Women's Group or Mixed Group The best current contact telephone number for the patient is: Home first: or Mobile second: Eduard Matthews [phone] * Telephone Encounter - Aisha Tracey RN [...] meets medical criteria for admission to [facility] and Patient call routed for [...] Per client self report, . Appt with cloth neutralizer today: heart and lung condition improved, Fluid [...] Left VM on both pt home phone ([phone]) and cell ([phone]) for medical screen 1) Medications? Hydroxyzine; tramadol; venlafaxine 2) Medical conditions? Anemia; Fluid Retention; Helicobacter Pylori infection; Pericardial effusion; ulcer; Anxiety; Depressive disorder Will await pt to call back or call her back tomorrow to complete screen * Telephone Encounter - Darrick Decker LAD - 02/14/2017 4:35 PM CDT Date: 02/14/2017 To: LP RN Please call this patient to complete [...] of the documentation is in EPIC. Thanks, Eduadr Decker BA/MAHOGANY * Telephone Encounter - Starla Alexander - 02/07/2017 1:11 PM CDT 02-07-17 Client called to schedule cd jack miller 02-13-17 @ 1245. etoh No cd tx hx Depression, anxiety Meds: Will bring list of meds and doses or the actual meds. She has a lot she said. Psychiatrist: none PCP: yes Lilli Vazquez [facility] Legal: none Medical: eliel-cardia. Requested insurance to be added and verified. fb documented in this encounter Plan of Treatment Not on file documented as of this encounter Visit Diagnoses Not on filedocumented in this encounter Care Teams Teradata Solution Architect Relationship Specialty Start Date End Date No Ref-Primary, Physician PCP - General 03/02/18 04/02/18 [facility] PCP - General 04/03/18 05/17/18 No Ref-Primary, Physician PCP - General 05/18/18 05/26/19 Amy Mace APRN SOLID FIBER PASTER OPERATOR [address] [facility] [place] [place] [address] PCP - Assigned PCP 05/03/18 09/29/18 Deborah Rascon DO [address] 808304 PCP - General Family Practice 05/27/19 02/28/21 [facility] - [address] [phone] PCP - General Family Medicine 03/01/21 03/07/21 [place] [address] [place] [address] [phone] PCP - General Family Medicine 03/08/21 Amy Mace APRN SOLID FIBER PASTER OPERATOR [address] [facility] [place] [address] Assigned PCP 05/03/18 10/10/18 Oma Pierson, MITCHEL SOLID FIBER PASTER OPERATOR Assigned PCP 10/11/18 12/26/18 Amy Mace APRN SOLID FIBER PASTER OPERATOR [address] [facility] [place] [address] Assigned PCP 12/27/18 02/13/19 Oma Pierson, MITCHEL SOLID FIBER PASTER OPERATOR Assigned PCP 02/14/19 06/05/19 Julissa Frank [facility] [address] [facility] [address] [phone] Pharmacist Pharmacist 05/27/19 Deborah Rascon DO [address] [place] [address] [phone] Assigned PCP 03/18/21 04/28/21 Shai Horta MD [address] [place] [address] MD Dermatology 11/22/19 Deborah Rascon DO [facility] [address] [address] Referring Physician Family Practice 11/22/19 Justice Foster MD [address] [place] [address] [phone] Assigned Sleep Provider 05/19/20 Marie Abbott CNP [facility] [address] [place] [address] Assigned Behavioral Health Provider 05/19/20 05/12/21 Jaxson Bryan MD [address] [place] [address] Assigned Gastroenterology Provider 05/19/20 10/21/20 Jaxson Bryan MD [address] [place] [address] Assigned Surgical Provider 10/22/20 Yunior Mesa MD [address] [place] [address] [id number] Assigned Musculoskeletal Provider 01/28/21 03/24/21 Maria Whitley MD [address] [place] [address] [phone] Gastroenterology 02/23/21 Deborah Rascon DO [address] [place] [address] Assigned PCP 06/06/19 03/10/21 Jaxson Diane MD [address] [place] [address] Assigned Musculoskeletal Provider 03/25/21 09/20/22 Radha Carrillo APRN CNP [address] [place] [address] Assigned PCP 03/11/21 03/17/21 Maria Whitley MD [address] [place] [address] Assigned Gastroenterology Provider 03/04/21 08/30/22 Kaila Sen MD [address] [place] [address] Assigned PCP 05/27/21 Kaila Sen MD [address] [place] [address] Assigned PCP 04/29/21 05/05/21 Deborah Rascon DO [address] [place] [address] Assigned PCP 05/06/21 05/26/21 None 02/28/23 Rico Corey BSW Buffet Manager 06/24/23 07/08/23 Rico Corey BSW Buffet Manager 07/14/23 07/28/23 Maria Whitley MD 9[address] [place] [address] Assigned Gastroenterology Provider 09/19/23 Julien Miranda MD 2450 [place] [address] Assigned Behavioral Health Provider 12/18/23 documented as of this encounter
--- OUTSIDE RECORDS SUMMARY | 2024-11-29 23:37 | XMS_ITS | Encounter Summary ---
Author Organization [place] Address [address] [place] [address] Care Team Providers Care Gill Box Operator Name Role Phone Julissa Frank [facility] Unavailable [phone] Shai Horta MD Unavailable [phone] Deborah Rascon DO Unavailable [phone] Maria Whitley MD Unavailable Kaila Sen MD Primary Care Provide r Kaila Sen MD Unavailable [phone] None Unavailable Unavailable Rico Corey RESPIRATORY THERAPY AIDE Unavailable Unavailable Rico Corey RESPIRATORY THERAPY AIDE Unavailable Unavailable Maria Whitley MD Unavailable Julien Miranda MD Unavailable [phone] Encounter Details Date Type Department Care Team (Late st Contact Info) Description 02/28/2023 Telephone [facility] Hepatology Clinic [address] [address] Maria Whitley MD [address] [place] [address] Social History Tobacco Use Types Packs/Day [...] Date Recorded Do you have housing? (Tash g is defined as stable permanent housing [...] Cathy Jhaveri - 02/28/2023 9:24 AM CDT [facility] Phone Message May a detailed message be left on voicemail: yes Reason for Call: Other: Dr Kaila Sen/ [facility] cell [phone]- would like to consult regarding a medication (not currently on pt chart) please call her back to discuss. No appt was scheduled at this time by screenplay writer. Action Taken: Message routed to: Adult Clinics: Gastroenterology (GI) p 49319 Travel Screening: Not Applicable documented in this encounter Plan of Treatment Not on file documented as of this encounter Visit Diagnoses Not on filedocumented in this encounter Additional Health Concerns Assessment Noted Time PHQ-9 Depression Total Score: 12 02/07/ 023 12:06 PM CDT documented as of this encounter Care Teams Gill Box Operator Relationship Specialty [place] [address] [place] [address] PCP - General Family Medicine 03/08/21 Julissa Frank [facility] [address] [place] [address] 490654 Pharmacist Pharmacist 05/27/19 Shai Horta MD [address] [place] [address] 000785 Dermatology 11/22/19 Deborah Rascon DO [address] [place] [address] [phone] Referring Physician Family Practice 11/22/19 Maria Whitley MD [address] [place] [address] 378215 Gastroenterology 02/23/21 Kaila Sen MD [address] [place] [address] Assigned PCP 05/27/21 None 02/28/23 Rico Corey, RESPIRATORY THERAPY AIDE Production Cloth Cutter 06/24/23 07/08/23 Rico Corey RESPIRATORY THERAPY AIDE Production Cloth Cutter 07/14/23 07/28/23 Maria Whitley MD 909 [place] [address] Assigned Gastroenterology Provider 09/19/23 Julien Miranda MD [address] [place] [address] Assigned Behavioral Health Provider 12/18/23 documented as of this encounter
--- OUTSIDE RECORDS SUMMARY | 2024-11-29 23:37 | XMS_ITS | Encounter Summary ---
Author Organization [place] Address [address] [place] [address] Care Team Providers Care Communications Technician Name Role Phone Julissa Frank [facility] Unavailable [phone] Shai Horta MD Unavailable [phone] Deborah Rascon DO Unavailable [phone] Maria Whitley MD Unavailable Kaila Sen MD Primary Care Provide r Kaila Sen MD Unavailable [phone] None Unavailable Unavailable Maria Whitley MD Unavailable Julien Miranda MD Unavailable [phone] Encounter Details Date Type Department Care Team (Late st Contact Info) Description 09/02/2023 MyC Medical Advice [address] [address] Adrienne Angeles Social History Tobacco [...] Plan Substance Use 100%(06/30/20 23 1:42 PM ORTHOPEDIC NURSE PRACTITIONER) No Yehuda Conley LGSW, LADC Note: I will continue to go to 3 meetings per week and look for a sponsor. I will start IOP programming at [facility]. I will utilize the SW/LADC at [facility] for support as needed. Improve management of mental health symptoms and establish with mental health/psychosoci al supports Care Plan Mental Health Symptoms Need Improvement 100%(06/30/20 23 1:43 PM ORTHOPEDIC NURSE PRACTITIONER) Yehuda Francisco LGSW, MAHOGANY Note: I will take medication as prescribed and let PCP at [facility] know of questions or concerns. I will look into therapy with help from SW/LADC at [facility]. documented as of this encounter Visit Diagnoses Not on filedocumented in this encounter Additional Health Concerns Active Problems Noted Date Diagnosed Date Substance Use 06/30/2023 Mental Health Symptoms Need Improvement 06/30/20 Assessment Noted Time PHQ-9 Depression Total Score: 8 08/29/19 24 8:19 AM ORTHOPEDIC NURSE PRACTITIONER documented as of this encounter Care Teams Communications Technician Relationship Specialty Start Date End Date Kaila Sen MD [address] [place] [address] PCP - General Family Medicine 03/08/21 [address] [facility] [place] [address] 998804 Pharmacist Pharmacist 05/27/19 Shai Horta MD [address] [place], [place] 209765 Dermatology 11/22/19 Deborah Rascon DO [address] [place] [address] 926785 Referring Physician Family Practice 11/22/19 Maria Whitley MD [address] [place] [address] 520685 Gastroenterology 02/23/21 Kaila Sen MD [address] [place] [address] Assigned PCP 05/27/21 None 02/28/23 Maria Whitley MD [address] [place] [address] Assigned Gastroenterology Provider 09/19/23 Julien Miranda MD [facility] [place] [address] Assigned Behavioral Health Provider 12/18/23 documented as of this encounter
--- OUTSIDE RECORDS SUMMARY | 2024-11-29 23:37 | XMS_ITS | Encounter Summary ---
Author Organization [place] Address [address] [place] [address] Care Team Providers Care Faculty Administrator Name Role Phone Notus, [facility] Primary Care Prov ider Unavailable No Ref-Primary, Physician Primary Care Provider Amy Mace CIRCUIT CLERK TRIM AND BURR OPERATOR Unavailable Amy Mace CIRCUIT CLERK TRIM AND BURR OPERATOR Unavailable Oma Pierson CIRCUIT CLERK TRIM AND BURR OPERATOR Unavailable Unav ailable Amy Mace CIRCUIT CLERK TRIM AND BURR OPERATOR Unavailable Oma Pierson CIRCUIT CLERK TRIM AND BURR OPERATOR Unavailable Unav ailable Julissa Frank [facility] Unavailable [phone] Deborah Rascon DO Primary Care Provider [phone] Deborah Rascon DO Unavailable [phone] Shai Horta MD Unavailable [phone] Deborah Rascon DO Unavailable + [phone] Justice Foster MD Unavailable [phone] Marie Abbott TRIM AND BURR OPERATOR Unavailable [phone] Jaxson Bryan MD Unavailable Jaxson Bryan MD Unavailable Yunior Mesa MD Unavailable [phone] Maria Whitley MD Unavailable Clinic - Mayra Rosas [facility] Primary Ca re Provider Kaila Sen MD Primary Care Provide r Deborah Rascon DO Unavailable [phone] Jaxson Alejo MD Unavailable [phone] Lorena Radha Dayna GRULLON TRIM AND BURR OPERATOR Unavailable + [phone] Maria Whitley MD Unavailable Kaila Sen MD Unavailable [phone] Kaila Sen MD Unavailable [phone] Deborah Rascon DO Unavailable [phone] None Unavailable Unavailable Souk, Rico WATERPROOF BAG SEWER Unavailable Unavailable Souk, Rico WATERPROOF BAG SEWER Unavailable Unavailable Maria Whitley MD Unavailable Julien Miranda MD Unavailable [phone] Reason for Visit * Reason Onset Date Comments CD Outpatient 04/15/2018 Encounter Details Date Type Department Care Team (Late st Contact Info) Description 04/15/2018 Telephone [facility] Behavioral Health Intake [address] [place] [phone] Generic, Behavioral Intake, CD Outpatient Social History [...] reschedule CD Eval appointment for 04/27/18 - BowlerIvette CAGE documented in this encounter Plan of Treatment Not on file documented as of this encounter Visit Diagnoses Not on filedocumented in this encounter Additional Health Concerns Assessment Noted Time PHQ-9 Depression Total Score: 5 03/10/20 17 10:15 AM CDT documented as of this encounter Care Teams Faculty Administrator Relationship Specialty Start Date End Date Notus, [place] PCP - General 04/03/18 05/17/18 No Ref-Primary, Physician PCP - General 05/18/18 05/26/19 Amy Mace APRN TRIM AND BURR OPERATOR [address] [facility] NATASHA [place]ERCE [address] PCP - Assigned PCP 05/03/18 09/29/18 Deborah Rascon DO [address] [address] PCP - General Family Practice 05/27/19 02/28/21 [facility] [address] [address] PCP - General Family Medicine 03/01/21 03/07/21 Kaila Sen MD [address] [place] [address] PCP - General Family Medicine 03/08/21 Amy Mace APRN TRIM AND BURR OPERATOR [address] [facility] [address] Assigned PCP 05/03/18 10/10/18 Oma Pierson APRN TRIM AND BURR OPERATOR Assigned PCP 10/11/18 12/26/18 Amy Mace, CIRCUIT CLERK TRIM AND BURR OPERATOR [address] [place], [place] 287394 Assigned PCP 12/27/18 02/13/19 Oma Pierson, CIRCUIT CLERK TRIM AND BURR OPERATOR Assigned PCP 02/14/19 06/05/19 Julissa Frank [facility] [address] 315674 Pharmacist Pharmacist 05/27/19 Deborah Rascon DO [facility] [address] [phone] Assigned PCP 03/18/21 04/28/21 Shai Horta MD [address] [place] [address] [phone] Dermatology 11/22/19 Deborah Rascon DO [address] [place] [address] 664364 Referring Physician Family Practice 11/22/19 Justice Foster MD [address] [place] [address] Assigned Sleep Provider 05/19/20 Marie Abbott CNP [facility] [address] [place] [address] Assigned Behavioral Health Provider 05/19/20 05/12/21 Jaxson Bryan MD [address] [place] [address] Assigned Gastroenterology Provider 05/19/20 10/21/20 Jaxson Bryan MD [address] [place] [address] 950705 Assigned Surgical Provider 10/22/20 Yunior Mesa MD [address] [place] [address] Assigned Musculoskeletal Provider 01/28/21 03/24/21 Maria Whitley MD [address] [place] [address] Gastroenterology 02/23/21 Deborah Rascon DO [address] [address] Assigned PCP 06/06/19 03/10/21 Jaxson Alejo MD [address] [place] [address] Assigned Musculoskeletal Provider 03/25/21 09/20/22 Radha Carrillo APRN CNP 606 [facility] 700 [place], [place] 268874 Assigned PCP 03/11/21 03/17/21 Maria Whitley MD [address] [place] [address] Assigned Gastroenterology Provider 03/04/21 08/30/22 Kaila Sen MD [address] [facility] [place] [address] Assigned PCP 05/27/21 Kaila Sen MD [address] [place] [address] Assigned PCP 04/29/21 05/05/21 Deborah Rascon DO [address] [place] [address] Assigned PCP 05/06/21 05/26/21 None 02/28/23 Rico Corey, WATERPROOF BAG SEWER School Business Administrator 06/24/23 07/08/23 Rico Corey BSW School Business Administrator 07/14/23 07/28/23 Maria Whitley MD 9 [place] [address] Assigned Gastroenterology Provider 09/19/23 Julien Miranda MD [address]50 [place] [address] Assigned Behavioral Health Provider 12/18/23 documented as of this encounter
--- OUTSIDE RECORDS SUMMARY | 2024-11-29 23:37 | XMS_ITS | Encounter Summary ---
Author Organization [place] Address [address] [place] [address] Care Team Providers Care Machine Setter Name Role Phone No Ref-Primary, Physician [facility] Care Prov ider Unavailable No Ref-Primary, Physician Primary Care Provider Amy Mace GUN CLUB MANAGER NURSE RN BSN Unavailable Amy Mace GUN CLUB MANAGER NURSE RN BSN Unavailable Oma Pierson GUN CLUB MANAGER NURSE RN BSN Unavailable Unav ailable Amy Mace GUN CLUB MANAGER NURSE RN BSN Unavailable Oma Pierson GUN CLUB MANAGER NURSE RN BSN Unavailable Unav ailable Julissa Frank [facility] Unavailable [phone] Deborah Rascon DO Primary Care Provider + Deborah Rascon DO Unavailable + [phone] Shai Horta MD Unavailable [phone] Deborah Rascon DO Unavailable + [phone] Justice Foster MD Unavailable [phone] Marie Abbott NURSE RN BSN Unavailable [phone] Jaxson Bryan MD Unavailable Jaxson Bryan MD Unavailable Yunior Mesa MD Unavailable + [phone] Maria Whitley MD Unavailable Clinic - [facility] Primary Ca re Provider Kaila Sen MD Primary Care Provide r Deborah Rascon DO Unavailable [phone] Jaxson Diane MD Unavailable [phone] Radha Carrillo APRN NURSE RN BSN Unavailable + [phone] Maria Whitley MD Unavailable Kaila Sen MD Unavailable [phone] Kaila Sen MD Unavailable [phone] Deborah Rascon DO Unavailable [phone] None Unavailable Unavailable Rico Corey MASTER DATA ANALYST Unavailable Unavailable Rico Corey MASTER DATA ANALYST Unavailable Unavailable Maria Whitley MD Unavailable Julien Miranda MD Unavailable [phone] Reason for Visit * Reason Onset Date Comments CD Outpatient 04/08/2017 Encounter Details Date Type Department Care Team (Late st Contact Info) Description 04/08/2017 Telephone [facility] Behavioral Health Intake [address] [place] [phone] Generic, Behavioral Intake, CD Outpatient Social History [...] in an abandoned building, in an overnight fci, or couch-surfing.) Yes 08/29/2023 Are you worried [...] DOP program. No call returned. MAHOGANY Lee, BENEFITS ADVISOR * Telephone Encounter - NuckollsCookie - 04/15/2017 2:27 PM CDT ----- Message from MAHOGANY Wiley sent at 04/15/2017 2:18 PM CDT ----- Regarding: remove client from list Please remove client from list of [id number] effective 04/15/17. Lalo Rousseau Psychotherapist Trena * Telephone Encounter - Starla Alexander - 04/09/2017 4:14 PM CDT ----- Message from MAHOGANY Wiley sent at 04/09/2017 4:12 PM CDT ----- Regarding: remove client from schedule Please remove client from schedule of [id number] for dates of 04/09 & 04/10. Lalo [...] documented as of this encounter Care Teams Machine Setter Relationship Specialty Start Date End Date No Ref-Primary, Physician PCP - General 03/02/18 04/02/18 Taylor Rosenthal [facility] PCP - General 04/03/18 05/17/18 No Ref-Primary, Physician PCP - General 05/18/18 05/26/19 Amy Mace APRN [facility] [address] [facility] [place] [address] PCP - Assigned PCP 05/03/18 09/29/18 Deborah Rascon DO [address] [id number] PCP - General Family Practice 05/27/19 02/28/[address] [id number] PCP - General Family Medicine 03/01/21 03/07/21 Kaila Sen MD [address] [place] [address] PCP - General Family Medicine 03/08/21 Amy Mace APRN NURSE RN BSN [address] [facility] [place] [address] Assigned PCP 05/03/18 10/10/18 Oma Pierson APRN NURSE RN BSN Assigned PCP 10/11/18 12/26/18 Amy Mace APRN [place]URSE [place] BSN [address] [facility] [place] [address] Assigned PCP 12/27/18 02/13/19 Oma Pierson APRN NURSE RN BSN Assigned PCP 02/14/19 06/05/19 Julissa Frank [facility] [address] [id number] Pharmacist Pharmacist 05/27/19 Deborah Rascon DO [address] 225074 Assigned PCP 03/18/21 04/28/21 Shai Horta MD 909 [place], [place] 413265 Dermatology 11/22/19 Deborah Rascon DO 2450 [facility] [address] [place], [place] 0[address] Referring Physician Family Practice 11/22/19 Justice Foster MD [address] [place] [address] Assigned Sleep Provider 05/19/20 Marie Abbott CNP [facility] [address] [place] [address] [address] [place], [place] 001583 Assigned Behavioral Health Provider 05/19/20 05/12/21 Jaxson Bryan MD [address] [place] [address] [id number] Assigned Gastroenterology Provider 05/19/20 10/21/20 Jaxson Bryan MD [address] [place] [address] [id number] Assigned Surgical Provider 10/22/20 Yunior Mesa MD [address] [place] [address] 969785 Assigned Musculoskeletal Provider 01/28/21 03/24/21 Maria Whitley MD [address] [place] [address] Gastroenterology 02/23/21 Deborah Rascon DO [address] [place] [address] Assigned PCP 06/06/19 03/10/21 Jaxson Diane MD 6341 [facility] [place] [address] Assigned Musculoskeletal Provider 03/25/21 09/20/22 Radha Carrillo APRN CNP [address] [facility] [address] [place] [address] Assigned PCP 03/11/21 03/17/21 Maria Whitley MD [address] [place] [address] 210655 Assigned Gastroenterology Provider 03/04/21 08/30/22 Kaila Sen MD [address]14 [place] [address] Assigned PCP 05/27/21 Kaila Sen MD [address] [place] [address] Assigned PCP 04/29/21 05/05/21 Deborah Rascon DO [address] [address] Assigned PCP 05/06/21 05/26/21 None 02/28/23 Rico Corey, MASTER DATA ANALYST Reinsurance Claim Analyst 06/24/23 07/08/23 Rico Corey, MASTER DATA ANALYST Reinsurance Claim Analyst 07/14/23 07/28/23 Maria Whitley MD [address] [place] [address] Assigned Gastroenterology Provider 09/19/23 Julien Miranda MD [address] [place] [address] Assigned Behavioral Health Provider 12/18/23 documented as of this encounter
--- OUTSIDE RECORDS SUMMARY | 2024-11-29 23:37 | XMS_ITS | Clinical Summary ---
Author Organization [facility] Address [address] [place] [address] Care Team Providers Care Photolith Operator Name Role Phone Jaxson Jones MD Unavailable [phone] [facility] Unavailable [phone] Pcp, No Primary Care Provider Unavailabl e [...] per actuation) nasal solution (FLONASE) Inhale 1 Elsie to both nostrils once daily if needed. [...] 08/31/2013 Overview (07/10/2023): Kyleena placed 02/17/2023 at [facility] Paraguard IUD inserted 08/27/2013 Need for desensitization to allergens 12/12/2005 Depressive disorder, not elsewhere classified Insomnia, unspecified 10/23/2005 Unspecified asthma, uncomplicated 08/15/2005 ParaGard IUD Overview (08/16/2015): Placed 2014 in [place] H pylori ulcer Pericardial effusion Alcohol abuse Alcohol withdrawal Alcohol withdrawal seizure Anxiety Chronic liver failure without hepatic coma Immunizations Immunization Administration Dates Next Due COVID-19 vaccine (Moderna [...] on file Legal Sex Female 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 Gender Identity Not on file Sexual Orientation [...] 01/03/2020 01/02/2019 COVID-19 vaccine series ( - season) 2024 05/16/2023, 08/17/2021, 12/19/2020 BMI (ht and wt on same day) for age 18+ 11/27/2024 11/28/2023, 02/17/2023, 04/11/2017, Additional history exists Influenza Vaccine (Season Ended) 2025 04/27/2021, 04/19/2020, 05/29/2018, Additional history exists Pap test for age [...] HCV Early AM 01/02/2019 6:44 AM CDT CONVEYANCER THIN PREP PAP SCREEN IMAGED Routine 04/11/2017 1:43 PM CDT Cervical cancer screening ANTI HIV 1/2 Routine 04/11/2017 1:42 PM CDT Screen for STD (sexually transmitted disease) from Last 3 Months or Most Recently Relevant to Health Maintenance Results * ANTI HCV (01/02/2019 6:44 AM CDT) HEPATITIS C ANTIBODY Non-React payton Non-React payton 01/03/2019 1:[address] [facility] Comment:Antibodies to HCV no t detected; does not exclude the possibility of exposure to HCV. Blood BLOOD SPECIMEN / Unknown Venipuncture / Unknown 01/02/2019 6:44 AM CDT 01/02/2019 6:54 AM CDT us Moises Carrasquillo MD SEND OUTS Final Res ult [facility] [address] [place] [address], [place] * (ABNORMAL) CONVEYANCER THIN PREP PAP SCREEN IMAGED (04/11/2017 1:43 PM CDT) Case Report Gynecologic Cytology Report Case: [id number] Authorizing Provider: Rocio Spear MD Collected: 04/11/2017 1343 Ordering Location: [facility] Received: 04/11/2017 1343 Clinic First Screen: Ena Castelan Pathologist: Viji Jones MD Specimen: CONVEYANCER ThinPrep Vial Screening, Cervical 04/21/2017 5:[address] [facility] INTERPRETATION/ RESULT ATYPICAL SQUAMOUS CELLS OF UNDETERMINED SIGNIFICANCE (ASCUS)(A) (none) 04/21/2017 5:46 PM CDT [facility] [employer] [facility] ENTRAL LABORATORY at 1746 CDT ORGANISM(S) Bacteria morphologically consistent with Actinomyces species 04/21/2017 5:[address] [facility] [employer] [employer] ENTRAL [facility]ORY SPECIMEN ADEQUACY Satisfactory for evaluation Endocervical component present 04/21/2017 5:[address] [facility] EN[facility]AL [facility] HPV REQUEST HPV and PAP 04/21/2017 5:[address] [facility] Date of LMP 04-06-17 04/21/2017 5:[address] [facility] EN[facility]AL [facility] Last Pap Date 201304/21/2017 5:46 PM CDT [facility] Last Pap Result NIL 7 5:46 PM CDT [facility] Abnormal Pap or Lorado Bx in last 5 years No 04/21/2017 5:46 PM CDT [facility] Menstrual Status Irregular Periods 04/21/2017 5:46 PM CDT [facility] Lorado Bx Done Today No 04/21/2017 5:46 PM CDT [facility] Additional Information None given 04/21/2017 5:46 PM CDT [facility] Automated Review Successful 04/21/2017 5:46 PM CDT [facility] Comment:Specimen processed s uccessfully by automated video game programmer device, [employer] Imaging System, [employer] ANCILLARY TESTING CONVEYANCER HPV Ordered, Please see separate report 04/21/2017 5:46 PM CDT [facility] Note The pap test is a screening technique, not a diagnostic procedure. It is used primarily to screen for squamous cancers and precursor lesions. Published studies have shown that it is subject to both false negative and false positive results. The pap test should not be used as the sole means to diagnose or exclude pre-malignant and malignant lesions. Interpreted at [facility] (Central [facility], [facility], [facility], [facility], [facility], [facility], [facility]) 04/21/2017 5:46 PM CDT [facility] Other (Cervical) 04/11/2017 1:43 PM CDT 04/11/2017 1:43 PM CDT us Rocio Spear MD PATHOLOGY/CYTOLOGY Final Resu lt [facility] [address] [place] [address], [place] * ANTI HIV 1/2 (04/11/2017 1:42 PM CDT) HIV-1/HIV-2 ANTIBODY Non-Reacti ve Non-Reacti ve 04/11/2017 5:58 PM CDT [facility] TR[facility] Blood BLOOD SPECIMEN / Unknown Venipuncture / Unknown 04/11/2017 1:42 PM CDT 04/11/2017 1:42 PM CDT Narrative [facility] - 04/11/2017 5:58 PM CDT HIV-1 p24 and HIV-1/HIV-2 Ab not detected Rocio Spear MD SEND OUTS Final Result [facility] [address] [place] [address], [place] from Last 3 Months or Most Recently Relevant to Health Maintenance Insurance [facility] [address] [place] [id number] * Guarantor: Gretchen Cardoza Account Type Relation [...] Code Status Discussion: Not Discussed Care Teams Photolith Operator Relationship Specialty Start Date End Date Pcp, No . PCP - General 03/27/21 Jaxson Jones MD Family Practice 12/29/18 [facility] 01/08/17
--- OUTSIDE RECORDS SUMMARY | 2024-11-29 23:37 | XMS_ITS | Encounter Summary ---
Author Organization [facility] Address [address] [place] [address] Care Team Providers Care Hr Representative Name Role Phone No Primary/Referring, Phy Primary Care Provider Unavailable Encounter Details Date Type Department Care Team (Late st Contact Info) Description 07/05/2013 Scanned History External to Transferred Record, Provider [facility] Social History Tobacco Use Types Packs/Day Years Used Date Smoking Tobacco: Never Assessed Comments Unknown Sex and Gender Information Value Date Recorded Sex Assigned at Not on file Legal Sex Female 4:38 AM CDT Gender Identity Not on file Sexual Orientation Not on file documented as of this encounter Progress Notes * Transferred Record, Provider - 07/05/2013 12:00 AM CST HER KINDERGARTEN documented in this encounter Plan of Treatment Not on file documented as of this encounter Visit Diagnoses Not on filedocumented in this encounter Additional Health Concerns Infection Onset Date Last Indicated Resolved Time R/O COVID19 05/23/2020 05/23/2020 05/25/2020 1:05 PM CDT documented as of this encounter Care Teams Hr Representative Relationship Specialty Start Date End Date No Primary/Referring, Phy PCP - General 04/04/22 documented as of this encounter
--- OUTSIDE RECORDS SUMMARY | 2024-11-29 23:38 | XMS_ITS | Encounter Summary ---
Author Organization [place] Address [address] [place] [address] Care Team Providers Care Cinder Block Mason Name Role Phone Zac, Julissa Silva [facility] Unavailable [phone] Deborah Rascon DO Primary Care Provider [phone] Deborah Rascon DO Unavailable [phone] Shai Horta MD Unavailable [phone] Deborah Rascon DO Unavailable [phone] Justice Foster MD Unavailable [phone] Marie Abbott VICE PRESIDENT INVESTOR RELATIONS Unavailable [phone] Jaxson Bryan MD Unavailable Yunior Mesa MD Unavailable [phone] Maria Whitley MD Unavailable [facility] re Provider Kaila Sen MD Primary Care Provide r Deborah Rascon DO Unavailable [phone] Jaxson Alejo MD Unavailable [phone] Radha Carrillo APRN VICE PRESIDENT INVESTOR RELATIONS Unavailable [phone] Maria Whitley MD Unavailable Kaila Sen MD Unavailable [phone] Kaila Sen MD Unavailable Deborah Rascon DO Unavailable [phone] None Unavailable Unavailable Rico Corey BPM ARCHITECT Unavailable Unavailable Rico Corey BPM ARCHITECT Unavailable Unavailable Maria Whitley MD Unavailable Julien Miranda MD Unavailable [phone] Reason for Visit * Reason Onset Date Comments Forms 01/17/2021 Needing forms fi lled out and faxed Encounter Details Date Type Department Care Team (Late st Contact Info) Description 01/17/2021 Telephone [facility] [address] [place] [address] 700 [place] [address] Deborah Rascon DO [address] [place] [address] F105 [place] [address] Forms (Needing forms filled out and faxed) [...] documented as of this encounter Care Teams Cinder Block Mason Relationship Specialty Start Date End Date Deborah Rascon DO 2450 [facility] [address] [place] [address] PCP - General Family Practice 05/27/19 02/28/21 [facility] - [address] [address] PCP - General Family Medicine 03/01/21 03/07/21 Kaila Sen MD [address] [place] [address] PCP - General Family Medicine 03/08/21 Julissa Frank, [facility] [address] 331644 Pharmacist Pharmacist 05/27/19 Deborah Rascon DO [address] 605654 Assigned PCP 03/18/21 04/28/21 Shai Horta MD [address] [place] [address] 963275 Dermatology 11/22/19 Deborah Rascon DO [address] [place] [address] 751124 Referring Physician Family Practice 11/22/19 Justice Foster MD [address] [place] [address] [id number] Assigned Sleep Provider 05/19/20 Marie Abbott CNP [facility] [address] [place] [address] Assigned Behavioral Health Provider 05/19/20 05/12/21 Jaxson Bryan MD [address] [place] [address] 096679 Assigned Surgical Provider 10/22/20 Yunior Mesa MD [address] [place] [address] Assigned Musculoskeletal Provider 01/28/21 03/24/21 Maria Whitley MD [address] [place] [address] Gastroenterology 02/23/21 Deborah Rascon DO [facility] [address] [address] Assigned PCP 06/06/19 03/10/21 Jaxson Alejo MD [address] [place] [address] Assigned Musculoskeletal Provider 03/25/21 09/20/22 Radha Carrillo APRN CNP [address] [place] [address] Assigned PCP 03/11/21 03/17/21 Maria Whitley MD [address] [place] [address] Assigned Gastroenterology Provider 03/04/21 08/30/22 Kaila Sen MD [facility] [place] [address] Assigned PCP 05/27/21 Kaila Sen MD 1414 [facility] [place] [address] Assigned PCP 04/29/21 05/05/21 Deborah Rascon DO [address] [address] Assigned PCP 05/06/21 05/26/21 None 02/28/23 Rico Corey, BPM ARCHITECT Blueprint Duplicator 06/24/23 07/08/23 Rico Corey BSW Blueprint Duplicator 07/14/23 07/28/23 Maria Whitley MD 909 [place], [place] 021085 Assigned Gastroenterology Provider 09/19/23 Julien Miranda MD 2450 [place], [place] 850754 Assigned Behavioral Health Provider 12/18/23 documented as of this encounter
--- OUTSIDE RECORDS SUMMARY | 2024-11-29 23:38 | XMS_ITS | Encounter Summary ---
Author Organization [place] Address [address] [place] [address] Care Team Providers Care Psychological Assistant Name Role Phone ZacJulissa anthony [facility] Unavailable Shai Horta MD Unavailable [phone] Deborah Rascon DO Unavailable [phone] Maria Whitley MD Unavailable Kaila Sen MD Primary Care Provide r Kaila Sen MD Unavailable None Unavailable Unavailable Maria Whitley MD Unavailable Julien Miranda MD Unavailable [phone] Encounter Details Date Type Department Care Team (Late st Contact Info) Description 11/24/2023 [facility]4 [place] [address] Julien Miranda MD [facility] [place] [address] Social History Tobacco Use Types [...] Answer Date Recorded Do you have housing? (Housgerson g is defined as stable permanent housing and does not include staying outside in a car, in a tent, in an abandoned building, in an overnight snf, or couch-surfing.) Yes 08/29/2023 Are you worried [...] Plan Substance Use 100%(06/30/20 23 1:42 PM AUTO BRAKE MECHANIC) No Yehuda Conley , RICHAR, LADC Note: I will continue to go to 3 meetings per week and look for a sponsor. I will start IOP programming at [facility]. I will utilize the SW/LADC at [facility] for support as needed. Improve management of mental health symptoms and establish with mental health/psychosoci al supports Care Plan Mental Health Symptoms Need Improvement 100%(06/30/20 23 1:43 PM AUTO BRAKE MECHANIC) Yehuda Francisco , OFFICE SYSTEM ANALYST, LAD Note: I will take medication as prescribed and let PCP at [facility] know of questions or concerns. I will look into therapy with help from SW/LADC at [facility]. documented as of this encounter Visit Diagnoses Not on filedocumented in this encounter Additional Health Concerns Active Problems Noted Date Diagnosed Date Substance Use 06/30/2023 Mental Health Symptoms Need Improvement 06/30/20 23 Assessment Noted Time PHQ-9 Depression Total Score: 11 024 4:06 PM CDT documented as of this encounter Care Teams Psychological Assistant Relationship Specialty Start Date End Date Kaila Sen MD [address] [place] [address] PCP - General Family Medicine 03/08/21 Julissa Frank [facility] [address] [phone] Pharmacist Pharmacist 05/27/19 Shai Horta MD [address] [place] [address] [phone] Dermatology 11/22/19 Deborah Rascon DO 909 [place], [place] 864185 Referring Physician Family Practice 11/22/19 Maria Whitley MD [address] [place] [address] [phone] Gastroenterology 02/23/21 Kaila Sen MD 1414 [place] [address] Assigned PCP 05/27/21 None 02/28/23 Maria Whitley MD 909 [place], [place] 877295 Assigned Gastroenterology Provider 09/19/23 Julien Miranda MD 2450 [place], [place] 104154 Assigned Behavioral Health Provider 12/18/23 documented as of this encounter
--- OUTSIDE RECORDS SUMMARY | 2024-11-29 23:38 | XMS_ITS | Clinical Summary ---
Author Organization [place] Address [address] [place] [address] Care Team Providers Care Military Pilot Name Role Phone Julissa Frank [facility] Unavailable [phone] Shai Horta MD Unavailable [phone] Deborah Rascon DO Unavailable [phone] Maria Whitley MD Unavailable Kaila Sen MD Primary Care Provide r Kaila Sen MD Unavailable None Unavailable Unavailable Maria Whitley MD Unavailable Julien Miranda MD Unavailable [phone] Allergies Active Allergy Reactions Criticality Noted [...] (FLONASE) 50 MCG/ACT nasal sprayIndications :Environmental allergies [place] 1 spray into both nostrils daily as [...] Overview (02/17/2023): Luis Alberto placed 02/17/2023 at [facility] Major depression, recurrent 03/10/2018 ASCUS with [...] 04/19/2020,05/24/2015 HPV Quadrivalent 06/18/2010, 0,08/03/2008,2007 Hepatitis A (VAQTA)(ADULT 19+) 04/01/2023,2020 Hepatitis B, Adult (Energix-B/Recombivax HB) 04/01/2023,04/27/2021,03/16/2021,2008,10/27/2008,09/26/2008,11/27/1992 Influenza (IIV3) PF 05/21/2005,06/28/2003 Influenza Vaccine >6 months,quad, PF ,04/27/2021,05/10/2018,2016 Influenza Vaccine, 6+MO IM (QUADRIVALENT W/PRESERVATIVES) 04/19/2020,04/07/2019 MMR (MMRII) 04/09/2000 OPV, trivalent, live 1988 Pneumococcal 20 [...] in an abandoned building, in an overnight chcf, or couch-surfing.) Yes 08/29/2023 Are you worried [...] Vaccine ( season) 2024 05/16/2023, 08/17/2021, 12/19/2020 ASTHMA CONTROL TEST 04/14/2024 10/13/2023, 08/29/2023, 07/15/2023, Additional history exists BMP 10/28/2024 10/29/2023, 02/11/2023, 06/25/2023, Additional history exists INFLUENZA VACCINE (Season Ended) 2025 04/25/2023, 04/27/2021, 04/19/2020, Additional history exists DIABETES SCREENING 10/28/2026 10/29/2023, 0 09/01/2023, 09/01/2023, Additional history exists HPV TEST 02/08/2028 02/07/2023, 0807/2020, 04/11/2017, Additional history exists PAP 02/08/2028 02/07/2023, 083 07/2020, 04/11/2017, Additional history exists DTAP/TDAP/TD IMMUNIZATION (6 - Td or Tdap) 09/12/2029 09/12/2019, 01/31/2011, 06/25/2006, Additional history exists ZOSTER IMMUNIZATION (1 of 2) 2038 HPV IMMUNIZATION Completed 06/18/2010, , 08/03/2008, Additional history exists HEPATITIS A IMMUNIZATION Completed 04/01/2023, 02/26 HEPATITIS B IMMUNIZATION Completed 023, 04/27/2021, 03/16/2021, Additional history exists Pneumococcal Vaccine: Pediatrics (0 to 5 Years) and At-Risk Patients (6 to 49 Years) Completed 04/01/2023, 01/02/2019 HIV SCREENING Completed 06/24/2023, 0807/2020, 04/11/2017, Additional history exists HEPATITIS C SCREENING Completed 09/01/2023 , 12/02/2020, 12/02/2020, Additional history exists MENINGITIS IMMUNIZATION Aged Out No l onger eligible based on patient's age to complete this topic Goals Goal Patient Goal Type Associated Problems Recent Progress Patient-Stated? Author Improve substance use status Care Plan Substance Use 100%(06/30/20 1:42 PM NURSING MANAGER) No Yehuda Conley LGSW, LADC Note: I will continue to go to 3 meetings per week and look for a sponsor. I will start IOP programming at [facility]. I will utilize the SW/LADC at [facility] for support as needed. Improve management of mental health symptoms and establish with mental health/psychosoci al supports Care Plan Mental Health Symptoms Need Improvement 100%(06/30/20 1:43 PM NURSING MANAGER) No Yehuda Conley LGSW, LADC Note: I will take medication as prescribed and let PCP at [facility] know of questions or concerns. I will look into therapy with help from MENDEZ/MAHOGANY at [facility]. Medical Devices Implanted Type Area Director Global Intelligence Device Identifier Shelf Expiration Date Model / Serial / Lot Variax Clavicle Hook Plate 7 Hole/16mm/ Right Implanted:Qty: 1 on 04/22/2018 by Jaxson Cunningham MD at [facility] Right: Clavicle ELTON 05/27/2019 [id number] / / [id number] 3.5mm Overdrill Implanted:Qty: 1 on 04/22/2018 by Jaxson Cunningham MD at [facility] Right: Clavicle ELTON [id number] / / Description:autoclave 51 shay d 2 [id number] 2.6mm Drill 220mm Long For 3.5mm Screws Implanted:Qty: 1 on 04/22/2018 by Jaxson Cunningham MD at [facility] Right: Clavicle ELTNO [id number] / / Description:Autoclave 51 Shay d 2 [id number] 2.0mm K-Wire With Stop 150mm Length Implanted:Qty: 1 on 04/22/2018 by Jaxson Cunningham MD at [facility] Right: Clavicle ELTON [id number] / / Description:Autoclave 51 [place] d 2 [id number] 1.6mm K-Wire 150mm Length Implanted:Qty: 1 on 04/22/2018 by Jaxson Cunningham MD at [facility] Right: Clavicle ELTON [id number] / / Description:Autoclave 51 Shay d 2 [id number] 3.5mm Locking Screws Self Tapping 16mm Implanted:Qty: 1 on 04/22/2018 by Jaxson Cunningham MD at [facility] Right: Clavicle ELTON [id number] / / Description:autoclave 51 shay d 2 [id number] 3.5mm Bone Screws Self Tapping 14mm Implanted:Qty: 1 on 04/22/2018 by Jaxson Cunningham MD at [facility] Right: Clavicle ELTON [id number] / / Description:autoclave 51 shay d 2 [id number] 3.5mm Bone Screws Self Tapping 16mm Implanted:Qty: 2 on 04/22/2018 by Jaxson Cunningham MD at [facility] Right: Clavicle ELTON [id number] / / Description:autoclave 51 shay d 2 [id number] 3.5mm Bone Screws Self Tapping 24mm Implanted:Qty: 1 on 04/22/2018 by Jaxson Cunnnigham MD at [facility] Right: Clavicle ELTON [id number] / / Description:autoclave 51 shay d 2 [id number] 2.6mm Drill Implanted:Qty: 1 on 04/22/2018 by Jaxson Cunningham MD at [facility] Right: Clavicle ELTON [id number] / / Description:autoclave 51 shay d 2 [id number] Procedures Procedure Name Priority Date/Time Associated Diagnosis Comments COMPREHENSIVE METABOLIC PANEL STAT 10/29/2023 5:21 PM CDT HEPATITIS C ANTIBODY Add-On 09/01/2023 2:23 PM NURSING MANAGER Alcoholic cirrhosis of liver without ascites (H) HIV ANTIGEN ANTIBODY COMBO Add-On 06/24/2023 6:32 AM NURSING MANAGER GYNECOLOGIC CYTOLOGY Routine 02/07/2023 11:10 AM CDT [...] BLOOD ORDERABL ES Final Result UR [facility] Acute Care Lab [address] [facility], [address] [place] [address], [facility] * Hepatitis C antibody (09/01/2023 2:23 PM NURSING MANAGER) Hepatitis C Antibody Nonreactive Nonreactive 09/02/2023 9:04 AM NURSING MANAGER [facility] Comment:A nonreactive screen ing test result [...] Unknown Venipuncture / Unknown 09/01/2023 2:23 PM NURSING MANAGER 09/01/2023 2:27 PM NURSING MANAGER Maria Whitley MD LAB - BLOOD ORDERABLES Final Res ult U LABORATORY [facility] [place] Core Lab [address] [facility], [address] [address], [facility] [phone] * HIV Antigen Antibody Combo Mears (06/24/2023 6:32 AM NURSING MANAGER) HIV Antigen Antibody Combo Nonreactive Nonreactive 06/25/2023 8:49 AM NURSING MANAGER SPECIALTY CORE/PROT/EN DO Comment:HIV-1 p24 Ag & HIV-1 /HIV-2 Ab Not Detected Blood STRUCTURE OF LEFT HAND / Unknown Venipuncture / Unknown 06/24/2023 6:32 AM NURSING MANAGER 06/24/2023 6:36 AM NURSING MANAGER Cheryle Harrison PA-C LAB - BLOOD ORDERABLES Amelia mckee Result SPECIALTY CORE/PROT/ENDO Specialty Core/Prot/Endo [address] [facility], [address] [phone] * Gynecologic Cytology (PAP) (02/07/2023 11:10 AM [...] component of this testing was completed at [facility] 02/13/2023 8:44 AM CDT SPECIALTY LABS Brushing CERVIX UTERI STRUCTURE / Unknown Non-blood Collection / Unknown 02/07/2023 11:10 AM CDT 02/07/2023 12:08 PM CDT October Lila Sen MD LAB - BEAKER AP Final Result SPECIAL[facility] LAB[facility] Specialty Lab [address] [facility], [address] [address], [facility] [phone] * HPV High Risk Types DNA Cervical (02/07/2023 11:10 AM CDT) Other HR HPV Negative Negative 02/17/2023 6:57 AM CDT [facility]NOST[facility] HPV16 DNA Negative Negative 02/17/2023 6:57 AM CDT [facility] DIAGNOST[facility] HPV18 DNA Negative Negative 02/17/2023 6:57 AM CDT MO[facility] DIAGNOSTICS FINAL DIAGNOSIS This patient's sample is negative for HPV DNA. This test was developed and its performance characteristics determined by the [facility], Molecular Diagnostics Laboratory. It has not been [...] Result MOLECULAR DIAGNOSTICS Molecular Diagnostics [address] [facility], [address] [place] [address], [facility] [phone] from Last 3 Months or Most Recently Relevant to Health Maintenance Additional Health Concerns Active Problems Noted Date Diagnosed Date Substance Use 06/30/2023 Mental Health Symptoms Need Improvement 06/30/20 23 Insurance [facility] [place] * Guarantor: Gretchen Cardoza Account Type Relation to Patient Date of Phone Billing Address Medication Therapy Self [address] [place] [address] PAO AZUL PAO AZUL Advance Directives For more information, please contact: [phone] * Full Code (Latest Code Status on [...] patie nt/ legal decision maker Care Teams Military Pilot Relationship Specialty Start Date End Date Kaila Sen MD [address] [place] [address] PCP - General Family Medicine 03/08/21 Julissa Frank [facility] [address] [place] [address] [phone] Pharmacist Pharmacist 05/27/19 Shai Horta MD [address] [place], [place] 328235 Dermatology 11/22/19 Deborah Rascon DO [address] [place], [place] 580535 Referring Physician Family Practice 11/22/19 Maria Whitley MD [address] [place], [place] 202105 Gastroenterology 02/23/21 Kaila Sen MD [address] [place] [address] Assigned PCP 05/27/21 None 02/28/23 Maria Whitley MD [address] [place] [address] Assigned Gastroenterology Provider 09/19/23 Julien Miranda MD [address] [place] [address] Assigned Behavioral Health Provider 12/18/23
--- OUTSIDE RECORDS SUMMARY | 2024-11-29 23:38 | XMS_ITS | Encounter Summary ---
Author Organization [place] Address [address] [place] [address] Care Team Providers Care Dairy Nutritionist Name Role Phone No Ref-Primary, Physician Primary Care Provider Oma Pierson MELTING SUPERVISOR DIRECT MAIL MARKETER Unavailable Unav ailable Julissa Frank [facility] Unavailable Deborah Rascon DO Primary Care Provider [phone] Deborah Rascon DO Unavailable [phone] Shai Horta MD Unavailable [phone] Deborah Rascon DO Unavailable [phone] Justice Foster MD Unavailable [phone] Marie Abbott DIRECT MAIL MARKETER Unavailable [phone] Jaxson Bryan MD Unavailable Jaxson Bryan MD Unavailable Yunior Mesa MD Unavailable Maria Whitley MD Unavailable [facility] Provider Kaila Sen MD Primary Care Provide r Deborah Rascon DO Unavailable [phone] Jasxon Alejo MD Unavailable [phone] Radha Carrillo APRN DIRECT MAIL MARKETER Unavailable [phone] Maria Whitley MD Unavailable Kaila Sen MD Unavailable [phone] Kaila Sen MD Unavailable [phone] Deborah Rascon DO Unavailable [phone] None Unavailable Unavailable Souk, Rico UX DESIGN MANAGER Unavailable Unavailable Souk, Rico UX DESIGN MANAGER Unavailable Unavailable Maria Whitley MD Unavailable Julien Miranda MD Unavailable [phone] Reason for Visit * Reason Onset Date Comments CD Outpatient 04/15/2019 Encounter Details Date Type Department Care Team ([facility] Contact Info) Description 04/15/2019 Telephone [facility] Behavioral Health Intake [address] [place] [address] Generic, Behavioral Intake, CD Outpatient Social History Tobacco Use Types Packs/Day Years Used Date Smoking Tobacco: Every Day Cigarettes Smokeless Tobacco: Never Alcohol Use Standard Drinks/Week Comments Yes 0 (1 standard drink = 0.6 oz pure alcohol) as much liquor as I can get (usually weekends 04/21/18) PHQ-2 Answer Date Recorded PHQ-2 Score 4 [...] scheduled for Apr 21 @ 1230 in [place] documented in this encounter Plan of Treatment Not on file documented as of this encounter Visit Diagnoses Not on filedocumented in this encounter Additional Health Concerns Assessment Noted Time PHQ-9 Depression Total Score: 9 04/22/20 18 7:05 AM CDT documented as of this encounter Care Teams Dairy Nutritionist Relationship Specialty Start Date End Date No Ref-Primary, Physician PCP - General 05/18/18 05/26/19 Deborah Rascon DO [facility] [address] [phone] PCP - General Family Practice 05/27/19 02/28/21 [facility] [address] [address] PCP - General Family Medicine 03/01/21 03/07/21 Kaila Sen MD [address] [place] [address] PCP - General Family Medicine 03/08/21 Oma Pierson APRN DIRECT MAIL MARKETER Assigned PCP 02/14/19 06/05/19 Julissa Frank [facility] [address] [place] [address] [phone] Pharmacist Pharmacist 05/27/19 Deborah Rascon DO [address] [phone] Assigned PCP 03/18/21 04/28/21 Shai Horta MD [address] [place], [place] 690255 Dermatology 11/22/19 Deborah Rascon DO [address] [place] [address] 906604 Referring Physician Family Practice 11/22/19 Justice Foster MD [address] [place] [address]46 Assigned Sleep Provider 05/19/20 Marie Abbott CNP [facility] [address] [place] [address] 428[address] Assigned Behavioral Health Provider 05/19/20 05/12/21 Jaxson Bryan MD [address] [place] [address] Assigned Gastroenterology Provider 05/19/20 10/21/20 Jaxson Bryan MD [address] [place] [address] 65468 Assigned Surgical Provider 10/22/20 Yunior Mesa MD [address] [place] [address] 66026 Assigned Musculoskeletal Provider 01/28/21 03/24/21 Maria Whitley MD [address] [place] [address] 68[address] Gastroenterology 02/23/21 Deborah Rascon DO [facility] [address] [place] [address] Assigned PCP 06/06/19 03/10/21 Jaxson Alejo MD [address] [place], [place] 919082 Assigned Musculoskeletal Provider 03/25/21 09/20/22 Radha Carrillo APRN CNP 60 [facility] [address] [place], [place] 175004 Assigned PCP 03/11/21 03/17/21 Maria Whitley MD [address] [place] [address] Assigned Gastroenterology Provider 03/04/21 08/30/22 Kaila Sen MD [address] [place] [address] Assigned PCP 05/27/21 Kaila Sen MD [address] [place] [address] Assigned PCP 04/29/21 05/05/21 Deborah Rascon DO [address] [place] [address] 22237 Assigned PCP 05/06/21 05/26/21 None 02/28/23 Rico Corey UX DESIGN MANAGER [place] 06/24/23 07/08/23 Rico Corey UX DESIGN MANAGER [place] 07/14/23 07/28/23 Maria Whitley MD [address] [place] [address] Assigned Gastroenterology Provider 09/19/23 Julien Miranda MD [address] [place] [address] [phone] Assigned Behavioral Health Provider 12/18/23 documented as of this encounter
--- OUTSIDE RECORDS SUMMARY | 2024-11-29 23:38 | XMS_ITS | Encounter Summary ---
Author Organization [place] Address [address] [place] [address] Care Team Providers Care Windrower Operator Name Role Phone No Ref-Primary, Physician Primary Care Provider Oma Pierson NICKEL PLATER COMPUTER ENGINEERING PROFESSOR Unavailable Unav ailable Julissa Frank [facility] Unavailable Deborah Rascon DO Primary Care Provider [phone] Deborah Rascon DO Unavailable [phone] Shai Horta MD Unavailable [phone] Deborah Rascon DO Unavailable [phone] Justice Foster MD Unavailable [phone] Marie Abbott COMPUTER ENGINEERING PROFESSOR Unavailable [phone] Jaxson Bryan MD Unavailable Jaxson Bryan MD Unavailable Yunior Mesa MD Unavailable Maria Whitley MD Unavailable [facility] Provider Kaila Sen MD Primary Care Provide r Deborah Rascon DO Unavailable [phone] Jaxson Alejo MD Unavailable [phone] Radha Carirllo APRN COMPUTER ENGINEERING PROFESSOR Unavailable [phone] Maria Whitley MD Unavailable Kaila eSn MD Unavailable [phone] Kaila Sen MD Unavailable [phone] Deborah Rascon DO Unavailable [phone] None Unavailable Unavailable Souk, Rico PROFESSOR OF POULTRY SCIENCE Unavailable Unavailable Souk, Rico PROFESSOR OF POULTRY SCIENCE Unavailable Unavailable Maria Whitley MD Unavailable Julien Miranda MD Unavailable [phone] Reason for Visit * Reason Onset Date Comments MH/CD Inpatient 04/20/2019 Encounter Details Date Type Department Care Team ([facility] st Contact Info) Description 04/20/[address] [facility] Behavioral Health Intake [address] [place] [phone] Generic, Behavioral Intake, MD MH/CD Inpatient Social History Tobacco Use Types Packs/Day Years Used Date Smoking Tobacco: Every Day Cigarettes Smokeless Tobacco: Never Alcohol Use Standard Drinks/Week Comments Yes 0 (1 standard drink = 0.6 oz pur e alcohol) 1 litter vodka daily PHQ-2 Answer Date Recorded PHQ-2 Score 4 [...] in an abandoned building, in an overnight usp, or couch-surfing.) Yes 08/29/2023 Are you worried [...] Miscellaneous Notes * Telephone Encounter - Carolee ePrdomo RN - 04/20/2019 1:32 PM CDT S: [...] and notified them of pending admit -requested social service agency director call back with any questions 1435: Text [...] documented as of this encounter Care Teams Windrower Operator Relationship Specialty Start Date End Date No Ref-Primary, Physician PCP - General 05/18/18 05/26/19 Deborah Rascon DO [address] [place] [address] [phone] PCP - General Family Practice 05/27/19 02/28/21 [facility] - [address] [address] PCP - General Family Medicine 03/01/21 03/07/21 Kaila Sen MD [address] [place] [address] PCP - General Family Medicine 03/08/21 Oma Pierson APRN COMPUTER ENGINEERING PROFESSOR Assigned PCP 02/14/19 06/05/19 Julissa Frank [facility] [address] [phone] Pharmacist Pharmacist 05/27/19 Deborah Rascon DO [address] 023854 Assigned PCP 03/18/21 04/28/21 Shai Horta MD [address] [place] [address] Dermatology 11/22/19 Deborah Rascon DO [address] [address] Referring Physician Family Practice 11/22/19 Justice Foster MD [address] [place] [address] [phone] Assigned Sleep Provider 05/19/20 Marie Abbott CNP [facility] [address] [place] [address] Assigned Behavioral Health Provider 05/19/20 05/12/21 aJxson Bryan MD [address] [place] [address] Assigned Gastroenterology Provider 05/19/20 10/21/20 Jaxson Bryan MD [address] [place] [address] Assigned Surgical Provider 10/22/20 Yunior Mesa MD [address] [place] [address] 471165 Assigned Musculoskeletal Provider 01/28/21 03/24/21 Maria Whitley MD [address] [place] [address] 450825 Gastroenterology 02/23/21 Deborah Rascon DO [address] [place] [address] Assigned PCP 06/06/19 03/10/21 Jaxson Alejo MD [address] [place] [address] Assigned Musculoskeletal Provider 03/25/21 09/20/22 Radha Carrillo APRN CNP [address] [facility] [address] [place] [address] Assigned PCP 03/11/21 03/17/21 Maria Whitley MD [address] [place] [address] 565195 Assigned Gastroenterology Provider 03/04/21 08/30/22 Kaila Sen MD [address] [place] [address] Assigned PCP 05/27/21 Kaila Sen MD [address] [place] [address] Assigned PCP 04/29/21 05/05/21 Deborah Rascon DO [address] [place] [address] Assigned PCP 05/06/21 05/26/21 None 02/28/23 Rico Corey PROFESSOR OF POULTRY SCIENCE Instructor Of Nursing 06/24/23 07/08/23 Rico Corey BSW Instructor Of Nursing 07/14/23 07/28/23 Maria Whitley MD [address] [place] [address] Assigned Gastroenterology Provider 09/19/23 Julien Miranda MD [address] [place] [address] Assigned Behavioral Health Provider 12/18/23 documented as of this encounter
--- OUTSIDE RECORDS SUMMARY | 2024-11-29 23:38 | XMS_ITS | Encounter Summary ---
Author Organization [place] Address [address] [place] [address] Care Team Providers Care Resin Filterer Name Role Phone ZacJulissa anthony [facility] Unavailable Shai Horta MD Unavailable [phone] Deborah Rascon DO Unavailable [phone] Maria Whitley MD Unavailable Kaila Sen MD Primary Care Provide r Kaila Sen MD Unavailable None Unavailable Unavailable Maria Whitley MD Unavailable Julien Miranda MD Unavailable [phone] Encounter Details Date Type Department Care Team (Late st Contact Info) Description 11/26/2023 My[facility] Medical Advice [address] [phone] Kaila Sen MD [address] [place] [address] [id number] Social History Tobacco Use Types Packs/Day Years [...] in an abandoned building, in an overnight detention, or couch-surfing.) Yes 08/29/2023 Are you worried [...] Plan Substance Use 100%(06/30/20 23 1:42 PM PACK OUT OPERATOR) No Yehuda Conley , RICHAR, LADC Note: I will continue to go to 3 meetings per week and look for a sponsor. I will start [facility] programming at [facility] I will utilize the SW/LADC at [facility] for support as needed. Improve management of mental health symptoms and establish with mental health/psychosoci al supports Care Plan Mental Health Symptoms Need Improvement 100%(06/30/20 1:43 PM PACK OUT OPERATOR) Yehuda Francisco , PHOTOGRAPHS CURATOR, LADC Note: I will take medication as prescribed and let PCP at [facility] know of questions or concerns. I will look into therapy with help from SW/LADC at [facility]. documented as of this encounter Visit Diagnoses Not on filedocumented in this encounter Additional Health Concerns Active Problems Noted Date Diagnosed Date Substance Use 06/30/2023 Mental Health Symptoms Need Improvement 06/30/20 Assessment Noted Time PHQ-9 Depression Total Score: 11 024 4:06 PM CDT documented as of this encounter Care Teams Resin Filterer Relationship Specialty Start Date End Date Kaila Sen MD [address] [place] [address] PCP - General Family Medicine 03/08/21 Jluissa Frank [facility] [address] [place] [address] [place] [address] 513854 Pharmacist Pharmacist 05/27/19 Shai Horta MD [address] [place] [address] 142385 Dermatology 11/22/19 Deborah Rascon DO [address] [place] [address] 493135 Referring Physician Family Practice 11/22/19 Maria Whitley MD [address] [place] [address] 888645 Gastroenterology 02/23/21 Kaila Sen MD [address] [place] [address] Assigned PCP 05/27/21 None 02/28/23 Maria Whitley MD [address] [place], [place] 441815 Assigned Gastroenterology Provider 09/19/23 Julien Miranda MD [address] [place], [place] 334514 Assigned Behavioral Health Provider 12/18/23 documented as of this encounter
--- OUTSIDE RECORDS SUMMARY | 2024-11-29 23:38 | XMS_ITS ---
Care Plan Created on: November 29, 2024 CardozaGretchen : 1990 Sex: Female Author Organization [facility] Address [address] [place] [address] Care Team Providers Care Driver License Reviewing Officer Name Role Phone Julissa Frank [facility] Unavailable Shai Horta MD Unavailable [phone] Deborah Rascon DO Unavailable [phone] Maria Whitley MD Unavailable Kaila Sen MD Primary Care Provide r Kaila Sen MD Unavailable None Unavailable Unavailable Marai Whitley MD Unavailable Julien Miranda MD Unavailable [phone] Active Problems * This document contains [...] (02/17/2023): Luis Alberto placed 02/17/2023 at [facility] Major depression, recurrent 03/10/2018 ASCUS with [...] Care Plan Substance Use 100%(06/30/20 1:42 PM LUMBER DRIVER) No Yehuda Conley LGSW, LADC Note: I will continue to go to 3 meetings per week and look for a sponsor. I will start IOP programming at [facility]. I will utilize the SW/LADC at [facility] for support as needed. Improve management of mental health symptoms and establish with mental health/psychosoci al supports Care Plan Mental Health Symptoms Need Improvement 100%(06/30/20 1:43 PM LUMBER DRIVER) No Yehuda Conley LGSW, MAHOGANY Note: I will take medication as prescribed and let PCP at [facility] know of questions or concerns. I will look into therapy with help from SW/LADC at [facility]. Interventions Care Plan Interventions Intervention Entry Date [...]
[2024-11-29 23:39] VITALS: BP 150/107; PULSE 118; RESP 16; TEMP 36.7; O2SAT 96; BMI 25.8
--- NOTE | 2024-11-29 23:45 | CRLHL7_ITS ---
For Patients: As a result of the Century Cures Act, medical imaging exams and procedure reports are released immediately into your electronic medical record. You may view this report before your referring provider. If you have questions, please contact your health care provider. INDICATION: Trauma, hand crushed in press at work. TECHNIQUE: Right hand 3 view. COMPARISON: None. FINDINGS: Bones: No acute fracture identified. No suspicious bone lesion. Alignment is normal. Joint spaces: Unremarkable. Soft tissues: Mild soft tissue swelling about the proximal hand/wrist. IMPRESSION: Mild soft tissue swelling about the proximal hand/wrist. No fracture identified. Dictated by Tonie Odell MD @ 11/29/2024 11:59:58 PM (Electronically Signed)
--- NOTE | 2024-11-30 00:03 | ED_ITS ---
HPI - General Adult General Chief complaint: Extremity Pain/Injury, Upper Stated complaint: R hand crushed in press @ work Time Seen by Provider: 11/29/24 23:54 Source: patient Mode of arrival: ambulatory Limitations: no limitations History of Present Illness HPI narrative: 34-year-old female presents to the emergency department for evaluation of wrist/hand injury. Happened at work just prior to arrival. She was working with a press machine, then had the machine press down fully on her hand, main area of impact is the 1st metacarpal area of the right hand. Has pain along the snuffbox and MCP area. No obvious deformity. Did not try taking any medication prior to arrival. No history of prior surgery to this he part of the body. Normal sensation and neurologic function, can move hand without major difficulty though it is painful. Does not take any anticoagulants. No pain in the proximal wrist, medial hand or fingers 2 through 5. No injury to the opposite hand or other parts of the body. Reports that her past medical history is fairly benign, denies long-term medications. Allergies to Depakote gabapentin. ROS notable for musculoskeletal symptoms only. Negative for other generalized, skin, musculoskeletal or neurological changes. Related Data Previous Rx's ?Medication ?Instructions ?Recorded ketorolac 10 mg tablet 10 mg PO Q6H PRN pain 1 day #20 11/30/24 tabs Allergies Allergy/AdvReac Type Severity Reaction Status Date / Time divalproex sodium (From Allergy Unknown Verified 11/29/24 23:42 Depakote) gabapentin Allergy Unknown Verified 11/29/24 23:42 [facility] Social History Smoking Status: Current every day smoker Do you use any of these nicotine containing products: Vaping Products Second hand tobacco smoke exposure: No How often do you have a drink containing alcohol: 4 or more times a week How many standard drinks containing alcohol do you have on a typical day: 10 or more How often do you have six or more drinks on one occasion: Daily or almost daily AUDIT-C Alcohol total score: 12 Non-prescribed substance use: marijuana (any form) Exam Const: Vital Signs, click to edit/add: Vital Signs - 24 hr 11/29/24 23:39 Temperature 98.1 F Pulse Rate [Pulse Oximeter] 118 H Respiratory Rate 16 Blood Pressure [Ri ght Upper Arm] 150/107 H Pulse Oximetry 96 Oxygen Delivery Me thod Room Air Documenting provider has reviewed patient's vital signs: yes Common normals: no apparent distress General appearance: cooperative and well kempt HENMT: Common normals: normocephalic Head and scalp: normocephalic Eye: Common normals: conjunctivae normal General eye: normal appearance of both eyes Conjunctiva: conjunctiva(e) normal Neck & C-Spine: General: normal visual inspection Resp: Common normals: normal respiratory effort Effort & inspection: able to speak in complete sentences Cardio: Other: Regular rate and rhythm palpated through normal radial pulse right side. Normal capillary refill in all fingers of right hand. Extremity: Other: Right elbow with normal range of motion. Right wrist with normal range of motion and no deformity. Right hand shows bruising and some mild swelling along the snuffbox and 1st metacarpal area. She does have normal flexion, extension opposition of right thumb though opposition is fairly painful for her. Normal movement in fingers 2 through 5 with no deficits or deformity. Point bony t enderness noted over length of 1st metacarpal, no palpable abnormality of the bone. Nails and distal finger normal. Opposite left hand with grossly normal movement and no deformity. Neuro: Common normals: moves all extremities, no focal motor deficits and no sensory deficits noted Psych: Appearance: well kempt Attitude: engaged Activity/motor behavior: appropriate eye contact Mood and affect: euthymic mood Insight: insight good Judgement: judgment good Skin: Common normals: no rashes or lesions noted General skin exam: no rashes or lesions noted Course Course ED Course: 34-year-old female with hand injury, slightly worrisome for metacarpal verses scaphoid area wrist fracture. Will give Toradol 10 mg p.o. x1, 1 Vicodin tablet and await x-ray findings. Reevaluation(s) Time of Reevaluation #1: 00:13 Reevaluation #1: Update: X-ray performed, no signs of obvious fracture. I do zoom in on lateral carpal bones and do not see any evidence of fracture there either. Counseled patient that unfortunately fractures in this area can be difficult to catch but I do not see any obvious signs of 1. I recommended that we put her in a thumb spica splint for the next few days and if her pain does not improve markedly, have her make an appointment to follow-up with orthopedics. Will pre parole counseling aide on Tylenol and ibuprofen as needed for discomfort. Will give prescription for Toradol. Flexeril at bedtime p.r.n.. Alarm symptoms reviewed that would warrant ED presentation. She verbalizes understanding and agreement. Vital Signs Vital signs: Initial Vital Signs Temperature 98.1 F 11/29/24 23:39 Temperature Source Temporal Artery Scan 11/29/24 23:39 Pulse Rate 118 H 11/29/24 23:39 Respiratory Rate 16 11/29/24 23:39 Blood Pressure 150/107 H 11/29/24 23:39 Blood Pressure Mean 121 H 11/29/24 23:39 Blood Pressure Position Sitting 11/29/24 23:39 Pulse Oximetry 96 11/29/24 23:39 Oxygen Delivery Method Room Air 11/29/24 23:39 Vital Signs Temperature 98.1 F 11/29/24 23:39 Pulse Rate 118 H 11/29/24 23:39 Respiratory Rate 16 11/29/24 23:39 Blood Pressure 150/107 H 11/29/24 23:39 Pulse Oximetry 96 11/29/24 23:39 Oxygen Delivery Method Room Air 11/29/24 23:39 Temperature 98.1 F 11/29/24 23:39 Pulse Rate 118 H 11/29/24 23:39 Respiratory Rate 16 11/29/24 23:39 Blood Pressure 150/107 H 11/29/24 23:39 Pulse Oximetry 96 11/29/24 23:39 Oxygen Delivery Method Room Air 11/29/24 23:39 Medications Administered Medications: Discontinued Medications Generic Name Dose Route Start Last Admin Trade Name Freq PRN Reason Stop Dose Admin Hydrocodone Bitart/Acetaminophen 1 tab 11/30/24 00:01 11/30/24 00:27 Hydrocodone-Acetamin 5-325 Mg 1 Tab PO 11/30/24 00:02 1 tab ONCE ONE Administration Ketorolac Tromethamine 10 mg 11/30/24 00:01 11/30/24 00:27 Ketorolac 10 Mg Tablet PO 11/30/24 00:02 10 mg ONCE ONE Administration Medical Decision Making Imaging Data Right hand x-ray: Attestation: I have reviewed the pertinent imaging results. My impression: No signs of fracture. Radiologist's impression: IMPRESSION: Mild soft tissue swelling about the proximal hand/wrist. No fracture identified. Dictated by Tonie Odell MD @ 11/29/2024 11:59:58 PM Discharge Plan Discharge Clinical Impression: Contusion of right hand Patient Disposition: Home, Self-Care Instructions: Hand Sprain (ED) Additional Instructions: As we discussed, thankfully, there are no signs of fracture. Unfortunately, fractures to a spot higher up on the wrist can be very difficult to see on x-ray and can referred pain into the area where you are noticing tonight. Most of the time if you wear the splint for the next few days, things can fuse back together. I would recommend that you wear this for 5 days. After that, try to wean out of it and see how things go. If you still have significant pain in this area, I want you to follow-up with our orthopedic team on Friday. The number to schedule this is [phone]. I have written some work restrictions for you for this week. You should be able to go back to full duty without the brace on Friday, unless orthopedic follow-up is needed and then they will write new restrictions. For pain, I recommend Tylenol 1000 mg every 6 hours. We are unfortunately out of Toradol in the vending machine already tonight. I have sent a prescription to your pharmacy but you are already given a dose here in the emergency department. You may repeat a dose of ibuprofen 600 mg in about 6 hours. I have also provided you with a small prescription for Flexeril which is a muscle relaxant. It is particularly good for helping you sleep and relaxing muscular-type pain. Try not to use it within 6 hours of awakening, as it will cause drowsiness. If you have sudden neurological changes in the thumb, can no longer move the other fingers or other surprising worsening, please have the hand re-evaluated. Worsening swelling, bruising would be expected tomorrow. Activity Level: Activity as Tolerated Discharge Diet: Regular Prescriptions: New ketorolac 10 mg tablet 10 mg PO Q6H PRN (Reason: pain) 1 Days Qty: 20 0RF Follow Up/Referrals: Provider,Not a Local [Primary Care Provider] - Stand Alone Forms: [facility] Info Instructions
[2024-11-30] MEDS: HYDROCODONE-ACETAMIN 5-325 MG 1 TAB PO (00:27)
[2024-11-30] MEDS: KETOROLAC 10 MG TABLET PO (00:27)
--- OUTSIDE RECORDS SUMMARY | 2024-11-30 00:39 | XMS_ITS | Encounter Summary ---
Author Organization [facility] Address [address] [place] [address] Care Team Providers Care Poultry Inspector Name Role Phone ZacJulissa anthony [facility] Unavailable [phone] Shai Horta MD Unavailable [phone] Deborah Rascon DO Unavailable [phone] Maria Whitley MD Unavailable Kaila Sen MD Primary Care Provide r Kaila eSn MD Unavailable [phone] None Unavailable Unavailable Rico Corey DISEASE AND INSECT CONTROL BOSS Unavailable Unavailable Rico Corey [facility] Unavailable Unavailable Maria Whitley MD Unavailable Julien Miranda MD Unavailable [phone] Encounter Details Date Type Department Care Team (Late st Contact Info) Description 02/28/2023 Telephone [facility] [address] [address] Maria Whitley MD [address] [place] [address] Social History Tobacco Use Types Packs/Day [...] in an abandoned building, in an overnight custodial, or couch-surfing.) Yes 08/29/2023 Are you worried [...] Reason for Call: Other: Dr Kaila Sen/ [facility] cell [phone]- would like to consult regarding a medication (not currently on pt chart) please call her back to discuss. No appt was scheduled at this time by signwriter. Action Taken: Message routed to: Adult Clinics: Gastroenterology (GI) p [id number] Travel Screening: Not Applicable documented in this encounter Plan of Treatment Not on file documented as of this encounter Visit Diagnoses Not on filedocumented in this encounter Additional Health Concerns Assessment Noted Time PHQ-9 Depression Total Score: 12 02/07/ 023 12:06 PM CDT documented as of this encounter Care Teams Poultry Inspector Relationship Specialty [place] [address] [place] [address] PCP - General Family Medicine 03/08/21 Julissa Frank [facility] [address] [place] [address] [phone] Pharmacist Pharmacist 05/27/19 Shai Horta MD [address] [place] [address] [phone] Dermatology 11/22/19 Deborah Rascon DO [address] [place] [address] [id number] Referring Physician Family Practice 11/22/19 Maria Whitley MD [address] [place] [address] 265455 Gastroenterology 02/23/21 Kaila Sen MD [address] [place] [address] Assigned PCP 05/27/21 None 02/28/23 Rico Corey, DISEASE AND INSECT CONTROL BOSS Switching Operator 06/24/23 07/08/23 Rico Corey DISEASE AND INSECT CONTROL BOSS Switching Operator 07/14/23 07/28/23 Maria Whitley MD [address] [place] [address] Assigned Gastroenterology Provider 09/19/23 Julien Miranda MD [address] [place] [address] Assigned Behavioral Health Provider 12/18/23 documented as of this encounter
--- OUTSIDE RECORDS SUMMARY | 2024-11-30 00:39 | XMS_ITS | Encounter Summary ---
Author Organization [facility] Address [address] [place] [address] Care Team Providers Care Pci Security Consultant Name Role Phone Zac, Julissa Silva [facility] Unavailable [phone] Deborah Rascon DO Primary Care Provider [phone] Deborah Rascon DO Unavailable [phone] Shai Horta MD Unavailable [phone] Deborah Rascon DO Unavailable [phone] Justice Foster MD Unavailable Marie Abbott [facility] Unavailable [phone] Jaxson Bryan MD Unavailable Yunior Mesa MD Unavailable [phone] Maria Whitley MD Unavailable [facility] re Provider Kaila Sen MD Primary Care Provide r Deborah Rascon DO Unavailable [phone] Jaxson Alejo MD Unavailable [phone] Radha Carrillo APRN [employer] [facility] Unavailable [phone] Maria Whitley MD Unavailable Kaila Sen MD Unavailable Kaila Sen MD Unavailable Deborah Rascon DO Unavailable [phone] None Unavailable Unavailable Rico Corey LASER/ELECTRO OPTICS TECHNICIAN Unavailable Unavailable Rico Corey LASER/ELECTRO OPTICS TECHNICIAN Unavailable Unavailable Maria Whitley MD Unavailable Julien Miranda MD Unavailable [phone] Reason for Visit * Reason Onset Date Comments [facility] 12/26/2020 Encounter Details Date Type Department Care Team ([facility] st Contact Info) Description 12/26/2020 Telephone [facility] Behavioral Health Intake [address] [place] [address] Generic, Behavioral Intake, [facility]ging [facility] [...] in an abandoned building, in an overnight [place] [facility], or couch-surfing.) Yes 08/29/2023 Are you worried [...] call this patient at [address] phone: [phone] to complete a medical screening to clarify [...] in the patient's electronic medical record in [facility]. Mekhi Matthews LADC * Telephone Encounter - [...] patient does NOT use benzodiazepines. Insurance: The [facility] UR Department is responsible for obtaining ALL authorizations for treatmentservices at the EOP, DOP and LP levels of care. This will be a: Seen by a [facility] Evaluation Counselor: MILADIS, ISP & LP UPDATE NOTE evaluation. (Update SBAR and route DANNES and BETTY's) IV use or : This patient is not or an IV drug user. Business office: The patient has [employer] MA/PMAP and would NOT need to consult with anyone in [facility]'s business office about the out of pocket costs of the LP program. List: This patient CAN be placed on the [facility] LP Waiting List at this time. Group: Women's Group or Mixed Group Additional Info as needed: NA The best current contact telephone number for the patient is: Unit Phone [address]A: [phone] Surya Matthews LADC 12/28/2020 * Telephone Encounter [...] documented as of this encounter Care Teams Pci Security Consultant Relationship Specialty Start Date End Date Deborah Rascon DO [facility] [address] [address] PCP - General Family Practice 05/27/19 02/28/[address] [address] PCP - General Family Medicine 03/01/21 03/07/21 Kaila Sen MD [address] [place] [phone] PCP - General Family Medicine 03/08/21 Julissa Frank [facility] [address] [place] [address] [phone] Pharmacist Pharmacist 05/27/19 Deborah Rascon DO [address] [place] [address] Assigned PCP 03/18/21 04/28/21 Shai Horta MD [address] [place] [address] 125195 Dermatology 11/22/19 Deborah Rascon DO [address] [place] [address] Referring Physician Family Practice 11/22/19 Justice Foster MD [address] [place], [place] 229326 Assigned Sleep Provider 05/19/20 Marie Abbott CNP [facility] [address] [place] [address] [address] [place] [address] Assigned Behavioral Health Provider 05/19/20 05/12/21 Jaxson Bryan MD [address] [place] [address] [phone] Assigned Surgical Provider 10/22/20 Yunior Mesa MD [address] [place] [address] [phone] Assigned Musculoskeletal Provider 01/28/21 03/24/21 Maria Whitley MD [address] [place] [address] [id number] Gastroenterology 02/23/21 Deborah Rascon DO [address] [place] [address] F105 [place], [place] [phone] Assigned PCP 06/06/19 03/10/21 Jaxson Alejo MD [address] [place] [address] Assigned Musculoskeletal Provider 03/25/21 09/20/22 Radha Carrillo APRN [employer] [facility] [address] [facility] [address] [place] [address] Assigned PCP 03/11/21 03/17/21 Maria Whitley MD [address] [place] [address] Assigned Gastroenterology Provider 03/04/21 08/30/22 Kaila Sen MD [address] [place] [address] Assigned PCP 05/27/21 Kalia Sen MD [address] [place] [address] Assigned PCP 04/29/21 05/05/21 Deborah Rascon DO [address] [place] [address] Assigned PCP 05/06/21 05/26/21 None 02/28/23 Rico Corey, LASER/ELECTRO OPTICS TECHNICIAN Fire Patroller 06/24/23 07/08/23 Rico Corey, LASER/ELECTRO OPTICS TECHNICIAN Fire Patroller 07/14/23 07/28/23 Maria Whitley MD [address] [place] [address] Assigned Gastroenterology Provider 09/19/23 Julien Miranda MD [address] [place] [address] [phone] Assigned Behavioral Health Provider 12/18/23 documented as of this encounter
--- OUTSIDE RECORDS SUMMARY | 2024-11-30 00:39 | XMS_ITS | Clinical Summary ---
Author Organization [facility] Address [address] [place] [address] Care Team Providers Care Electric Spot Welder Name Role Phone No Primary/Referring, Phy Primary [...] for each transition of care or referral. [facility] Allergies Active Allergy Reactions Criticality Noted Date [...] mouth. 05/27/20 Active cholecalciferol (D3-50) 1.25 MG (22299 UT) capsule Take 50,000 Units by mouth. [...] propionate (FLONASE) 50 MCG/ACT nasal solution 1 Anthony by Nasal route. 12/06/19 Active ALBUterol sulfate HFA 108 (90 Base) MCG/ACT inhaler Inhale 1-2 Puffs every 4 hours as needed for Wheezing. 1 Each 2 05/23/20 Active Additional Information Patient not taking.Reported on 06/29/[address] [place] [address] 1 Anthony into both nostrils daily as needed. 14.1 [...] 04/04/20 22 Overview (04/04/2022): Placed 2015 in [place] Not immune to hepatitis B virus 04/26/2021 [...] y rs, 3 dose series) 04/27/2021,03/16/2021,04/07/2009,2008,09/26/2008,11/27/1992 Influenza ([place] Only) (Flul aval Quad 0.5, 3+ yrs) 04/19/2020 Influenza IIV4 (Quadrivalent ) 0.5mL (95471) 04/27/2021,05/29/2018,05/10/2018,2016 Influenza, Unspecified Formulation 05/24/2015 Ernie COVID-19 [...] Comments Blood Pressure 150/102 06/29/2024 1:25 PM ORDER ENTRY REPRESENTATIVE Pulse 101 06/29/2024 1:25 PM ORDER ENTRY REPRESENTATIVE Temperature 36.7 C (98.1 F) 06/29/2024 1:25 PM ORDER ENTRY REPRESENTATIVE Respiratory Rate 16 06/29/2024 1:25 PM ORDER ENTRY REPRESENTATIVE Oxygen Saturation 100% 06/29/2024 1:25 PM ORDER ENTRY REPRESENTATIVE Inhaled Oxygen Concentration - - Weight 69.4 [...] topic Insurance [address] [place] [id number] [facility] [employer] PENDING Advance Directives * Full Code (Latest Code Status on File) Date Activated Date Inactivated Comments 05/28/2020 12:35 AM 05/31/2020 1:54 PM Question Answer Comments On Admission, Code status wa s determined by: Not discussed with patient/family * Full Code Date Activated Date Inactivated Comments 12/10/2018 3:30 PM 12/22/2018 12:45 PM Care Teams Electric Spot Welder Relationship Specialty Start Date End Date No Primary/Referring, Phy PCP - General 04/04/22
--- OUTSIDE RECORDS SUMMARY | 2024-11-30 00:39 | XMS_ITS | Encounter Summary ---
Author Organization [place] Address [address] [place] [address] Care Team Providers Care Bisque Grader Name Role Phone Ana Frankyany Silva [facility] Unavailable [phone] Deborah Rascon DO Primary Care Provider [phone] Deborah Rascon DO Unavailable [phone] Shai Horta MD Unavailable [phone] Deborah Rascon DO Unavailable [phone] Justice Foster MD Unavailable Marie Abbott FLEXOGRAPHIC PRESS PLATE SETTER Unavailable [phone] Jaxson Bryan MD Unavailable Jaxson Bryan MD Unavailable Yunior Mesa MD Unavailable [phone] Maria Whitley MD Unavailable [facility] Jose Donohue [facility] re Provider Kaila Sen MD Primary Care Provide r Deborah Rascon DO Unavailable [phone] Jaxson Alejo MD Unavailable Radha Carrillo APRN FLEXOGRAPHIC PRESS PLATE SETTER Unavailable [phone] Maria Whitley MD Unavailable Kaila Sen MD Unavailable Kaila Sen MD Unavailable [phone] Deborah Rascon DO Unavailable [phone] None Unavailable Unavailable Rico Corey INVENTORY COORDINATOR Unavailable Unavailable Rico Corey INVENTORY COORDINATOR Unavailable Unavailable Maria Whitley MD Unavailable Julien Miranda MD Unavailable [phone] Reason for Visit * Reason Onset Date Comments Patient Request 11/22/2019 Encounter Details Date Type Department Care Team (Late st Contact Info) Description 11/22/2019 Telephone [facility] [address] [address] Unknown Patient Request Social History [...] patient visit. No answer,left vm to call [phone] to set up appointment. Gretchen Burns CMA ELECTRICAL CONTROLS ASSEMBLER 11/24/2019 11:34 AM * Telephone Encounter - Gretchen Burns CMA - 11/23/2019 1:09 PM CDT Attempted to call yesterday and again today. Phone listed goes straight to voicemail. Message left today to call [phone] if she would like to reach out to us. I will continue to try to contact through 11/24. Gretchen Burns CMA CMA 11/23/2019 1:10 PM * Telephone Encounter - Sanjay Son - 11/22/2019 11:38 AM CDT [facility] Call Center Phone Message May a [...] this information before scheduling. Action Taken: Other: [facility] Hepatology Travel Screening: Not Applicable documented in this encounter Plan of Treatment Not on file documented as of this encounter Visit Diagnoses Not on filedocumented in this encounter Additional Health Concerns Assessment Noted Time PHQ-9 Depression Total Score: 9 04/22/20 18 7:05 AM CDT documented as of this encounter Care Teams Bisque Grader Relationship Specialty Start Date End Date Deborah Rascon DO [facility] [address] [address] PCP - General Family Practice 05/27/19 02/28/21 Clinic - [place] [address] [address] PCP - General Family Medicine 03/01/21 03/07/21 Kaila Sen MD [address] [place] [address] PCP - General Family Medicine 03/08/21 Julissa Frank [facility] [address] [phone] Pharmacist Pharmacist 05/27/19 Deborah Rascon DO [address] [place] [address] 699904 Assigned PCP 03/18/21 04/28/21 Shai Horta MD [address] [place] [address] 617145 Dermatology 11/22/19 Deborah Rascon DO [address] [place] [address] 702594 Referring Physician Family Practice 11/22/19 Justice Foster MD [address] [place] [address] 347966 Assigned Sleep Provider 05/19/20 Marie Abbott CNP [facility] [address] [place] [address] [phone] Assigned Behavioral Health Provider 05/19/20 05/12/21 Jaxson Bryan MD [address] [place] [address] 068995 Assigned Gastroenterology Provider 05/19/20 10/21/20 Jaxson Bryan MD [address] [place] [address] 315085 Assigned Surgical Provider 10/22/20 Yunior Mesa MD [address] [place] [address] 481925 Assigned Musculoskeletal Provider 01/28/21 03/24/21 Maria Whitley MD 9 [place] [address] Gastroenterology 02/23/21 Deborah Rascon DO [address] [place] [address] Assigned PCP 06/06/19 03/10/21 Jaxosn Alejo MD 6[address] [place] [address] Assigned Musculoskeletal Provider 03/25/21 09/20/22 Radha Carrillo APRN CNP 606 [facility] 700 [place] [address] Assigned PCP 03/11/21 03/17/21 Maria Whitley MD [address] [place] [address] Assigned Gastroenterology Provider 03/04/21 08/30/22 Kaila Sen MD [facility]4 [place] [address] Assigned PCP 05/27/21 Kaila Sen MD 1414 [place] [address] Assigned PCP 04/29/21 05/05/21 Deborah Rascon DO [address] [place] [address] Assigned PCP 05/06/21 05/26/21 None 02/28/23 Rico Corey BSW Juke Box Servicer 06/24/23 07/08/23 Rico Corey BSW Juke Box Servicer 07/14/23 07/28/23 Maria Whitley MD 909 [place], [place] 110485 Assigned Gastroenterology Provider 09/19/23 Julien Miranda MD 2450 [place], [place] 822824 Assigned Behavioral Health Provider 12/18/23 documented as of this encounter
--- OUTSIDE RECORDS SUMMARY | 2024-11-30 00:39 | XMS_ITS | Encounter Summary ---
Author Organization [facility] Address [address] [place] [address] Care Team Providers Care Cell Reliner Name Role Phone No Primary/Referring, Phy Primary Care Provider Unavailable Encounter Details Date Type Department Care Team (Late st Contact Info) Description 12/10/[address] [phone] Amy Garcia MD [address] [place], [place] [phone] MRI SAFETY AND HEALTH HISTORY QUESTIONNAIRE Social [...] documented as of this encounter Care Teams Cell Reliner Relationship Specialty Start Date End Date No Primary/Referring, Phy PCP - General 04/04/22 documented as of this encounter
--- OUTSIDE RECORDS SUMMARY | 2024-11-30 00:39 | XMS_ITS | Encounter Summary ---
Author Organization [place] Address [address] [place] [address] Care Team Providers Care Safety Glass Installer Name Role Phone Ana Frankyany Silva [facility] Unavailable [phone] Deborah Rascon DO Primary Care Provider [phone] Deborah Rascon DO Unavailable [phone] Shai Horta MD Unavailable [phone] Deborah Rascon DO Unavailable [phone] Justice Foster MD Unavailable Marie Abbott DIE DESIGNER Unavailable [phone] Jaxson Bryan MD Unavailable Jaxson Bryan MD Unavailable Yunior Mesa MD Unavailable [phone] Maria Whitley MD Unavailable [facility] Jose Donohue [facility] re Provider Kaila Sen MD Primary Care Provide r Deborah Rascon DO Unavailable [phone] Jaxson Alejo MD Unavailable [phone] Radha Carrillo APRN DIE DESIGNER Unavailable [phone] Maria Whitley MD Unavailable Kaila Sen MD Unavailable [phone] Kaila Sen MD Unavailable Deborah Rascon DO Unavailable [phone] None Unavailable Unavailable Rico Corey CLOTH BALER Unavailable Unavailable Rico Corey CLOTH BALER Unavailable Unavailable Maria Whitley MD Unavailable Julien Miranda MD Unavailable [phone] Reason for Visit * Reason Onset Date Comments Refill Request 02/15/2020 MIRTAZAPINE Encounter Details Date Type Department Care Team (Late st Contact Info) Description 02/15/2020 Refill [facility] [address] [place] [address] Deborah Rascon, DO [address] [place], [place] 138884 Refill Request (MIRTAZAPINE) Social History Tobacco Use [...] Please notify patient she needs to call [phone] schedule a follow up with her provider. [...] documented as of this encounter Care Teams Safety Glass Installer Relationship Specialty Start Date End Date Deborah Rascon DO [address] [place] [address] PCP - General Family Practice 05/27/19 02/28/21 Clinic - [address] [address] PCP - General Family Medicine 03/01/21 03/07/21 Kaila Sen MD [address] [place] [address] [phone] PCP - General Family Medicine 03/08/21 Julissa Frank [facility] [address] [place] [address] 743704 Pharmacist Pharmacist 05/27/19 Deborah Rascon DO [address] [address] Assigned PCP 03/18/21 04/28/21 Shai Horta MD [address] [place] [address] Dermatology 11/22/19 Deborah Rascon DO [address] [place] [address] Referring Physician Family Practice 11/22/19 Justice oFster MD [facility] [place] [address] Assigned Sleep Provider 05/19/20 Marie Abbott CNP [facility] [address] [place] [address] Assigned Behavioral Health Provider 05/19/20 05/12/21 Jaxson Bryan MD [address] [place] [address] Assigned Gastroenterology Provider 05/19/20 10/21/20 Jaxson Bryan MD [address] [place] [address] Assigned Surgical Provider 10/22/20 Yunior Mesa MD [address] [place] [address] Assigned Musculoskeletal Provider 01/28/21 03/24/21 Maria Whitley MD [address] [place] [address] Gastroenterology 02/23/21 Deborah Rascon DO [address] [place] [address] Assigned PCP 06/06/19 03/10/21 Jaxson Alejo MD 6341 [place], [place] 249122 Assigned Musculoskeletal Provider 03/25/21 09/20/22 Radha Carrillo APRN CNP 606 [facility] 700 [place] [address] Assigned PCP 03/11/21 03/17/21 Maria Whitley MD 909 [place] [address] Assigned Gastroenterology Provider 03/04/21 08/30/22 Kaila Sen MD 1414 [place] [address] Assigned PCP 05/27/21 Kaila Sne MD 1414 [place] [address] Assigned PCP 04/29/21 05/05/21 Deborah Rascon DO [address] [place] [address] Assigned PCP 05/06/21 05/26/21 None 02/28/23 Rico Corey CLOTH BALER Respooler 06/24/23 07/08/23 Rico Corey CLOTH BALER Respooler 07/14/23 07/28/23 Maria Whitley MD [address] [place] [address] Assigned Gastroenterology Provider 09/19/23 Julien Miranda MD 2450 [place] [address] Assigned Behavioral Health Provider 12/18/23 documented as of this encounter
--- OUTSIDE RECORDS SUMMARY | 2024-11-30 00:40 | XMS_ITS ---
Author Organization [place] Address [address] [place] [address] Care Team Providers Care Diamond Merchant Name Role Phone Julissa Frank [facility] Unavailable [phone] Shai Horta MD Unavailable [phone] Deborah Rascon DO Unavailable [phone] Maria Whitley MD Unavailable Kaila Sen MD Primary Care Provide r Kaila Sen MD Unavailable None Unavailable Unavailable Maria Whitley MD Unavailable Julien Miranda MD Unavailable [phone] [facility] Primary Care Care Coordination Status:Identified (Enrolling) Start date:06/30/2023 Enrollment reason:Referred by provider or care team Overview [facility] Case Team Name Relationship Phone MAHOGANY Jamison Resident Associate(Re sponsible Staff) Continued Care and Services Coordination
--- OUTSIDE RECORDS SUMMARY | 2024-11-30 00:40 | XMS_ITS | Encounter Summary ---
Author Organization [place] Address [address] [place] [address] Care Team Providers Care Call Center Operations Manager Name Role Phone Ana Frankyany Silva [facility] Unavailable [phone] Deborah Rascon DO Primary Care Provider [phone] Deborah Rascon DO Unavailable [phone] Shai Horta MD Unavailable [phone] Deborah Rascon DO Unavailable [phone] Justice Foster MD Unavailable Marie Abbott PERSONAL BANKER Unavailable [phone] Jaxson Bryan MD Unavailable Jaxson Bryan MD Unavailable Yunior Mesa MD Unavailable [phone] Maria Whitley MD Unavailable [facility] Jose Donohue [facility] re Provider Kaila Sen MD Primary Care Provide r Deborah Rascon DO Unavailable [phone] Jaxson Alejo MD Unavailable [phone] Radha Carrillo APRN PERSONAL BANKER Unavailable [phone] Maria Whitley MD Unavailable Kaila Sen MD Unavailable Kaila Sen MD Unavailable [phone] Deborah Rascon DO Unavailable None Unavailable Unavailable Rico Corey CANDLE CUTTER Unavailable Unavailable Rico Corey CANDLE CUTTER Unavailable Unavailable Maria Whitley MD Unavailable Julien Miranda MD Unavailable Reason for Visit * Reason Onset Date Comments Refill Request 10/21/2019 Aripiprazole (Ab ilify) 10 mg tablet Refill Request 10/28/2019 Encounter Details Date Type Department Care Team (Late st Contact Info) Description 10/21/2019 Refill [facility] 606 [address] [address] [place] [address] Deborah Rascon DO [address] [place] [address] Refill Request (Aripiprazole (Abilify) 10 [...] Mcbride - 10/21/2019 10:20 AM CDT [facility] - [place] - [address] P: [phone] F: [phone] [facility] FACILITY PATIENT Requested Prescriptions Pending Prescriptions [...] documented as of this encounter Care Teams Call Center Operations Manager Relationship Specialty Start Date End Date Deborah Rascon DO [address] [place] [address] PCP - General Family Practice 05/27/19 02/28/[address] [address] PCP - General Family Medicine 03/01/21 03/07/21 Kaila Sen MD [address] [place] [address] PCP - General Family Medicine 03/08/21 Julissa Frank [facility] [address] [place] [address] 929904 Pharmacist Pharmacist 05/27/19 Deborah Rascon DO [address] [place] [address] 608904 Assigned PCP 03/18/21 04/28/21 Shai Horta MD [address] [place] [address] 358565 Dermatology 11/22/19 Deborah Rascon DO [address] 476024 Referring Physician Family Practice 11/22/19 Justice Foster MD 3605 [place], [place] 592836 Assigned Sleep Provider 05/19/20 Marie Abbott CNP [facility] [address] [place] [address] 332253 Assigned Behavioral Health Provider 05/19/20 05/12/21 Jaxson Bryan MD [address] [place] [address] 809155 Assigned Gastroenterology Provider 05/19/20 10/21/20 Jaxson Bryan MD 9 [place], [place] 399615 Assigned Surgical Provider 10/22/20 Yunior Mesa MD [address] [place] [address] 001305 Assigned Musculoskeletal Provider 01/28/21 03/24/21 Maria Whitley MD [address] [place] [address] 798045 Gastroenterology 02/23/21 Deborah Rascon DO [address] [place] [address] Assigned PCP 06/06/19 03/10/21 Jaxson Alejo MD [address] [place] [address] Assigned Musculoskeletal Provider 03/25/21 09/20/22 Radha Carrillo APRN CNP 606 [facility] 700 [place] [address] Assigned PCP 03/11/21 03/17/21 Maria Whitley MD [address] [place] [address] Assigned Gastroenterology Provider 03/04/21 08/30/22 Kaila Sen MD [address]14 [place] [address] Assigned PCP 05/27/21 Kaila Sen MD [address]14 [place] [address] Assigned PCP 04/29/21 05/05/21 Deborah Rascon DO [facility] [address] [place] [address] Assigned PCP 05/06/21 05/26/21 None 02/28/23 Rico Corey, CANDLE CUTTER Community Services Officer 06/24/23 07/08/23 Rico Corey, CANDLE CUTTER Community Services Officer 07/14/23 07/28/23 Maria Whitley MD [address] [place] [address] Assigned Gastroenterology Provider 09/19/23 Julien Miranda MD 2450 [place] [address] Assigned Behavioral Health Provider 12/18/23 documented as of this encounter
--- OUTSIDE RECORDS SUMMARY | 2024-11-30 00:40 | XMS_ITS | Clinical Summary ---
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 TECHNICIAN Gender Identity Not on file Sexual Orientation [...] CENTAUR XP ANALYZER 12/02/2020 11:26 PM CDT [facility] HEP A IGM MADIHA Non-React payton Non-React payton CENTAUR XP ANALYZER 12/02/2020 11:26 PM CDT [facility] HEP BS ANTIGEN Non-React payton Non-React payton CENTAUR XP ANALYZER 12/02/2020 11:26 PM CDT [facility] Hepatitis C Antibody Non-React payton Non-React payton CENTAUR XP ANALYZER 12/02/2020 11:26 PM CDT [facility] Blood 12/02/2020 4:56 PM CDT 12/02/2020 5:02 PM CDT Lana KOEHLER IMMUNOLOGY ORDERABLE Final Result [facility] [address] [address] from Last 3 Months or Most Recently Relevant to Health Maintenance Advance Directives For more information, please contact: [phone] * Full Code (Latest Code Status on File) Date Activated Date Inactivated Comments 12/02/2020 9:05 PM 12/06/2020 7:22 PM Question Answer Comments How was code status determined? Previous Documen tation * Full Code Date Activated Date Inactivated Comments 10/24/2020 3:31 PM 10/26/2020 5:44 PM Question Answer Comments How was code status determined? Patient Care Teams Certified Veterinary Technician Relationship Specialty Start Date End Date Doctor, No No ad PCP - General Radiology 06/29/20 Clinic, No Primary PCP - Primary Care Clinic 06/29/20
--- OUTSIDE RECORDS SUMMARY | 2024-11-30 00:40 | XMS_ITS | Referral Summary ---
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 Gender Identity Not on file Sexual [...] CENTAUR XP ANALYZER 12/02/2020 11:26 PM CDT [facility] HEP A IGM MADIHA Non-React payton Non-React payton CENTAUR XP ANALYZER 12/02/2020 11:26 PM CDT [facility] HEP BS ANTIGEN Non-React payton Non-React payton CENTAUR XP ANALYZER 12/02/2020 11:26 PM CDT [facility] Hepatitis C Antibody Non-React payton Non-React payton CENTAUR XP ANALYZER 12/02/2020 11:26 PM CDT [facility] Blood 12/02/2020 4:56 PM CDT 12/02/2020 5:02 PM CDT Lana KOEHLER IMMUNOLOGY ORDERABLE Final Result [facility] [address] [place] [address] from Last 3 Months or Most Recently Relevant to Health Maintenance Advance Directives For more information, please contact: [phone] * Full Code (Latest Code Status on File) Date Activated Date Inactivated Comments 12/02/2020 9:05 PM 12/06/2020 7:22 PM Question Answer Comments How was code status determined? Previous Documen tation * Full Code Date Activated Date Inactivated Comments 10/24/2020 3:31 PM 10/26/2020 5:44 PM Question Answer Comments How was code status determined? Patient Care Teams Strategy Director Relationship Specialty Start Date End Date Doctor, No No ad PCP - General Radiology 06/29/20 Clinic, No Primary PCP - Primary Care Clinic 06/29/20
--- OUTSIDE RECORDS SUMMARY | 2024-11-30 00:40 | XMS_ITS | Encounter Summary ---
Author Organization [facility] Address [address] [place] [address] Care Team Providers Care Sausage Cooker Name Role Phone No Primary/Referring, Phy Primary Care Provider Unavailable Encounter Details Date Type Department Care Team (Late st Contact Info) Description 07/05/2013 Scanned History External to Transferred Record, Provider [facility] Social History Tobacco Use Types Packs/Day Years Used Date Smoking Tobacco: Never Assessed Comments Unknown Sex and Gender Information Value Date Recorded Sex Assigned at Not on file Legal Sex Female 4:38 AM CDT Gender Identity Not on file Sexual Orientation Not on file documented as of this encounter Progress Notes * Transferred Record, Provider - 07/05/2013 12:00 AM CST ION ROLLER documented in this encounter Plan of Treatment Not on file documented as of this encounter Visit Diagnoses Not on filedocumented in this encounter Additional Health Concerns Infection Onset Date Last Indicated Resolved Time R/O COVID19 05/23/2020 05/23/2020 05/25/2020 1:05 PM CDT documented as of this encounter Care Teams Sausage Cooker Relationship Specialty Start Date End Date No Primary/Referring, Phy PCP - General 04/04/22 documented as of this encounter
--- OUTSIDE RECORDS SUMMARY | 2024-11-30 00:41 | XMS_ITS | Encounter Summary ---
Author Organization [facility] Address [address] [place] [address] Care Team Providers Care Photogrammetric Surveyor Name Role Phone Julissa Frank [facility] Unavailable [phone] Shai Horta MD Unavailable [phone] Deborah Rascon DO Unavailable [phone] Maria Whitley MD Unavailable Kaila Sen MD Primary Care Provide r Kaila Sen MD Unavailable [phone] None Unavailable Unavailable Maria Whitley MD Unavailable Julien Miranda MD Unavailable [phone] Encounter Details Date Type Department Care Team (Late st Contact Info) Description 09/02/2023 MyC Medical Advice [address] [address] Adrienne Angeles Social History Tobacco [...] Plan Substance Use 100%(06/30/20 23 1:42 PM QUALITY PROCESS AUDITOR) No Yehuda Conley LGSW, LADC Note: I will continue to go to 3 meetings per week and look for a sponsor. I will start IOP programming at [facility]. I will utilize the SW/LADC at [facility] for support as needed. Improve management of mental health symptoms and establish with mental health/psychosoci al supports Care Plan Mental Health Symptoms Need Improvement 100%(06/30/20 23 1:43 PM QUALITY PROCESS AUDITOR) Yehuda Francisco LGSW, MAHOGNAY Note: I will take medication as prescribed and let PCP at [facility] know of questions or concerns. I will look into therapy with help from SW/LADC at [facility]. documented as of this encounter Visit Diagnoses Not on filedocumented in this encounter Additional Health Concerns Active Problems Noted Date Diagnosed Date Substance Use 06/30/2023 Mental Health Symptoms Need Improvement 06/30/20 Assessment Noted Time PHQ-9 Depression Total Score: 8 08/29/19 24 8:19 AM QUALITY PROCESS AUDITOR documented as of this encounter Care Teams Photogrammetric Surveyor Relationship Specialty Start Date End Date Kaila Sen MD [address] [place] [address] PCP - General Family Medicine 03/08/21 Julissa Frank [facility] [place] [address] 050214 Pharmacist Pharmacist 05/27/19 Shai Horta MD 9 [place], [place] 852875 Dermatology 11/22/19 Deborah Rascon DO [address] [place] [address] 605085 Referring Physician Family Practice 11/22/19 Maria Whitley MD [address] [place] [address] 619105 Gastroenterology 02/23/21 Kaila Sen MD [address]14 [place] [address] Assigned PCP 05/27/21 None 02/28/23 Maria Whitley MD 909 [place] [address] Assigned Gastroenterology Provider 09/19/23 Julien Miranda MD [facility] [place] [address] Assigned Behavioral Health Provider 12/18/23 documented as of this encounter
--- OUTSIDE RECORDS SUMMARY | 2024-11-30 00:41 | XMS_ITS | Encounter Summary ---
Author Organization [place] Address [address] [place] [address] Care Team Providers Care Vermin Exterminator Name Role Phone [place], [facility] Primary Care Prov ider Unavailable No Ref-Primary, Physician Primary Care Provider Amy Mace WASTE WATER TREATMENT PLANT OPERATOR BOTTLE PACKER Unavailable Amy Mace WASTE WATER TREATMENT PLANT OPERATOR BOTTLE PACKER Unavailable Oma Pierson WASTE WATER TREATMENT PLANT OPERATOR BOTTLE PACKER Unavailable Unav ailable Amy Mace WASTE WATER TREATMENT PLANT OPERATOR BOTTLE PACKER Unavailable Oma Pierson WASTE WATER TREATMENT PLANT OPERATOR BOTTLE PACKER Unavailable Unav ailable Julissa Frank [facility] Unavailable [phone] Deborah Rascon DO Primary Care Provider [phone] Deborah Rascon DO Unavailable + [phone] Shai Horta MD Unavailable [phone] Deborah Rascon DO Unavailable + [phone] Justice Foster MD Unavailable +[phone] Marie Abbott BOTTLE PACKER Unavailable +[phone] Jaxson Bryan MD Unavailable Jaxson Bryan MD Unavailable Yunior Mesa MD Unavailable [phone] Maria Whitley MD Unavailable Clinic - [facility] Primary Ca re Provider Kaila Sen MD Primary Care Provide r Deborah Rascon DO Unavailable [phone] Jaxson Alejo MD Unavailable [phone] Lorena Radha Dayna GRULLON BOTTLE PACKER Unavailable + [phone] Maria Whitley MD Unavailable Kaila Sen MD Unavailable [phone] Kaila Sen MD Unavailable [phone] Deborah Rascon DO Unavailable [phone] None Unavailable Unavailable Souk, Rico INJURY PREVENTION COORDINATOR Unavailable Unavailable Souk, Rico INJURY PREVENTION COORDINATOR Unavailable Unavailable Maria Whitley MD Unavailable Julien Miranda MD Unavailable [phone] Reason for Visit * Reason Onset Date Comments CD Outpatient 04/15/2018 Encounter Details Date Type Department Care Team (Late st Contact Info) Description 04/15/2018 Telephone [facility] Behavioral Health Intake 500 [place] [phone] Generic, Behavioral Intake, CD Outpatient Social History [...] reschedule CD Eval appointment for 04/27/18 - [place] documented in this encounter Plan of Treatment Not on file documented as of this encounter Visit Diagnoses Not on filedocumented in this encounter Additional Health Concerns Assessment Noted Time PHQ-9 Depression Total Score: 5 03/10/20 17 10:15 AM CDT documented as of this encounter Care Teams Vermin Exterminator Relationship Specialty Start Date End Date [place], [facility] PCP - General 04/03/18 05/17/18 No Ref-Primary, Physician PCP - General 05/18/18 05/26/19 Amy Mace APRN BOTTLE PACKER [address] [facility] [place] [address] PCP - Assigned PCP 05/03/18 09/29/18 Deborah Rascon DO [address] [address] PCP - General Family Practice 05/27/19 02/28/21 [facility] [address] [address] PCP - General Family Medicine 03/01/21 03/07/21 Kaila Sen MD 1414 [place] [address] PCP - General Family Medicine 03/08/21 Amy Mace APRN BOTTLE PACKER [address] [facility] [address] Assigned PCP 05/03/18 10/10/18 Oma Pierson APRN BOTTLE PACKER Assigned PCP 10/11/18 12/26/18 Amy Mace, WASTE WATER TREATMENT PLANT OPERATOR BOTTLE PACKER [address] [place], [place] 948414 Assigned PCP 12/27/18 02/13/19 Oma Pierson, WASTE WATER TREATMENT PLANT OPERATOR BOTTLE PACKER Assigned PCP 02/14/19 06/05/19 Julissa Frank [facility] [address] 385384 Pharmacist Pharmacist 05/27/19 Deborah Rascon DO [facility] [address] 040024 Assigned PCP 03/18/21 04/28/21 Shai Horta MD [address] [place] [address] [phone] Dermatology 11/22/19 Deborah Rascon DO [address] [place] [address] [id number] Referring Physician Family Practice 11/22/19 Justice Foster MD [address] [place] [address] 55746 Assigned Sleep Provider 05/19/20 Marie Abbott CNP [facility] [address] [place] [address] Assigned Behavioral Health Provider 05/19/20 05/12/21 Jaxson Bryan MD [address] [place] [address] Assigned Gastroenterology Provider 05/19/20 10/21/20 Jaxson Bryan MD [address] [place] [address] 865235 Assigned Surgical Provider 10/22/20 Yunior Mesa MD [address] [place] [address] 97529 Assigned Musculoskeletal Provider 01/28/21 03/24/21 Maria Whitley MD [address] [place] [address] Gastroenterology 02/23/21 Deborah Rascon DO [address] [address] Assigned PCP 06/06/19 03/10/21 Jaxson Alejo MD 6341 [place] [address] Assigned Musculoskeletal Provider 03/25/21 09/20/22 Radha Carrillo APRN CNP 606 [facility] 700 [place], [place] 239774 Assigned PCP 03/11/21 03/17/21 Maria Whitley MD [address] [place] [address]879 Assigned Gastroenterology Provider 03/04/21 08/30/22 Kaila Sen MD 1414 [facility] [place] [address] Assigned PCP 05/27/21 Kaila Sen MD 1414 [place] [address] Assigned PCP 04/29/21 05/05/21 Deborah Rascon DO [address] [place] [address]687 Assigned PCP 05/06/21 05/26/21 None 02/28/23 Rico Corey, INJURY PREVENTION COORDINATOR Process Expert 06/24/23 07/08/23 Rico Corey BSW Process Expert 07/14/23 07/28/23 Maria Whitley MD 9 [place] [address] Assigned Gastroenterology Provider 09/19/23 Julien Miranda MD 2450 [place] [address] Assigned Behavioral Health Provider 12/18/23 documented as of this encounter
--- OUTSIDE RECORDS SUMMARY | 2024-11-30 00:41 | XMS_ITS | Encounter Summary ---
Author Organization [facility] Address [address] [place] [address] Care Team Providers Care Mobile Architect Name Role Phone No Ref-Primary, Physician Primary Care Provider [facility] Primary Care Prov ider Unavailable No Ref-Primary, Physician Primary Care Provider Amy Mace SKULL GRINDER OVERLOCK ELASTIC ATTACHER Unavailable Amy Mace SKULL GRINDER OVERLOCK ELASTIC ATTACHER Unavailable Oma Pierson SKULL GRINDER OVERLOCK ELASTIC ATTACHER Unavailable Unav ailable Amy Mace SKULL GRINDER OVERLOCK ELASTIC ATTACHER Unavailable Oma Pierson SKULL GRINDER OVERLOCK ELASTIC ATTACHER Unavailable Unav ailable Julissa Frank [facility] Unavailable [phone] Deborah Rascon DO Primary Care Provider + Deborah Rascon DO Unavailable + 3 Shai Horta MD Unavailable [phone] Deborah Rascon DO Unavailable + 3 Justice Foster MD Unavailable [phone] Marie Abbott OVERLOCK ELASTIC ATTACHER Unavailable [phone] Jaxson Bryan MD Unavailable Jaxson Bryan MD Unavailable Yunior Mesa MD Unavailable [phone] Maria Whitley MD Unavailable Clinic - [facility] Primary Ca re Provider Kaila Sen MD Primary Care Provide r Deborah Rascon DO Unavailable [phone] Jaxson Diane MD Unavailable [phone] Radha Carrillo APRN OVERLOCK ELASTIC ATTACHER Unavailable + [phone] Maria Whitley MD Unavailable Kaila Sen MD Unavailable [phone] Kaila Sen MD Unavailable [phone] Deborah Rascon DO Unavailable [phone] None Unavailable Unavailable Rico Corey HAND TRUCKER Unavailable Unavailable Rico Corey HAND TRUCKER Unavailable Unavailable Maria Whitley MD Unavailable Julien Miranda MD Unavailable [phone] Reason for Visit * Reason Onset Date Comments MH/CD Inpatient 03/02/2018 Encounter Details Date Type Department Care Team (Late st Contact Info) Description 03/02/2018 Telephone [facility] Behavioral Health Intake [address] [place] [phone] Generic, Behavioral Intake, MH/CD Inpatient Social History [...] as of this encounter Care Teams Mobile Architect Relationship Specialty Start Date End Date No Ref-Primary, Physician PCP - General 03/02/18 04/02/18 Taylor Rosenthal [facility] PCP - General 04/03/18 05/17/18 No Ref-Primary, Physician PCP - General 05/18/18 05/26/19 Amy Mace APRN [facility] [address] [place], [place] 087274 PCP - Assigned PCP 05/03/18 09/29/18 Deborah Rascon DO [address] 587174 PCP - General Family Practice 05/27/19 02/28/21 Clinic - [facility] [address] [address] PCP - General Family Medicine 03/01/21 03/07/21 Kaila Sen MD 1414 [facility] [place] [id number] PCP - General Family Medicine 03/08/21 Amy Mace, SKULL GRINDER OVERLOCK ELASTIC ATTACHER [address] [facility] [place] 806714 Assigned PCP 05/03/18 10/10/18 Oma Pierson, SKULL GRINDER OVERLOCK ELASTIC ATTACHER Assigned PCP 10/11/18 12/26/18 Amy Mace, SKULL GRINDER OVERLOCK ELASTIC ATTACHER [address] [place] [address] Assigned PCP 12/27/18 02/13/19 Oma Pierson, SKULL GRINDER OVERLOCK ELASTIC ATTACHER Assigned PCP 02/14/19 06/05/19 Julissa Frank [facility] [address] 732394 Pharmacist Pharmacist 05/27/19 Deborah Rascon DO [address] [place] [address] 044754 Assigned PCP 03/18/21 04/28/21 Shai Horta MD 909 [place], [place] 008265 Dermatology 11/22/19 Deborah Rascon DO [facility] [address] 868244 Referring Physician Family Practice 11/22/19 Justice Foster MD [address] [place] [address] 681766 Assigned Sleep Provider 05/19/20 Marie Abbott CNP [facility] [address] [facility] [facility] 310 [place] [address] Assigned Behavioral Health Provider 05/19/20 05/12/21 Jaxson Bryan MD [address] [place] [address]647 Assigned Gastroenterology Provider 05/19/20 10/21/20 Jaxson Bryan MD [address] [place] [address] 49555 Assigned Surgical Provider 10/22/20 Yunior Mesa MD [address] [place] [address] 770455 Assigned Musculoskeletal Provider 01/28/21 03/24/21 Maria Whitley MD [address] [place] [address] 618395 Gastroenterology 02/23/21 Deborah Rascon DO [facility] [address] [address] Assigned PCP 06/06/19 03/10/21 Jaxson Diane MD [address] [place] [address] 349192 Assigned Musculoskeletal Provider 03/25/21 09/20/22 Radha Carrillo APRN OVERLOCK ELASTIC ATTACHER 606 24[facility] 700 [place] [address] Assigned PCP 03/11/21 03/17/21 Maria Whitley MD [address] [place] [address]21 Assigned Gastroenterology Provider 03/04/21 08/30/22 Kaila Sen MD 1414 [place] [address] Assigned PCP 05/27/21 [place] [address] [place] [address] Assigned PCP 04/29/21 05/05/21 Deborah Rascon DO [address] [place] [address] 289[address] Assigned PCP 05/06/21 05/26/21 None 02/28/23 Rico Corey HAND TRUCKER [facility] 06/24/23 07/08/23 Rico Corey HAND TRUCKER [facility] 07/14/23 07/28/23 Maria Whitley MD [address] [place] [address] Assigned Gastroenterology Provider 09/19/23 Julien Miranda MD [address] [place] [address] Assigned Behavioral Health Provider 12/18/23 documented as of this encounter
--- OUTSIDE RECORDS SUMMARY | 2024-11-30 00:41 | XMS_ITS | Encounter Summary ---
Author Organization [facility] Address [address] [place] [address] Care Team Providers Care Stopper Maker Name Role Phone No Ref-Primary, Physician Primary Care Provider [facility] Primary Care Prov ider Unavailable No Ref-Primary, Physician Primary Care Provider Amy Mace LINKER UP CATTLE PRODUCERS Unavailable Amy Mace LINKER UP CATTLE PRODUCERS Unavailable Oma Pierson LINKER UP CATTLE PRODUCERS Unavailable Unav ailable Amy Mace LINKER UP CATTLE PRODUCERS Unavailable Oma Pierson LINKER UP CATTLE PRODUCERS Unavailable Unav ailable Julissa Frank [facility] Unavailable [phone] Deborah Rascon DO Primary Care Provider + Deborah Rascon DO Unavailable + 3 Shai Horta MD Unavailable [phone] Deborah Rascon DO Unavailable + 3 Justice Foster MD Unavailable [phone] Marie Abbott [employer] Unavailable [phone] Jaxson Bryan MD Unavailable Jaxson Bryan MD Unavailable Yunior Mesa MD Unavailable + [phone] Maria Whitley MD Unavailable Clinic - [facility] Primary Ca re Provider Kaila Sen MD Primary Care Provide r Deborah Rascon DO Unavailable [phone] Jaxson Diane MD Unavailable +[phone] Radha Carrillo APRN [employer] Unavailable + [phone] Maria Whitley MD Unavailable Kaila Sen MD Unavailable [phone] Kaila Sen MD Unavailable [phone] Deborah Rascon DO Unavailable [phone] None Unavailable Unavailable Rico Corey GAME PRODUCER Unavailable Unavailable Rico Corey GAME PRODUCER Unavailable Unavailable Maria Whitley MD Unavailable Julien Miranda MD Unavailable [phone] Reason for Visit * Reason Onset Date Comments CD Outpatient 02/05/2018 Encounter Details Date Type Department Care Team (Late st Contact Info) Description 02/05/2018 Telephone [facility] Behavioral Health Intake 500 [place] [phone] Generic, Behavioral Intake, CD Outpatient Social History [...] 04/03/2018 1:47 PM CDT 04/03/18 Inbox from [facility] to schedule CD Eval for 04/15/18 @ [place]. * Telephone Encounter - Mary Hansen - 02/06/2018 8:44 AM CDT Client currently has no insurance. L/m [facility] phone# for R25; cancelled appt. * Telephone [...] documented as of this encounter Care Teams Stopper Maker Relationship Specialty Start Date End Date No Ref-Primary, Physician PCP - General 03/02/18 04/02/18 [facility] PCP - General 04/03/18 05/17/18 No Ref-Primary, Physician PCP - General 05/18/18 05/26/19 Amy Mace APRN [employer] [address] [place] [address] PCP - Assigned PCP 05/03/18 09/29/18 Deborah Rascon DO [address] [address] PCP - General Family Practice 05/27/19 02/28/21 [facility] - Jose Donohue [address] [address] PCP - General Family Medicine 03/01/21 03/07/21 Kaila Sen MD 1414 [place] [address] PCP - General Family Medicine 03/08/21 Amy Mace, LINKER UP CATTLE PRODUCERS [address] [facility] [place] 245164 Assigned PCP 05/03/18 10/10/18 Oma Pierson, LINKER UP CATTLE PRODUCERS Assigned PCP 10/11/18 12/26/18 Amy Mace, LINKER UP [employer]ATT[employer]ODUCERS [address] [place] [address] Assigned PCP 12/27/18 02/13/19 Oma Pierson, LINKER UP CATTLE PRODUCERS Assigned PCP 02/14/19 06/05/19 Julissa Frank [facility] [address] 796244 Pharmacist Pharmacist 05/27/19 Deborah Rascon DO [address] [place] [address] 918364 Assigned PCP 03/18/21 04/28/21 Shai Horta MD [address] [place], [place] 670035 Dermatology 11/22/19 Deborah Rascon DO [facility] [address] 122114 Referring Physician Family Practice 11/22/19 Justice Foster MD [address] [place] [address]46 Assigned Sleep Provider 05/19/20 Marie Abbott CNP [facility] 615 [address] [facility] 310 [place] [address] Assigned Behavioral Health Provider 05/19/20 05/12/21 Jaxson Bryan MD [address] [place] [address] 928705 Assigned Gastroenterology Provider 05/19/20 10/21/20 Jaxson Bryan MD [address] [place] [address] 489455 Assigned Surgical Provider 10/22/20 Yunior Mesa MD [address] [place] [address] 36159 Assigned Musculoskeletal Provider 01/28/21 03/24/21 Maria Whitley MD [address] [place] [address] 516615 Gastroenterology 02/23/21 Deborah Rascon DO [address] [place], [place] 130724 Assigned PCP 06/06/19 03/10/21 Jaxson Diane MD 6341 [place], [place] 158112 Assigned Musculoskeletal Provider 03/25/21 09/20/22 Radha Carrillo APRN [employer] 606 24[address] [facility] 700 [place], [place] 595364 Assigned PCP 03/11/21 03/17/21 Maria Whitley MD [address] [place] [address]248 Assigned Gastroenterology Provider 03/04/21 08/30/22 Kaila Sen MD 1414 [place] [address] Assigned PCP 05/27/21 Kaila Sen MD 1414 [place] [address] Assigned PCP 04/29/21 05/05/21 Deborah Rascon DO [address] [place] [address] Assigned PCP 05/06/21 05/26/21 None 02/28/23 Rico Corey GAME PRODUCER Attending Radiologist 06/24/23 07/08/23 Rico Corey, GAME PRODUCER Attending Radiologist 07/14/23 07/28/23 Maria Whitley MD 909 [place] [address] Assigned Gastroenterology Provider 09/19/23 Julien Miranda MD [address] [place] [address] Assigned Behavioral Health Provider 12/18/23 documented as of this encounter
--- OUTSIDE RECORDS SUMMARY | 2024-11-30 00:41 | XMS_ITS | Encounter Summary ---
Author Organization [facility] Address [address] [place] [address] Care Team Providers Care Drawing Frame Tender Name Role Phone Julissa Frank [facility] Unavailable [phone] Shai Horta MD Unavailable [phone] Deborah Rascon DO Unavailable [phone] Maria Whitley MD Unavailable Kaila Sen MD Primary Care Provide r Kaila Sen MD Unavailable [phone] None Unavailable Unavailable Maria Whitley MD Unavailable Julien Miranda MD Unavailable [phone] Encounter Details Date Type Department Care Team (Late st Contact Info) Description 09/11/2023 [facility] Gastroenterology Clinic [address] [place] [address] Elvira Blackmon Social History Tobacco [...] Plan Substance Use 100%(06/30/20 23 1:42 PM MATE FOURTH) No Yehuda Conley LGSW, LADC Note: I will continue to go to 3 meetings per week and look for a sponsor. I will start IOP programming at [facility]. I will utilize the SW/LADC at [facility] for support as needed. Improve management of mental health symptoms and establish with mental health/psychosoci al supports Care Plan Mental Health Symptoms Need Improvement 100%(06/30/20 23 1:43 PM MATE FOURTH) No Yehuda Conley LGSW, MAHOGANY Note: I will take medication as prescribed and let PCP at [facility] know of questions or concerns. I will look into therapy with help from SW/LADC at [facility]. documented as of this encounter Visit Diagnoses Not on filedocumented in this encounter Additional Health Concerns Active Problems Noted Date Diagnosed Date Substance Use 06/30/2023 Mental Health Symptoms Need Improvement 06/30/20 23 Assessment Noted Time PHQ-9 Depression Total Score: 8 08/29/19 24 8:19 AM MATE FOURTH documented as of this encounter Care Teams Drawing Frame Tender Relationship Specialty Start Date End Date Kaila Sen MD 1414 [place] [address] PCP - General Family Medicine 03/08/21 Julissa Frank [facility] [address] [phone] Pharmacist Pharmacist 05/27/19 Shai Horta MD [address] [place] [address] 776565 Dermatology 11/22/19 Deborah Rascon DO [address] [place] [address] 120925 Referring Physician Family Practice 11/22/19 Maria Whitley MD [address] [place] [address] 779405 Gastroenterology 02/23/21 Kaila Sen MD 1414 [place] [address] Assigned PCP 05/27/21 None 02/28/23 Maria Whitley MD 909 [place] [address] Assigned Gastroenterology Provider 09/19/23 Julien Miranda MD [facility] [place] [address] Assigned Behavioral Health Provider 12/18/23 documented as of this encounter
--- OUTSIDE RECORDS SUMMARY | 2024-11-30 00:41 | XMS_ITS | Encounter Summary ---
Author Organization [place] Address [address] [place] [address] Care Team Providers Care Environmental Engineer Name Role Phone Julissa Frank [facility] Unavailable [phone] Shai Horta MD Unavailable [phone] Deborah Rascon DO Unavailable [phone] Maria Whitley MD Unavailable Kaila Sen MD Primary Care Provide r Kaila Sen MD Unavailable [phone] None Unavailable Unavailable Maria Whitley MD Unavailable Julien Miranda MD Unavailable [phone] Encounter Details Date Type Department Care Team (Late st Contact Info) Description 09/23/2023 [facility] Medical Advice [facility] Gastroenterology Clinic [address] 4[address] [place] [address] Hilda Hoyt Social History Tobacco [...] Plan Substance Use 100%(06/30/20 23 1:42 PM DINING SERVICE WORKER) No Yehuda Conley LGSW, LADC Note: I will continue to go to 3 meetings per week and look for a sponsor. I will start IOP programming at [facility]. I will utilize the SW/LADC at [facility] for support as needed. Improve management of mental health symptoms and establish with mental health/psychosoci al supports Care Plan Mental Health Symptoms Need Improvement 100%(06/30/20 23 1:43 PM DINING SERVICE WORKER) No Yehuda Conley LGSW, MAHOGANY Note: I will take medication as prescribed and let PCP at [facility] know of questions or concerns. I will look into therapy with help from SW/LADC at [facility]. documented as of this encounter Visit Diagnoses Not on filedocumented in this encounter Additional Health Concerns Active Problems Noted Date Diagnosed Date Substance Use 06/30/2023 Mental Health Symptoms Need Improvement 06/30/20 Assessment Noted Time PHQ-9 Depression Total Score: 8 08/29/19 24 8:19 AM DINING SERVICE WORKER documented as of this encounter Care Teams Environmental Engineer Relationship Specialty Start Date End Date Kaila Sen MD [address] [place] [address] PCP - General Family Medicine 03/08/21 Julissa Frank [facility] [address] [place] [address] [phone] Pharmacist Pharmacist 05/27/19 Shai Horta MD [address] [place] [address] 319465 Dermatology 11/22/19 Deborah Rascon DO [address] [place] [address] 109415 Referring Physician Family Practice 11/22/19 Maria Whitley MD [address] [place] [address] 797985 Gastroenterology 02/23/21 Kaila Sen MD [address]14 [place] [address] Assigned PCP 05/27/21 None 02/28/23 Maria Whitley MD 909 [place] [address] Assigned Gastroenterology Provider 09/19/23 Julien Miranda MD [facility] [place] [address] Assigned Behavioral Health Provider 12/18/23 documented as of this encounter
--- OUTSIDE RECORDS SUMMARY | 2024-11-30 00:41 | XMS_ITS | Encounter Summary ---
Author Organization [place] Address [address] [place] [address] Care Team Providers Care Supervisor Furnace Process Name Role Phone No Ref-Primary, Physician [facility] Primary Care Prov ider Unavailable No Ref-Primary, Physician Primary Care Provider Amy Mace BAKING FACTORY WORKER [employer]INE FRUIT CROP FARMER Unavailable Amy Mace BAKING FACTORY WORKER BUSH [employer] VINE FRUIT CROP FARMER Unavailable Oma Pierson BAKING FACTORY WORKER BUSH [employer] VINE FRUIT CROP FARMER Unavailable Unav ailable Amy Mace BAKING FACTORY WORKER BUSH [employer] VINE FRUIT CROP FARMER Unavailable Oma Pierson BAKING FACTORY WORKER BUSH [employer] VINE FRUIT CROP FARMER Unavailable Unav ailable Julissa Frank [facility] Unavailable [phone] Deborah Rascon DO Primary Care Provider + Deborah Rascon DO Unavailable + [phone] Shai Horta MD Unavailable [phone] Deborah Rascon DO Unavailable + 3 Justice Foster MD Unavailable [phone] Marie Abbott BUSH [employer] VINE FRUIT CROP FARMER Unavailable [phone] Jaxson Bryan MD Unavailable Jaxson Bryan MD Unavailable Yunior Mesa MD Unavailable + [phone] Maria Whitley MD Unavailable Clinic - [facility] Primary Ca re Provider Kaila Sen MD Primary Care Provide r Deborah Rascon DO Unavailable [phone] Jaxson Diane MD Unavailable [phone] Radha Carrillo APRN [employer]INE FRUIT CROP FARMER Unavailable + [phone] Maria Whitley MD Unavailable Kaila Sen MD Unavailable [phone] Kaila Sen MD Unavailable [phone] Deborah Rascon DO Unavailable [phone] None Unavailable Unavailable Rico Corey DISTRICT ATTORNEY Unavailable Unavailable Rico Corey DISTRICT ATTORNEY Unavailable Unavailable Maria Whitley MD Unavailable Julien Miranda MD Unavailable [phone] Reason for Visit * Reason Onset Date Comments CD Outpatient 04/08/2017 Encounter Details Date Type Department Care Team (Late st Contact Info) Description 04/08/2017 Telephone [facility] Behavioral Health Intake [address] [place] [phone] Generic, Behavioral Intake, CD Outpatient Social History [...] DOP program. No call returned. MAHOGANY Lee, ENVELOPE ADDRESSER * Telephone Encounter - MorrisCookie - 04/15/2017 2:27 PM CDT ----- Message from MAHOGANY Wiley sent at 04/15/2017 2:18 PM CDT ----- Regarding: remove client from list Please remove client from list of [id number] effective 04/15/17. Lalo Rousseau Psychotherapist Trena * Telephone Encounter - Starla Alexander - 04/09/2017 4:14 PM CDT ----- Message from MAHOGANY Wiley sent at 04/09/2017 4:12 PM CDT ----- Regarding: remove client from schedule Please remove client from schedule of [id number] for dates of 04/09 & 04/10. Lalo [...] documented as of this encounter Care Teams Supervisor Furnace Process Relationship Specialty Start Date End Date No Ref-Primary, Physician PCP - General 03/02/18 04/02/18 Taylor Rosenthal [facility] PCP - General 04/03/18 05/17/18 No Ref-Primary, Physician PCP - General 05/18/18 05/26/19 Amy Mace APRN [facility] [address] [facility] [place] [place] [address] PCP - Assigned PCP 05/03/18 09/29/18 Deborah Rascon DO [address] 517224 PCP - General Family Practice 05/27/19 02/28/[address] [id number] PCP - General Family Medicine 03/01/21 03/07/21 Kaila Sen MD [address] [place] [address] PCP - General Family Medicine 03/08/21 Amy Mace APRN [employer] FRUIT CROP FARMER [address] [place] [address] Assigned PCP 05/03/18 10/10/18 Oma Pierson APRN [employer]INE FRUIT CROP FARMER Assigned PCP 10/11/18 12/26/18 Amy Mace APRN [employer] FRUIT CROP FARMER [address] [place] [address] Assigned PCP 12/27/18 02/13/19 Oma Pierson APRN [employer]INE FRUIT CROP FARMER Assigned PCP 02/14/19 06/05/19 Julissa Frank [facility] [address] 029564 Pharmacist Pharmacist 05/27/19 Deborah Rascon DO [address] 374594 Assigned PCP 03/18/21 04/28/21 Shai Horta MD 909 [place], [place] [address] Dermatology 11/22/19 Deborah Rascon DO 2450 [facility] [address] [place], [place] 675804 Referring Physician Family Practice 11/22/19 Justice Foster MD [address] [place] [address]46 Assigned Sleep Provider 05/19/20 Marie Abbott CNP [facility] [address] [place] [address] 310 [place], [place] 081173 Assigned Behavioral Health Provider 05/19/20 05/12/21 Jaxson Bryan MD [address] [place] [address] 226245 Assigned Gastroenterology Provider 05/19/20 10/21/20 Jaxson Bryan MD [address] [place] [address] 850315 Assigned Surgical Provider 10/22/20 Yunior Mesa MD [address] [place] [address] 199085 Assigned Musculoskeletal Provider 01/28/21 03/24/21 Maria Whitley MD [address] [place] [address] Gastroenterology 02/23/21 Deborah Rascon DO [address] [place] [address] Assigned PCP 06/06/19 03/10/21 Jaxson Diane MD 6341 [facility] [place] [address] Assigned Musculoskeletal Provider 03/25/21 09/20/22 Radha Carrillo APRN CNP [address] 24[address] [facility] 700 [place] [address] Assigned PCP 03/11/21 03/17/21 Maria Whitley MD [address] [place] [address] 326595 Assigned Gastroenterology Provider 03/04/21 08/30/22 Kaila Sen MD 1414 [place] [address] Assigned PCP 05/27/21 Kaila Sen MD 1414 [place] [address] Assigned PCP 04/29/21 05/05/21 Deborah Rascon DO [address] [address] Assigned PCP 05/06/21 05/26/21 None 02/28/23 Rico Corey, DISTRICT ATTORNEY Garbage Truck Driver 06/24/23 07/08/23 Rico Corey, DISTRICT ATTORNEY Garbage Truck Driver 07/14/23 07/28/23 Maria Whitley MD [address] [place] [address] Assigned Gastroenterology Provider 09/19/23 Julien Miranda MD [address] [place] [address] Assigned Behavioral Health Provider 12/18/23 documented as of this encounter
--- OUTSIDE RECORDS SUMMARY | 2024-11-30 00:41 | XMS_ITS | Encounter Summary ---
Author Organization [facility] Address [address] [place] [address] Care Team Providers Care Light Bulb Assembler Name Role Phone No Ref-Primary, Physician [facility] Primary Care Prov ider Unavailable No Ref-Primary, Physician Primary Care Provider Amy Mace READING INTERVENTION TEACHER PAIL BAILER Unavailable Amy Mace READING INTERVENTION TEACHER PAIL BAILER Unavailable Oma Pierson READING INTERVENTION TEACHER PAIL BAILER Unavailable Unav ailable Amy Mace READING INTERVENTION TEACHER PAIL BAILER Unavailable Oma Pierson READING INTERVENTION TEACHER PAIL BAILER Unavailable Unav ailable Julissa Frank [facility] Unavailable [phone] Deborah Rascon DO Primary Care Provider + Deborah Rascon DO Unavailable + 3 Shai Horta MD Unavailable [phone] Deborah Rascon DO Unavailable + 3 Justice Foster MD Unavailable [phone] Marie Abbott PAIL BAILER Unavailable [phone] Jaxson Bryan MD Unavailable Jaxson Bryan MD Unavailable Yunior Mesa MD Unavailable + [phone] Maria Whitley MD Unavailable Clinic - [facility] Primary Ca re Provider Kaila Sen MD Primary Care Provide r Deborah Rascon DO Unavailable [phone] Jaxson Diane MD Unavailable +[phone] Radha Carrillo APRN PAIL BAILER Unavailable + [phone] Maria Whitley MD Unavailable Kaila Sen MD Unavailable [phone] Kaila Sen MD Unavailable [phone] Deborah Rascon DO Unavailable [phone] None Unavailable Unavailable Rico Corey CONDEMNATION ENGINEER Unavailable Unavailable Rico Corey CONDEMNATION ENGINEER Unavailable Unavailable Maria Whitley MD Unavailable Julien Miranda MD Unavailable +[phone] Reason for Visit * Reason Onset Date Comments MH/CD Inpatient 03/09/2018 Encounter Details Date Type Department Care Team (Late st Contact Info) Description 03/09/2018 Telephone [facility] Behavioral Health Intake 500 [place] [phone] Generic, Behavioral Intake, MH/CD Inpatient Social History [...] a suicide note. She was transferred to [facility] on 03/10/2018. MAHOGANY Lemon * Telephone Encounter [...] documented as of this encounter Care Teams Light Bulb Assembler Relationship Specialty Start Date End Date No Ref-Primary, Physician PCP - General 03/02/18 04/02/18 [facility] Taylor [facility] PCP - General 04/03/18 05/17/18 No Ref-Primary, Physician PCP - General 05/18/18 05/26/19 Amy Mace APRN PAIL BAILER [address] [place] [address] PCP - Assigned PCP 05/03/18 09/29/18 Deborah Rascon DO [address] [place] [address] PCP - General Family Practice 05/27/19 02/28/21 [facility] - [address] [address] PCP - General Family Medicine 03/01/21 03/07/21 Kaila Sen MD [address] [place] [address] PCP - General Family Medicine 03/08/21 Amy Mace APRN PAIL BAILER 37[address] [facility] NATASHA PIERCE [address] Assigned PCP 05/03/18 10/10/18 Oma Pierson APRN PAIL BAILER Assigned PCP 10/11/18 12/26/18 Amy Mace APRN PAIL BAILER [address] [place] [place] [address] Assigned PCP 12/27/18 02/13/19 Oma Pierson APRN PAIL BAILER Assigned PCP 02/14/19 06/05/19 Julissa Frank [facility] [address] [address] Pharmacist Pharmacist 05/27/19 Deborah Rascon DO [address] [place] [address] Assigned PCP 03/18/21 04/28/21 Shai Horta MD [address] [place] [address] 220655 Dermatology 11/22/19 Deborah Rascon DO [facility] [address] 099174 Referring Physician Family Practice 11/22/19 Justice Foster MD [address] [place] [address] [id number] Assigned Sleep Provider 05/19/20 Marie Abbott CNP [facility] [address] [place] [address] 356863 Assigned Behavioral Health Provider 05/19/20 05/12/21 Jaxson Bryan MD [address] [place] [address] 721505 Assigned Gastroenterology Provider 05/19/20 10/21/20 Jaxson Bryan MD [address] [place] [address] Assigned Surgical Provider 10/22/20 Yunior Mesa MD 909 [place] [address] Assigned Musculoskeletal Provider 01/28/21 03/24/21 Maria Whitley MD [address] [place] [address] Gastroenterology 02/23/21 Deborah Rascon DO [address] [place] [address] [place] [address] Assigned PCP 06/06/19 03/10/21 Jaxson Diane MD [address] [place] [address] Assigned Musculoskeletal Provider 03/25/21 09/20/22 Radha Carrillo APRN CNP [address] [address] Assigned PCP 03/11/21 03/17/21 Maria Whitley MD [address] [place] [address] Assigned Gastroenterology Provider 03/04/21 08/30/22 Kaila Sen MD 1414 [place] [address] Assigned PCP 05/27/21 Kaila Sen MD 1414 [place] [address] Assigned PCP 04/29/21 05/05/21 Deborah Rascon DO [address] [place] [address] Assigned PCP 05/06/21 05/26/21 None 02/28/23 Rico Corey BSW Waiter/Waitress Second Class 06/24/23 07/08/23 Rico Corey BSW Waiter/Waitress Second Class 07/14/23 07/28/23 Maria Whitley MD 909 [place], [place] 419855 Assigned Gastroenterology Provider 09/19/23 Julien Miranda MD 2450 [place], [place] 525154 Assigned Behavioral Health Provider 12/18/23 documented as of this encounter
--- OUTSIDE RECORDS SUMMARY | 2024-11-30 00:42 | XMS_ITS | Clinical Summary ---
Author Organization [employer] Address [address] [place] [address] Care Team Providers Care Salesperson Burial Plots Name Role Phone Julissa Frank [facility] Unavailable Shai Horta MD Unavailable [phone] Deborah Rascon DO Unavailable [phone] Maria Whitley MD Unavailable Kaila Sen MD Primary Care Provide r Kaila Sen MD Unavailable None Unavailable Unavailable Maria Whitely MD Unavailable Julien Miranda MD Unavailable [phone] Allergies Active Allergy Reactions Criticality Noted [...] (FLONASE) 50 MCG/ACT nasal sprayIndications :Environmental allergies [place] 1 spray into both nostrils daily as [...] Overview (02/17/2023): Luis Alberto placed 02/17/2023 at [facility] Major depression, recurrent 03/10/2018 ASCUS with [...] Care Plan Substance Use 100%(06/30/20 1:42 PM LITERACY EDUCATION PROFESSOR) No Yehuda Conley LGSW, LADC Note: I will continue to go to 3 meetings per week and look for a sponsor. I will start IOP programming at [employer] [facility]. I will utilize the SW/LADC at [facility] for support as needed. Improve management of mental health symptoms and establish with mental health/psychosoci al supports Care Plan Mental Health Symptoms Need Improvement 100%(06/30/20 1:43 PM LITERACY EDUCATION PROFESSOR) No Yehuda Conley LGSW, LADC Note: I will take medication as prescribed and let PCP at [facility] know of questions or concerns. I will look into therapy with help from MENDEZ/MAHOGANY at [facility]. Medical Devices Implanted Type Area Fur Polisher Device Identifier Shelf Expiration Date Model / Serial / Lot Variax Clavicle Hook Plate 7 Hole/16mm/ Right Implanted:Qty: 1 on 04/22/2018 by Jaxson Cunningham MD at [facility] Right: Clavicle ELTON 05/27/2019 [id number] / / [id number] 3.5mm Overdrill Implanted:Qty: 1 on 04/22/2018 by Jaxson Cunningham MD at [facility] Right: Clavicle ELTON [id number] / / Description:autoclave 51 shay d 2 [id number] 2.6mm Drill 220mm Long For 3.5mm Screws Implanted:Qty: 1 on 04/22/2018 by Jaxson Cunningham MD at [facility] Right: Clavicle ELTON [id number] / / Description:Autoclave 51 Shay d 2 [id number] 2.0mm K-Wire With Stop 150mm Length Implanted:Qty: 1 on 04/22/2018 by Jaxson Cunningham MD at [facility] Right: Clavicle ELTON [id number] / / Description:Autoclave 51 [place] d 2 [id number] 1.6mm K-Wire 150mm Length Implanted:Qty: 1 on 04/22/2018 by Jaxson Cunningham MD at [facility] Right: Clavicle ELTON [id number] / / Description:Autoclave 51 Shay d 2 [id number] 3.5mm Locking Screws Self Tapping 16mm Implanted:Qty: 1 on 04/22/2018 by Jaxson Cunningham MD at [facility] Right: Clavicle ELTON [id number] / / Description:autoclave 51 shay d 2 [id number] 3.5mm Bone Screws Self Tapping 14mm Implanted:Qty: 1 on 04/22/2018 by Jaxson Cunningham MD at [facility] Right: Clavicle ELTON [id number] / / Description:autoclave 51 shay d 2 [id number] 3.5mm Bone Screws Self Tapping 16mm Implanted:Qty: 2 on 04/22/2018 by Jaxson Cunningham MD at [facility] Right: Clavicle ELTON [id number] / / Description:autoclave 51 shay d 2 [id number] 3.5mm Bone Screws Self Tapping 24mm Implanted:Qty: 1 on 04/22/2018 by Jaxson Cunningham MD at [facility] Right: Clavicle ELTON [id number] / / Description:autoclave 51 shay d 2 [id number] 2.6mm Drill Implanted:Qty: 1 on 04/22/2018 by Jaxson Cunningham MD at [facility] Right: Clavicle ELTON [id number] / / Description:autoclave 51 shay d 2 [id number] Procedures Procedure Name Priority Date/Time Associated Diagnosis Comments COMPREHENSIVE METABOLIC PANEL STAT 10/29/2023 5:21 PM CDT HEPATITIS C ANTIBODY Add-On 09/01/2023 2:23 PM LITERACY EDUCATION PROFESSOR Alcoholic cirrhosis of liver without ascites (H) HIV ANTIGEN ANTIBODY COMBO Add-On 06/24/2023 6:32 AM LITERACY EDUCATION PROFESSOR GYNECOLOGIC CYTOLOGY Routine 02/07/2023 11:10 AM CDT [...] BLOOD ORDERABL ES Final Result [facility] 24[address] [facility], Room [address] [place] [address], [facility] * Hepatitis C antibody (09/01/2023 2:23 PM LITERACY EDUCATION PROFESSOR) Hepatitis C Antibody Nonreactive Nonreactive 09/02/2023 9:04 AM LITERACY EDUCATION PROFESSOR [facility] Comment:A nonreactive screen ing test [...] Unknown Venipuncture / Unknown 09/01/2023 2:23 PM LITERACY EDUCATION PROFESSOR 09/01/2023 2:27 PM LITERACY EDUCATION PROFESSOR Maria Whitley MD LAB - BLOOD ORDERABLES Final Res ult U [facility] Lab 500 [facility], [address] [address], [facility] [phone] * HIV Antigen Antibody Combo Rowena (06/24/2023 6:32 AM LITERACY EDUCATION PROFESSOR) HIV Antigen Antibody Combo Nonreactive Nonreactive 06/25/2023 8:49 AM LITERACY EDUCATION PROFESSOR SPECIALTY CORE/PROT/EN DO Comment:HIV-1 p24 Ag & HIV-1 /HIV-2 Ab Not Detected Blood STRUCTURE OF LEFT HAND / Unknown Venipuncture / Unknown 06/24/2023 6:32 AM LITERACY EDUCATION PROFESSOR 06/24/2023 6:36 AM LITERACY EDUCATION PROFESSOR Cheryle Harrison PA-C LAB - BLOOD ORDERABLES Amelia mckee Result SPECIALTY CORE/PROT/ENDO Specialty Core/Prot/Endo 500 [facility], Room [address] [phone] * Gynecologic Cytology (PAP) (02/07/2023 11:10 AM [...] component of this testing was completed at [facility] 02/13/2023 8:44 AM CDT SPECIALTY LABS Brushing CERVIX UTERI STRUCTURE / Unknown Non-blood Collection / Unknown 02/07/2023 11:10 AM CDT 02/07/2023 12:08 PM CDT October Lila Sen MD LAB - BEAKER AP Final Result SPECIALTY LABS Specialty Lab 500 [facility], [address] [address], [facility] [phone] * HPV High Risk Types DNA Cervical (02/07/2023 11:10 AM CDT) Other HR HPV Negative Negative 02/17/2023 6:57 AM CDT [facility] HPV16 DNA Negative Negative 02/17/2023 6:57 AM CDT [facility] HPV18 DNA Negative Negative 02/17/2023 6:57 AM CDT [facility] FINAL DIAGNOSIS This patient's sample is negative for HPV DNA. This test was developed and its performance characteristics determined by the [facility], [facility] Diagnostics Laboratory. It has not been [...] Final Result [facility]ST[facility] Molecular Diagnostics 500 [facility], Room [address]80 [place] [address], [facility] [phone] from Last 3 Months or Most Recently Relevant to Health Maintenance Additional Health Concerns Active Problems Noted Date Diagnosed Date Substance Use 06/30/2023 Mental Health Symptoms Need Improvement 06/30/20 23 Insurance [facility] [place] * Guarantor: Gretchen Cardoza Account Type Relation to Patient Date of Phone Billing Address Medication Therapy Self [address] [place] [address] PAO AZUL PAO AZUL Advance Directives For more information, please contact: [phone] * Full Code (Latest Code Status on [...] patie nt/ legal decision maker Care Teams Salesperson Burial Plots Relationship Specialty Start Date End Date Kaila Sen MD 1414 [place] [address] PCP - General Family Medicine 03/08/21 Julissa Frank [facility] [address] [place] [address] 094734 Pharmacist Pharmacist 05/27/19 Shai Horta MD 909 [place], [place] 444265 Dermatology 11/22/19 Deborah Rascon DO 909 [place], [place] 826925 Referring Physician Family Practice 11/22/19 Maria Whitley MD 909 [place], [place] 539975 Gastroenterology 02/23/21 Kaila Sen MD 1414 [place] [address] Assigned PCP 05/27/21 None 02/28/23 Maria Whitley MD 909 [place] [address] Assigned Gastroenterology Provider 09/19/23 Julien Miranda MD [address] [place] [address] Assigned Behavioral Health Provider 12/18/23
--- OUTSIDE RECORDS SUMMARY | 2024-11-30 00:42 | XMS_ITS | Encounter Summary ---
Author Organization [place] Address [address] [place] [address] Care Team Providers Care Train Control Electronic Technician Name Role Phone Zac, Julissa Silva [facility] Unavailable [phone] Deborah Rascon DO Primary Care Provider [phone] Deborah Rascon DO Unavailable [phone] Shai Horta MD Unavailable [phone] Deborah Rascon DO Unavailable [phone] Justice Foster MD Unavailable Marie Abbott PLASTIC SURGERY NURSE Unavailable [phone] Jaxson Bryan MD Unavailable Yunior Mesa MD Unavailable [phone] Maria Whitley MD Unavailable [facility] re Provider Kaila Sen MD Primary Care Provide r Deborah Rascon DO Unavailable [phone] Jaxson Alejo MD Unavailable [phone] Radha Carrillo APRN PLASTIC SURGERY NURSE Unavailable [phone] Maria Whitley MD Unavailable Kaila Sen MD Unavailable [phone] Kaila Sen MD Unavailable [phone] Deborah Rascon DO Unavailable [phone] None Unavailable Unavailable Rico Corey COMBINATION BUILDING INSPECTOR Unavailable Unavailable Rico Corey COMBINATION BUILDING INSPECTOR Unavailable Unavailable Maria Whitley MD Unavailable Julien Miranda MD Unavailable [phone] Reason for Visit * Reason Onset Date Comments Forms 01/17/2021 Needing forms fi lled out and faxed Encounter Details Date Type Department Care Team (Late st Contact Info) Description 01/17/2021 Telephone [facility] [address] [place] [address] 700 [place] [address] Deborah Rascon DO [address] [place] [address] F105 [place] [address] Forms (Needing forms filled out [...] documented as of this encounter Care Teams Train Control Electronic Technician Relationship Specialty Start Date End Date Deborah Rascon DO 2450 [facility] [address] [place] [address] PCP - General Family Practice 05/27/19 02/28/21 [facility] - [address] [address] PCP - General Family Medicine 03/01/21 03/07/21 Kaila Sen MD [address] [place] [address] PCP - General Family Medicine 03/08/21 Julissa Frank, [facility] [address] 443384 Pharmacist Pharmacist 05/27/19 Deborah Rascon DO [address] 640444 Assigned PCP 03/18/21 04/28/21 Shai Horta MD [address] [place] [address] 826235 Dermatology 11/22/19 Deborah Rascon DO [address] [place] [address] 025664 Referring Physician Family Practice 11/22/19 Justice Foster MD [address] [place] [address] [id number] Assigned Sleep Provider 05/19/20 Marie Abbott CNP [facility] [address] [place] [address] Assigned Behavioral Health Provider 05/19/20 05/12/21 Jaxson Bryan MD [address] [place] [address] 675315 Assigned Surgical Provider 10/22/20 Yunior Mesa MD 9 [place] [address] Assigned Musculoskeletal Provider 01/28/21 03/24/21 Maria Whitley MD [address] [place] [address] Gastroenterology 02/23/21 Deborah Rascon DO [facility] [address] [address] Assigned PCP 06/06/19 03/10/21 Jaxson Alejo MD [address] [place] [address] Assigned Musculoskeletal Provider 03/25/21 09/20/22 Radha Carrillo APRN CNP [address] [place] [address] Assigned PCP 03/11/21 03/17/21 Maria Whitley MD [address] [place] [address] Assigned Gastroenterology Provider 03/04/21 08/30/22 Kaila Sen MD [facility] [place] [address] Assigned PCP 05/27/21 Kaila Sen MD 1414 [facility] [place] [address] Assigned PCP 04/29/21 05/05/21 Deborah Rascon DO [address] [address] Assigned PCP 05/06/21 05/26/21 None 02/28/23 Rico Corey, COMBINATION BUILDING INSPECTOR Assembly Machine Tool Setter 06/24/23 07/08/23 Rico Corey BSW Assembly Machine Tool Setter 07/14/23 07/28/23 Maria Whitley MD 909 [place], [place] 391955 Assigned Gastroenterology Provider 09/19/23 Julien Miranda MD 2450 [place], [place] 848744 Assigned Behavioral Health Provider 12/18/23 documented as of this encounter
--- OUTSIDE RECORDS SUMMARY | 2024-11-30 00:42 | XMS_ITS | Encounter Summary ---
Author Organization [place] Address [address] [place] [address] 31956 Care Team Providers Care Security Incident Response Engineer Name Role Phone No Ref-Primary, Physician Primary Care Provider mOa Pierson DEALER SALES MANAGER BEAUTY CULTURIST Unavailable Unav ailable Julissa Frank [facility] Unavailable [phone] Deborah Rascon DO Primary Care Provider [phone] Deborah Rascon DO Unavailable [phone] Shai Horta MD Unavailable [phone] Deborah Rascon DO Unavailable [phone] Justice Foster MD Unavailable [phone] Marie Abbott BEAUTY CULTURIST Unavailable [phone] Jaxson Bryan MD Unavailable Jaxson Bryan MD Unavailable Yunior Mesa MD Unavailable Maria Whitley MD Unavailable [facility] Jayde [facility] re Provider Kaila Sen MD Primary Care Provide r Deborah Rascon DO Unavailable [phone] Jaxson Alejo MD Unavailable [phone] Radha Carrillo APRN BEAUTY CULTURIST Unavailable [phone] Maria Whitley MD Unavailable Kaila Sen MD Unavailable [phone] Kaila Sen MD Unavailable [phone] Deborah Rascon DO Unavailable [phone] None Unavailable Unavailable Souk, Rico CHUTE BOSS Unavailable Unavailable Souk, Rico CHUTE BOSS Unavailable Unavailable Maria Whitley MD Unavailable Julien Miranda MD Unavailable [phone] Reason for Visit * Reason Onset Date Comments CD Outpatient 04/15/2019 Encounter Details Date Type Department Care Team ([facility] Contact Info) Description 04/15/2019 Telephone [facility] Behavioral Health Intake [address] [place] [address] Generic, Behavioral Intake, CD Outpatient Social History [...] scheduled for Apr 21 @ 1230 in [place] documented in this encounter Plan of Treatment Not on file documented as of this encounter Visit Diagnoses Not on filedocumented in this encounter Additional Health Concerns Assessment Noted Time PHQ-9 Depression Total Score: 9 04/22/20 18 7:05 AM CDT documented as of this encounter Care Teams Security Incident Response Engineer Relationship Specialty Start Date End Date No Ref-Primary, Physician PCP - General 05/18/18 05/26/19 Deborah Rascon DO [facility] [address] 345134 PCP - General Family Practice 05/27/19 02/28/21 [facility] - Jose Donohue [address] [address] PCP - General Family Medicine 03/01/21 03/07/21 Kaila Sen MD [address] [place] [address] PCP - General Family Medicine 03/08/21 Oma Pierson APRN BEAUTY CULTURIST Assigned PCP 02/14/19 06/05/19 Julissa Frank [facility] [address] [place] [address] 772164 Pharmacist Pharmacist 05/27/19 Deborah Rascon DO [address] [id number] Assigned PCP 03/18/21 04/28/21 Shai Horta MD [address] [place], [place] 164265 Dermatology 11/22/19 Deborah Rascon DO [address] [place] [address] 512754 Referring Physician Family Practice 11/22/19 Justice Foster MD [address] [place] [address] 55746 Assigned Sleep Provider 05/19/20 Marie Abbott CNP [facility] [address] [place] [address] Assigned Behavioral Health Provider 05/19/20 05/12/21 Jaxson Bryan MD [address] [place] [address] Assigned Gastroenterology Provider 05/19/20 10/21/20 Jaxson Bryan MD [address] [place] [address] 10654 Assigned Surgical Provider 10/22/20 Yunior Mesa MD [address] [place] [address] 21076 Assigned Musculoskeletal Provider 01/28/21 03/24/21 Maria Whitley MD [address] [place] [address] 59065 Gastroenterology 02/23/21 Deborah Rascon DO [facility] [place] [address] [place] [address] Assigned PCP 06/06/19 03/10/21 Jaxson Alejo MD [address] [place], [place] 962092 Assigned Musculoskeletal Provider 03/25/21 09/20/22 Radha Carrillo APRN CNP 60 [facility] 700 [place], [place] 156404 Assigned PCP 03/11/21 03/17/21 Maria Whitley MD [address] [place] [address]65 Assigned Gastroenterology Provider 03/04/21 08/30/22 Kaila Sen MD [address] [place] [address] Assigned PCP 05/27/21 aKila Sen MD [address] [place] [address] Assigned PCP 04/29/21 05/05/21 Deborah Rascon DO [address] [place] [address]65 Assigned PCP 05/06/21 05/26/21 None 02/28/23 Rico Corey CHUTE BOSS Irish Moss Bleacher 06/24/23 07/08/23 Rico Corey CHUTE BOSS Irish Moss Bleacher 07/14/23 07/28/23 Maria Whitley MD [address] [place] [address]48 Assigned Gastroenterology Provider 09/19/23 Julien Miranda MD [address] [place] [address] 067184 Assigned Behavioral Health Provider 12/18/23 documented as of this encounter
--- OUTSIDE RECORDS SUMMARY | 2024-11-30 00:42 | XMS_ITS | Clinical Summary ---
Author Organization [facility] [facility] Address [address] [place] [address] Care Team Providers Care Environmental Assistant Name Role Phone Jaxson Jones MD Unavailable [phone] [facility] Unavailable [phone] Pcp, No Primary Care Provider Unavailabl e [...] per actuation) nasal solution (FLONASE) Inhale 1 [place] to both nostrils once daily if needed. [...] 08/31/2013 Overview (07/10/2023): Kyleena placed 02/17/2023 at [facility] Paraguard IUD inserted 08/27/2013 Need for desensitization to allergens 12/12/2005 Depressive disorder, not elsewhere classified Insomnia, unspecified 10/23/2005 Unspecified asthma, uncomplicated 08/15/2005 ParaGard IUD Overview (08/16/2015): Placed 2014 in [place] H pylori ulcer Pericardial effusion Alcohol abuse [...] on file Legal Sex Female 5:34 AM SCULLION CHIEF Gender Identity Not on file Sexual Orientation [...] HCV Early AM 01/02/2019 6:44 AM CDT BULK SYSTEM OPERATOR THIN PREP PAP SCREEN IMAGED Routine 04/11/2017 1:43 PM CDT Cervical cancer screening ANTI HIV 1/2 Routine 04/11/2017 1:42 PM CDT Screen for STD (sexually transmitted disease) from Last 3 Months or Most Recently Relevant to Health Maintenance Results * ANTI HCV (01/02/2019 6:44 AM CDT) HEPATITIS C ANTIBODY Non-React payton Non-React payton 01/03/2019 1:31 PM CDT [facility] Comment:Antibodies to HCV no t detected; does not exclude the possibility of exposure to HCV. Blood BLOOD SPECIMEN / Unknown Venipuncture / Unknown 01/02/2019 6:44 AM CDT 01/02/2019 6:54 AM CDT us Moises Carrasquillo MD SEND OUTS Final Res ult [facility] [address] [place] [address], [place] * (ABNORMAL) BULK SYSTEM OPERATOR THIN PREP PAP SCREEN IMAGED (04/11/2017 1:43 PM CDT) Case Report Gynecologic Cytology Report Case: [id number] Authorizing Provider: Rocio Spear MD Collected: 04/11/2017 1343 Ordering Location: [facility] [place] Received: 04/11/2017 1343 Clinic First Screen: Ena Castelan Pathologist: Viji Jones MD Specimen: BULK SYSTEM OPERATOR ThinPrep Vial Screening, Cervical 04/21/2017 5:46 PM CDT [facility] INTERPRETATION/ RESULT ATYPICAL SQUAMOUS CELLS OF UNDETERMINED SIGNIFICANCE (ASCUS)(A) (none) 04/21/2017 5:46 PM CDT [facility] [employer] [facility] ENTRAL [facility]ORATORY at 1746 CDT ORGANISM(S) Bacteria morphologically consistent with Actinomyces species 04/21/2017 5:46 PM CDT [facility] SPECIMEN ADEQUACY Satisfactory for evaluation Endocervical component present 04/21/2017 5:46 PM CDT [facility] HPV REQUEST HPV and PAP 04/21/2017 5:46 PM CDT [facility] Date of LMP 04-06-17 04/21/2017 5:46 PM CDT [facility] Last Pap Date 201304/21/2017 5:46 PM CDT [facility] Last Pap Result NIL 7 5:46 PM CDT [facility] Abnormal Pap or Ilfeld Bx in last 5 years No 04/21/2017 5:46 PM CDT [facility] Menstrual Status Irregular Periods 04/21/2017 5:46 PM CDT [facility] Ilfeld Bx Done Today No 04/21/2017 5:46 PM CDT [facility] Additional Information None given 04/21/2017 5:46 PM CDT [facility] Automated Review Successful 04/21/2017 5:46 PM CDT [facility] Comment:Specimen processed s uccessfully by automated burling and joining supervisor device, [employer] System, [employer] ANCILLARY TESTING BULK SYSTEM OPERATOR HPV Ordered, Please see separate report 04/21/2017 5:46 PM CDT [facility] Note The pap test is a screening technique, not a diagnostic procedure. It is used primarily to screen for squamous cancers and precursor lesions. Published studies have shown that it is subject to both false negative and false positive results. The pap test should not be used as the sole means to diagnose or exclude pre-malignant and malignant lesions. Interpreted at [facility] ([facility], [facility], [facility], [facility], [facility], [facility], [facility]) 04/21/2017 5:46 PM CDT [facility] Other (Cervical) 04/11/2017 1:43 PM CDT 04/11/2017 1:43 PM CDT us Rocio Spear MD PATHOLOGY/CYTOLOGY Final Resu lt [facility] [address] [place] [address], [place] * ANTI HIV 1/2 (04/11/2017 1:42 PM CDT) HIV-1/HIV-2 ANTIBODY Non-Reacti ve Non-Reacti ve 04/11/2017 5:58 PM CDT [facility] TR[facility] Blood BLOOD SPECIMEN / Unknown Venipuncture / Unknown 04/11/2017 1:42 PM CDT 04/11/2017 1:42 PM CDT Narrative [facility] - 04/11/2017 5:58 PM CDT HIV-1 p24 and HIV-1/HIV-2 Ab not detected Rocio Spear MD SEND OUTS Final Result [facility] [address] [place] [address], [place] from Last 3 Months or Most Recently Relevant to Health Maintenance Insurance [facility] [id number] [place] [id number] * Guarantor: Gretchen Cardoza Account Type Relation [...] Code Status Discussion: Not Discussed Care Teams Environmental Assistant Relationship Specialty Start Date End Date Pcp, No . PCP - General 03/27/21 Jaxson Jones MD Family Practice 12/29/18 [facility], [place], [facility] 01/08/17
--- OUTSIDE RECORDS SUMMARY | 2024-11-30 00:42 | XMS_ITS | Encounter Summary ---
Author Organization [place] Address [address] [place] [address] Care Team Providers Care Fruit Harvest Worker Name Role Phone No Ref-Primary, Physician Primary Care Provider Oam Pierson SYRUP MIXER HELPER RESEARCH PSYCHOLOGIST Unavailable Unav ailable Julissa Frank [facility] Unavailable [phone] Deborah Rascon DO Primary Care Provider [phone] Deborah Rascon DO Unavailable [phone] Shai Horta MD Unavailable [phone] Deborah Rascon DO Unavailable [phone] Jusitce Foster MD Unavailable [phone] Marie Abbott RESEARCH PSYCHOLOGIST Unavailable [phone] Jaxson Bryan MD Unavailable Jaxson Bryan MD Unavailable Yunior Mesa MD Unavailable [phone] Marai Whitley MD Unavailable [facility] re Provider Kaila Sen MD Primary Care Provide r Deborah Rascon DO Unavailable [phone] Jaxson Alejo MD Unavailable [phone] Radha Carrillo APRN RESEARCH PSYCHOLOGIST Unavailable [phone] Maria Whitley MD Unavailable Kaila Sen MD Unavailable [phone] Kaila Sen MD Unavailable [phone] Deborah Rascon DO Unavailable [phone] None Unavailable Unavailable Souk, Rico CORPORATE LEGAL INTERN Unavailable Unavailable Souk, Rico CORPORATE LEGAL INTERN Unavailable Unavailable Maria Whitley MD Unavailable Julien Miranda MD Unavailable [phone] Reason for Visit * Reason Onset Date Comments MH/CD Inpatient 04/20/2019 Encounter Details Date Type Department Care Team ([facility] st Contact Info) Description 04/20/2019 Telephone [facility] Behavioral Health Intake [address] [place] [phone] Generic, Behavioral Intake, MD MH/CD Inpatient Social [...] and notified them of pending admit -requested lube technician call back with any questions 1435: Text [...] documented as of this encounter Care Teams Fruit Harvest Worker Relationship Specialty Start Date End Date No Ref-Primary, Physician PCP - General 05/18/18 05/26/19 Deborah Rascon DO [address] [place] [address] 667154 PCP - General Family Practice 05/27/19 02/28/21 [facility] - [address] [address] PCP - General Family Medicine 03/01/21 03/07/21 Kaila Sen MD [address] [place] [address] PCP - General Family Medicine 03/08/21 Oma Pierson APRN RESEARCH PSYCHOLOGIST Assigned PCP 02/14/19 06/05/19 Julissa Frank [facility] [address] [address]884 Pharmacist Pharmacist 05/27/19 Deborah Rascon DO [address] 577524 Assigned PCP 03/18/21 04/28/21 Shai Horta MD 9[address] [place] [address] Dermatology 11/22/19 Deborah Rascon DO [address] [address] Referring Physician Family Practice 11/22/19 Justice Foster MD [address] [place] [address] 772296 Assigned Sleep Provider 05/19/20 Marie Abbott CNP [facility] [address] [place] [address] Assigned Behavioral Health Provider 05/19/20 05/12/21 Jaxson Bryan MD [address] [place] [address] Assigned Gastroenterology Provider 05/19/20 10/21/20 Jaxson Bryan MD [address] [place] [address] Assigned Surgical Provider 10/22/20 Yunior Mesa MD [address] [place] [address] 156265 Assigned Musculoskeletal Provider 01/28/21 03/24/21 Maria Whitley MD [address] [place] [address] 186625 Gastroenterology 02/23/21 Deborah Rascon DO [address] [place] [address] Assigned PCP 06/06/19 03/10/21 Jaxson Alejo MD [address] [place] [address] Assigned Musculoskeletal Provider 03/25/21 09/20/22 Radha Carrillo APRN CNP 606 [facility] 700 [place] [address] Assigned PCP 03/11/21 03/17/21 Maria Whitley MD [address] [place] [address] 877035 Assigned Gastroenterology Provider 03/04/21 08/30/22 Kaila Sen MD 14[address] [place] [address] Assigned PCP 05/27/21 Kaila Sen MD [address] [place] [address] Assigned PCP 04/29/21 05/05/21 Deborah Rascon DO [address] [place] [address] Assigned PCP 05/06/21 05/26/21 None 02/28/23 Rico Corey CORPORATE LEGAL INTERN Publications Editor 06/24/23 07/08/23 Rico Corey BSW Publications Editor 07/14/23 07/28/23 Maria Whitley MD 9[address] [place] [address] Assigned Gastroenterology Provider 09/19/23 Julien Miranda MD [address] [place] [address] Assigned Behavioral Health Provider 12/18/23 documented as of this encounter
--- OUTSIDE RECORDS SUMMARY | 2024-11-30 00:42 | XMS_ITS | Encounter Summary ---
Author Organization [place] Address [address] [place] [address] Care Team Providers Care Sky Line Yarder Name Role Phone No Ref-Primary, Physician [facility] Primary Care Prov ider Unavailable No Ref-Primary, Physician Primary Care Provider Amy Mace [employer]CHO[employer] SPECIAL EDUCATION TEACHER MARKET REPORTER Unavailable Amy Mace [employer] SPECIAL EDUCATION TEACHER MARKET REPORTER Unavailable Oma Pierson [employer] SPECIAL EDUCATION TEACHER MARKET REPORTER Unavailable Unav ailable Amy Mace [employer] SPECIAL EDUCATION TEACHER MARKET REPORTER Unavailable Oma Pierson [employer] SPECIAL EDUCATION TEACHER MARKET REPORTER Unavailable Unav ailable Julissa Frank [facility] Unavailable [phone] Deborah Rascon DO Primary Care Provider + Deborah Rascon DO Unavailable + [phone] Shai Horta MD Unavailable [phone] Deborah Rascon DO Unavailable + [phone] Justice Foster MD Unavailable [phone] Marie Abbott MARKET REPORTER Unavailable [phone] Jaxson Bryan MD Unavailable Jaxson Bryan MD Unavailable Yunior Mesa MD Unavailable [phone] Maria Whitley MD Unavailable Clinic - [facility] Primary Ca re Provider Kaila Sen MD Primary Care Provide r Deborah Rascon DO Unavailable [phone] Jaxson Diane MD Unavailable [phone] Radha Carrillo APRN MARKET REPORTER Unavailable + [phone] Maria Whitley MD Unavailable Kaila Sen MD Unavailable [phone] Kaila Sen MD Unavailable [phone] Deborah Rascon DO Unavailable [phone] None Unavailable Unavailable Leora, Rico LENS GRINDER AND POLISHER Unavailable Unavailable Rico Corey LENS GRINDER AND POLISHER Unavailable Unavailable Maria Whitley MD Unavailable Julien Miranda MD Unavailable [phone] Reason for Visit * Reason Onset Date Comments [facility] 02/07/2017 Encounter Details Date Type Department Care Team (Late st Contact Info) Description 02/07/2017 Telephone [facility] Behavioral Health Intake [address] [place] [phone] Generic, Behavioral Intake, [facility] Social History [...] Age: [age] year old Gender: female Insurance: [employer] [facility], no cert needed. Precipitating Event: Treatment due [...] at 100%,no limits w/auth for IP BHSI [phone] No auth for OP/IOP/Partial This patient will [...] Home first: or Mobile second: Eduard Matthews [id number] * Telephone Encounter - Aisha Tracey RN - 02/28/2017 12:44 PM CDT 1245 on 02/28/2017 - Pt called and stated that ulcer no longer present after appt with GI on 02/27. GI Provider would like pt to f/u up in 4 months. Pt understands that Tramadol cannot be taken while at [facility] Based on above assessment: Client meets medical criteria for admission to [facility] and Patient call routed for [...] Per client self report, . Appt with molder helper today: heart and lung condition improved, Fluid [...] Left VM on both pt home phone ([phone]) and cell ([phone]) for medical screen 1) Medications? Hydroxyzine; tramadol; [...] CDT 02-07-17 Client called to schedule cd ajck miller 02-13-17 @ 1245. etoh No cd tx hx Depression, anxiety Meds: Will bring list of meds and doses or the actual meds. She has a lot she said. Psychiatrist: none PCP: yes Lilli Vazquez [facility] Legal: none Medical: eliel-cardia. Requested insurance to be added and verified. fb documented in this encounter Plan of Treatment Not on file documented as of this encounter Visit Diagnoses Not on filedocumented in this encounter Care Teams Sky Line Yarder Relationship Specialty Start Date End Date No Ref-Primary, Physician PCP - General 03/02/18 04/02/18 [facility] PCP - General 04/03/18 05/17/18 No Ref-Primary, Physician PCP - General 05/18/18 05/26/19 Amy Mace APRN MARKET REPORTER [address] [facility] [place] [address] PCP - Assigned PCP 05/03/18 09/29/18 Deborah Rascon DO [address] 245334 PCP - General Family Practice 05/27/19 02/28/21 [facility] - [address] [id number] PCP - General Family Medicine 03/01/21 03/07/21 [place] [address] [place] [address] [id number] PCP - General Family Medicine 03/08/21 Amy Mace APRN MARKET REPORTER [address] [place] [address] Assigned PCP 05/03/18 10/10/18 Oma Pierson, MITCHEL MARKET REPORTER Assigned PCP 10/11/18 12/26/18 Amy Mace APRN MARKET REPORTER [address] [place] [address] Assigned PCP 12/27/18 02/13/19 Oma Pierson, MITCHEL MARKET REPORTER Assigned PCP 02/14/19 06/05/19 Julissa Frank [facility] 2450 [facility] [address] [phone] Pharmacist Pharmacist 05/27/19 Deborah Rascon DO [address] [place] [address] 688684 Assigned PCP 03/18/21 04/28/21 Shai Horta MD 909 [place] [address] MD Dermatology 11/22/19 Deborah Rascon DO [facility] [address] [address] Referring Physician Family Practice 11/22/19 Justice Foster MD [address] [place] [address] [id number] Assigned Sleep Provider 05/19/20 Marie Abbott CNP [facility] [address] [place] [address] Assigned Behavioral Health Provider 05/19/20 05/12/21 Jaxson Bryan MD [address] [place] [address] Assigned Gastroenterology Provider 05/19/20 10/21/20 Jaxson Bryan MD [address] [place] [address] Assigned Surgical Provider 10/22/20 Yunior Mesa MD [address] [place] [address] 848905 Assigned Musculoskeletal Provider 01/28/21 03/24/21 Maria Whitley MD [address] [place] [address] [phone] Gastroenterology 02/23/21 Deborah Rasocn DO [address] [place] [address] Assigned PCP 06/06/19 03/10/21 Jaxson Diane MD [address] [place] [address] Assigned Musculoskeletal Provider 03/25/21 09/20/22 Radha Carrillo APRN CNP [address] [place] [address] Assigned PCP 03/11/21 03/17/21 Maria Whitley MD [address] [place] [address]16 Assigned Gastroenterology Provider 03/04/21 08/30/22 Kaila Sen MD [address] [place] [address] Assigned PCP 05/27/21 Kaila Sen MD [address] [place] [address] Assigned PCP 04/29/21 05/05/21 Deborah Rascon DO [address] [place] [address] Assigned PCP 05/06/21 05/26/21 None 02/28/23 Rico Corey BSW Bevel Polisher 06/24/23 07/08/23 Rico Corey BSW Bevel Polisher 07/14/23 07/28/23 Maria Whitley MD 909 [place] [address] Assigned Gastroenterology Provider 09/19/23 Julien Miranda MD [address] [place] [address] Assigned Behavioral Health Provider 12/18/23 documented as of this encounter
--- OUTSIDE RECORDS SUMMARY | 2024-11-30 00:43 | XMS_ITS | Encounter Summary ---
Author Organization [place] Address [address] [place] [address] Care Team Providers Care Vp Compliance Name Role Phone ZacJulissa anthony [facility] Unavailable Shai Horta MD Unavailable [phone] Deborah Rascon DO Unavailable [phone] Maria Whitley MD Unavailable Kaila Sen MD Primary Care Provide r Kaila Sen MD Unavailable None Unavailable Unavailable Maria Whitley MD Unavailable Julien Miranda MD Unavailable [phone] Encounter Details Date Type Department Care Team (Late st Contact Info) Description 11/24/2023 [facility] Medical Advice [facility] [address] [address] [employer] [place] [address] Julien Miranda MD [facility] [place] [address] Social History Tobacco Use Types [...] Plan Substance Use 100%(06/30/20 23 1:42 PM HARDWARE INSTALLER) No Yehuda Conley , RICHAR, LADC Note: I will continue to go to 3 meetings per week and look for a sponsor. I will start IOP programming at [facility]. I will utilize the SW/LADC at [facility] for support as needed. Improve management of mental health symptoms and establish with mental health/psychosoci al supports Care Plan Mental Health Symptoms Need Improvement 100%(06/30/20 23 1:43 PM HARDWARE INSTALLER) Yehuda Francisco , DEPARTMENT ADMINISTRATOR, LAD Note: I will take medication as prescribed and let PCP at [facility] know of questions or concerns. I will look into therapy with help from SW/LADC at [facility] documented as of this encounter Visit Diagnoses Not on filedocumented in this encounter Additional Health Concerns Active Problems Noted Date Diagnosed Date Substance Use 06/30/2023 Mental Health Symptoms Need Improvement 06/30/20 23 Assessment Noted Time PHQ-9 Depression Total Score: 11 024 4:06 PM CDT documented as of this encounter Care Teams Vp Compliance Relationship Specialty Start Date End Date Kaila Sen MD [address] [place] [phone] PCP - General Family Medicine 03/08/21 Julissa Frank [facility] [address] [phone] Pharmacist Pharmacist 05/27/19 Shai Horta MD [address] [place] [address] [phone] Dermatology 11/22/19 Deborah Rascon DO [address] [place], [place] [phone] Referring Physician Family Practice 11/22/19 Maria Whitley MD [address] [place] [address] [phone] Gastroenterology 02/23/21 Kaila Sen MD [address] [place] [address] Assigned PCP 05/27/21 None 02/28/23 Maria Whitley MD [address] [place], [place] [phone] Assigned Gastroenterology Provider 09/19/23 Julien Miranda MD [address] [place], [place] [id number] Assigned Behavioral Health Provider 12/18/23 documented as of this encounter
--- OUTSIDE RECORDS SUMMARY | 2024-11-30 00:43 | XMS_ITS ---
Care Plan Created on: November 30, 2024 CardozaGretchen : 1990 Sex: Female Author Organization [place] Address [address] [place] [address] Care Team Providers Care Torpedo Man Name Role Phone Julissa Frank [facility] Unavailable Shai Horta MD Unavailable [phone] Deborah Rascon DO Unavailable [phone] Maria Whitley MD Unavailable Kaila Sen MD Primary Care Provide r Kaila Sen MD Unavailable None Unavailable Unavailable Maria Whitley MD Unavailable Julien Miranda MD Unavailable [phone] Active Problems * This document contains [...] Overview (02/17/2023): Luis Alberto placed 02/17/2023 at [facility] Major depression, recurrent 03/10/2018 [facility] with [...] Care Plan Substance Use 100%(06/30/20 1:42 PM ELECTRONIC FUNDS TRANSFER COORDINATOR) No Yehuda Conley LGSW, LADC Note: I will continue to go to 3 meetings per week and look for a sponsor. I will start IOP programming at [facility]. I will utilize the SW/LADC at [facility] for support as needed. Improve management of mental health symptoms and establish with mental health/psychosoci al supports Care Plan Mental Health Symptoms Need Improvement 100%(06/30/20 1:43 PM ELECTRONIC FUNDS TRANSFER COORDINATOR) No Yehuda Conley LGSW, MAHOGANY Note: I will take medication as prescribed and let PCP at [facility] know of questions or concerns. I will look into therapy with help from SW/LADC at [facility]. Interventions Care Plan Interventions Intervention Entry Date [...]
--- OUTSIDE RECORDS SUMMARY | 2024-11-30 00:43 | XMS_ITS | Encounter Summary ---
Author Organization [place] Address [address] [place] [address] Care Team Providers Care Veneer Clipper Name Role Phone ZacJulissa anthony [facility] Unavailable Shai Horta MD Unavailable [phone] Deborah Rascon DO Unavailable [phone] Maria Whitley MD Unavailable Kaila Sen MD Primary Care Provide r Kaila Sen MD Unavailable None Unavailable Unavailable Maria Whitley MD Unavailable Julien Miranda MD Unavailable [phone] Encounter Details Date Type Department Care Team (Late st Contact Info) Description 11/26/2023 [facility] Medical Advice [address] [address] Kaila Sen MD [address] [place] [address] [id number] Social History Tobacco Use Types Packs/Day Years [...] Plan Substance Use 100%(06/30/20 23 1:42 PM GOLF STUD RIVETER) No Yehuda Conley , RICHAR, LADC Note: I will continue to go to 3 meetings per week and look for a sponsor. I will start IOP programming at [facility]. I will utilize the SW/LADC at [facility] for support as needed. Improve management of mental health symptoms and establish with mental health/psychosoci al supports Care Plan Mental Health Symptoms Need Improvement 100%(06/30/20 1:43 PM GOLF STUD RIVETER) Yehuda Francisco , LENS INSPECTOR, LADC Note: I will take medication as prescribed and let PCP at [facility] know of questions or concerns. I will look into therapy with help from SW/LADC at [facility]. documented as of this encounter Visit Diagnoses Not on filedocumented in this encounter Additional Health Concerns Active Problems Noted Date Diagnosed Date Substance Use 06/30/2023 Mental Health Symptoms Need Improvement 06/30/20 Assessment Noted Time PHQ-9 Depression Total Score: 11 024 4:06 PM CDT documented as of this encounter Care Teams Veneer Clipper Relationship Specialty Start Date End Date Kaila Sen MD [address] [place] [phone] PCP - General Family Medicine 03/08/21 Julissa Frank [facility] [address] [place] [address] [place] [address] [phone] Pharmacist Pharmacist 05/27/19 Shai Horta MD [address] [place] [address] [phone] Dermatology 11/22/19 Deborah Rascon DO [address] [place] [address] [phone] Referring Physician Family Practice 11/22/19 Maria Whitley MD [address] [place] [address] [phone] Gastroenterology 02/23/21 Kaila Sen MD [address] [place] [address] Assigned PCP 05/27/21 None 02/28/23 Maria Whitley MD [address] [place], [place] 638955 Assigned Gastroenterology Provider 09/19/23 Julien Miranda MD [address] [place], [place] 349054 Assigned Behavioral Health Provider 12/18/23 documented as of this encounter
== END 2024-11-30 00:44 | disposition home or self-care (01) ==
LOC: ED 11-30 00:37
PROVIDERS: Emergency Provider Family Medicine
DX: S60.221A Contusion of right hand, initial encounter (principal); W31.9XXA Contact with unspecified machinery, initial encounter; Y92.9 Unspecified place or not applicable; Y99.0 Civilian activity done for income or pay
CPT/HCPCS: 73130; 99283; A9270